=== PATIENT | male | born 1970 | race Caucasian/White ===

== ENCOUNTER 2023-04-01 14:08 | Outpatient (OUT) | payer MEDICARE, SELFPAY ==
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
== END 2023-04-01 14:09 | disposition home or self-care (01) ==
PROVIDERS: PCP Internal Medicine; Visit Provider Anesthesiology Pain Medicine
DX: G89.29 Other chronic pain (principal)
CPT/HCPCS: G0463

== ENCOUNTER 2023-04-29 07:17 | Day surgery (SDC) | payer MEDICARE, SELFPAY ==
[2023-04-29 07:32] LABS: Glucometer 117 mg/dL (74-106)
[2023-04-29 07:36] VITALS: BP 134/91; PULSE 76; RESP 16; TEMP 36.2; O2SAT 95
[2023-04-29 08:13] VITALS: BP 121/75; PULSE 77; RESP 20; O2SAT 94
[2023-04-29] MEDS: 0.9 % SODIUM CHLORIDE 10 ML SYRINGE - SALINE FLUSH INJ (08:16)
[2023-04-29] MEDS: [UNRECOGNIZED DRUG - OTHER] IM (08:16)
[2023-04-29 08:17] VITALS: BP 129/75; PULSE 72; RESP 20; O2SAT 94
[2023-04-29] MEDS: BUPIVACAINE HCL 0.25% PF 25 MG/10 ML VIAL 4 ML INJ (08:17)
--- NOTE | 2023-04-29 10:17 | W.PM.PROCNOT ---
Date of procedure: 04/29/23 Pre-op diagnosis: dystonia/muscle contracture Post-op diagnosis: same
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
== END 2023-04-29 08:22 | disposition home or self-care (01) ==
PROVIDERS: PCP Internal Medicine; Visit Provider Anesthesiology Pain Medicine
DX: G24.8 Other dystonia (principal); M79.18 Myalgia, other site
CPT/HCPCS: 36415; 64642; 77002; 82948; J0586

== ENCOUNTER 2023-05-07 12:41 | Outpatient (OUT) | payer MEDICARE, SELFPAY ==
--- NOTE | 2023-05-07 | CONS_ITS ---
CONSULTATION DATE: ??05/07/2023 TO:? Enoc Nicolas D.O. HISTORY:? Patient returns today complaining of 7/10 pain in his left hip area, described as a sharp pain, which increases with activity such as standing, walking and performing transitioning maneuvers.? Patient is most comfortable in the semi-recumbent position.? Denies any change in bowel and bladder habits or new sensory motor change in the lower extremities. EXAMINATION:? Notable for patient?s dystonic changes of his left gluteus medius are markedly improved after successful injection of Dysport; however, he does have some dysesthesia and hyperesthesia overlying the distribution of the cutaneous branch of the posterior femoral nerve.? IMPRESSION:? 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 RECOMMENDATIONS:? At this point, I recommend no further intervention for his residual pain symptom.? I have asked him to continue with baclofen 10 mg b.i.d. as tolerated.? We will see him back in the office in approximately three months; time or sooner if needed. As part of providing excellent, safe, comprehensive care, the following was completed at our patient's visit: 1. A medication reconciliation and review to ensure accurate knowledge of current/active medications, including asking our patients to inform us about any [id number] medications or herbal remedies/nutritional supplements/alternative remedies. 2. A review to specifically ensure our patients have had annual screening for: elevated body mass index (BMI, see intake chart for exact total), tobacco use, screening for depression, and screening for unhealthy alcohol use.? When screening is concerning, patients are provided with education and the specific recommendation to discuss the concerning health issue and treatment options with their primary care provider. BHAVYA
== END 2023-05-07 12:42 | disposition home or self-care (01) ==
LOC: PM 12:42
PROVIDERS: PCP Internal Medicine; Visit Provider Anesthesiology Pain Medicine
DX: G57.22 Lesion of femoral nerve, left lower limb (principal)
CPT/HCPCS: G0463

== ENCOUNTER 2023-08-07 10:57 | Outpatient (OUT) | payer MEDICARE, SELFPAY ==
--- NOTE | 2023-08-07 11:07 | P.CN_ITS ---
Consult Note: HPI Data of Consult Patient: known to practice within the last 3 years Requesting Physician: Rowan Montenegro NP Primary Care Provider: AYUSH ARBOLEDA MD Consult Narrative Reason for consult: f/u Narrative: Mauro Hebert a pleasant 52 year old male presents for evaluation and management of chronic left outer thigh pain. Pain today 03/31 described as a sharp pain, which increases with activity such as standing, walking and perf orming transitioning maneuvers.? Patient is most comfortable in the semi- recumbent position.? cc:: CC: Rowan Montenegro NP Review of Systems ROS Status of ROS 10 or more systems reviewed and unremarkable except as noted in history and below Meds Home Medications and Allergies Home Medications Medication Instructions Recorded Confirmed Type CBD BID 04/01/23 History atorvastatin 40 mg tablet 40 mg PO QPM 04/01/23 04/29/23 History baclofen 10 mg tablet 10 mg PO BID 04/01/23 04/29/23 History calcium 600 mg capsule mg PO BID 04/01/23 History cariprazine 1.5 mg capsule 1.5 mg PO DAILY 04/01/23 04/29/23 History (Vraylar) cetirizine 10 mg capsule (Zyrtec) 10 mg PO DAILY 04/01/23 04/29/23 History cholecalciferol (vitamin D3) 125 5,000 unit PO DAILY 04/01/23 04/29/23 History mcg (5,000 unit) capsule dextromethorphan 20 mg-quinidine 1 cap PO Q12H 04/01/23 04/29/23 History 10 mg capsule (Nuedexta) dulaglutide 3 mg/0.5 mL 3 mg subcut QWEEK 04/01/23 04/29/23 History subcutaneous pen injector (Trulicity) empagliflozin 25 mg tablet 25 mg PO QAM 04/01/23 04/29/23 History (Jardiance) famotidine 20 mg tablet 20 mg PO DAILY 04/01/23 04/29/23 History gabapentin enacarbil 600 mg 600 mg PO QPM 04/01/23 04/29/23 History tablet,extended release (Horizant ER) irbesartan 150 mg tablet 150 mg PO DAILY 04/01/23 04/29/23 History memantine 10 mg tablet (Namenda) 28 mg PO QAM 04/01/23 04/29/23 History metformin 1,000 mg tablet 1,000 mg PO BID 04/01/23 04/29/23 History montelukast 10 mg tablet 10 mg PO DAILY 04/01/23 04/29/23 History naltrexone 50 mg tablet 3 mg PO BID 04/01/23 04/29/23 History risperidone 0.5 mg tablet 0.5 mg PO DAILY 04/01/23 04/29/23 History (Risperdal) venlafaxine 75 mg capsule,extended 75 mg PO BID 04/01/23 04/29/23 History release 24 hr Allergies Allergy/AdvReac Type Severity Reaction Status Date / Time acetaminophen [From Vicodin] Allergy Unknown Verified 04/29/23 07:39 hydrocodone [From Vicodin] Allergy Unknown Verified 04/29/23 07:39 DONNATOL Allergy Unknown Uncoded 04/29/23 07:39 Exam Constitutional Documenting provider has reviewed patient's vital signs: yes Common normals: no apparent distress, oriented x3, healthy appearing, alert and well nourished General appearance: cooperative HENMT Common normals: normocephalic, hearing grossly normal bilaterally and moist oral mucous membranes Head and scalp: normocephalic Eye Common normals: PERRL Pupil: PERRL Neck & C-Spine Common normals: full ROM General: normal visual inspection Chest Common normals: inspection of chest normal Respiratory Common normals: normal respiratory effort, no retractions and no use of accessory muscles Extremity Other: dystonic changes of his left gluteus medius however, some dysesthesia and hyperesthesia overlying the distribution of the cutaneous branch of the posterior femoral nerve.? Extremity image (front): 1. Neuro Common normals: oriented x3, CN's II-XII intact bilaterally, moves all extre mities, no focal motor deficits, no sensory deficits noted and deep tendon reflexes 2+ bilaterally Sensorium/orientation: alert Motor exam: strength 5/5 throughout and no movement abnormalities noted Psych Common normals: mental status grossly normal, thought process normal, cooperative, affect normal, speech normal and activity/motor behavior normal Speech: normal speech Thought process: normal thought process Results Additional Findings Additional findings: I have checked an [facility] report on this patient today and there are no aberrancies noted in the prescribing history.?? A drug screen was completed and reviewed within the last year, and if there has not been a drug screen completed we ordered one today to monitor higher risk, state monitored pain medication use. As part of providing excellent, safe, comprehensive care, the following was completed at our patient's visit: 1. A medication reconciliation and review to ensure accurate knowledge of curre nt/active medications, including asking our patients to inform us about any zekt-[id number] medications or herbal remedies/nutritional supplements/alternative remedies. 2. A review to specifically ensure our patients have had annual screening for: elevated body mass index (BMI), tobacco use, screening for depression, and screening for unhealthy alcohol use. When screening is concerning, patients are provided with education and the specific recommendation to discuss the concerning health issue and treatment options with their primary care provider. Assessment and Plan Assessment and Plan (1) Dystonia: (2) Chronic pain syndrome: (3) Neuritis: Plan start transdermal therapeutics cream 6a to left outer thigh TID continue current medications will repeat dysport injection with Dr Ramirez in the future
== END 2023-08-07 10:58 | disposition home or self-care (01) ==
LOC: PM 10:57
PROVIDERS: PCP Internal Medicine; Visit Provider Nurse Practitioner
DX: G24.9 Dystonia, unspecified (principal); G89.4 Chronic pain syndrome; M79.2 Neuralgia and neuritis, unspecified
CPT/HCPCS: G0463

== ENCOUNTER 2023-08-26 09:21 | Day surgery (SDC) | payer MEDICARE, SELFPAY ==
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
[2023-08-26 10:08] VITALS: BP 120/81; PULSE 75; RESP 16; TEMP 36.2; O2SAT 97
[2023-08-26 10:12] LABS: Glucometer 94 mg/dL (74-106)
[2023-08-26 11:04] VITALS: BP 115/57; PULSE 74; RESP 18; O2SAT 95
[2023-08-26 11:13] VITALS: BP 131/72; PULSE 69; RESP 18; O2SAT 93
[2023-08-26] MEDS: [UNRECOGNIZED DRUG - OTHER] 600 UNIT IM (11:21)
[2023-08-26] MEDS: 0.9 % SODIUM CHLORIDE 10 ML SYRINGE - SALINE FLUSH 20 ML INJ (11:22)
[2023-08-26] MEDS: LIDOCAINE HCL 2% 400 MG/20 ML MDV 3 ML INJ (11:49)
== END 2023-08-26 11:22 | disposition home or self-care (01) ==
LOC: SURGOUT 09:21
PROVIDERS: PCP Internal Medicine; Visit Provider Anesthesiology Pain Medicine
DX: M79.652 Pain in left thigh (principal); Z79.84 Long term (current) use of oral hypoglycemic drugs; G24.8 Other dystonia
CPT/HCPCS: 36415; 64642; 77002; 82948; J0586

== ENCOUNTER 2024-06-08 11:32 | Outpatient (OUT) | payer MEDICARE, SELFPAY ==
--- NOTE | 2024-06-08 | CONS_ITS ---
CONSULTATION DATE: 06/08/2024 TO: Enoc Nicolas D.O. HISTORY: Patient presented today complaining of severe pain at the left buttock area, left hip area. Reports it rated 8/10, sharp in character, increased with activities such as standing, walking and performing transitioning maneuvers. He also reports prolonged standing is quite painful. Denies any change in bowel and bladder habits. Describes a burning sensation and sometimes numbness of his left buttock and hip area, which is fairly new. He continues to use baclofen 10 mg b.i.d., gabapentin 600 mg q.h.s. He is unable to tolerate nonsteroidals secondary to GI distress. He continues to be on an independent activity program, which is supervised by myself, and he has been quite compliant with this. Despite this, he has been having progressive increasing pain symptoms over the last six weeks, despite increasing his baclofen and changes in his activity level. His TROY on today?s visit was 42% EXAMINATION: Notable for patient having dysesthesia and hyperesthesia overlying the distribution of the cutaneous branch of the posterior femoral nerve. Patient also had significant myofascial dysfunction with dystonic changes left gluteus medius with concurrent myalgia, resulting in mild hip external rotation as well as mild hip extension. IMPRESSION: Our impression is patient with chronic pain, secondary to dystonic changes of the left gluteus medius muscle and neuritis involving the cutaneous branch of the posterior femoral nerve. RECOMMENDATIONS: I recommend proceeding with a Dysport injection of the left gluteus medius under fluoroscopic guidance using a nerve stimulator. We will use a total of 300 units. His last injection was back in April of 2023. He had over a year of improvement with his last procedure. I have gone over the details of procedure with the patient, as well as his mother. All their questions were answered. They agreed to proceed with the outlined plan. As part of providing excellent, safe, comprehensive care, the following was completed at our patient's visit: 1. A medication reconciliation and review to ensure accurate knowledge of current/active medications, including asking our patients to inform us about any [id number] medications or herbal remedies/nutritional supplements/alternative remedies. 2. A review to specifically ensure our patients have had annual screening for: elevated body mass index (BMI, see intake chart for exact total), tobacco use, screening for depression, and screening for unhealthy alcohol use. When screening is concerning, patients are provided with education and the specific recommendation to discuss the concerning health issue and treatment options with their primary care provider. BHAVYA
== END 2024-06-08 11:33 | disposition home or self-care (01) ==
LOC: PM 11:32
PROVIDERS: PCP Internal Medicine; Visit Provider Anesthesiology Pain Medicine
DX: M25.552 Pain in left hip (principal); M79.18 Myalgia, other site
CPT/HCPCS: G0463

== ENCOUNTER 2024-06-22 08:14 | Day surgery (SDC) | payer MEDICARE, SELFPAY ==
[2024-06-22 08:38] VITALS: BP 122/85; PULSE 94; TEMP 36.3; O2SAT 95
[2024-06-22 08:51] LABS: Glucometer 90 mg/dL (74-106)
[2024-06-22 09:25] VITALS: BP 165/91; PULSE 84; O2SAT 94
[2024-06-22 09:30] VITALS: BP 148/95; PULSE 84; O2SAT 94
[2024-06-22] MEDS: 0.9 % SODIUM CHLORIDE 10 ML SYRINGE - SALINE FLUSH 9 ML INJ (09:37)
[2024-06-22] MEDS: [UNRECOGNIZED DRUG - OTHER] IM (09:37)
--- NOTE | 2024-06-22 09:43 | W.PM.PROCNOT ---
Date of procedure: 06/22/24 Pre-op diagnosis: Dystonia Post-op diagnosis: same as pre-op Procedure: PROCEDURE:? Dysport infiltration left gluteus medius under fluoroscopic guidance. SOLUTION USED FOR INJECTION:? Dysport 300 units. IMMEDIATE COMPLICATIONS:? None. PERFORMED:? Under fluoroscopic guidance, 2% lidocaine used for the skin wheal. ANESTHESIA:? Performed under local anesthesia. PROCEDURE:? After informed consent was obtained from the patient, placed in the prone position.? Skin overlying the area was prepped with Betadine.? A 25 gauge, 1 ?? needle used for the skin wheal over the area of the left gluteus medius, at a point just distal to the greater trochanter.? A 25g spinal needle was inserted over the area of the left gluteus medius after having positive capture of the left gluteus medius with nerve stimulation.? We injected Omnipaque dye 1 mL to confirm needle tip placement.? We injected 300 units of Dysport in the area.? No indication of intravascular or intraneural needle tip placement or injection was noted.? Post procedure, needle was removed and transferred to recovery in stable condition, to be discharged home after meeting criteria. Anesthesia: Local Surgeon: Kilo Ramirez Condition: stable Anesthesia: Local Surgeon: Kilo Ramirez Condition: stable
== END 2024-06-22 09:41 | disposition home or self-care (01) ==
LOC: SURGOUT 08:14
PROVIDERS: PCP Internal Medicine; Visit Provider Anesthesiology Pain Medicine
DX: G24.9 Dystonia, unspecified (principal)
CPT/HCPCS: 36415; 64642; 77002; 82948; J0586

== ENCOUNTER 2024-12-16 09:24 | Outpatient (OUT) | payer MEDICARE, SELFPAY ==
--- NOTE | 2024-12-16 09:53 | P.CN_ITS ---
Consult Note: HPI Data of Consult Patient: known to practice within the last 3 years Requesting Physician: Rowan Montenegro NP Primary Care Provider: AYUSH ARBOLEDA DO Consult Narrative Reason for consult: f/u Narrative: Mauro Hebert a pleasant 54 year old male presents for evaluation and management of chronic left outer thigh pain. Pain today 8-9/10 described as a sharp pain, which increases with activity such as standing, walking and performing transitioning maneuvers.? Patient is most comfortable in the semi- recumbent position.? cc:: CC: Rowan Montenegro NP Review of Systems ROS Status of ROS 10 or more systems reviewed and unremark able except as noted in history and below Musculoskeletal Reports: extremity pain PFSH PFS Medical History (Updated 12/16/24 @ 09:55 by Roawn Montenegro NP) Diabetes ?E11.9 - Type 2 diabetes mellitus without complications (ICD-10) Tear of left gluteus medius tendon ?S76.012A - Strain of muscle, fascia and tendon of left hip, initial encounter (ICD-10) Rheumatoid arthritis ?M06.9 - Rheumatoid arthritis, unspecified (ICD-10) Sleep apnea ?G47.30 - Sleep apnea, unspecified (ICD-10) High cholesterol ?E78.00 - Pure hypercholesterolemia, unspecified (ICD-10) Meds Home Medications and Allergies Home Medications ?Medication ?Instructions ?Recorded ?Confirmed ?Type CBD BID 04/01/23 History atorvastatin 40 mg tablet 40 mg PO QPM 04/01/23 06/22/24 History baclofen 10 mg tablet 10 mg PO BID 04/01/23 06/22/24 History calcium 600 mg capsule mg PO BID 04/01/23 History cariprazine 1.5 mg capsule 1.5 mg PO DAILY 04/01/23 06/22/24 History (Vraylar) dextromethorphan 20 mg-quinidine 1 cap PO Q12H 04/01/23 06/22/24 History 10 mg capsule (Nuedexta) dulaglutide 3 mg/0.5 mL 3 mg subcut QWEEK 04/01/23 06/22/24 History subcutaneous pen injector (Trulicity) empagliflozin 25 mg tablet 25 mg PO QAM 04/01/23 06/22/24 History (Jardiance) gabapentin enacarbil 600 mg 600 mg PO QPM 04/01/23 06/22/24 History tablet,extended release (Horizant ER) irbesartan 150 mg tablet 150 mg PO DAILY 04/01/23 06/22/24 History memantine 10 mg tablet (Namenda) 28 mg PO QAM 04/01/23 06/22/24 History metformin 1,000 mg tablet 1,000 mg PO BID 04/01/23 06/22/24 History naltrexone 50 mg tablet 3 mg PO BID 04/01/23 06/22/24 History risperidone 0.5 mg tablet 0.5 mg PO DAILY 04/01/23 06/22/24 History (Risperdal) venlafaxine 75 mg capsule,extended 75 mg PO .qod 04/01/23 06/22/24 History release 24 hr modafinil 100 mg tablet (Provigil) 100 mg PO DAILY 08/20/23 06/22/24 History Allergies Allergy/AdvReac Type Severity Reaction Status Date / Time hydrocodone (From Vicodin) Allergy Unknown Verified 08/26/23 10:06 DONNATOL Allergy Unknown Uncoded 08/26/23 10:06 Exam Constitutional Documenting provider has reviewed patient's vital signs: yes Common normals: no apparent distress, oriented x3, healthy appearing, alert and well nourished General appearance: cooperative HENMT Common normals: normocephalic, hearing grossly normal bilaterally and moist oral mucous membranes Head and scalp: normocephalic Eye Common normals: PERRL Pupil: PERRL Neck & C-Spine Common normals: full ROM General: normal visual inspection Chest Common normals: inspection of chest normal Respiratory Common normals: normal respiratory effort, no retractions and no use of accessory muscles Extremity Other: dystonic changes of his left gluteus medius however, some dysesthesia and hyperesthesia overlying the distribution of the cutaneous branch of the posterior femoral nerve.? notable tenderness to left GTB Neuro Common normals: oriented x3, CN's II-XII intact bilaterally, moves all extremities, no focal motor deficits, no sensory deficits noted and deep tendon reflexes 2+ bilaterally Sensorium/orientation: alert Motor exam: strength 5/5 throughout and no movement abnormalities noted Psych Common normals: mental status grossly normal, thought process normal, cooperative, affect normal, speech normal and activity/motor behavior normal Speech: normal speech Thought process: normal thought process Results Additional Findings Additional findings: I have checked an OARRS report on this patient today and there are no aberrancies noted in the prescribing history.?? A drug screen was completed and reviewed within the last year, and if there has not been a drug screen completed we ordered one today to monitor higher risk, state monitored pain medication use. As part of providing excellent, safe, comprehensive care, the following was completed at our patient's visit: 1. A medication reconciliation and review to ensure accurate knowledge of current/active medications, including asking our patients to inform us about any [id number] medications or herbal remedies/nutritional supplements/alternative remedies. 2. A review to specifically ensure our patients have had annual screening for: elevated body mass index (BMI), tobacco use, screening for depression, and screening for unhealthy alcohol use. When screening is concerning, patients are provided with education and the specific recommendation to discuss the concerning health issue and treatment options with their primary care provider. Assessment and Plan Assessment and Plan (1) Dystonia: (2) Chronic pain syndrome: (3) Neuritis: (4) Greater trochanteric bursitis of left hip: Plan repeat left gluteus medius dysport injection for dystonia of left gluteus medius. pt found significant benefit from prior injection >80% improvement greater than 4 months continue HEP as tolerated continue current medications f/u after injection
== END 2024-12-16 09:25 | disposition home or self-care (01) ==
LOC: PM 09:25
PROVIDERS: PCP Internal Medicine; Visit Provider Nurse Practitioner
DX: G24.9 Dystonia, unspecified (principal); G89.4 Chronic pain syndrome; G58.8 Other specified mononeuropathies; M70.62 Trochanteric bursitis, left hip
CPT/HCPCS: G0463

== ENCOUNTER 2024-12-27 10:13 | Day surgery (SDC) | payer MEDICARE, SELFPAY ==
[2024-12-27 11:09] VITALS: BP 136/87; PULSE 70; TEMP 36.2
[2024-12-27 11:18] LABS: Glucometer 87 mg/dL (74-106)
[2024-12-27] MEDS: BUPIVACAINE HCL 0.25% PF 25 MG/10 ML VIAL INJ (11:59)
[2024-12-27] MEDS: LIDOCAINE HCL 2% PF 100 MG/5 ML VIAL 2 ML INJ (12:00)
[2024-12-27] MEDS: METHYLPREDNISOLONE ACETATE 80 MG/ML VIAL INJ (12:00)
[2024-12-27] MEDS: IOHEXOL 240 MG/ML - 50 ML VIAL INJ (12:00)
[2024-12-27] MEDS: 0.9 % SODIUM CHLORIDE 10 ML SYRINGE - SALINE FLUSH INJ (12:00)
[2024-12-27] MEDS: [UNRECOGNIZED DRUG - OTHER] IM (12:01)
--- NOTE | 2024-12-27 12:01 | W.PM.PROCNOT ---
Date of procedure: 12/27/24 Pre-op diagnosis: Dystonia Post-op diagnosis: same as pre-op Procedure: Procedure: Dysport infiltration left gluteus medius under fluoroscopic guidance SOLUTION USED FOR INJECTION:? Dysport 300 units. IMMEDIATE COMPLICATIONS:? None. PERFORMED:? Under fluoroscopic guidance, 2% lidocaine used for the skin wheal. ANESTHESIA:? Performed under local anesthesia. PROCEDURE:? After informed consent was obtained from the patient, placed in the prone position.? Skin overlying the area was prepped with Betadine.? A 25 gauge, 1 ?? needle used for the skin wheal over the area of the left gluteus medius, at a point just distal to the greater trochanter.? A 25g spinal needle was inserted over the area of the left gluteus medius after having positive capture of the left gluteus medius with nerve stimulation.? We injected Omnipaque dye 1 mL to confirm needle tip placement.? We injected 300 units of Dysport in the area.? No indication of intravascular or intraneural needle tip placement or injection was noted.? Post procedure, needle was removed and transferred to recovery in stable condition, to be discharged home after meeting criteria. Anesthesia: Local Surgeon: Refugio Javier Pathology: none sent Condition: stable Disposition: no change
== END 2024-12-27 12:06 | disposition home or self-care (01) ==
LOC: SURGOUT 10:14
PROVIDERS: PCP Internal Medicine; Visit Provider Anesthesiology
DX: G24.9 Dystonia, unspecified (principal); E11.8 Type 2 diabetes mellitus with unspecified complications; Z79.85 Long-term (current) use of injectable non-insulin antidiabetic drugs; Z79.84 Long term (current) use of oral hypoglycemic drugs
CPT/HCPCS: 36415; 64642; 82948; J0586; J0665; J1010; Q9966

== ENCOUNTER 2025-01-17 13:23 | Outpatient (OUT) | payer MEDICARE, SELFPAY ==
--- NOTE | 2025-01-17 14:16 | P.CN_ITS ---
Consult Note: HPI Data of Consult Patient: known to practice within the last 3 years Consult date: 01/17/25 Requesting Physician: Refugio Javier MD Primary Care Provider: AYUSH ARBOLEDA DO Consult Narrative Reason for consult: bilateral knee pain Narrative: 54yom who presents for assessment. notes significant relief after recent right gluteus injection. now notes worsening bilateral knee pain. denies adverse med side effects. cc:: CC: Refugio Javier MD Review of Systems ROS Status of ROS 10 or more systems reviewed and unremark able except as noted in history and below PFSH PFS Medical History Low back pain ?M54.50 - Low back pain, unspecified (ICD-10) Diabetes ?E11.9 - Type 2 diabetes mellitus without complications (ICD-10) Tear of left gluteus medius tendon ?S76.012A - Strain of muscle, fascia and tendon of left hip, initial encounter (ICD-10) Rheumatoid arthritis ?M06.9 - Rheumatoid arthritis, unspecified (ICD-10) Sleep apnea ?G47.30 - Sleep apnea, unspecified (ICD-10) High cholesterol ?E78.00 - Pure hypercholesterolemia, unspecified (ICD-10) Surgical History S/P tendon repair ?Z98.890 - Other specified postprocedural states (ICD-10) S/P ORIF (open reduction internal fixation) fracture ?Z98.890 - Other specified postprocedural states (ICD-10) ?Z87.81 - Personal history of (healed) traumatic fracture (ICD-10) Meds Home Medications and Allergies Home Medications ?Medication ?Instructions ?Recorded ?Confirmed ?Type CBD BID 04/01/23 History atorvastatin 40 mg tablet 40 mg PO QPM 04/01/23 12/27/24 History calcium 600 mg capsule mg PO BID 04/01/23 History cariprazine 1.5 mg capsule 1.5 mg PO DAILY 04/01/23 12/27/24 History (Vraylar) dextromethorphan 20 mg-quinidine 1 cap PO Q12H 04/01/23 12/27/24 History 10 mg capsule (Nuedexta) dulaglutide 3 mg/0.5 mL 3 mg subcut QWEEK 04/01/23 12/27/24 History subcutaneous pen injector (Trulicity) empagliflozin 25 mg tablet 25 mg PO QAM 04/01/23 12/27/24 History (Jardiance) gabapentin enacarbil 600 mg 600 mg PO QPM 04/01/23 12/27/24 History tablet,extended release (Horizant ER) memantine 10 mg tablet (Namenda) 28 mg PO QAM 04/01/23 12/27/24 History metformin 1,000 mg tablet 1,000 mg PO BID 04/01/23 12/27/24 History naltrexone 50 mg tablet 3 mg PO BID 04/01/23 12/27/24 History risperidone 0.5 mg tablet 0.5 mg PO DAILY 04/01/23 12/27/24 History (Risperdal) venlafaxine 75 mg capsule,extended 75 mg PO .qod 04/01/23 12/27/24 History release 24 hr modafinil 100 mg tablet (Provigil) 100 mg PO DAILY 08/20/23 12/27/24 History acetaminophen 500 mg tablet 500 mg PO Q6H PRN pain 12/28/24 12/28/24 History (Acetaminophen Extra Strength) aspirin 81 mg capsule 81 mg PO DAILY 12/28/24 12/28/24 History baclofen 10 mg tablet mg 12/28/24 History cetirizine 10 mg disintegrating 10 mg PO BID PRN allergy symptoms 12/28/24 12/28/24 History tablet cholecalciferol (vitamin D3) 125 5,000 unit PO DAILY 12/28/24 12/28/24 History mcg (5,000 unit) capsule diphenhydramine HCl 25 mg capsule 25 mg PO Q8H PRN itching 12/28/24 12/28/24 History (Benadryl) famotidine 20 mg tablet 20 mg PO DAILY PRN indigestion 12/28/24 12/28/24 History irbesartan 75 mg tablet mg 12/28/24 History montelukast 10 mg tablet mg 12/28/24 History Allergies Allergy/AdvReac Type Severity Reaction Status Date / Time atropine (From ) Allergy Unknown Unknown Verified 12/27/24 11:28 hydrocodone (From Vicodin) Allergy Unknown Unknown Verified 12/27/24 11:28 hyoscyamine (From ) Allergy Unknown Unknown Verified 12/27/24 11:28 phenobarbital (From ) Allergy Unknown Unknown Verified 12/27/24 11:28 scopolamine (From ) Allergy Unknown Unknown Verified 12/27/24 11:28 Exam Narrative Exam Narrative: Psych-alert and oriented x 3.? Attentive and appropriate, constitutionally normal, displays normal mood and aff ect per situation.? There are no obvious deficits in memory, reasoning, or intellect. Extremities-lower extremities are warm with minimal edema and palpable pulses. Knee-examination of the bilateral knee reveals tenderness to palpation over the superior, inferior, lateral, and medial aspect of the knee.? Some swelling is noted without erythema. Pain is elicited with flexion and extension of the knee both actively and passively.? Some grinding is noted with these motions.? There is no notable ligamental laxity or instability.? Coordination remains intact.? Gait remains antalgic. Assessment and Plan Assessment and Plan (1) Bilateral knee pain: Qualifiers: Chronicity: chronic Qualified Code(s): M25.561 - Pain in right knee; M25.562 - Pain in left knee; G89.29 - Other chronic pain Plan 54yom who presents for assessment. i am glad that he had significant relief after his recent injection. his primary complaint now is bilateral knee pain. discussed that if this were to persist, could obtain bilateral knee xrs. he expressed understanding. meds reviewed, no changes. follow up as needed.
== END 2025-01-17 13:24 | disposition home or self-care (01) ==
LOC: PM 13:25
PROVIDERS: PCP Internal Medicine; Visit Provider Anesthesiology
DX: M25.561 Pain in right knee (principal); M25.562 Pain in left knee; G89.29 Other chronic pain
CPT/HCPCS: G0463

== ENCOUNTER 2025-05-18 13:47 | Outpatient (OUT) | payer MEDICARE, SELFPAY ==
--- OUTSIDE RECORDS SUMMARY | 2025-05-18 13:51 | XMS_ITS | Encounter Summary ---
Author Organization [facility] Address [address] [place] [address] Care Team Providers Care Cardiothoracic Icu Rn Name Role Phone Fareed Edmondson [facility] [phone] Fidencio Goode DO, Charles [facility] Source Comments In the event this information is protected by the Federal Confidentiality of Alcohol and Drug AbusePatient Records regulations: The Federal rules restrict any use of the information to criminally investigate or prosecute any alcohol or drug abuse patient.[facility] Encounter Details Date Type Department Care Team (Late st Contact Info) Description 01/29/2022 Patient Msg Pre Anesthesia [address] [place], [place] [id number] Jenny Marquez APRN.[employer] [address] [place] [address] Pre-op Instructions Social History Tobacco Use Types Packs/Day Years Used Date Smoking Tobacco: Former Cigarettes Smokeless Tobacco: Former Chew Alcohol Use Standard Drinks/Week Comments Never 0 (1 standard drink = 0.6 oz pur e alcohol) Sex and Gender Information Value Date Recorded Sex Assigned at Male 11/27/2021 7:24 PM EST Legal Sex Male 9:45 AM EST Gender Identity Male 11/27/2021 7:24 PM EST Sexual Orientation Choose not to disclose 2021 7:24 PM EST COVID-19 Exposure Response Date Recorded In the last 10 days, have yo u been in contact with someone who was confirmed or suspected to have Coronavirus/COVID-19? No / Unsure 01/30/2022 10:30 AM EDT documented as of this encounter Plan of Treatment Not on file documented as of this encounter Visit Diagnoses Not on filedocumented in this encounter Additional Health Concerns Infection Onset Date Last Indicated Resolved Time COVID-19 Rule-Out 01/30/2022 01/30/2022 01/30/2022 5:57 PM EDT documented as of this encounter Care Teams Cardiothoracic Icu Rn Relationship Specialty Start Date End Date Enoc Nicolas Jr., DO [facility] [place] [address] PCP - General Internal Medicine 01/25/22 Fareed Edmondson [address] [place] [address] Referring Pain Management 11/13/21 documented as of this encounter
--- OUTSIDE RECORDS SUMMARY | 2025-05-18 13:51 | XMS_ITS | Clinical Summary ---
Author Organization [facility] Address [address] [facility], [address] [place] [address] Care Team Providers Care Stone Product Fabricator Name Role Phone Enoc Nicolas DO Primary Care Provider Allergies No known active allergies Medications calcium carbonate 600 MG TABS tablet Take 1 tablet by mouth daily Active venlafaxine 150 MG extended release tablet Take 150 mg by mouth 2 times daily Active losartan (COZAAR) 100 MG tablet Take 100 mg by mouth daily Active Cholecalciferol (VITAMIN D3) 5000 units TABS Take by mouth Active atorvastatin (LIPITOR) 40 MG tablet Take 40 mg by mouth daily Active [place]-3 Fatty Acids (FISH OIL) 1000 MG CAPS Take 3,000 mg by mouth 3 times daily Active ziprasidone (GEODON) 60 MG capsule Take 60 mg by mouth 2 times daily (with meals) Active gabapentin (NEURONTIN) 600 MG tablet Take 600 mg by mouth 3 times daily.. Active psyllium (KONSYL) 28.3 % PACK Take 1 packet by mouth daily Active famotidine (PEPCID) 20 MG tablet Take 20 mg by mouth 2 times daily Active montelukast (SINGULAIR) 10 MG tablet Take 10 mg by mouth nightly Active dextromethorpha n-quiNIDine (NUEDEXTA) 20-10 MG CAPS per capsule Take 1 capsule by mouth daily Active baclofen (LIORESAL) 10 MG tablet Take 10 mg by mouth 3 times daily Active acetaminophen (TYLENOL) 500 MG tablet Take 1 tablet by mouth every 8 hours as needed for Pain 30 tablet 08/26/2018 Active naproxen (NAPROSYN) 250 MG tablet Take 1 tablet by mouth 2 times daily (with meals) 60 tablet 08/26/2018 Active Active Problems Problem Noted Date Diagnosed Date Multiple closed fractures of ribs 08/22/2018 Social History Tobacco Use Types Packs/Day Years Used Date Smoking Tobacco: Never Smokeless Tobacco: Never Alcohol Use Standard Drinks/Week Comments No 0 (1 standard drink = 0.6 oz pur e alcohol) Sex and Gender Information Value Date Recorded Sex Assigned at Not on file Legal Sex Male 1:00 PM EST Gender Identity Not on file Sexual Orientation Not on file Last Filed Vital Signs Vital Sign Reading Time Taken Comments Blood Pressure 153/116 08/26/2018 4:29 PM EST Pulse 95 08/26/2018 4:29 PM EST Temperature 36.6 C (97.9 F) 08/26/2018 7:00 AM EST Respiratory Rate 17 08/26/2018 7:00 AM EST Oxygen Saturation 97% 08/26/2018 7:00 AM EST Inhaled Oxygen Concentration - - Weight 117.9 kg (260 lb) 08/23/2018 6:00 PM EST Height 182.9 cm (6') 08/23/2018 6:00 PM EST Body Mass Index 35.26 08/23/2018 6:00 PM EST Plan of Treatment Not on [place] [place] [address] [employer] Advance Directives Documents on File Type Date Recorded Patient Voip Network Technician Expl anation ACP-Advance Directive 08/27/2018 1:10 PM ACP-Power of Child Advocate 08/27/2018 1:10 PM * Full Code (Latest Code Status on File) Date Activated Date Inactivated Comments 08/22/2018 3:14 PM 08/26/2018 9:25 PM Care Teams Stone Product Fabricator Relationship Specialty Start Date End Date Enoc Nicolas DO [address] [place] [id number] PCP - General Internal Medicine 08/22/18
--- OUTSIDE RECORDS SUMMARY | 2025-05-18 13:51 | XMS_ITS | Encounter Summary ---
Author Organization [facility] Address [address] [place] [address] Care Team Providers Care Imaging Science Professor Name Role Phone Fareed Edmondson Unavailable [phone] Fidencio Goode DO, Charles Lewis Primary Care [facility] Source Comments In the event this information is protected by the Federal Confidentiality of Alcohol and Drug AbusePatient Records regulations: The Federal rules restrict any use of the information to criminally investigate or prosecute any alcohol or drug abuse patient.[facility] Encounter Details Date Type Department Care Team (Late st Contact Info) Description 04/12/2022 Patient Msg Orth and Rheum [facility] [address] [place] [address] Provider, [facility] medication Social History Tobacco Use Types Packs/Day Years Used Date Smoking Tobacco: Former Cigarettes Smokeless Tobacco: Former Chew Alcohol Use Standard Drinks/Week Comments Never 0 (1 standard drink = 0.6 oz pur e alcohol) Area Deprivation Index Answer Date Win rded National Score (1-100), lower number is lower ri 64 02/13/2022 State Score (1-10), lower number is lower risk N ot on file 02/13/2022 Data from: https://www.neighborhoodatlas.[facility].edu/. Last address used for calculation [address] 02/13/2022 Sex and Gender Information Value Date Recorded [...] suspected to have Coronavirus/COVID-19? No / Unsure 03/15/2022 11:52 AM EDT documented as of this encounter Functional Status * Are you deaf or do you have serious difficulty hearing? Answer Date of Assessment Author No 01/31/2022 12:59 PM EDT Florian Ramos RN * Are you blind or do you have serious difficulty seeing, even when wearing glasses? Answer Date of Assessment Author No 01/31/2022 12:59 PM EDT Florian Ramos RN * Do you have serious difficulty walking or climbing stairs? Answer Date of Assessment Author No 01/31/2022 12:59 PM EDT Florian Ramos RN * Do you have difficulty dressing or bathing? Answer Date of Assessment Author No 01/31/2022 12:59 PM EDT Florian Ramos RN * Because of a physical, mental, or emotional condition, do you have difficulty doing errands alone such as visiting a doctor's office or shopping? Answer Date of Assessment Author No 01/31/2022 12:59 PM EDT Florian Ramos RN documented as of this encounter Mental Status * Because of a physical, mental, or emotional condition, do you have serious difficulty concentrating, remembering, or making decisions? Answer Entry Date Author No 01/31/2022 12:59 PM EDT Florian Ramos RN documented in this encounter Plan of Treatment Not on file documented as of this encounter Visit Diagnoses Not on filedocumented in this encounter Care Teams Imaging Science Professor Relationship Specialty Start Date End Date Enoc Nicolas Jr., [address] [facility] [place] [address] PCP - General Internal Medicine 01/25/22 Fareed Edmondson [address] [place] [address] Referring Pain Management 11/13/21 documented as of this encounter
--- OUTSIDE RECORDS SUMMARY | 2025-05-18 13:51 | XMS_ITS | Clinical Summary ---
Author Organization [facility] Address [address] [place] [address] Care Team Providers Care Fibrous Plasterer Name Role Phone Fareed Edmondson Unavailable [phone] Fidencio Goode DO, Charles Lewis Primary Care Provi rowan Allergies Active Allergy Reactions Criticality Noted Date Comments Donnatol [Other] 04/30/2001 hives Hydrocodone-Acetaminophen Anaphylaxis High 2 Medications * This document contains information received from the source organization and may not represent a complete record from that organization. FIBER, DEXTRIN, ORAL Take by mouth. Activ e Calcium Carbonate-Vitamin D3 (VITAMIN D-3) 180-5,000 mg-unit Tab Take 5,000 Units by mouth daily at bedtime. Active NUEDEXTA 20-10 mg capsule Take 1 capsule by mouth twice daily. 11/29/19 22 Active metFORMIN (GLUCOPHAGE) 500 mg tablet Take 1 tablet by mouth twice daily. 11/24/19 22 Active calcium carbonate/vitamin D2 ([id number] ORAL) Take 1 tablet by mouth twice daily. Active venlafaxine ER (EFFEXOR XR) 150 mg 24 hr capsule Take 150 mg by mouth once daily. Active irbesartan (AVAPRO) 300 mg tablet Take 300 mg by mouth daily at bedtime. Active memantine XR (NAMENDA XR) 28 mg CSpX Take 28 mg by mouth once daily. Active gabapentin enacarbil (HORIZANT) 600 mg TbER Take 1 tablet by mouth once daily. Active famotidine (PEPCID) 20 mg tablet Take 20 mg by mouth once daily. Active montelukast (SINGULAIR) 10 mg tablet Take 10 mg by mouth daily at bedtime. Active baclofen (LIORESAL) 10 mg tablet Take 10 mg by mouth three times daily. Active empagliflozin (JARDIANCE) 25 mg tablet Take 12.5 mg by mouth daily with breakfast. Active sulindac (CLINORIL) 200 mg tablet Take 200 mg by mouth twice daily. Active dulaglutide (TRULICITY) 3 mg/0.5 mL pen injector Inject 3 mg subcutaneously one time a week. Active atorvastatin (LIPITOR) 40 mg tablet Take 40 mg by mouth once daily. Active ondansetron orally disintegrating (ZOFRAN ODT) 4 mg disintegrating tablet Take 1 tablet by mouth every 8 hours as needed for nausea/vomiting. 12 tablet 2 2:03 PM EDT 01/31/20 Active acetaminophen (ACETAMINOPHEN EXTRA STRENGTH) 500 mg tablet Take 1 tablet by mouth every 6 hours as needed for pain. 40 tablet 2 2:03 PM EDT 01/31/20 Active ziprasidone (GEODON) 60 mg capsule Take 1 capsule by mouth three times daily with meals. 02/01/20 Active ibuprofen (MOTRIN) 600 mg tablet Take 1 tablet by mouth every 6 hours as needed for pain (and swelling). 60 tablet 02/16/20 Active methocarbamol (ROBAXIN) 500 mg tablet Take 1 tablet by mouth three times daily as needed (muscle spasms or pain). 40 tablet 08/09/20 Active Active Problems Problem Noted Date Diagnosed Date Type 2 diabetes mellitus, [facility] long-term current use of insulin 01/29/2022 Assessment & Plan (01/29/2022 11:48 AM EDT): Assessment: controlled on weekly injectable and oral meds, Pt states he has been taking his Jardiance, last dose this am. Surgery is tomorrow. A1c requested from PCP's office Dementia 01/29/2022 Assessment & Plan (01/29/2022 11:49 AM EDT): Assessment: secondary to TBI, PCP now manages medications for this Mixed hyperlipidemia 01/29/2022 Assessment & Plan (01/29/2022 11:49 AM EDT): Assessment: c/w statin Essential hypertension, benign 01/29/2022 Assessment & Plan (01/29/2022 11:50 AM EDT): Assessment: controlled on rx Last 14 BP Last 14 Encounter BP Readings: Date: BP: 08/03/2012 120/86 07/16/2012 125/95 06/26/2001 128/72 06/12/2001 118/68 06/02/2001 112/72 05/18/2001 144/94 04/30/2001 120/84 MART (obstructive sleep apnea) 01/29/2022 Assessment & Plan (01/29/2022 11:50 AM EDT): Assessment: c/w CPAP Anxiety and depression 01/29/2022 Assessment & Plan (01/29/2022 11:50 AM EDT): Assessment: stable on rx per pt and family Tear of left gluteus medius tendon 01/29/2022 Pain in joint, pelvic region and thigh 2 Neuralgia, neuritis, and radiculitis, unspecifie d 05/03/2001 Myalgia and myositis, unspecified 05/03/2001 Social History Tobacco Use Types Packs/Day Years Used Date Smoking Tobacco: Former Cigarettes Smokeless Tobacco: Former Chew Tobacco Cessation:Counseling Given: Not Answered Alcohol Use Standard Drinks/Week Comments Never 0 (1 standard drink = 0.6 oz pur e alcohol) Area Deprivation Index Answer Date Win rded National Score (1-100), lower number is lower ri sk 64 10/16/2022 State Score (1-10), lower number is lower risk N ot on file 10/16/2022 Data from: https://www.neighborhoodatlas.medicine.[facility].edu/. Last address used for calculation [address] 10/16/2022 Sex and Gender Information Value Date Recorded Sex Assigned at Male 11/27/2021 7:24 PM EST Legal Sex Male 9:45 AM EST Gender Identity Male 11/27/2021 7:24 PM EST Sexual Orientation Choose not to disclose 2021 7:24 PM EST Last Filed Vital Signs Vital Sign Reading Time Taken Comments Blood Pressure 120/78 01/31/2022 8:58 AM EDT Pulse 75 01/31/2022 8:58 AM EDT Temperature 36.8 C (98.2 F) 01/31/2022 8:58 AM EDT Respiratory Rate 18 01/31/2022 8:58 AM EDT Oxygen Saturation 97% 01/31/2022 8:58 AM EDT Inhaled Oxygen Concentration - - Weight 98.1 kg (216 lb 4.3 oz) 01/30/2022 5:25 P M EDT Height 188 cm (6' 2 ) 01/30/2022 5:25 PM EDT Body Mass Index 27.77 01/30/2022 5:25 PM EDT Plan of Treatment Health Maintenance Due Date Last Done Comments HbA1C 1974 Diabetic Foot Exam 11/24/1979 Dilated Retinal Exam 11/24/1979 Urine Albumin:Creatinine Ratio 11/24/1979 Annual PCP Team Chronic Disease Visit 11/24/1987 HIV Screening 11/24/1987 Hepatitis C Screening 11/24/1987 LDL Cholesterol 11/24/1987 Hepatitis B Vaccine (1 of 3 - 19+ 3-dose series) 11/23 Pneumococcal Vaccine: 50+ (1 of 2 - PCV) 1988 CT Colonography 2014 Cologuard (FIT-DNA) 2014 Colonoscopy 2014 Colorectal Cancer Screening 2014 Fecal Occult Blood 2014 Prostate Cancer Screening Discussion 2014 Sigmoidoscopy 2014 Shingrix Vaccine (1 of 2) 11/24/2019 Medicare Advantage Annual Wellness Visit 09/22/2024 Influenza Vaccine (#1) 2025 DTaP,Tdap,Td Vaccine (2 - Td or Tdap) 06/20/2032 Medical Devices Implanted Type Area Childcare Director Device Identifier Shelf Expiration Date Model / Serial / Lot Drybranch Swivelock 4.75mm Peek 19.1mm Suture Closed Eyelet Vent Sterile - [id number] Implanted:Qty : 1 on 01/30/2022 at [facility] Drybranch Left: Leg [employer] 06/21/2025 [id number] / / [id number] Drybranch Swivelock 4.75mm Peek 19.1mm Suture Closed Eyelet Vent Sterile - [id number] Implanted:Qty : 1 on 01/30/2022 at [facility] Drybranch Left: Leg [employer] 04/21/2026 [id number] / / [id number] Drybranch Healicoil Pk 4.5mm 2 Full Thread [place] Suture 2 - [id number] Implanted:Qty : 1 on 01/30/2022 at [facility] Suture Drybranch Left: Bone - Hip [employer] 02/23/2026 [id number] / / [id number] Drybranch Healicoil Pk 4.5mm 2 Full Thread Blue [place] Suture 2 - [id number] Implanted:Qty : 1 on 01/30/2022 at [facility] Suture Drybranch Left: Bone - Hip [employer] 01/18/2026 [id number] / / [id number] Drybranch Healicoil Pk 4.5mm 2 Full Thread Blue [place] Suture 2 - [id number] Implanted:Qty : 1 on 01/30/2022 at [facility] Suture Drybranch Left: Bone - Hip [employer] 01/18/2026 [id number] / / Insurance AETNA MEDICARE Care Teams Fibrous Plasterer Relationship Specialty Start Date End Date Enoc Nicolas Jr., DO [address] [place] [id number] PCP - General Internal Medicine 01/25/22 Fareed Edmondson [address] [place] [address] Referring Pain Management 11/13/21
--- OUTSIDE RECORDS SUMMARY | 2025-05-18 13:51 | XMS_ITS | Clinical Summary ---
Author Organization [facility] Address [address] [facility] [place] [address] Care Team Providers Care Supervisor Rod Placing Name Role Phone Unavailable Primary Care Provider Unavailabl e Social History Tobacco Use Types Packs/Day Years Used Date Smoking Tobacco: Never Assessed Sex and Gender Information Value Date Recorded Sex Assigned at Not on file Legal Sex Male 7:09 PM EDT Gender Identity Not on file Sexual Orientation Not on file Last Filed Vital Signs Vital Sign Reading Time Taken Comments Blood Pressure 141/99 04/07/2020 12:00 PM EDT Pulse - - Temperature - - Respiratory Rate - - Oxygen Saturation - - Inhaled Oxygen Concentration - - Weight 96.2 kg (212 lb) 04/07/2020 12:00 PM EDT Height 188 cm (6' 2 ) 04/07/2020 12:00 PM EDT Body Mass Index 27.22 04/07/2020 12:00 PM EDT Plan of Treatment Not on file
--- OUTSIDE RECORDS SUMMARY | 2025-05-18 13:51 | XMS_ITS | Encounter Summary ---
Author Organization [facility] Address [facility] [place] [address] Care Team Providers Care Head Of Housekeeping Name Role Phone Fareed Edmondson Unavailable [phone] Fidencio Goode DO, Charles Lewis Primary Care Provi [facility] Source Comments In the event this information is protected by the Federal Confidentiality of Alcohol and Drug AbusePatient Records regulations: The Federal rules restrict any use of the information to criminally investigate or prosecute any alcohol or drug abuse patient.[facility] Encounter Details Date Type Department Care Team (Latest Contact Info) Description 01/23/2022 Patient [facility] [address] [place] [address] Provider, Ccf Dr. Estrada pre-op instructions Social History Tobacco Use Types Packs/Day Years [...] suspected to have Coronavirus/COVID-19? No / Unsure 01/25/2022 8:49 AM EDT documented as of this encounter Plan of Treatment Not on file documented as of this encounter Visit Diagnoses Not on filedocumented in this encounter Additional Health Concerns Infection Onset Date Last Indicated Resolved Time COVID-19 Rule-Out 01/30/2022 01/30/2022 01/30/2022 5:57 PM EDT documented as of this encounter Care Teams Head Of Housekeeping Relationship Specialty Start Date End Date Enoc Nicolas Jr., DO [facility] [place] [address] PCP - General Internal Medicine 01/25/22 Fareed Edmondson [address] [place] [address] Referring Pain Management 11/13/21 documented as of this encounter
--- OUTSIDE RECORDS SUMMARY | 2025-05-18 13:51 | XMS_ITS | Encounter Summary ---
Author Organization [facility] Address [address] [place] [address] Care Team Providers Care Bullet Lubricant Mixer Name Role Phone Fidencio Goode DO, Charles Lewis Primary Care Provi rowan Fareed Edmondson Unavailable [phone] Fidencio Goode DO, Charles Lewis Primary Care Provi rowan Source Comments In the event this information is protected by the Federal Confidentiality of Alcohol and Drug AbusePatient Records regulations: The Federal rules restrict any use of the information to criminally investigate or prosecute any alcohol or drug abuse patient.[facility] Encounter Details Date Type Department Care Team (Late st Contact Info) Description 07/01/2012 [facility] [address] [place] [address] Merlin Hollingsworth MD [address] [place] [address] Social History Tobacco Use Types Packs/Day Years Used Date Smoking Tobacco: Never Assessed Sex and Gender Information Value Date Recorded Sex Assigned at Male 11/27/2021 7:24 PM EST Legal Sex Male 9:45 AM EST Gender Identity Male 11/27/2021 7:24 PM EST Sexual Orientation Choose not to disclose 2021 7:24 PM EST documented as of this encounter Plan of Treatment Not on file documented as of this encounter Visit Diagnoses Not on filedocumented in this encounter Additional Health Concerns Infection Onset Date Last Indicated Resolved Time COVID-19 Rule-Out 01/30/2022 01/30/2022 01/30/2022 5:57 PM EDT documented as of this encounter Care Teams Bullet Lubricant Mixer Relationship Specialty Start Date End Date Enoc Nicolas Jr., DO [address] [facility] [place] [id number] PCP - General 05/06/01 11/12/21 Enoc Nicolas Jr., DO [address] [place] [address] PCP - General Internal Medicine 01/25/22 Fareed Edmondson [address] [place] [address] Referring Pain Management 11/13/21 documented as of this encounter
--- OUTSIDE RECORDS SUMMARY | 2025-05-18 13:51 | XMS_ITS | Encounter Summary ---
Author Organization [facility] Address [facility] [place] [address] Care Team Providers Care Sample Processor Name Role Phone Fareed Edmondson Unavailable [phone] Fidencio Goode DO, Charles Lewis Primary Care Provi [facility] Source Comments In the event this information is protected by the Federal Confidentiality of Alcohol and Drug AbusePatient Records regulations: The Federal rules restrict any use of the information to criminally investigate or prosecute any alcohol or drug abuse patient.[facility] Encounter Details Date Type Department Care Team (Late st Contact Info) Description 01/25/2022 Patient [facility] [address] [place] [address] Provider, Ccf Pre op covid test Social History Tobacco Use Types Packs/Day Years [...] documented as of this encounter Care Teams Sample Processor Relationship Specialty Start Date End Date Enoc Nicolas Jr., DO [address] [place] [address] PCP - General Internal Medicine 01/25/22 Fareed Edmondson [address] [place] [address] Referring Pain Management 11/13/21 documented as of this encounter
--- OUTSIDE RECORDS SUMMARY | 2025-05-18 13:51 | XMS_ITS | Clinical Summary ---
Author Organization [facility] Address [address] [place] [address] Care Team Providers Care Front Office Help Name Role Phone Unavailable Primary Care Provider Unavailabl e Social History Tobacco Use Types Packs/Day Years Used Date Smoking Tobacco: Never Assessed [place] Safety & Environment Answer Date Rec orded Fear of Current or Ex-Partner Not on file Emotionally Abused Not on file 11/13/2023 Physically Abused Not on file 11/13/2023 Sexually Abused Not on file 11/13/2023 Physically or Sexually Abused Not on file Sex and Gender Information Value Date Recorded Sex Assigned at Not on file Legal Sex Male 9:50 PM EDT Gender Identity Not on file Sexual Orientation Not on file Last Filed Vital Signs Vital Sign Reading Time Taken Comments Blood Pressure - - Pulse - - Temperature - - Respiratory Rate - - Oxygen Saturation - - Inhaled Oxygen Concentration - - Weight 104 kg (230 lb) 10/29/2021 8:45 AM EST Height 188 cm (6' 2 ) 10/29/2021 8:45 AM EST Body Mass Index 29.53 10/29/2021 8:45 AM EST Plan of Treatment Health Maintenance Due Date Last Done Comments CT Colonography 1969 Colonoscopy 1969 Colorectal Cancer Screening 1969 FIT-DNA 1969 FIT 1969 FOBT 1969 Medicare Annual Wellness (AWV) 1969 Sigmoidoscopy 1969 Depression Screening 1981 Hepatitis B Vaccines (1 of 3 - 19+ 3-dose series) 1988 Adult Tetanus 11/24/1991 Zoster Vaccines (1 of 2) 11/24/2019 Influenza Vaccine (#1) 2025 HIB Vaccines Aged Out No longer eligi ble based on patient's age to complete this topic HPV Vaccines Aged Out No longer eligi ble based on patient's age to complete this topic IPV Vaccines Aged Out No longer eligi ble based on patient's age to complete this topic Meningococcal B Vaccine Aged Out No l onger eligible based on patient's age to complete this topic Meningococcal Vaccine Aged Out No tacho negrito eligible based on patient's age to complete this topic Pneumococcal Vaccine: Pediat rics (0 to 5 Years) and At-Risk Patients (6 to 64 Years) Aged Out No longer eligible b ased on patient's age to complete this topic Rotavirus Vaccines Aged Out No longer eligible based on patient's age to complete this topic Insurance AETNA MEDICARE ADVANTAGE
--- OUTSIDE RECORDS SUMMARY | 2025-05-18 13:51 | XMS_ITS | Encounter Summary ---
Author Organization [facility] Address [address] [place] [address] Care Team Providers Care Electronics Engineering Technician Name Role Phone Fareed Edmondson Unavailable [phone] Fidencio Goode DO, Charles Lewis Primary Care Provi [facility] Source Comments In the event this information is protected by the Federal Confidentiality of Alcohol and Drug AbusePatient Records regulations: The Federal rules restrict any use of the information to criminally investigate or prosecute any alcohol or drug abuse patient.[facility] Encounter Details Date Type Department Care Team (Late st Contact Info) Description 01/23/2022 Patient [facility] [address] [place] [address] Provider, Ccf Pre-op form Social History Tobacco Use Types Packs/Day Years [...] documented as of this encounter Care Teams Electronics Engineering Technician Relationship Specialty Start Date End Date Enoc Nicolas Jr., DO [address] [place] [address] PCP - General Internal Medicine 01/25/22 Fareed Edmondson [address] [place] [address] Referring Pain Management 11/13/21 documented as of this encounter
--- OUTSIDE RECORDS SUMMARY | 2025-05-18 13:51 | XMS_ITS | Encounter Summary ---
Author Organization [facility] Address [facility] [place] [address] Care Team Providers Care Cold Working Supervisor Name Role Phone Fareed Edmondson Unavailable [phone] Fidencio Goode DO, Charles Lewis Primary Care Provi [facility] Source Comments In the event this information is protected by the Federal Confidentiality of Alcohol and Drug AbusePatient Records regulations: The Federal rules restrict any use of the information to criminally investigate or prosecute any alcohol or drug abuse patient.[facility] Encounter Details Date Type Department Care Team (Latest Contact Info) Description 01/09/2022 Patient [facility] [address] [place] [address] Provider, Ccf Dr. Estrada pre-op [...] suspected to have Coronavirus/COVID-19? No / Unsure 01/11/2022 7:10 AM EDT documented as of this encounter Plan of Treatment Not on file documented as of this encounter Visit Diagnoses Not on filedocumented in this encounter Additional Health Concerns Infection Onset Date Last Indicated Resolved Time COVID-19 Rule-Out 01/30/2022 01/30/2022 01/30/2022 5:57 PM EDT documented as of this encounter Care Teams Cold Working Supervisor Relationship Specialty Start Date End Date Enoc Nicolas Jr., DO [facility] [place] [address] PCP - General Internal Medicine 01/25/22 Fareed Edmondson [address] [place] [address] Referring Pain Management 11/13/21 documented as of this encounter
--- NOTE | 2025-05-18 14:11 | PM.CN ---
Consult Note: HPI Data of Consult Patient: known to practice within the last 3 years Consult date: 05/18/25 Requesting Physician: Rowan Montenegro NP Primary Care Provider: AYUSH ARBOLEDA DO Consult Narrative Reason for consult: f/u Narrative: Muaro Hebert a pleasant 54 year old male presents for evaluation and management of chronic left posterior and lateral thigh pain. Pain today 7/10, increases with activity such as standing, walking and performing transitioning maneuvers.?notes mild improvement with lidocaine patches and TENS. previously underwent left gluteus medius dysport injection with significant relief for 4 months, pt would like to repeat as pain is worsening. cc:: CC: Rowan Montenegro NP Review of Systems ROS Musculoskeletal Reports: extremity pain PFSH PFSH Medical History Low back pain ?M54.50 - Low back pain, unspecified (ICD-10) Diabetes ?E11.9 - Type 2 diabetes mellitus without complications (ICD-10) Tear of left gluteus medius tendon ?S76.012A - Strain of muscle, fascia and tendon of left hip, initial encounter (ICD-10) Rheumatoid arthritis ?M06.9 - Rheumatoid arthritis, unspecified (ICD-10) Sleep apnea ?G47.30 - Sleep apnea, unspecified (ICD-10) High cholesterol ?E78.00 - Pure hypercholesterolemia, unspecified (ICD-10) Surgical History S/P tendon repair ?Z98.890 - Other specified postprocedural states (ICD-10) S/P ORIF (open reduction internal fixation) fracture ?Z98.890 - Other specified postprocedural states (ICD-10) ?Z87.81 - Personal history of (healed) traumatic fracture (ICD-10) Meds Home Medications and Allergies Home Medications ?Medication ?Instructions ?Recorded ?Confirmed ?Type CBD BID 04/01/23 History atorvastatin 40 mg tablet 40 mg PO QPM 04/01/23 12/27/24 History calcium 600 mg capsule mg PO BID 04/01/23 History cariprazine 1.5 mg capsule 1.5 mg PO DAILY 04/01/23 12/27/24 History (Vraylar) dextromethorphan 20 mg-quinidine 1 cap PO Q12H 04/01/23 12/27/24 History 10 mg capsule (Nuedexta) dulaglutide 3 mg/0.5 mL 3 mg subcut QWEEK 04/01/23 12/27/24 History subcutaneous pen injector (Trulicity) empagliflozin 25 mg tablet 25 mg PO QAM 04/01/23 12/27/24 History (Jardiance) gabapentin enacarbil 600 mg 600 mg PO QPM 04/01/23 12/27/24 History tablet,extended release (Horizant ER) memantine 10 mg tablet (Namenda) 28 mg PO QAM 04/01/23 12/27/24 History metformin 1,000 mg tablet 1,000 mg PO BID 04/01/23 12/27/24 History naltrexone 50 mg tablet 3 mg PO BID 04/01/23 12/27/24 History risperidone 0.5 mg tablet 0.5 mg PO DAILY 04/01/23 12/27/24 History (Risperdal) venlafaxine 75 mg capsule,extended 75 mg PO .qod 04/01/23 12/27/24 History release 24 hr modafinil 100 mg tablet (Provigil) 100 mg PO DAILY 08/20/23 12/27/24 History acetaminophen 500 mg tablet 500 mg PO Q6H PRN pain 12/28/24 12/28/24 History (Acetaminophen Extra Strength) aspirin 81 mg capsule 81 mg PO DAILY 12/28/24 12/28/24 History baclofen 10 mg tablet mg 12/28/24 History cetirizine 10 mg disintegrating 10 mg PO BID PRN allergy symptoms 12/28/24 12/28/24 History tablet cholecalciferol (vitamin D3) 125 5,000 unit PO DAILY 12/28/24 12/28/24 History mcg (5,000 unit) capsule diphenhydramine HCl 25 mg capsule 25 mg PO Q8H PRN itching 12/28/24 12/28/24 History (Benadryl) famotidine 20 mg tablet 20 mg PO DAILY PRN indigestion 12/28/24 12/28/24 History irbesartan 75 mg tablet mg 12/28/24 History montelukast 10 mg tablet mg 12/28/24 History Allergies Allergy/AdvReac Type Severity Reaction Status Date / Time atropine (From ) Allergy Unknown Unknown Verified 12/27/24 11:28 hydrocodone (From Vicodin) Allergy Unknown Unknown Verified 12/27/24 11:28 hyoscyamine (From ) Allergy Unknown Unknown Verified 12/27/24 11:28 phenobarbital (From ) Allergy Unknown Unknown Verified 12/27/24 11:28 scopolamine (From ) Allergy Unknown Unknown Verified 12/27/24 11:28 Exam Constitutional Documenting provider has reviewed patient's vital signs: yes Common normals: no apparent distress, oriented x3, healthy appearing, alert and well nourished General appearance: cooperative HENPA Common normals: normocephalic, hearing grossly normal bilaterally and moist oral mucous membranes Head and scalp: normocephalic Eye Common normals: PERRL Pupil: PERRL Neck & C-Spine Common normals: full ROM General: normal visual inspection Chest Common normals: inspection of chest normal Respiratory Common normals: normal respiratory effort, no retractions and no use of accessory muscles Back & Pelvis Lumbar spine/lower back: pain with ROM and lumbar spinal tenderness Extremity Other: dystonic changes of his left gluteus medius Neuro Common normals: oriented x3, CN's II-XII intact bilaterally, moves all extremities, no focal motor deficits, no sensory deficits noted and deep tendon reflexes 2+ bilaterally Sensorium/orientation: alert Motor exam: strength 5/5 throughout and no movement abnormalities noted Psych Common normals: mental status grossly normal, thought process normal, cooperative, affect normal, speech normal and activity/motor behavior normal Speech: normal speech Thought process: normal thought process Assessment and Plan Assessment and Plan (1) Dystonia: Assessment and Plan: 12-27-24 left gluteus medius dysport injection with >50% improvement greater than 4 months Plan 54 year old male with 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 utilizes lidocaine patches and TENS prn with mild benefit, as well as tylenol and gabapentin. repeat left gluteus medius dysport injection under fluoroscopy with nerve stimulator with Dr Javier. f/u after injection
--- OUTSIDE RECORDS SUMMARY | 2025-05-18 14:11 | XMS_ITS | CCD ---
Author Organization [facility] Inform ion Partnership [facility] ([facility] Care Team Providers Care Cornice Upholsterer Name Role Phone ENOC ARBOLEDA Unavailable Unavailable DE SAINT RICCI, MAR Unavailable Unavailabl e CAVAZOS, MAR Unavailable Unavailabl e ANTIPORDA, OZZIE Unavailable Unavailable DEREK HUNTLEY Unavailable Unavailable Hong Edmondson Unavailable Nkechi Goode, Enoc Marquez Primary Care Provider Hong Edmondson Unavailable Enoc Arboleda Jr. Primary Care Provider Hong Edmondson Unavailable ENOC ARBOLEDA JR Primary Care Physician Hong Edmondson Unavailable Enoc Arboleda Jr. Primary Care Provider DR TRAV SANCHEZ Consulting Unavailable LAURA, DR RAVI Admitting Unavailable VALONE, DR PEACOCK Primary Care Unavailable LAURA, DR RAVI Attending Unavailable VALONE, DR PEACOCK Primary Care Unavailable MISC, DR LEZAMA Admitting Unavailable MISC, DR LEZAMA Attending Unavailable VALONE, DR PEACOCK Primary Care Unavailable VALONE, DR PEACOCK Admitting Unavailable VALONE, DR PEACOCK Attending Unavailable VALONE, DR PEACOCK Consulting Unavailable ELISEO, DR DELMAR Toth Consulting Unavailable YueUMBJOI HONG Admitting Unavailable YueUMBJOI HONG Attending Unavailable VALONE, DR PEACOCK Primary Care Unavailable MAYURI, DR TAMMIE Alba Consulting Unavailable ZUMBJOI, HONG Consulting Unavailable ZUMBJOI HONG Admitting Unavailable MAYURI, DR TAMMIE Alba Consulting Unavailable ZUMBJOI HONG Attending Unavailable VALONE, DR PEACOCK Primary Care Unavailable ZUMBAR, HONG Consulting Unavailable Link Fu Unavailable Hong Edmondson Attending Unavailable Rasta Edmondsonry Referring Unavailable MD Hong Edmondson Admitting Unavailable Hong Edmondson Attending Unavailable Hong Edmondson Referring Unavailable MD Hong Edmondson Admitting Unavailable Hong Edmondson Referring Unavailable Hong Edmondson Attending Unavailable MD Hong Edmondson Admitting Unavailable Hong Edmondson Attending Unavailable ENOC ARBOLEDA Referring Unavailable MD Hong Edmondson Admitting Unavailable Hong Edmondson Attending Unavailable Hong Edmondson Admitting Unavailable ENOC ARBOLEDA Referring Unavailable Hong Edmondson Attending Unavailable MD Hong Edmondson Admitting Unavailable ENOC ARBOLEDA Referring Unavailable Hong Edmondson Attending Unavailable Hong Edmondson Admitting Unavailable ENOC ARBOLEDA Referring Unavailable ENOC ARBOLEDA Referring Unavailable Peri Johnson Attending Unavailable Peri Johnson Admitting Unavailable Hong Edmondson Attending Unavailable ENOC ARBOLEDA Referring Unavailable MD Hong Edmondson Admitting Unavailable Hong Edmondson Attending Unavailable ENOC ARBOLEDA Referring Unavailable MD Hong Edmondson Admitting Unavailable Hong Edmondson Attending Unavailable Hong Edmondson Referring Unavailable MD Hong Edmondson Admitting Unavailable Hong Edmondson Attending Unavailable Hong Edmondson Referring Unavailable MD Hong Edmondson Admitting Unavailable ENOC ARBOLEDA JR. Primary Care Unavailabl Srini Cohen Attending Unavailable Randall PAC, Srini Lemons Admitting Unavailable ENOC ARBOLEDA JR Primary Care Unavail able NAHID ESTRADA Attending Unavailable Enoc Arboleda DO Primary Care Unavail able Concepcion WHYTE, Refugio Graham Attending Unavailable Concepcion WHYTE, Refugio Graham Attending Unavailable Enoc Arboleda DO Primary Care Unavail able Allergies Allergy Classification Reported Allergen(s) Allergy Type Date of Onset Reaction(s) Facility Acetaminophen / HYDROcodone (1 source) Acetaminophen / HYDROcodone; Translations: [HYDROCODONE-ACET AMINOPHEN] Drug Allergy 2 [facility] Repository Unclassified (1 source) OTHER; Translations: [OTHER] Propensity to adverse reactions (disorder) 1 [facility] Repository (20 sources) Donnatol [Other] Propensity to adverse reactions 1 [facility] (20 sources) Acetaminophen / HYDROcodone; Translations: [acetaminophen-hy drocodone] Drug Allergy 2 Anaphylaxis, Dyspnea (finding) [facility] (12 sources) Atropine / Hyoscyamine / PHENobarbital / Scopolamine; Translations: [atropine/L-hyosc yamine/PB/scopola mine] Drug Allergy Weal (disorder), hives [facility] (2 sources) Atropine; Translations: [atropine] Drug Allergy 0 [facility] Repository (1 source) Atropine / Hyoscyamine / PHENobarbital / Scopolamine Drug Allergy 0 [facility] Rep[facility] (2 sources) benzoin resin; Translations: [PHENobarbital] Drug Allergy 0 [facility] Rep[facility] (2 sources) Hyoscyamine; Translations: [hyoscyamine] Drug Allergy 0 [facility] (2 sources) Scopolamine; Translations: [scopolamine] Drug Allergy 0 [facility] Rep[facility] (2 sources) Acetaminophen / HYDROcodone; Translations: [Vicodin] Drug Allergy shortness of breath [facility] Repository (1 source) Penicillin; Translations: [penicillin] Drug Allergy [facility] Repository Medications Current Medications Medication Drug Class(es) Dates Sig (Normalized) Sig (Original) atorvastatin (20 sources) HMG-CoA Reductase Inhibitor Start: 06-21-2021 atorvastatin 40 mg, Daily, Refills(s) 0 Start Date: 06/21/21 Status: Ordered take 1 tablet by devin every twenty-four hours Lipitor 40 MG 1 tablet Orally Once a day for 30 day(s) Active Comment on above: Take 40 mg by mouth once daily. Baclofen (20 sources) gamma-Aminobutyric Acid-ergic Agonist Start: 06-21-2021 baclofen 10 mg, BID, Refills(s) 0 Start Date: 06/21/21 Status: Ordered Start: 06-21-2021 baclofen 10 mg , TID, Refills(s) 0 Start Date: 06/21/21 Status: Ordered take 1 tablet by devin th three times daily baclofen (LIORESAL) 10 mg tablet Take 10 mg by mouth three times daily. Active take 1 tablet by devin th every twenty-four hours Baclofen 10 MG 1 tablet with food or milk Orally Once a day for 30 day(s) Active Comment on above: Take 10 mg by mouth three times daily. calcium carbonate 1500 mg oral tablet (10 sources) Start: 06-21-2021 take 1 tablet by mouth twice daily calcium (as carbonate) 600 mg oral tablet 600 mg = 1 tab(s), Oral, BID, # 60 tab(s), Refills(s) 0 Start Date: 06/21/21 Status: Ordered Calcium Carbonate-Vitamin D3 (VITAMIN D-3) 180-5,000 mg-unit Tab (20 sources) take 1 tablet by mouth once daily at bedtime Calcium Carbonate-Vitamin D3 (VITAMIN D-3) 180-5,000 mg-unit Tab Take 5,000 Units by mouth daily at bedtime. Active take 1 tablet by devin th once daily at bedtime Calcium Carbonate-Vitamin D3 (VITAMIN D- 3) 180-5,000 mg-unit Tab Take 5,000 Units by mouth daily at bedtime. 0 Suspended take 1 tablet by devin th once daily at bedtime Calcium Carbonate-Vitamin D3 (VITAMIN D- 3) 180-5,000 mg-unit Tab Take 5,000 Units by mouth daily at bedtime. 0 Active Comment on above: Take 5,000 Units by mouth daily at bedtime. calcium carbonate/vitamin D2 ([id number] ORAL) (20 sources) take 1 tablet by mouth twice daily calcium carbonate/vitamin D2 ([id number] ORAL) Take 1 tablet by mouth twice daily. Active take 1 tablet by mouth twice catal[place] ly calcium carbonate/vitamin D2 ([id number] ORAL) Take 1 tablet by mouth twice daily. 0 Suspended take 1 tablet by mouth twice [place] calcium carbonate/vitamin D2 ([id number] ORAL) Take 1 tablet by mouth twice daily. 0 Active Comment on above: Take 1 tablet by devin th twice daily. Fiber Tab (6 sources) Start: 06-21-2021 Fiber Tabs [place], PRN Constipation, Refills(s) 0 Start Date: 06/21/21 Status: Ordered Start: 06-21-2021 Fiber Tabs [place] ly, Refills(s) 0 Start Date: 06/21/21 Status: Ordered Cannabidiol (1 source) cariprazine 1.5 mg oral capsule (10 sources) Atypical Antipsychotic Start: 2 take 1 capsule by mouth once daily Vraylar 1.5 mg oral capsule 1.5 mg = 1 cap(s), Oral, Daily, Refills(s) 0 Start Date: 06/19/22 Status: Ordered Vraylar Active CBD gummies (1 source) CBD gummies Active Cetirizine (1 source) Histamine-1 Receptor Antagonist ZyrTEC Active dextromethorphan hydrobromide 20 mg / quiNIDine sulfate 10 mg oral capsule (20 sources) Antiarrhythmic, Uncompetitive W-nilgjw-Q-aspartate Receptor Antagonist, Cytochrome P450 2D6 Inhibitor, Sigma-1 Agonist Start: 11-29-19 take 1 capsule by mouth twice daily NUEDEXTA 20-10 mg capsule Take 1 capsule by mouth twice daily. 11/28/2021 Active Start: 06-21-2021 take 1 capsule by [facility] every twelve hours Nuedexta oral capsule 1 cap(s), Oral, q12hr, Refill(s) 0 Start Date: 06/21/21 Status: Ordered Comment on above: Take 1 capsule by [facility] twice daily. diclofenac sodium 75 mg delayed release oral tablet (1 source) Nonsteroidal Anti-inflammatory Drug Start: 11-08-19 take 1 tablet by mouth every twelve hours diphenhydrAMINE (1 source) Histamine-1 Receptor Antagonist Benadryl Active doxycycline hyclate 100 mg oral capsule (1 source) Tetracycline-class Drug take 1 capsule by mouth every twenty-four hours dulaglutide (10 sources) GLP-1 Receptor Agonist Start: 06-21-20 Trulicity Pen 1.5 mg, every Friday, Refills(s) 0 Start Date: 06/21/21 Status: Ordered Trulicity 1.5 MG /0.5ML as directed Subcutaneous Active dulaglutide (TRULICITY) 3 mg/0.5 mL pen injector (20 sources) inject 3 mg by subcu taneous injection every week dulaglutide (TRULICITY) 3 mg/0.5 mL pen injector Inject 3 mg subcutaneously one time a week. Active inject 3 mg by subcu taneous injection every week dulaglutide (TRULICITY) 3 mg/0.5 mL pen injector Inject 3 mg subcutaneously one time a week. 0 Suspended inject 3 mg by subcu taneous injection every week dulaglutide (TRULICITY) 3 mg/0.5 mL pen injector Inject 3 mg subcutaneously one time a week. 0 Active Comment on above: Inject 3 mg subcutan eously one time a week. Jardiance (20 sources) Sodium-Glucose Cotransporter 2 Inhibitor Start: 06-21-2021 Jardiance 25 mg, qAM, Refills(s) 0 Start Date: 06/21/21 Status: Ordered empagliflozin (J ARDIANCE) 25 mg tablet Take 12.5 mg by mouth daily with breakfast. Active take 0.5 tablet by mouth once da maria r JARDIANCE 25 mg 1/2 tab orally daily Active Comment on above: Take 12.5 mg by mout h daily with breakfast. Famotidine (20 sources) Histamine-2 Receptor Antagonist Start: 06-21-2021 famotidine 20 mg, Daily, PRN Indigestion, Refills(s) 0 Start Date: 06/21/21 Status: Ordered Start: 06-21-2021 famotidine 20 mg, Daily, Refills(s) 0 Start Date: 06/21/21 Status: Ordered take 1 tablet by devin th once daily famotidine (PEPCID) 20 mg tablet Take 20 mg by mouth once daily. Active Comment on above: Take 20 mg by mouth once daily. Fiber (1 source) Fiber Active FIBER, DEXTRIN, ORAL (20 sources) FIBER, DEXTRIN, ORAL Take by mouth. Active FIBER, DEXTRIN, ORAL Take by mouth. 0 Suspended FIBER, DEXTRIN, ORAL Take by mouth. 0 Active Comment on above: Take by mouth. gabapentin 600 mg oral tablet (20 sources) Anti-epileptic Agent Start: 11-01-2021 take 600 mg by mouth once daily Horizant 600 mg, Oral, Daily, Refills(s) 0 Start Date: 11/01/21 Status: Ordered take 1 tablet by devin th once daily gabapentin enacarbil (HORIZANT) 600 mg TbER Take 1 tablet by mouth once daily. Active End: 12-04-2021 take 1800 mg by mouth once daily at bedtime gabapentin (GRALISE) 600 mg Tb24 Take 1,800 mg by mouth daily at bedtime. 12/04/2021 Discontinued (Course of therapy completed) Comment on above: Take 1,800 mg by devin th daily at bedtime. Take 1 tablet by devin th once daily. irbesartan (20 sources) Angiotensin 2 Receptor Ori Start: 06-21-2021 irbesartan See Instructions, 150 mg daily, Refills(s) 0 Start Date: 06/21/21 Status: Ordered Start: 06-21-2021 irbesartan See Instructions, 75 mg Daily 1/2 oral daily, Refills(s) 0 Start Date: 06/21/21 Status: Ordered Start: 06-21-2021 irbesartan 75 mg, Daily, Refills(s) 0 Start Date: 06/21/21 Status: Ordered take 1 tablet by devin th once daily at bedtime irbesartan (AVAPRO) 300 mg tablet Take 300 mg by mouth daily at bedtime. Active take 0.5 tablet by m out once daily Irbesartan 150 MG 1/2 tablet Orally Once a day Active Comment on above: Take 300 mg by mouth daily at bedtime. lidocaine 0.04 mg/mg medicated patch (1 source) Antiarrhythmic, Amide Local Anesthetic Namenda (20 sources) Y-zmpyop-F-aspartate Receptor Antagonist Start: 06-21-2021 Namenda See Instructions, 28mgm QD, Refills(s) 0 Start Date: 06/21/21 Status: Ordered take 28 mg by mouth once daily m emantine XR (NAMENDA XR) 28 mg CSpX Take 28 mg by mouth once daily. Active Comment on above: Take 28 mg by mouth once daily. metFORMIN hydrochloride 1000 mg oral tablet (20 sources) Biguanide Start: 12-11-2022 take 1 tablet by mouth twice daily metformin 1000 mg Tab 1,000 mg = 1 tab(s), Oral, BID, # 60 tab(s), Refills(s) 0 Start Date: 12/11/22 Status: Ordered Start: 06-21-2021 take 1 tablet by devin th twice daily metFORMIN (GLUCOPHAGE) 500 mg tablet Take 1 tablet by mouth twice daily. 2021 Active Comment on above: Take 1 tablet by devin th twice daily. Misc Medication (9 sources) Start: 06-19-2022 Misc Medication See Instructions, cbd bid Start Date: 06/19/22 Status: Ordered montelukast (20 sources) Leukotriene Receptor Antagonist Start: 06-21-2021 montelukast 10 mg, Daily, PRN Allergy symptoms, Refills(s) 0 Start Date: 06/21/21 Status: Ordered Start: 06-21-2021 montelukast 10 mg, Daily, Refills(s) 0 Start Date: 06/21/21 Status: Ordered take 1 tablet by [facility] once daily at bedtime montelukast (SINGULAIR) 10 mg tablet Take 10 mg by mouth daily at bedtime. Active Comment on above: Take 10 mg by mouth daily at bedtime. Naltrexone (3 sources) Opioid Antagonist Start: 3 take 3 mg by mouth twice daily naltrexone Oral, BID, 3 mg, Refills(s) 0 Start Date: 12/26/22 Status: Ordered predniSONE (1 source) pregabalin 200 mg oral capsule (1 source) take 200 mg by mouth twice daily risperiDONE 0.5 mg oral tablet (1 source) Atypical Antipsychotic take 1 tablet by mouth every twenty-four hours RisperDAL 0.5 MG 1 tablet Orally Once a day Active sulindac 200 mg oral tablet (20 sources) Nonsteroidal Anti-inflammatory Drug take 1 tablet by mouth twice daily sulindac (CLINORIL) 200 mg tablet Take 200 mg by mouth twice daily. Active Comment on above: Take 200 mg by mouth twice daily. venlafaxine 75 mg oral tablet (20 sources) Serotonin and Norepinephrine Reuptake Inhibitor Start: 3 take 1 tablet by mouth twice daily venlafaxine 75 mg Tab 75 mg = 1 tab(s), Oral, BID, Refills(s) 0 Start Date: 02/12/23 Status: Ordered Start: 06-21-2021 venlafaxine 15 0 mg, Daily, Refills(s) 0 Start Date: 06/21/21 Status: Ordered Start: 06-21-2021 venlafaxine 15 0 mg, BID, Refills(s) 0 Start Date: 06/21/21 Status: Ordered take 1 capsule by mo [facility] once daily venlafaxine ER (EFFEXOR XR) 150 mg 24 hr capsule Take 150 mg by mouth once daily. Active End: 12-04-2021 take 1 capsule by mouth once daily venlafaxine XR (EFFEXOR XR) 150 mg 24 hr capsule Take 300 mg by mouth once daily. 12/04/2021 Discontinued (Course of therapy completed) Comment on above: Take 300 mg by mouth once daily. Take 150 mg by mouth once daily. Vit D2 (1 source) Vit D2 Active Vitamin D (9 sources) Start: 06-21-2021 Vitamin D 50,0 00 International_Unit, Oral, Daily, Refills(s) 0 Start Date: 06/21/21 Status: Ordered Completed/Discontinued Medications Medication Drug Class(es) Dates Sig (Normalized) Sig (Original) acetaminophen 500 mg oral tablet (20 sources) Start: 01-30-2022 take 1 tablet by mouth every six hours as needed acetaminophen (ACETAMINOPHEN EXTRA STRENGTH) 500 mg tablet Take 1 tablet by mouth every 6 hours as needed for pain. 40 tablet 0 01/30/2022 Active Start: 06-21-2021 Tylenol 500 mg , BID, Refills(s) 0 Start Date: 06/21/21 Status: Ordered End: 01-31-2022 take 2 tablets by mouth twice daily acetaminophen (TYLENOL EXTRA STRENGTH) 500 mg tablet Take 1,000 mg by mouth twice daily. 01/31/2022 Discontinued take 1 tablet by devin th every four hours Tylenol 325 MG 1 tablet as needed Orally every 4 hrs Active Comment on above: Take 1,000 mg by devin th twice daily. Take 1 tablet by devin th every 6 hours as needed for pain. aspirin 81 mg delayed release oral tablet (11 sources) Platelet Aggregation Inhibitor, Nonsteroidal Anti-inflammatory Drug Start: 01-31-20 End: 04-30-20 take 1 tablet by mouth once daily at breakfast aspirin, enteric coated (ADULT LOW DOSE ASPIRIN) 81 mg EC tablet Take 1 tablet by mouth daily with breakfast. 63 tablet 0 01/30/2022 04/30/2022 Discontinued Comment on above: Take 1 tablet by devin th daily with breakfast. Fish Oils (1 source) Fish Oil Not-Julián ing ibuprofen 600 mg oral tablet (19 sources) Nonsteroidal Anti-inflammatory Drug Start: 01-31-20 End: 02-16-20 take 1 tablet by mouth every six hours as needed ibuprofen (MOTRIN) 600 mg tablet Take 1 tablet by mouth every 6 hours as needed for pain (and swelling). 60 tablet 0 02/15/2022 Active Comment on above: Take 1 tablet by deivn th every 6 hours as needed for pain (and swelling). lisinopril 20 mg oral tablet (2 sources) Angiotensin Converting Enzyme Inhibitor End: 12-05-19 take 0.5 tablet by mouth once daily lisinopril 20 mg tablet Take 10 mg by mouth once daily. Takes 1/2 tablet daily. 12/04/2021 Discontinued (Course of therapy completed) Comment on above: Take 10 mg by mouth once daily. Takes 1/2 tablet daily. methocarbamol 500 mg oral tablet (20 sources) Muscle Relaxant Start: 06-19-20 End: 08-09-20 take 1 tablet by mouth every eight hours as needed methocarbamol (ROBAXIN) 500 mg tablet Take 1 tablet by mouth three times daily as needed (muscle spasms or pain). 40 tablet 0 08/09/2022 Active Start: 04-12-2022 End: 06-19-2022 methocarbamol (ROBAXIN) 500 mg tablet Take 1 tablet 3-4 times a day as needed for pain or muscle spasms 40 tablet 0 05/14/2022 06/19/2022 Discontinued Start: 01-30-2022 End: 04-12-2022 take 1 tablet by mouth every six hours as needed methocarbamol (ROBAXIN) 500 mg tablet Take 1 tablet by mouth four times daily as needed (for muscle spasms or pain). 40 tablet 0 03/21/2022 04/12/2022 Discontinued Comment on above: Take 1 tablet by devin th four times daily as needed (for muscle spasms or pain). Take 1 tablet 3-4 ti mes a day as needed for pain or muscle spasms Take 1 tablet by devin th three times daily as needed (muscle spasms or pain). TAKE 1 TABLET BY MOUTH 3 TO 4 TIMES DAILY NEEDED FOR PAIN OR MUCLE SPASMS Take 1 tablet by devin th three times daily as needed (muscle spasms or pain). naproxen 500 mg oral tablet (1 source) Nonsteroidal Anti-inflammatory Drug take 1 tablet by mouth every twelve hours Naprosyn 500 mg 1 tablet with food or milk Orally Twice a day Not-Taking [place]-3 Fatty Acids-Vitamin E (FISH OIL) 1,000 mg cap (2 sources) End: take 1 capsule by mouth once daily [place]-3 Fatty Acids-Vitamin E (FISH OIL) 1,000 mg cap Take 1 capsule by mouth once daily. 12/04/2021 Discontinued (Course of therapy completed) take 1 capsule by mouth once [place]-3 Fatty Acids-Vitamin E (FISH OIL) 1,000 mg cap Take 1 capsule by mouth once daily. 0 Active Comment on above: Take 1 capsule by mo uth once daily. ondansetron 4 mg disintegrating oral tablet (18 sources) Serotonin-3 Receptor Antagonist Start: take 1 tablet by mouth every eight hours as needed ondansetron orally disintegrating (ZOFRAN ODT) 4 mg disintegrating tablet Take 1 tablet by mouth every 8 hours as needed for nausea/vomiting. 12 tablet 0 01/30/2022 Active Comment on above: Take 1 tablet by devin th every 8 hours as needed for nausea/vomiting. simvastatin 40 mg oral tablet (2 sources) HMG-CoA Reductase Inhibitor End: take 1 tablet by mouth once daily simvastatin 40 mg tablet Take 40 mg by mouth once daily. 12/04/2021 Discontinued (Course of therapy completed) Comment on above: Take 40 mg by mouth once daily. tiZANidine 2 mg oral tablet (2 sources) Central alpha-2 Adrenergic Agonist End: tiZANidine (ZANAFLEX) 2 mg tablet Take 1 mg by mouth three times daily. 12/04/2021 Discontinued (Course of therapy completed) Comment on above: Take 1 mg by mouth t hree times daily. Triamcinolone (4 sources) Corticosteroid Start: Kenalog -40 mg May, 40 mg Start: 02-14-2021 Kenalog -40 mg January, 40 mg Start: 05-15-2020 Kenalog -40 mg Apr, 40 mg Start: 02-25-2020 Kenalog -40 mg Feb, 40 mg ziprasidone 60 mg oral capsule (20 sources) Atypical Antipsychotic Start: 01-31-2022 take 1 capsule by mouth three times daily at mealtime ziprasidone (GEODON) 60 mg capsule Take 1 capsule by mouth three times daily with meals. 0 01/31/2022 Active Start: 06-21-2021 ziprasidone 60 mg, Daily, Refills(s) 0 Start Date: 06/21/21 Status: Ordered Start: 08-27-2012 End: 12-04-2021 take 1 capsule by mouth twice daily ziprasidone (GEODON) 40 mg capsule Take 1 capsule by mouth twice daily. 60 capsule 2 08/27/2012 12/04/2021 Discontinued (Course of therapy completed) take 1 capsule by mo ut twice daily at mealtime ziprasidone (GEODON) 60 mg capsule Take 60 mg by mouth twice daily with meals. 0 Suspended Comment on above: Take 1 capsule by mo uth twice daily. Take 60 mg by mouth twice daily with meals. Take 1 capsule by mo uth three times daily with meals. Problems Active Problems Problem Classification Problem Date Documented Date Episodic/Chronic Anxiety disorders (20 sources) Mixed anxiety and depressive disorder; Translations: [Anxiety disorder, unspecified] Onset: 01-29-2022 Chronic Asthma (9 sources) Asthma 06-21-2021 Chronic Delirium, dementia, and amnestic and other cognitive disorders (20 sources) Dementia; Translations: [Unspecified dementia without behavioral disturbance] Onset: 01-29-2022 Chronic Diabetes mellitus without complication (20 sources) Type 2 diabetes mellitus; Translations: [Type 2 diabetes mellitus without complications] Onset: 01-29-2022 01-29-2022 Chronic Disorders of lipid metabolism (20 sources) Mixed hyperlipidemia; Translations: [Mixed hyperlipidemia] Onset: 01-29-2022 Chronic Essential hypertension (20 sources) Benign essential hypertension; Translations: [Essential (primary) hypertension] Onset: 01-29-2022 Chronic Intracranial injury (10 sources) Traumatic brain injury; Translations: [Personal history of traumatic brain injury] Onset: 07-21-2022 06-21-2021 Episodic Other connective tissue disease (9 sources) H/O: osteoarthritis 06-21-2021 Episodic Other connective tissue disease (1 source) Enthesopathy of hip region; Translations: [Trochanteric bursitis, left hip] Episodic Other fractures (1 source) Multiple fractures of ribs, left side, initial encounter for closed fracture; Translations: [Multiple fractures of ribs, left side, initial encounter for closed fracture] Onset: 08-22-2018 Episodic Other nervous system disorders (2 sources) Chronic pain; Translations: [Other chronic pain] Chronic Other nervous system disorders (1 source) Sciatic nerve lesion; 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, 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 Other non-traumatic joint disorders (4 sources) Hip pain; Translations: [Pain in left hip] Episodic Other non-traumatic joint disorders (1 source) Pain in left hip Episodic Residual codes; unclassified (20 sources) Obstructive sleep apnea syndrome; Translations: [Obstructive sleep apnea (adult) (pediatric)] Onset: 01-29-2022 Chronic Residual codes; unclassified (9 sources) Sleep apnea 06-21-2021 Chronic Residual codes; unclassified (9 sources) FH: Hypertension 06-21-2021 Episodic Spondylosis; intervertebral disc disorders; other back problems (12 sources) Sacroiliitis, not elsewhere classified; Translations: [Other intervertebral disc degeneration, lumbar region] Onset: 07-18-2022 Chronic Spondylosis; intervertebral disc disorders; other back problems (2 sources) Intervertebral disc disorders with radiculopathy, lumbar region; Translations: [Lumbar radiculopathy] Onset: 10-22-2022 Episodic Sprains and strains (20 sources) Tendon rupture - hip; Translations: [Strain of muscle, fascia and tendon of unspecified hip, subsequent encounter] Onset: 01-29-2022 Episodic Unclassified (3 sources) CONTACT W/AND (SUSP) EXPOS COVID-19; Translations: [CONTACT W/AND (SUSP) EXPOS COVID-19] Onset: 01-29-2022 Past or Other Problems Problem Classification Problem Date Documented Da te Episodic/Chronic Other connective tissue disease (20 sources) Neuropathy; Translations: [Neuralgia, neuritis, and radiculitis, unspecified] Onset: 05-03-2001 Episodic Other connective tissue disease (20 sources) Muscle pain; Translations: [Myalgia and myositis, unspecified] Onset: 05-03-2001 Episodic Other nervous system disorders (4 sources) Ataxia, unspecified; Translations: [ATAXIA UNSPECIFIED] Onset: 07-18-2022 Episodic Other non-traumatic joint disorders (20 sources) Arthralgia of the pelvic region and thigh; Translations: [Pain in unspecified hip] Onset: 08-05-2012 08-05-2012 Episodic Unclassified (1 source) CONTACT W/AND (SUSP) EXPOS COVID-19; Translations: [CONTACT W/AND (SUSP) EXPOS COVID-19] Onset: 01-28-2022 Results Test Name Value Interpretation Reference Range Facility Coding Summaryon 10-31-2023 Coding Summary HTMLBase 64 LusdcsgaGIl2vFe+PGhlYWQ+PE 6VIZZcZ28uvWMxyC2jV9RSAGqS EndaCFNJDXmVYyOmnfTeHG3cfH NjZXJu IC8+NN1zYGSjGpeciWZbm2X3qH M5R18aaq2bWNefzHJ5GPXgYbCf mcsjf9gcnLf1XKoiCupiKmMk LDWkhV63ZVW8qO14Na47gHZjdE Qvg0emrXm0WuImNCTxNBB8kPdd PRegp4CuPDAkJ17qwPOxi4B2 RHBrnLtqcSRePyHddQD5eT8bTG fefjkzl2sabxmwTnf8gw71lIGz n3Z9yRW4E3JwsgM8YZYjdRWl YjkiqDNYfM5heckyq0wcophiLf YaJNBlUVy4IVh5RTScbWleStMi AB89HXL6PXPzaxEnM4QePIHg jVocZuO7j3M8Ou6MI9UAKecuI4 VNTUFSWTwvdGQ+XC09ip79Z0Zl VqwjSpv0BQWfYOM0qRJ8sY5c BTKfWLasj8Y0fFI1P6GvdxXouj 6lb7vaGJQzYCeyT91qbILpi2W1 BAXktIO3BTQdmQnxTjUitP75 Oyc+BVEybBkhw6KgNxsuy5hsh8 slnFc2YroxUZBlppAhyUuaGIM2 p9MtRb0pWSCuxMN4mRM0iO3u WgFiBeU0SMrvX730TwZzxBIbHp yaS18oX0OgwFI+TOUzDtc2CSWn cLxlOF8qA0OcQOTlyhfwcIUu yKqzTL9bNOZevxfxKSDlqL0pAQ PyS9q3LaWdYgE5KUgxS7XvKSBr ouvrQc34qA1fCsOfRdC6POqg P8XwqnW1FAGdhMKbTUyfFXP9J0 0zf5D1AUEwQMWlPZA2wMS1dG4g bGlnbjogbGVmdDsgdmVydGlj MMonXEziG139LGEdiYosEaIwXR luZyBEYXRlOiAgMDIvMDkvMjAy NDwvdGQ+YWZiNBL2xJheJGYw zOZxOKdlIm2dhWemhHmoJS7tSB XobzgoVYRioO2rTEVnyEWekEoc NM9dFVYcppnvo892PmDyAUP6 HCDztNRnF8QfyI0aYwRgUSWhTQ BzM3XdhAUiQQisL575CCrqWuR9 DLCsydXhT6AtKUFqiRssXyT4 z7F5Ny4At5ObgtkfE4WttGFvUv JqYqtrTFn2J7BiUxodfVY+PC90 VLLbQI84EZr6NMK8cEgoRZcj AGXeN1AutM9hHcZnHYHpMQNkNd c+PHRhYmxlIHdpZHRoPScxMDAl WsBkmIjxUV8mBx3zQXQiGNYj qQqgnCXnMxRmz7otNYWnLQpqPE 5wjZxcK0QsiQV3OHLyr2x2Pp99 F97wJ2QbdSY+IJOtmUO9sLP7 zK4fEcWeEoU3LIcgO594BwXiqP XjXkxej6nla9qhpHr0FmM8BKZd zkBekYevKBA4t7ZuRf17V75v IHdpZHRoPSIxNSUiIHZhbGlnbj 1goK7dNs9+MKPjmMU6bZX9cK6v EzQiOyC4SEmiD572TxLvvCBx Uqogc1twy1zcuJs2JjXpQZGhqi TnvFyjKGM4n3MqOg77F6LtoGcj g9UeMet7wn02pESkm8C5pXP3 X7LyTXOrfxwcuKGmvSowZP9sUO FpzwrtYEHzfY7zZKMjA1y1YpSw VzX7TWvfH2ZwddG8PAIpuTCt AGSctZFJzD8icpaoo1xpnyuyXe BcOZVhKGk5HJt1WIYgaPbrLaWx QOI2QsK2RAF5qCOjtH3cpHdo jpqwpK9kZdk+RCO9xSDuyXKMWW 1lOjwvdGQ+UNAfJMG5eGseYLnm EVWacD7lKNSnC2k8EuJsCnF4 NWrqM2VwkkX2ZQMxrUIbVLAndD LVeU3jerqtu9gdoieoPbLeZDUh DUv5YPh2UCPxvRczKzEqHKG0 GoP2KEL6pCGtaD4dlDnfkuuntJ 9wOyc+TlpdcNxsJUR7AXf4K6Mg Kpr8JNSsoQrhAU4zwXTsLWnf Gv5kzVilbGeqWZ6yBVUceozzr9 66ImFhp8ztXLBxzPDlFCweTJC3 W65rr6M5BEHnIFXdHPF9xVU1 aD7jkKvxxhhudWZiwQgehiAldG wsMInsHOzlD106RXIxdKsuRyVc NXn0H3NxSdc3FPNspEvmYO4q kVBcKDkxVg9qqIbleKwaCX8hUN Ruahalk859SqOir5ihCCAqeNUw RJkxGGB7M53fu7S5IVUuOILl WDA2sSJ0pU7sbSracrwkmHDhcI ahyxXcsLylDCmyHUnkK881ZVQe sZpmCgRapCr2L6SlRgt6OCTd zUsxJB7fcIVcFXmtTp6erGmhjF dcCJ8eMKJyjtjjh175OoQom7ge KITmhNCpBXmyKYF3D46nz5E8 ZUTyUGMfEWJ2hMV1wN6vwToexq ogbGVmdDsgdmVydGljYWwtYWxp E495CXVczVvbPhMjsJrpfwLa GHfmRKq9B7OhAsmeoRZ+PC90YW MkLX60qLTpdCXjd2ledAt5UcHo UCDqERO6jXmxQXnrh0VkHILl A40yiZHyo8G4NHJcxHikzEGrZa AjwZV5vD9sVIpfhbaom8ccsxvu Tqchq2zdxp12yR25V78cVDab JDZdXFRrMQKcYIWyiUuqmc2meT 9wIi8+OFTujQQ0uFJ2sK9aCOVw BiA0IHpzI952MyRnjPJqGjsi r5fvs2lspEh2JxR8CKSobxCgiP fiYXD6e1MzQl71M90wCCdgZXNv JCIyTWWxBEQbmXkocu8tdG4f Ii8+BMNtkLU6zHE0fS1yUeQzRh M9YOnqF955MtDafMBnVxcqI01a T9CmuSP+UATdPrb7BNNuzLva SS1fhABrSCxtOj1nHKZ6IwPvPx UlZCxwL9KuLDKeslgmtijowOX3 FKHsMDIjoD47Cm1vaWclGJIw oOTUbS5sxmmsr2siiaqdRgFwRX OaMVj4WDg2VCAdzRxyFxRoXWD4 OkA4YYN3oPNjlG9mbObqegsg fY7bI2OxWIBjscngWz44gB3iQa TqWjF1WDriRvo+UkVUVElHLCBX WCePLNNQHBNDHF6ZH8hQPY00 VH11jNZtw2B7sHE8W4LhLTCgku dwnhnjaCE9KIArINLdbF17aZZc LSmqZt3ht3C9x157JGJuWKKk kL81Lt2drQuiNTMncNYDiL1goo dwm8kkpifaHpYdZMSkOZq2THa7 KKOuiOqoYiJcMKO0MlH3JWT9 bMTrgV1wfWygscynvH3uNbt+MD DoEHYhXFv3MHnmnHM+PHRkIHN0 xCgkOIqsJGFmlV6aPVQsZ4b6 SjXmRkL3CNphY9InBPFojjtzUg 27sB9jNyRvFjZ3STitH0XcdvL9 BALbyZAcIJexHKU7S09ee4Q7 SZVhGOSnXEA6uQE4yU2pmCanuz ogbGVmdDsgdmVydGljYWwtYWxp R995VYHvlYucUjBjIYafJMVn MF23II59iDQkc3N1wKV6Y9UyMA WdqwnwkmifoRY2NTKoMRHkeY40 rWZoINieUk2xp6R2y834PXNp AEUjpC85Bq2ijIlcPLPvkQPLyA 5daarmh0bcndfeKjHfXFCyGLi9 UWx8JJRlpJgiNnMkZOH5ZkR2 FPS4vKWntM7fyDzemdznnS0hMz c+TUFMRTwvdGQ+PKTqWKX7cChy LHgsHNAxoL8aWOUdS3u5JoJb TaN9AAoaK0VzJVOiwhtqWa65dT 6qKjRvVwW5KLprR6SecoY9GZZr yXOoYMptHJI4T62ni5C0UVRa STCaCTL9uEW0rN2dgUfsmfqkvE YdcPeifwXktUvuJYqgCHbyT019 BFMkkToaGd8CPE36NC57N3Cl PjwvdGFibGU+PHRhYmxlIHdpZH TkTSmiLBYiNsZzrNqjEH7lZx5i OVCtSYMcpOhoxOVkOkZde7nx BHUtFRydOI3baFmtI4EbxWK3LR Yzg4o9Vs54H02aS5MvgMX+PGNv dJR9sWR4kF8aUyBhRkA2BBls M850XyRstTJvSxmhb9cti7jluC d4QbDgYOIpaiIntFhlRER8o6Lx Yy80G16iCAtmHMAaXVBkEEKv PAGgvWcpmm6enA4oPe2+PGNvbC Q3eHK8fY7iVtPhWtN4KQruC723 PsQpwARbUjlgV87dO2IcnTV+ KIMnSxu3XQLrtIdmYS1dpIBqVS psAr4sUMG8RwObKwTzMImjL9Uq NTEirojqsiiiuLA6LTMbFHXt yR79Bw7yjBvqWg4zJROyYCK0EJ ZloDJsL6UzbH6yOyOpFURbXDWf H3WrnHUzECrjK119CEykWdJ6 EUMdbeRzI1LpHLDkwFmiWfL0x6 Y8Tu8OsFbfpAPgJD5eCdIlSJn2 Q5IoFuf8LCQpyDdoUO3rmICb UMycLe8lsMtyqVryIR5iCZUyju aol467XdPpv5hdDPRolVGsUYrx AYF4I18km2G1JKKxZVGcLAQ3 vZQ6yI3wbGdywxbjuJWsaAxhlb BojDsiOQkbAHbxO942ANWbiFog JjFMJtm5Z7DbLlc1BAMrzBxx MS5eeZAaRCptRg9yuEulzDfzXE 4zZCBhdxely530OcVgo2oiNQId kSQfIPptRSP6E34mh2F0JHSv SYJhZWW7hPT1bD3lpKflhsmkmB EzjUoiubWhyRkaHCxqIQkyH173 NMJrmLxyIw6VJrt2A5PqXcc7 RISrcKjjMW2wwXCnSXpmDc4ubR bafFlmKD8eSFMflpacj570VrNe i4ihOJDesZTsOXqgOFP7C09y a4C3AVOhLUPmZSZ4cAX6tX1nbF lnbjogbGVmdDsgdmVydGljYWwt VYgsK413CPHqpIdvObEulLRe OjwvdGQ+HY35kd15I3TaYdnoMy c7LQBvGTN6wZH2dH5zEFBsMPro m1M2uMN0B9UnboKfjx9kf3cr YXB (more content not included)... Normal [facility] ED Clinical Summaryon 2023 ED Clinical Summary [facility] ? Urgent Care [address] [place] [address] Clinical Summary PERSON INFORMATION Name: MAURO HEBERT Age: 52 Years Sex: MALE : 1970 MRN: Acct#: Visit Reason: Hip pain; UC - Leg Pain or Swelling; DENTAL PAIN, LEFT LEG PAIN Arrival: 10/29/2023 10:13:34 Discharge: 10/29/2023 11:04:00 LOS: 000 00:51 Check In: 10/29/2023 10:13:34 Checkout: 10/29/2023 11:04:00 Address: [address] [place] [id number] PCP: ENOC ARBOLEDA JR. 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 [address] [place] [id number] Business (1) Comments: Discharge diagnosis of left hip pain, flare of recurrent bursitis. No injury/fall, normal gait. Toradol 60mg IM NSAID today in UC. Begin prednisone 20mg once daily in morning with food x 3 days (low dose due to DM). Take Tylenol 500mg 2 in AM, 2 in afternoon, 2 at night. Apply OTC topical voltaren gel to site as directed. See Dr. Arboleda if not improving. DIAGNOSIS: Bursitis of left hip; Chronic left hip pain; Lateral pain of left hip; Other chronic pain Patient Understands: Yes - Patient/family/caregiver verbalizes understanding of instructions given Comment: Normal [facility] ED Patient Summaryon 024 ED Patient Summary [facility] ? Urgent Care [address], [place] [id number] PATIENT DISCHARGE INSTRUCTIONS Patient Information Name: MAURO HEBERT Age: 52 Years Date of : 1970 Reason For Visit: Hip pain; UC - Leg Pain or Swelling; DENTAL PAIN, LEFT LEG PAIN Arrival Time: 10/29/2023 10:13:34 Primary Care Physician: ENOC ARBOLEDA JR. Attending Physician: Srini Mckeon Comment: Patient Education With: Address: When: ENOC ARBOLEDA JR. [address] [place] [phone] [facility] (1) Comments: Discharge diagnosis of left hip pain, flare of recurrent bursitis. No injury/fall, normal gait. Toradol 60mg IM NSAID today in UC. Begin prednisone 20mg once daily in morning with food x 3 days (low dose due to DM). Take Tylenol 500mg 2 in AM, 2 in afternoon, 2 at night. Apply OTC topical voltaren gel to site as directed. See Dr. Arboleda if not improving. Hip Bursitis Hip bursitis is the swelling of one or more of the fluid-filled sacs (bursae) in the hip joint. The hip bursae absorb shocks and prevent bones from rubbing against each other. If a bursa becomes irritated, it can fill with extra fluid and become inflamed. Hip bursitis can cause mild to moderate pain, and symptoms often come and go over time. What are the causes? This condition results from increased friction between the hip bones and the tendons around the hip joint. This condition can happen if you: ? Overuse your hip muscles. ? Injure your hip. ? Have weak buttocks muscles. ? Have bone spurs. ? Have an infection. In some cases, the cause may not be known. What increases the risk? You are more likely to develop this condition if: ? You injured your hip previously or had hip surgery. ? You have a medical condition, such as arthritis, gout, diabetes, or thyroid disease. ? You have spine problems. ? You have one leg that is shorter than the other. ? You participate in athletic activities that include repetitive motion, like running. ? You participate in sports where there is a risk of injury or falling, such as football, martial arts, or skiing. What are the signs or symptoms? Symptoms may come and go, and they often include: ? Pain in the hip or groin area. Pain may get worse with movement. ? Tenderness and swelling of the hip. In rare cases, the bursa may become infected. If this happens, you may get a fever, as well as warmth and redness in the hip area. How is this diagnosed? This condition may be diagnosed based on: ? Your symptoms. ? Your medical history. ? A physical exam. ? Imaging tests, such as: ? X-rays to check your bones. ? MRI or ultrasound to check your tendons and muscles. ? Bone scan. How is this treated? This condition is treated by resting, icing, applying pressure (compression), and raising (elevating) the injured area. This is called RICE treatment. In some cases, RICE treatment may not be enough to make your symptoms go away. Treatment may also include: ? Using crutches, a cane, or a walker to decrease the strain on your hip. ? Taking medicine to help with swelling and pain. ? Getting a shot of cortisone medicine near the affected area to reduce swelling and pain. ? Taking antibiotic medicines if there is an infection. ? Draining fluid out of the bursa to help relieve swelling and pain. ? Having surgery to remove a damaged or infected bursa. This is rare. Long-term treatment may include: ? Physical therapy exercises for strength and flexibility. ? Identifying the cause of your bursitis to prevent future episodes. ? Lifestyle changes, such as weight loss, to reduce the strain on the hip. Follow these instructions at home: Managing pain, stiffness, and swelling ? If directed, put ice on the affected area. To do this: ? Put ice in a plastic bag. ? Place a towel between your skin and the bag. ? Leave the ice on for 20 minutes, 2?3 times a day. ? Remove the ice if your skin turns bright red. This is very important. If you cannot feel pain, heat, or cold, you have a greater risk of damage to the area. ? Elevate your hip as much as you can without feeling pain. To do this, put a pillow under your hips while you lie down. ? If directed, apply heat to the affected area as often as told by your health care provider. Use the heat source that your health care provider recommends, such as a moist heat pack or a heating pad. ? Place a towel between your skin and the heat source. ? Leave the heat on for 20?30 minutes. ? Remove the heat if your skin turns bright red. This is especially important if you are unable to feel pain, heat, or cold. You may have a greater risk of getting burned. Activity ? Do not use your hip to support your body weight until your health care provider (more content not included)... Normal [facility] Urgent Care Note- Provideron 10-29-2023 Urgent Care Note- Provider Patient: MAURO HEBERT Age: 52 years Sex: MALE : 1970 Associated Diagnoses: Lateral pain of left hip; Bursitis of left hip; Chronic left hip pain Author: Srini Mckeon Basic Information Time seen: Date & time 10/29/2023 10:36:00. History source: Patient. Arrival mode: Walking. History limitation: None. Additional information: Chief Complaint from Nursing Triage Note : Chief Complaint 10/29/2023 10:32 EST Chief Complaint Left hip/leg pain for the past few days. Pt denies fall or injury. Pt also c/o right upper dental pain. . Mr. Hebert is a 52-year-old patient who present to with his due to left hip pain. 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 He has a left hip, left femur vanessa. He has a right lower leg vanessa. Patient states he has ongoing chronic pain in his left hip. Patient states the lateral aspect of his hip will have a flare of pain for no apparent reason. It comes and goes. He has seen [facility] pain management in the past for this. He has had steroid injections to his left lateral hip which have helped the diagnosis of chronic bursitis. Today patient states he has 9 out of 10 pain. He awoke this morning with pain to the lateral aspect of the left hip, feels similar to previous flares. He woke this morning, attempted to go to work at [employer] in [place] and found it too difficult and called of work. He has felt this coming on for a few days. He states he is in another flare. Previously in the past patient states prednisone, toradol, and diclofenac has been helpful. He is a diabetic on Trulicity, metformin, Jardiance. He is unsure of his last A1c but states that sugars been well-controlled. Patient reports he has not had any low back pain, decreased range of motion, falls, redness, shingles, sciatica, radicular pain. 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 Review of Systems Constitutional symptoms: No fever, no chills. ENMT symptoms: No ear pain, no sore throat, no nasal congestion. Respiratory symptoms: No shortness of breath, no cough. Gastrointestinal symptoms: No abdominal pain, no vomiting, no diarrhea. Genitourinary symptoms: No dysuria, Musculoskeletal symptoms: Muscle pain, Joint pain, left hip pain/lateral aspect, No back pain, Neurologic symptoms: No headache, Psychiatric symptoms: No anxiety, no depression, no sleeping problems. Health Status Allergies: Allergic Reactions (Selected) Moderate Penicillin- No reactions were documented. Severity Not Documented - Hives and hives.. Medications: (Selected) Prescriptions Prescribed diclofenac 3% topical gel: 1 sherman, Topical, BID, for 7 day(s), 100 gm, 0 Refill(s) predniSONE 20 mg oral tablet: 20 mg = 1 tab(s), Oral, Daily, for 3 day(s), 3 tab(s), 0 Refill(s) Documented Medications Documented Jardiance 25 mg oral tablet: 1/2 TAB, PO, qAM, 0 Refill(s) Lipitor 40 mg oral tablet: 40 mg = 1 tab(s), PO, HS, 0 Refill(s) Lyrica 200 mg oral capsule: 200 mg = 1 cap(s), PO, TID, 0 Refill(s) Nuedexta 20 mg-10 mg oral capsule: 1 cap(s), PO, BID, 0 Refill(s) Pepcid 20 mg oral tablet: 20 mg = 1 tab(s), PO, AC Supper, 0 Refill(s) Singulair 10 mg oral tablet: 10 mg = 1 tab(s), PO, Daily, 0 Refill(s) Trulicity Pen 1.5 mg/0.5 mL subcutaneous solution: 1.5 mg = 0.5 mL, SubQ, qWeek, 0 Refill(s) Tylenol Caplet Extra Strength 500 mg oral tablet: 1,000 mg = 2 tab(s), PO, BID, 50 tab(s), 0 Refill(s) Vitamin D3 5000 intl units oral tablet: 5,000 International_Unit = 1 tab(s), PO, Daily, 100 tab(s), 0 Refill(s) Vraylar 1.5 mg oral capsule: 1.5 mg = 1 cap(s), Oral, Daily, 0 Refill(s) baclofen: 10 mg, PO, BID, 0 Refill(s) calcium (as carbonate) 600 mg oral tablet: 600 mg = 1 tab(s), PO, BID, 0 Refill(s) cannabidiol: Oral, BID, 0 Refill(s) irbesartan 150 mg oral tablet: 150 mg = 1 tab(s), Oral, Daily memantine 28 mg oral capsule, extended release: 28 mg = 1 cap(s), Oral, Daily, 0 Refill(s) metFORMIN 500 mg oral tablet, extended release: 1,000 mg = 2 tab(s), PO, BID, 0 Refill(s) modafinil 100 mg oral tablet: 100 mg = 1 tab(s), Oral, qAM naltrexone: Oral, BID, 0 Refill(s) risperiDONE 0.5 mg oral tablet, disintegratin.5 mg = 1 tab(s), Oral, BID venlafaxine 75 mg oral capsule, extended release: 75 mg = 1 cap(s), Oral, Daily. Past Medical/ Family/ Social History Medical history: No active or resolved past medical history items have been selected or recorded.. Surgical history: Leg fracture ([id number]). Comments: 08/22/2018 4:13 BREA - Elana Castellano RN VANESSA IN LEG. Family history: No family history items have been selected or recorded.. 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 Normal [facility] Urgent Care [place] 024 Urgent Care Record [facility] ? Urgent Care [address], [place] [id number] PATIENT DISCHARGE INSTRUCTIONS Patient Information Name: MAURO HEBERT Age: 52 Years Date of : 1970 Reason For Visit: Hip pain; UC - Leg Pain or Swelling; DENTAL PAIN, LEFT LEG PAIN Arrival Time: 10/29/2023 10:13:34 Primary Care Physician: ENOC ARBOLEDA JR. Attending Physician: Srini Mckeon Comment: Visit Diagnosis: Diagnoses This Visit Bursitis of left hip (M70.72) Chronic left hip pain (M25.552) Hip pain ([id number]) Lateral pain of left hip (M25.552) Other chronic pain (G89.29) UC - Leg Pain or Swelling ([id number]) If you received any narcotics, sedation, or any other medication that causes drowsiness for the next 24 hours, unless otherwise directed: ? Do not drive a car. ? Do not operate machinery such as power tools, lawn mowers, drills, sewing machines, or stoves ? Avoid alcoholic beverages and drugs for allergies, nerves, or sleep ? Do not make important personal or business decisions or sign any legal documents With: Address: When: ENOC ARBOLEDA JR. [address] [place] [phone] Business (1) Comments: Discharge diagnosis of left hip pain, flare of recurrent bursitis. No injury/fall, normal gait. Toradol 60mg IM NSAID today in UC. Begin prednisone 20mg once daily in morning with food x 3 days (low dose due to DM). Take Tylenol 500mg 2 in AM, 2 in afternoon, 2 at night. Apply OTC topical voltaren gel to site as directed. See Dr. Arboleda if not improving. Medication Information: The exam and treatment you received today in the [facility]gent Care were for an urgent problem and are not intended as complete care. It is important for you to follow up with a doctor, nurse practitioner, or physician?s chef assistant for ongoing care. If your symptoms become worse or you do not improve as expected and you are unable to reach your usual health care provider, you should return to the Emergency Department, we are available 24 hours a day. For those patients who have received Radiology results, the interpretation of your X-ray as given to you by our Urgent Care physician is only a preliminary report. The Radiologist will review your films and if there is a change in the diagnosis you will be notified by phone. Please make sure you have provided a working phone number so we can reach you if necessary. In the event that you had a lab culture while you were a patient in the Urgent Care, you will be notified by phone if there is a need to change your antibiotic. Please make sure you have provided a working phone number so we can reach you if necessary. [facility] has provided you with a complete list of medications post discharge. Please inform your inspector missile/provider of your visit and for further instruction on these medications. Any specific questions regarding your chronic medications and dosages should be discussed with your primary care physician(s) and/or pharmacist. New Medications [facility] [phone] [place], [place] [id number], [phone] diclofenac topical (diclofenac 3% topical gel) 1 sherman Topical (on the skin) 2 times a day (scheduled) for 7 Days. Refills: 0. predniSONE (predniSONE 20 mg oral tablet) 1 tab(s) Oral (given by mouth) every day for 3 Days. Refills: 0. Additional medications on your home medication list not specifically addressed. Please contact the ordering physician if you have questions about these medications. acetaminophen (Tylenol Caplet Extra Strength 500 mg oral tablet) 2 tab(s) Oral (given by mouth) 2 times a day (scheduled). atorvastatin (Lipitor 40 mg oral tablet) 1 tab(s) Oral (given by mouth) At bedtime. baclofen 10 Milligram Oral (given by mouth) 2 times a day (scheduled). calcium carbonate (calcium (as carbonate) 600 mg oral tablet) 1 tab(s) Oral (given by mouth) 2 times a day (scheduled). cannabidiol Oral (given by mouth) 2 times a day (scheduled). cariprazine (Vraylar 1.5 mg oral capsule) 1 cap(s) Oral (given by mouth) every day. cholecalciferol (Vitamin D3 5000 intl units oral tablet) 1 tab(s) Oral (given by mouth) every day. dextromethorphan-quinidine (Nuedexta 20 mg-10 mg oral capsule) 1 cap(s) Oral (given by mouth) 2 times a day (scheduled). dulaglutide (Trulicity Pen 1.5 mg/0.5 mL subcutaneous solution) 0.5 Milliliter Subcutaneous (under the skin) every week. empagliflozin (Jardiance 25 mg oral tablet) 1/2 TAB Oral (given by mouth) once a day (in the morning). famotidine (Pepcid 20 mg oral tablet) 1 tab(s) Oral (given by mouth) once a day before supper. irbesartan (irbesartan 150 mg oral tablet) 1 tab(s) Oral (given by mouth) every day. memantine (memantine 28 mg oral capsule, extended release) 1 cap(s) Oral (given by mouth) every day. metFORMIN (metFORMIN 500 mg oral tablet, extended release) 2 t (more content not included)... Normal [facility] CHEMISTRYOrdered By: Lab ROP User on 03-19-2023 Glucose [Mass/Vol] 66 mg/dL Normal 55 - 99 mg/dL [facility] POC Subsection Comment on above: Result Comment: Maru WHITE POC Device SN [id number] Invalid Interpretation Code [facility] POC Subsection POC User ID [id number] Invalid Interpretation Code [facility] POC Subsection POC Username MYRANDA MANCILLA Invalid Interpretation Code [facility] POC Subsection Capillary Glucose POCon 02-21 Glucose [Mass/Vol] 66 mg/dL Normal 55-99 [facility] Comment on above: Result Comment: Maru alberts RN/ Performed By: #### 2 [id number] #### [facility] [address] [place] [address] Consent for Procedure/Surger yon 03-19-2023 Consent for Procedure/Surgery [id number]#1.00CD:127 Normal [facility] Consent for Treatmenton 02-21 Consent for Treatment [id number]#1.00CD:127 Normal [facility] Discharge Instructionson Discharge Instructions [id number]#1.00CD:127 [facility] IntraOperative Documentson 0 03-19-2023 IntraOperative Documents [id number]#1.00CD:127 [facility] Main OR Intraoperative Recor don 03-19-2023 Main OR Intraoperative Record IntraOp Document Type FTPM Summary Primary Physician: Hong Edmondson MD Finalized Date/Time: 03/19/23 10:33:45 Pt. Name: MAURO HEBERT/Sex: 1970 Male Med Rec #: [id number] Physician: Hong Edmondson MD Financial #: [id number] Pt. Type: P Room/Bed: / Admit/Disch: 03/19/23 09:19:01 - Institution: Case Times FTPM Entry 1 Patient Times In Room 03/19/23 10:25:00 Out Room 03/19/23 10:32:00 Procedure Times Start 03/19/23 10:28:00 Stop 03/19/23 10:31:00 Anesthesia Times Last Modified By: Karis Eldridge RN 03/19/23 10:31:52 Case Attendance FTPM Entry 1 Entry 2 Entry 3 Case Attendee Delvis WHYTE, Hong Eldridge RN, Karis Grant RN, Candi Mazariegos Role Performed Surgeon - Primary Hvac Mechanic - Primary Scrub - Primary Time In 03/19/23 10:25:00 03/19/23 10:25:00 03/19/23 10:25:00 Time Out 03/19/23 10:32:00 03/19/23 10:32:00 03/19/23 10:32:00 Procedure TRANSFORAMINAL EPIDURAL TRANSFORAMINAL EPIDURAL TRANSFORAMINAL EPIDURAL STEROID INJECTIO(Left) STEROID INJECTIO(Left) STEROID INJECTIO(Left) Comments Last Modified By: Karis Eldridge RN, RN, Madison A Pritchard RN, Madison A 03/19/23 10:31:53 03/19/23 10:31:53 03/19/23 10:31:53 Entry 4 Case Attendee Marcellus Cueto Role Performed Ice Puller Time In 03/19/23 10:25:00 Time Out 03/19/23 10:32:00 Procedure TRANSFORAMINAL EPIDURAL STEROID INJECTIO(Left) Comments Last Modified By: Karis Eldridge RN 03/19/23 10:31:53 Perioperative Protocols FTPM Pre-Care Text: Implements protective measures prior to operative or invasive procedure, confirms identity before the operative or invasive procedure, verifies operative procedure, surgical site, and laterality Entry 1 Procedure(s) TRANSFORAMINAL EPIDURAL Patient Identity Birthday, ID Band STEROID INJECTIO(Left) Verified (select at Check, Patient least 2): Participation Consents / H and P HandP, Surgery/Procedure Operative Site Present Verified Consent Marking Verified Surgical Site Yes Laterality Verified Yes Verified Procedure Verified Yes Correct Patient Yes Position Verified Availability Equipment, Medication, Prep Dry Yes Verified (If X-ray Applicable) PreOp Antibiotic No Time Out Karis Eldridge RN, Myers RN, Delvis Mills MD, Rom Guerrier Bryce Time Out Complete 03/19/23 10:25:00 Outcomes Met? Yes Last Modified By: Karis Eldridge RN 03/19/23 10:26:02 Post-Care Text: The patient is free from signs and symptoms of injury caused by extraneous objects Allergy Information FTPM Pre-Care Text: Verifies allergies Entry 1 Allergies Reviewed? Yes Allergies Reviewed Self/Patient With Outcomes Met? Yes Last Modified By: Karis Eldridge RN 03/19/23 09:53:56 Post-Care Text: The patient received appropriate medication(s) safely administered during the perioperative period Surgical Procedures FTPM Entry 1 Procedure Description Procedure TRANSFORAMINAL EPIDURAL Modifiers Left STEROID INJECTION Surgeon Description L3/4 TFESI Primary Procedure Yes Primary Surgeon Hong Edmondson MD Start 03/19/23 10:28:00 Stop 03/19/23 10:31:00 Anesthesia Type None Surgical Service Pain Management Wound Class 1 - Clean Last Modified By: Karis Eldridge RN 03/19/23 10:31:54 General Case Data FTPM Pre-Care Text: Classifies surgical wound, implements aseptic technique, initiates traffic control Entry 1 Case Information OR Pain Proc Room Case Level Level 2 Wound Class 1 - Clean Specialty Pain Management Preop Diagnosis M54.16 Postop Same As Preop Yes Postop Diagnosis M54.16 Outcomes Met? Yes Last Modified By: Karis Eldridge RN 03/19/23 10:26:12 Post-Care Text: The patient is free from signs and symptoms of infection Skin Assessment (Pre Procedure) FTPM Pre-Care Text: Implements protective measures to prevent skin/ tissue injury due to thermal or mechanical sources Evaluates for signs and symptoms of physical injury to skin and tissue Entry 1 Skin Integrity Intact, [place], Warm, and Skin Abnormality No Dry Outcomes Met? Yes Last Modified By: Karis Eldridge RN 03/19/23 09:54:04 Post-Care Text: The patient is free from signs and symptoms of injury caused by extraneous objects Patient Positioning FTPM Pre-Care Text: Identifies physical alterations that require additional precautions for procedure-specific positioning, verifies presence of prosthetics or corrective devices, positions the patient, evaluates the patient for signs and symptoms of injury as a result of positioning Entry 1 Procedure TRANSFORAMINAL EPIDURAL Body Position Prone STEROID INJECTIO(Left) Feet Uncrossed? Yes Left Arm Position Resting at Side Right Arm Position Resting at Side Left Leg Position Extended Right Leg Position Extended Positioning Device Pillow Under Head Large, Safety Strap, Pillow Large Under Knees Press Points Check (more content not included)... Normal [facility] Main OR Preoperative Recordo n 03-19-2023 Main OR Preoperative Record Holding Area Document Type FTPM Summary Primary Physician: Hong Edmondson MD Finalized Date/Time: 03/19/23 09:42:12 Pt. Name: MAURO HEBERT/Alejandra: 1970 Male Med Rec #: [id number] Physician: Hong Edmondson MD Financial #: [id number] Pt. Type: P Room/Bed: / Admit/Disch: 03/19/23 09:19:01 - Institution: Case Times Holding FTPM Pre-Care Text: Verifies consent for planned procedure, identifies individual values and wishes concerning care, includes family members in perioperative teaching Secures patient's records' belongings, and valuables, maintains patient's dignity and privacy, and maintains patient confidentiality Entry 1 In Holding 03/19/23 09:36:00 Outcomes Met? Yes Last Modified By: Sally Morejon RN 03/19/23 09:36:06 Post-Care Text: The patient participates in decisions affecting his or her perioperative plan of care The patient's right to privacy is maintained Surgery Checklist FTPM Entry 1 Patient Birthday, ID Band Procedure History and Physical, Identification: Check, Patient Verification: Surgical Consent, With Participation Patient NPO after Midnight: n/a Date/Time: 03/19/23 07:00:00 Results Reviewed bowl of cereal Personal Items: Jewelry Comments: Personal Items braclet, watch and one Complaints of Pain: Yes Comment: ring, one necklace Pain Comment: 05/01 to lower back and Operative Site Yes left hip Marking: Marked By: operative site marked Availability Equipment, X-Ray by Dr. Edmondson Verified: Does Patient Smoke No Patient states Yes Comment - Adult Margret-mom postop adult Supervision supervision available Case Cancelled in No Holding Area see comments below for reason Last Modified By: Sally Morejon RN 03/19/23 09:38:03 Finalized By: Sally Morejon RN Document Signatures Signed By: Sally Morejon RN 03/19/23 09:42 Normal [facility] Insurance Correspondence Off ice03-13-2023 Insurance Correspondence Office [id number]#1.00CD:127 [facility] Patient Correspondenceon Patient Correspondence [id number]#1.00CD:127 [facility] Consent for Treatmenton 02-21 Consent for Treatment [id number]#1.00CD:127 Normal [facility] Consultation Noteon 03-12-20 Consultation Note Patient: RODGER HEBERT Age: 52 years Sex: Male : 1970 Associated Diagnoses: None Author: Peri Johnson PA-C Subjective Chief complaint 03/12/2023 14:07 EDT left hip pain . Patient is a 52-year-old male. He presents today with his mother. He presents after undergoing a left-sided trochanteric bursa injection done under fluoroscopy. This was done on 02/12/2023 and unfortunate, did not give him any significant relief. It should be noted that patient has undergone a few injections with our services. His buttock pain is still better. He still has left lateral hip pain but he now admits to lower back pain. They had a few questions about PRP but they really do not want to have to drive that far to have it done. They just want him to feel better. They stated that the 15-minute car ride to get here today was uncomfortable for him. Sitting in the car makes it worse. He rates the discomfort a 6?8/10 depending on his activities. Getting up and walking around makes it worse. Patient cannot walk for more than a half of a mile because of the pain. He cannot stand for more than 30 minutes because the pain. This affects his ambulatory status. This affects his quality of life and activities of day living. His buttock pain is better and the previous tendon surgery did somewhat help but he is still having this discomfort is that is affecting his quality of life. Health Status Allergies: Allergic Reactions (Selected) Severity Not Documented - Hives. Vicodin- Shortness of breath., Allergies (2) Active Reaction Hives Vicodin Shortness of breath Current medications: (Selected) Documented Medications Documented Horizant: 600 mg, Oral, Daily, Refills(s) 0 Jardiance: 25 mg, qAM, Refills(s) 0 Misc Medication: See Instructions, cbd bid Nuedexta oral capsule: 1 cap(s), Oral, q12hr, Refill(s) 0 Trulicity Pen: 1.5 mg, every Erin, Refills(s) 0 Tylenol: 500 mg, BID, Refills(s) 0 Vitamin D: 50,000 International_Unit, Oral, Daily, Refills(s) 0 Vraylar 1.5 mg oral capsule: 1.5 mg = 1 cap(s), Oral, Daily, Refills(s) 0 atorvastatin: 40 mg, Daily, Refills(s) 0 baclofen: 10 mg, BID, Refills(s) 0 calcium (as carbonate) 600 mg oral tablet: 600 mg = 1 tab(s), Oral, BID, # 60 tab(s), Refills(s) 0 irbesartan: See Instructions, 150 mg daily, Refills(s) 0 metformin 1000 mg Tab: 1,000 mg = 1 tab(s), Oral, BID, # 60 tab(s), Refills(s) 0 montelukast: 10 mg, Daily, PRN Allergy symptoms, Refills(s) 0 naltrexone: Oral, BID, 3 mg, Refills(s) 0 venlafaxine 75 mg Tab: 75 mg = 1 tab(s), Oral, BID, Refills(s) 0 Problem list: All Problems FH: hypertension / SNOMED CT 617336561 / Confirmed High blood cholesterol / SNOMED CT 67718413 / Confirmed Asthma / SNOMED CT 592628344 / Confirmed Apnea, sleep / SNOMED CT 437226851 / Confirmed Diabetes / SNOMED CT 952243866 / Confirmed Traumatic brain injury / SNOMED CT 338535 / Confirmed H/O: osteoarthritis / SNOMED CT 499812987 / Confirmed Objective Vital Signs 03/12/2023 14:07 EDT Peripheral Pulse Rate 95 bpm Respiratory Rate 18 br/min Systolic Blood Pressure 129 mmHg Diastolic Blood Pressure 89 mmHg Mean Arterial Pressure, Cuff 102 mmHg General: Alert and oriented, No acute distress. Eye: Normal conjunctiva. HENT: Normocephalic, Normal hearing. Cardiovascular: No edema. Musculoskeletal Normal range of motion. Normal strength. 5/5 lower extremity strength Pain with flexion and extension of the lower back. Integumentary: Warm, Dry, [place]. Neurologic: Alert, Oriented. Psychiatric: Cooperative, Appropriate mood & affect. Results Review Lumbar MRI. 10/18/2022. Marked left-sided foraminal narrowing with mild central canal and mild right-sided foraminal narrowing at L3-4. Marked right-sided foraminal narrowing with moderate left-sided foraminal narrowing and moderate central narrowing at L4-5. Moderate right foraminal narrowing at L5-S1. Impression and Plan Patient is a 52-year-old male with a past medical history is made for lumbar stenosis, lumbar neuritis, trochanteric bursitis, and sacroiliitis. Unfortunate, he is still having lower back pain as well as some left lateral thigh discomfort. He rates it a 6?8/10 depending on his activities. We once again reviewed his MRI. Based on his MRI findings, his pain pattern, and his failure to improve with previous conservative treatments?a full course of physical therapy done at the [facility] did not help. A continued home exercise program does not help. Patient's mother states that he can barely do anything throughout the day because of the pain and they are just frustrated. They really thought that the tendon surgery that he had in the past would help. It did help certain areas but not all areas. Based on the above-mentioned things I recommended to patient a left-sided L3-4 transforaminal epidural steroid injection for both diagnostic and therapeutic purposes. Procedure was discussed. (more content not included)... Normal [facility] Comment on above: Result Comment: Elec tronically Signed By: Peri Johnson PA-C\.br\Date and Time Signed: 03/12/23 14:32 EDT\.br\Electronically Co-Signed By: Hong Edmondson MD\.br\Date and Time Co-Signed: 03/12/23 16:36 EDT Office/Clinic Note-Physician on 03-12-2023 Office/Clinic Note-Physician [id number]#1.00CD:127 Normal [facility] Patient Correspondenceon Patient Correspondence [id number]#1.00CD:127 Normal [facility] Patient History Officeon Patient History Office [id number]#1.00CD:127 Normal [facility] Capillary Glucose POCon 01-21 Glucose [Mass/Vol] 82 mg/dL Normal 55-99 [facility] Comment on above: Performed By: #### 2 [id number] ####[facility] [address] [place] [address] Consent for Procedure/Surger yon 02-12-2023 Consent for Procedure/Surgery [id number]#1.00CD:127 Normal [facility] Consent for Treatmenton 01-21 Consent for Treatment [id number]#1.00CD:127 Normal [facility] Discharge Instructionson Discharge Instructions [id number]#1.00CD:127 Normal [facility] IntraOperative Documentson 0 02-12-2023 IntraOperative Documents [id number]#1.00CD:127 Normal [facility] Main OR Intraoperative Recor don 02-12-2023 Main OR Intraoperative Record IntraOp Document Type FTPM Summary Primary Physician: Hong Edmondson MD Finalized Date/Time: 02/12/23 10:08:13 Pt. Name: ANUPMAURO/Sex: 1970 Male Med Rec #: [id number] Physician: Hong Edmondson MD Financial #: [id number] Pt. Type: P Room/Bed: / Admit/Disch: 02/12/23 09:04:44 - Institution: Case Times FTPM Entry 1 Patient Times In Room 02/12/23 10:00:00 Out Room 02/12/23 10:06:00 Procedure Times Start 02/12/23 10:03:00 Stop 02/12/23 10:05:00 Anesthesia Times Last Modified By: Karis Eldridge RN 02/12/23 10:08:07 Case Attendance FTPM Entry 1 Entry 2 Entry 3 Case Attendee Delvis WHYTE, Hong Eldridge RN, Karis Grant RN, Candi C Role Performed Surgeon - Primary Hvac Mechanic - Primary Scrub - Primary Time In 02/12/23 10:00:00 02/12/23 10:00:00 02/12/23 10:00:00 Time Out 02/12/23 10:06:00 02/12/23 10:06:00 02/12/23 10:06:00 Procedure INJECT JOINT/BURSA(Left) INJECT JOINT/BURSA(Left) INJECT JOINT/BURSA(Left) Comments Last Modified By: Karis Eldridge RN, RN, Madison A Pritchard RN, Madison A 02/12/23 10:08:07 02/12/23 10:08:07 02/12/23 10:08:07 Entry 4 Case Attendee Felix MYERS(R)Hailey Role Performed Ice Puller Time In 02/12/23 10:00:00 Time Out 02/12/23 10:06:00 Procedure INJECT JOINT/BURSA(Left) Comments Last Modified By: Karis Eldridge RN 02/12/23 10:08:07 Perioperative Protocols FTPM Pre-Care Text: Implements protective measures prior to operative or invasive procedure, confirms identity before the operative or invasive procedure, verifies operative procedure, surgical site, and laterality Entry 1 Procedure(s) INJECT JOINT/BURSA(Left) Patient Identity Birthday, ID Band Verified (select at Check, Patient least 2): Participation Consents / H and P HandP, Surgery/Procedure Operative Site Present Verified Consent Marking Verified Surgical Site Yes Laterality Verified Yes Verified Procedure Verified Yes Correct Patient Yes Position Verified Availability Equipment, Medication, Prep Dry Yes Verified (If X-ray Applicable) PreOp Antibiotic No Time Out Karis Eldridge RN, Myers RN, Emily C, Zumbar MD, Felix Guerrier RT(R)Hailey Time Out Complete 02/12/23 10:01:00 Outcomes Met? Yes Last Modified By: Karis Eldridge RN 02/12/23 10:01:27 Post-Care Text: The patient is free from signs and symptoms of injury caused by extraneous objects Allergy Information FTPM Pre-Care Text: Verifies allergies Entry 1 Allergies Reviewed? Yes Allergies Reviewed Self/Patient With Outcomes Met? Yes Last Modified By: Karis Eldridge RN 02/12/23 09:25:36 Post-Care Text: The patient received appropriate medication(s) safely administered during the perioperative period Surgical Procedures FTPM Entry 1 Procedure Description Procedure INJECT JOINT/BURSA Modifiers Left Surgeon Description TROCH BURSA INJ Primary Procedure Yes Primary Surgeon Hong Edmondson MD 02/12/23 10:03:00 Stop 02/12/23 10:05:00 Anesthesia Type None Surgical Service Pain Management Wound Class 1 - Clean Last Modified By: Karis Eldridge RN 02/12/23 10:08:09 General Case Data FTPM Pre-Care Text: Classifies surgical wound, implements aseptic technique, initiates traffic control Entry 1 Case Information OR Pain Proc Room Case Level Level 2 Wound Class 1 - Clean Specialty Pain Management Preop Diagnosis M70.62 Postop Same As Preop Yes Postop Diagnosis M70.62 Outcomes Met? Yes Last Modified By: Karis Eldridge RN 02/12/23 10:01:50 Post-Care Text: The patient is free from signs and symptoms of infection Skin Assessment (Pre Procedure) FTPM Pre-Care Text: Implements protective measures to prevent skin/ tissue injury due to thermal or mechanical sources Evaluates for signs and symptoms of physical injury to skin and tissue Entry 1 Skin Integrity Intact, [place], Warm, and Skin Abnormality No Dry Outcomes Met? Yes Last Modified By: Karis Eldridge RN 02/12/23 09:25:44 Post-Care Text: The patient is free from signs and symptoms of injury caused by extraneous objects Patient Positioning FTPM Pre-Care Text: Identifies physical alterations that require additional precautions for procedure-specific positioning, verifies presence of prosthetics or corrective devices, positions the patient, evaluates the patient for signs and symptoms of injury as a result of positioning Entry 1 Procedure INJECT JOINT/BURSA(Left) Body Position Prone Feet Uncrossed? Yes Left Arm Position Resting at Side Right Arm Position Resting at Side Left Leg Position Extended Right Leg Position Extended Positioning Device Pillow Under Head Large, Safety Strap, Pillow Large Under Knees Press Points Checked Yes By Karis Eldridge RN Outcomes Met? Yes Last Modified By: Karis Eldridge RN 02/12/23 10:02:11 Post-Care Text: The (more content not included)... Normal [facility] Main OR Preoperative Recordo n 05-24-2023 Main OR Preoperative Record Holding Area Document Type FTPM Summary Primary Physician: Hong Edmondson MD Finalized Date/Time: 02/12/23 09:14:08 Pt. Name: MAURO HEBERT Gosia/Sex: 1970 Male Med Rec #: [id number] Physician: Hong Edmondson MD Financial #: [id number] Pt. Type: P Room/Bed: / Admit/Disch: 02/12/23 09:04:44 - Institution: Case Times Holding FTPM Pre-Care Text: Verifies consent for planned procedure, identifies individual values and wishes concerning care, includes family members in perioperative teaching Secures patient's records' belongings, and valuables, maintains patient's dignity and privacy, and maintains patient confidentiality Entry 1 In Holding 02/12/23 09:12:00 Outcomes Met? Yes Last Modified By: Mireille Mancilla RN 02/12/23 09:12:21 Post-Care Text: The patient participates in decisions affecting his or her perioperative plan of care The patient's right to privacy is maintained Surgery Checklist FTPM Entry 1 Patient Birthday, ID Band Procedure History and Physical, Identification: Check, Patient Verification: With Patient Participation NPO after Midnight: No Date/Time: 02/12/23 09:12:00 Results Reviewed 0630 bowl of cereal Personal Items: Jewelry Comments: Personal Items Pt. wearin a necklace, Complaints of Pain: Yes Comment: one ring, watch and one bracelet Pain Comment: 03/31 left hip pain Operative Site Yes Marking: Marked By: Dr. Edmondson Location: left trochanteric bursa Availability Equipment, X-Ray Verified: Does Patient Smoke No Patient states Yes Comment - Adult mom-Margret postop adult Supervision supervision available Case Cancelled in No Holding Area see comments below for reason Last Modified By: Mireille Mancilla RN 02/12/23 09:14:06 Finalized By: Mireille Mancilla RN Document Signatures Signed By: Mireille Mancilla RN 02/12/23 09:14 [facility] Patient Correspondenceon Patient Correspondence [id number]#1.00CD:127 Normal [facility] Consent for Treatmenton 01-20 Consent for Treatment [id number]#1.00CD:127 Normal [facility] Consultation Noteon 01-30-20 Consultation Note Chief complaint: Lef t hip pain History of present illness: This is a 52-year-old male here for a chief complaint of left hip pain. The patient rates the pain as a 8 out of 10. At his last visit he underwent a diagnostic superior gluteal nerve injection. He reports about 50% short-term relief although at no point was the majority of his pain gone. He states he does not have any real back or buttock pain at this time and points only toward the lateral aspect of the left hip. The pain is constant but worse with activity and it is especially bad with long car rides. He does not have extension down the extremities. He does not have numbness tingling or weakness. He does not have any further follow-ups with his orthopedic surgeon and was released. The patient denies additional neurologic symptoms or issues with bladder or bowel control. The patient's past medical, surgical, and social history along with medications and allergies were reviewed. Review of systems was done on 10 systems Physical examination: General: Pleasant white male in no acute distress. Patient appears well-nourished. Vital signs stable Head exam: Head is normocephalic and external ears are normal Neck exam: No tenderness Cardiovascular exam: No signs of poor perfusion and no peripheral edema Respiratory exam: Breathing is unlabored and there is no wheezing present Abdomen exam: Abdomen soft and nondistended Back exam: No tenderness Musculoskeletal exam: 5 out of 5. Muscle tone is normal. Focal tenderness over the left greater trochanter Neurologic exam: Sensation intact. Reflexes diminished but symmetric. Psych exam: Affect is appropriate. Alert and oriented Skin exam: No lesions Assessment: The patient's signs and symptoms are consistent with left-sided trochanteric bursitis. We reviewed the patient's imaging. Oswestry disability index score was 28% OARRS report was reviewed and was appropriate Plan: I addressed options with him and his mother. His response to the gluteal nerve injections has been equivocal and he is no longer having any buttock pain anyway. The pain over the trochanter is the only thing that has been consistent. We discussed options and we will proceed with a left trochanteric bursa injection under fluoroscopy at his next visit. Now that he has had surgery perhaps they will be effective. The only other option I can think of at this time was to refer him for PRP injections. I advised him that that would likely require a trip to [place] so they would like to try the steroid injection which we can do here first. We discussed the potential risks and benefits of this plan and the patient was in agreement to proceed. I will see the patient for follow-up 4 weeks after the procedure for repeat evaluation. [facility] Comment on above: Result Comment: Elec tronically Signed By: Delvis WHYTE, Hong\.br\Date and Time Signed: 01/29/23 17:26 EDT Office/Clinic Note-Physician on 01-29-2023 Office/Clinic Note-Physician [id number]#1.00CD:127 [facility] Patient Correspondenceon Patient Correspondence [id number]#1.00CD:127 [facility] Patient Correspondence [id number]#1.00CD:127 [facility] Patient Correspondence [id number]#1.00CD:127 [facility] Patient History Officeon Patient History Office [id number]#1.00CD:127 [facility] Coding Summary.on 01-09-2023 Coding Summary. CD:[id number] Ww+PGh lYWQ+XQ5WABDjA61xcAAgbB2gE 0NMTElOSywgQVBQTElOSyIgbmF zIO3byKMjFHCi IC8+UU0kPDWqXjpbuTSap4D4oV H9W33dla7lNBtoeXL3JDUaTeEh bdvjr1qwnEf9ALadQexiYlDv WVUxfP41OPK5qW00Ha43pWWstD Okp2azfHx9OlOoZCRuEHK1uTbe VUysp5CmNGGxS75ksCEib8I7 IYGchYcjpHUiNsUywUO9dB2mJV iovlexq2essuiuFml9pq99zPUy b9F7mQM4H2ReywD7EEPmuGBw AkhfvNNUkQ4udxpva8lhxjrqJw WuANNcIXc7NMe7ACEvkYqeUqZm KX32DRO0BDEnlaRdU4LkNHVa fMkfBkJ7v3T4Aa9MZ4SIXaisZ8 VNTUFSWTwvdGQ+GG53yz54W9Kk NzokZsu7KTBkBJJ0cDH8tJ5i EBXiRXafo5A0lZB0D0VotgKoye 1sq1hoUNMvOSynF50ofIJsh2L6 PWImxEJ3HMLihFvrYdQbfN74 Oyc+VOAdhNvlo8XdXzkcx2cig1 esmWy6EufoTXQfxzAtqDsjOSJ9 v8SuKk5yJBBltYR6bTE8iK0u NaMtLtR1UJunU418SfFlsDUmUg koD69oT2IofIN+WXFkYuw5EYNd jWkmXQ5dL2HaHTUopxwdpSAn bZcsDP4kKJKvmbgfZXZweH1rLL GcZ3g3XjUtDgP6HLteK7PaGCZe jwrdHk64xF1aLkVnIkB5HVhd L2HxasW8JQZdpDJhFDmmIDN9H9 1ke4K4NOJeGDTxCKC5gRD4sZ7l bGlnbjogbGVmdDsgdmVydGlj RHkcKDocO365NJOfkEbmOsCuGX luZyBEYXRlOiAgMDQvMjAvMjAy MzwvdGQ+PSOrVXO7pFsyZVZb dYObLMmpYy7wdAjauAdzVG3mVU JlfpjqCGHdbZ4oMFQtbKSwdZxk NL0mBVLesgluw945ZaQzKTP2 NXHxyBPcK3UveD7iTeHtSEUmYB WlG4XwoHMtDEqxQ295KCdmTbA5 ZTHnjsJrQ8ZkYZJvbDplGcT3 x0B1El9Ty4QrcgurV6PrdIKyXd LeOrycVWk9E7ZsNvilpSS+PC90 SPBlUB90TEk5EEE0yOdkORtw DSJqR9AmpB4cVqSwZUPfYQZoQw c+PHRhYmxlIHdpZHRoPScxMDAl JoDurBpxMP1hEx8rHQKvRPUm bYxpeQIdJzSlz2tpIAJyIWwdYV 3rrApqH5WciQP8BKSjk6t1Ez34 B17vV6NtjFD+NGRugPB6cXC9 zM8wDzTqPmU0PPsrS632TeAwdF VqUoxom8fbq2acvOw8MoQ9DSAa xuOorDarQSU6v5TlQc10R03g IHdpZHRoPSIxNSUiIHZhbGlnbj 4yiD3nXw1+YSLcfVO1yXX9bM0b FgFqKrJ8IYatP278CnZemQKs Djszb5enl6cycTs9YtIyBCHywe NrrFccIXH6v9VjFs78Z2WfiQsw q9OtLsd1za35gHDnl5I5yLB7 I9GlOQLisusfkZTprIbcLC9uFV RseskvJSHwfB6jXEEaE0i5KhEh DvP6QKheJ2NtswK5LRZkuFZd JICefTMYzR7wpdufi4reibtwEl GvEBFeIOx5ZJa3XMWteRocTnIr XYS0UpX6CUH6uMBxyP1jjUbz cgcooL1qPix+DOY4lZIkcOVILN 1lOjwvdGQ+KIJfNLX2lXwqCAdo FDMqdO4sWAFcF2u0AzNcNqX3 EMwfT2UffeI6RTBqlIHsJAXhhM JSdC4nuybeo6xeeiiyZuKxTJIc HVu3OGg1OEHwwUgmJbYgIBN3 VeE1EZT4lDCpdE1unObxxgrgqB 9wOyc+QqsvcXedBYX0IBm3A7Xf Gti2YVBadRmpJZ3gwOYtQQcc Fd8mlActxBniTR7sHDDkleajh5 40YaUcj6msKUNzmSFkUOqiRZH9 A91rp0R2GBDhRADbXJV8lJE9 gN8ioQdircvxqDNlsOmknnDuyO huFAovBMojH294MQDxdIjeQgGx MNp1E8WeUzy6ZTNguElaUX5q hVSeBEzgPf5keCgsuIvcUO2jTC Exmflop855WeAsy2ioFBPylYZq FSgdHPR4Y49ub3K2EGZrQOMc YBB0gBY4jU5mwKpwbcxkfHFfwT tzjfGkcPkhEOegMDuqK722HSRj tJzcVaCtwSb2M6PxOty1AYWw xKesQU9ihBPbKCmfSe0scQktjY drYE8nIKUuktxjc474CxZur1bc RQMbwBXhHVacVWH9E16xi1M4 ALBuFHXtDIQ2dPD1bL2jqQnjzz ogbGVmdDsgdmVydGljYWwtYWxp I533MOQvqKvlIgUvxJnqliTi IVwwFUu7H8GuJbqvbIY+PC90YW ZwGG90cCOdyKYfw0wzlQh5KwJj QYQdSCV6aDxsTVkeq0GxRZUm N40yaCMts6P2JMFpqWaoxOHaLd QicCN7nP8bSCecgopls3yfxdww Bxarj9auta89xO62L30kKXmt JYLcMSJnSJRqXWBiuLyflh9tiB 9wIi8+NBPaaJO2dMK9nL7rNFMf YxU0RQtfK711KgRbjFXkVbsp q0ppi1utlQp7HqG6EBFcmyRmoB bhTRP3v3KeBr86I96aLOaoYHGv JJSxAQLyZNBomXbplj8dmA8r Ii8+GXZqxHB0kQL8aT6cCqVhOi O0YXhkO769PtVzsORgMiwtD32c V7XvpFB+UPDxNtd7IGOlsDbi KX7mpINjJMbrEc5yMXX4XgYvKu UjEQiyK1DbZMNumxvcrmqpzUM0 AMOzGDNeoS49Er3mnYbqISQo cCWJaS9rnagdj8ymdkydHtVxLL KcNTr6MNw4UHAcgQacUyQvNIE7 KlP3PMM0pCPvfT2ajOfukzob aY5gI1AoUXUpksdyIq14hS7wNg CwHeN7MEwaBjx+UkVUVElHLCBX NPrNOSGRXB15DS42lAEsj7O9 sSO9V8LvUBCabzptzqittSM4SB PoSFLjjW97sFJfQIbtQh8yk0T2 e782ZJEjXLKazF76Dp0fjHgo PFTuwVOYlI0yqgfby5gdxxbdBv DfLARyOSz1QDo3PTLydMqwXlOv XSA4DyZ0NEJ0uNHjjW6owUms gsgjiV5sDsl+QDZkOOExSZu0OP wvdGQ+EOVcQMW7xCdjSJfeDPBh dM2rCOFdM0e0JfJzGoB9MZip W3RrCJBjfqbaPe09cF6oJdLqHa C7GJdjW3GzjqL2JYJuxUHqRCah ZCY8K82yd5N6MESwXJJoJFN8 kNY4mG5jtOtiurvwbHMyoOfhgu TtqTxcOTwdBPekC841ZDPqvMyo DbNwLDstLUUhHO23KR47xQDq k1M4eKR5J6SdKFRsupfwidnutE S8NSWvMHOwmI79aSUxHByvBo5e z8D5b288PBKhQMGhtU68Gs0k oHtiJLNlpMBMeA5fecwkn4cnxu jmYsEmHDArJXf0FWa2YSWqsMbm ZfEtFXQ2IjB9MGU2uJYiqL3k cTjszrxgbF1tRds+TWFsZTwvdG Q+ENNnSKW3qDhcEYgwJEIalT4j FNPsP1w3IkGlMtM5PHvfI9Vf NUElnsbtDh27xB0dKiZrZtM4PK hlY8WuzpR0RVChvSWsSGvzOYA0 O26xz0L9IWGwRVHkZPZ2nYE7 kR0eaHqibxthkXCswSmxnqOxxV teQIpqIFcsU774MWMirCntHsVr cO6zPAUdZExnbQLwlYukjNA+ TR25nb70K2TlZwwcUjn3BVYoJE R6iKW8sQ9kLRQbJMgtk2P2mRG7 B2KaeoEtqr0fp9wqTPSgJIdb W56zeFUiv8T0EJBzpWU7TXKilZ beAeIueT58Nub+SZQooNbnj7Mt Yryfo5hey1slaWq3KtQgWPCv fuMahIovUBC2c4JxGd72F30vXO yuOKSyJAWrAZVdOAMdlNxhbq1a zH1qHe0+XAYptRL3iMS9jK9f BbMlLwD9PEhtJ015FvAxqCPwBz uuq8vhr4hdaJr8GyUzJULivmDj wAdxQUK1f4QaWi80Q1UyfKtq r8LjOlz2ep88kGOmy6H1dAZ2O2 ClVQSlckbitRSmzBysPJ4tBIXq nnfiQTGhgO1dLZHfF6n4JwMp FfZ1VTqtX7IsnqQ3PTSnjEQtIU XvjIJKzO9qpwlzd0fxsgqqIqMp DFKmRWv6WQc5SGQgcVnzIpOd ZDR3CuF1JUC1zRKpbC3pdOrwfw bzlX4xIgh+ENs8h5rxcQBaNL3l rBQ5ZP24HE42eTWxl3J6pMC0 M4UpVBEmoukpwiydnEA7KEEeSG KzfZ19Vs3kuBjfIz1eJVLqYXM7 LELomLUqH9LjkC7tWyOpPERn BMXvX7OpvEDaXTkyS936YPzpKo I1ULSwobEhT5BpWBQraAfgBbU4 z3M9Kc1XCN01OC42MK47zEAe d6A9nYT0N2YjLJFtqnfbgojutT K2PREbRGKibQ89Aa3leKfyHt2p MNFhUYO1BCStuKLbD0EnkA4q CtGzVDDeREUdI4JpoVAmNTlkF6 93EKgjAyV7HOVxhzGxF6JsSLHy sGuiOhA8z9K2Ac3XKf55OI87 VQ31bSWrn1R5gTG3S4DqCFAarw emqrzlzTA0BSKlFQXmtY91Ua4v cVqeYk3wERKmVOZ8AXMsmHHs G4JkjO4nZdDeHCLcEAFqH2MvyC WsZMiuI999LKfqUqW2YIBfogZz P4OcAHOnePzgVlT9f9R4Hr2P RSepxjm3P1LbXonjsOB+PC90YW IcKU33zBKdvHTtd2noxCh4XgSb NSQiKXK4tKatQFpoj0WyMVZp L52ogGEp (more content not included)... Normal [facility] Capillary Glucose POCon 12-21 Glucose [Mass/Vol] 82 mg/dL Normal 55-99 [facility] Comment on above: Performed By: #### 2 [id number] #### [facility] [address] [place] [address] Consent for Procedure/Surger yon 01-08-2023 Consent for Procedure/Surgery [id number]#1.00CD:127 Normal [facility] Consent for Treatmenton 12-21 Consent for Treatment [id number]#1.00CD:127 Normal [facility] Discharge Instructionson Discharge Instructions [id number]#1.00CD:127 Normal [facility] IntraOperative Documentson 0 01-08-2023 IntraOperative Documents [id number]#1.00CD:127 Normal [facility] Main OR Intraoperative Recor don 01-08-2023 Main OR Intraoperative Record IntraOp Document Type FTPM Summary Primary Physician: Hong Edmondson MD Finalized Date/Time: 01/08/23 11:24:42 Pt. Name: ANUPMAURO/Sex: 1970 Male Med Rec #: [id number] Physician: Hong Edmondson MD Financial #: [id number] Pt. Type: P Room/Bed: / Admit/Disch: 01/08/23 10:10:52 - Institution: Case Times FTPM Entry 1 Patient Times In Room 01/08/23 11:17:00 Out Room 01/08/23 11:24:00 Procedure Times Start 01/08/23 11:20:00 Stop 01/08/23 11:23:00 Anesthesia Times Last Modified By: Karis Eldridge RN 01/08/23 11:23:24 Case Attendance FTPM Entry 1 Entry 2 Entry 3 Case Attendee Delvis WHYTE, Hong Eldridge RN, Karis Grant RN, Candi You Performed Surgeon - Primary Hvac Mechanic - Primary Scrub - Primary Time In 01/08/23 11:17:00 01/08/23 11:17:00 01/08/23 11:17:00 Time Out 01/08/23 11:24:00 01/08/23 11:24:00 01/08/23 11:24:00 Procedure OTHER NERVE BLOCK(Left) OTHER NERVE BLOCK(Left) OTHER NERVE BLOCK(Left) Comments Last Modified By: Karis Eldridge RN, RN, Madison A Pritchard RN, Madison A 01/08/23 11:23:25 01/08/23 11:23:25 01/08/23 11:23:25 Entry 4 Case Attendee Maya Alicea Role Performed Ice Puller Time In 01/08/23 11:17:00 Time Out 01/08/23 11:24:00 Procedure OTHER NERVE BLOCK(Left) Comments Last Modified By: Karis Eldridge RN 01/08/23 11:23:25 Perioperative Protocols FTPM Pre-Care Text: Implements protective measures prior to operative or invasive procedure, confirms identity before the operative or invasive procedure, verifies operative procedure, surgical site, and laterality Entry 1 Procedure(s) OTHER NERVE BLOCK(Left) Patient Identity Birthday, ID Band Verified (select at Check, Patient least 2): Participation Consents / H and P HandP, Surgery/Procedure Operative Site Present Verified Consent Marking Verified Surgical Site Yes Laterality Verified Yes Verified Procedure Verified Yes Correct Patient Yes Position Verified Availability Equipment, Medication, Prep Dry Yes Verified (If X-ray Applicable) PreOp Antibiotic No Time Out Karis Eldridge RN, Myers RN, Delvis Mills MD, Nixon Guerrier Amy Time Out Complete 01/08/23 11:17:00 Outcomes Met? Yes Last Modified By: Karis Eldridge RN 01/08/23 11:17:55 Post-Care Text: The patient is free from signs and symptoms of injury caused by extraneous objects Allergy Information FTPM Pre-Care Text: Verifies allergies Entry 1 Allergies Reviewed? Yes Allergies Reviewed Self/Patient With Outcomes Met? Yes Last Modified By: Karis Eldridge RN 01/08/23 10:48:41 Post-Care Text: The patient received appropriate medication(s) safely administered during the perioperative period Surgical Procedures FTPM Entry 1 Procedure Description Procedure OTHER NERVE BLOCK Modifiers Left Surgeon Description SUPERIOR CLUNEAL NERVE BLOCK Primary Procedure Yes Primary Surgeon Hong Edmondson MD Start 01/08/23 11:20:00 Stop 01/08/23 11:23:00 Anesthesia Type None Surgical Service Pain Management Wound Class 1 - Clean Last Modified By: Karis Eldridge RN 01/08/23 11:23:26 General Case Data FTPM Pre-Care Text: Classifies surgical wound, implements aseptic technique, initiates traffic control Entry 1 Case Information OR Pain Proc Room Case Level Level 2 Wound Class 1 - Clean Specialty Pain Management Preop Diagnosis G58.8 Postop Same As Preop Yes Postop Diagnosis G58.8 Outcomes Met? Yes Last Modified By: Karis Eldridge RN 01/08/23 11:18:05 Post-Care Text: The patient is free from signs and symptoms of infection Skin Assessment (Pre Procedure) FTPM Pre-Care Text: Implements protective measures to prevent skin/ tissue injury due to thermal or mechanical sources Evaluates for signs and symptoms of physical injury to skin and tissue Entry 1 Skin Integrity Intact, [place], Warm, and Skin Abnormality No Dry Outcomes Met? Yes Last Modified By: Karis Eldridge RN 01/08/23 10:48:58 Post-Care Text: The patient is free from signs and symptoms of injury caused by extraneous objects Patient Positioning FTPM Pre-Care Text: Identifies physical alterations that require additional precautions for procedure-specific positioning, verifies presence of prosthetics or corrective devices, positions the patient, evaluates the patient for signs and symptoms of injury as a result of positioning Entry 1 Procedure OTHER NERVE BLOCK(Left) Body Position Prone Feet Uncrossed? Yes Left Arm Position Resting at Side Right Arm Position Resting at Side Left Leg Position Extended Right Leg Position Extended Positioning Device Pillow Under Head Large, Safety Strap, Pillow Large Under Knees Press Points Checked Yes By Karis Eldridge RN Outcomes Met? Yes Last Modified By: Karis Eldridge RN 01/08/23 11:18:17 Post-Care Text: The patient is free from sig (more content not included)... Normal [facility] Main OR Preoperative Recordo n 01-08-2023 Main OR Preoperative Record Holding Area Document Type FT Summary Primary Physician: Hong Edmondson MD Finalized Date/Time: 01/08/23 10:43:26 Pt. Name: MAURO HEBERT.O.B./Sex: 1970 Male Med Rec #: [id number] Physician: Hong Edmondson MD Financial #: [id number] Pt. Type: P Room/Bed: / Admit/Disch: 01/08/23 10:10:52 - Institution: Case Times Holding FTPM Pre-Care Text: Verifies consent for planned procedure, identifies individual values and wishes concerning care, includes family members in perioperative teaching Secures patient's records' belongings, and valuables, maintains patient's dignity and privacy, and maintains patient confidentiality Entry 1 In Holding 01/08/23 10:39:00 Outcomes Met? Yes Last Modified By: Mireille Mancilla RN 01/08/23 10:39:18 Post-Care Text: The patient participates in decisions affecting his or her perioperative plan of care The patient's right to privacy is maintained Surgery Checklist FTPM Entry 1 Patient Birthday, ID Band Procedure History and Physical, Identification: Check, Patient Verification: Surgical Consent, With Participation Patient NPO after Midnight: No Date/Time: 01/08/23 10:40:00 Results Reviewed 0700 bowl of oatmeal Personal Items: Jewelry Comments: Personal Items Pt. wearing a necklace, Complaints of Pain: Yes Comment: one bracelet, glasses and one ring. Pain Comment: 8/10 lower back pain Operative Site Yes Marking: Marked By: Dr. Edmondson Location: left superior cluneal nerve Availability Equipment, X-Ray Verified: Does Patient Smoke No Patient states Yes Comment - Adult mom-Margret postop adult Supervision supervision available Case Cancelled in No Holding Area see comments below for reason Last Modified By: Mireille Mancilla RN 01/08/23 10:43:25 Finalized By: Mireille Mancilla RN Document Signatures Signed By: Mireille Mancilla RN 01/08/23 10:43 Normal [facility] Patient Correspondenceon Patient Correspondence [id number]#[id number]:127 Normal [facility] Insurance Correspondence Off iceon 01-01-2023 Insurance Correspondence Office [id number]#1.00CD:127 [facility] Coding Summary.on 12-27-2022 Coding Summary. CD:[id number] Ww+PGh lYWQ+MN9ITIEkN85rfDQrvJ0hP 0NMTElOSywgQVBQTElOSyIgbmF mBZ3ghITzUSNd IC8+NW8nGPNrRlynlRAco2L6bN L9L36mpj1wKNdohLP8TFHnJuLv vjfsh0yqiWb7OHsaQrdyKdUk BZPlbX06PPJ2nQ28Ie34tBHqwC Jbg0arhRh8KgAqPMMpKXE0dRfo YPkgl9MhJNPsK34tfPMhk1S9 KKZovQawcGVhKuNhhDJ4qT7qRL ihtivfk6sxqyhvLga0dj24rCKv j1Z5aDY8N7EeamV3EVEgrKPb RrsrpLCPxQ2pwxqrz7uvgmyuWa ZiVSBvBAm9GUb9FPCkiXmlHqUt GA29ZHL2CPFltyVhB8JrWAAh jDmrKxN0c5F1Fo9WZ9NWYqjwS0 VNTUFSWTwvdGQ+VB20hu46L0Qv YrvrHdi9DUJfGZN7iGZ7zP6t VLVzTLfid9C8fWB7N0LxgfOlux 6ku1ixOVHiTNhfZ18pxWTxt2V2 RJWhdJG0PLIpnVigIxFryW04 Oyc+ZJLstOijp7UoKdaas0rot7 dbaMs1LhjlUHLggdSbvKfeYGA1 g9RkHe9tMWKglYN3hSY3yN8z OkLvMfS9VNgsJ153KoObiNKlNm cpG65tN1FvgAO+TJXfZlb6MBKo yOvzBZ4oE8EmPSSvvuwhdAEy nNzmGC7hXHXcogmmRDKlhA5gAJ JzG4d3FkNhTyE3YUayT5PcREAa pxikOf69sL1nHdXgYsQ6KEpv S9JgqzZ9DSCxkLDdDLirQWW6E9 8ql0S0CXYtIRWzOKK7bHZ9qR8r bGlnbjogbGVmdDsgdmVydGlj SQucKRqqC910XIVjuJwnFeOsMW luZyBEYXRlOiAgMDQvMDcvMjAy MzwvdGQ+OELuQAC7sYkuZSNp pLVcDZndCh0nwOlxyFvnQH5nZI GlyogiHRZgxR4jQIIedXVqnLqm ZE4pAINbhulfh987XaRzCOT5 GWScrTXaY6NzpB6wPxDnLWUjDP SgK1VwmNEqVZquS966SQraVkE8 XENvosSmP9QfXZXvuOtqTnI5 v0Z9Rc0Jl8WkdbnyD2JjiRVgCs MkWagbLSc8I9XhWhkwkOL+PC90 NZEiTN83ZWq0HUZ6oUxqCNfr FONoC9UhxS7wTaMkATLqWBOrEw c+PHRhYmxlIHdpZHRoPScxMDAl RsLloNfhCW3lXq1wWSMcBCHc lXlpdTJzSaNuw3qcENGpJAkuLC 1qxVnjO1OipVU3UVTwt5e4Oy29 V78eP8PkxVH+OTBqiMY8vBC3 tL6lMoGiOcJ5ZHppU318ZoMmfP TrUomrx5yaa2hzqIz9DqM0HGJy uiUpzZudQRW1z7ZdWo46W09o IHdpZHRoPSIxNSUiIHZhbGlnbj 8qgS9aRv7+ACOyuNW0oSX8wS1d MeOkLtS7OGlsQ427EmOpyEOu Rhjxs1kod6olmYr1FuFeLPTjoa YkkIpiYUG9x1WhCm77N4PwuKyp u2ZrPbt5hb87rKDjj0G8eYI4 E9DbCUBmabowwLZtjKbvQD8fVN PttyhoAFLadT9vXKAuE6c3QtGg KeU0WTjrW5YhwnG2HUKneZGd NCSypSJUbI7mvudzl6afanypXs JqWQQlFDq9GAw5WOEicKwuZyXo RTV9MeV0WKQ3oLHkoJ2nyZii huuctY2oYsg+WSN1yFPmhVOMST 1lOjwvdGQ+KGJqUIN1uSbrPNby KDGpgZ6nQEQiJ5m2ObFrQbV1 FKnqL2EfxtO6AAIpsUZkGJIykX WOcK0erclay6evgetuYzPvGMBz VQa8FWo5LWRtpCmqXiRjLPY9 UvQ6PFN9uIAjwZ4jdIplagstpP 9wOyc+RurrfDbxBCA2BPh8L1Pc Lzd9JFYwbGuoDF9vjPXmGIbu Jb0ubOhzzJuwGA1vQGFzrbzgi6 12ViDjh9shZXFueBLvPJiqNGM8 T41ma3U0RVLcNIUyOPN6mVM2 oP1qwRihmdrmrISdpImtjxGdtH lrWEdsTOosP230KFQyuTzkSyQo EMp2T2UuZoo8BTHqdEzwGR2t nOPvRWblIz8tdVsvtEcgJK9mZM Umpxhix114SqCru7rwNBXriTOi YFctNXX8Y21qu0G7ZIQkDSZx OFL7cRX8hD4geZexlikprNTfzB vjkvZryXveKHdsGHvfF103RCIb hZmzJaYvnZc1L4MxMff4YYUy kJjqUH2roVGdFZhjCe3naGxjyZ zgKZ0vQXZhuptib444NdZky3jb BEMfrOQbCVllGDY6Y64mi5U2 XJJhQCBnYNU3lHE9cZ8nbNnzsx ogbGVmdDsgdmVydGljYWwtYWxp T897LNPpnZhxXqZkpRoswbSq BCtmBYx9U8YaLxdzlVB+PC90YW RaVE09tRRioIInh3ufkDl8NwQa XPWcKNF0xOfbQDqyf6HkWFIe E30dzZBss0S1PJZafYhxaHBqYe ElhZA4nJ5iTClethzdk5jbmais Tywqd2tguf99zP30U29hITon XUByIEIhEDDhDQFhtVubvi3pyQ 9wIi8+ARWmkXU6tNY7eV8cGTNo SkA6IAqvZ378BgFlrWPcWtfy h2pqx1reoPz5NdC4OGHizbEzdF gdFET4w1PhEe59C46bDUwkQMGd ZFCqYRNcZAWfiTozek4dkL3s Ii8+JPNvfKQ0ySZ8vL9sCjYrBw A6JTffF729EpSouYOxJcybH70m X9JgfYW+AQVyEsi1GBDfsEzu NP0vsRLyCZtpUp2iTVG6GtWeWx JsEFvtV3YcILMmcqmoovhhwHF1 RMFeHUJgwA82Ob2mnZebSXRs zXUGiV8crkhvf8ywivjiPwVlGU BlFUm3CHx8QFYduNvvOkBlLFZ4 ZmO4WKP7sSWdeO0yxVgbxkgf cH5iE2NpFPInlbpdWp50pJ1yAk ZgKdL6CDjqJan+UkVUVElHLCBX WImRLQXYZG73RV13rDZyr9K2 fEQ1A0DnSGNxyntvvwmjeMQ8LT QcJMYgqX38rUEjYMzkBx8sl6V6 y377DFQtNCVgfX83Ia2srZiv NHPomQHWdV8awmzzf2gqevqhZy UmLADdKLi4WRy2CRWubEqaCyAt RFH4DbP4XKL9eGQcyO5soBbi hadjoV9mByf+UEKqSZVqNOz3KC wvdGQ+NETmLWY2nBjgSTqaZMPr iL4mULSiJ4v8IcEyDyL6BGgk Q1AhYHGpwgcwMs29fN0vWjOuFy T5HJbcP0RvhfC0ZUSgfYDdWFjk IPH4R55kr5F1LECuNXPpCLB6 bVJ0fF8hzLfrajnjkXCshWybrx FheBwdJCokAJzbP992KJFusSbm CfQyNOmuZGPbMZ20EI32zSDi w7D7hNH2I5QhELRpdftqjkcemR V2DFXtNWYkcZ48hANaHAfnJk6x s9K8r852EVKrPSDxtW57Oe9s bMqwWWFhtASAqJ3hsryba2sdur jwPwVyLWUwOBw8TTc4NCRbzHwx PpTbAZU5QyY9AOG5pXHfrW7v xXeuxeewiO6uZll+TWFsZTwvdG Q+ZBPlGUH6kNnyPVayOMKdnS9r JJGmO8s8QoMjGhC7HAxoT1Sa XFHhcjiyBw55uC6uMrQoYqK2DE eeG3SwrkV9GUYlnWRmKVzyFTE4 E43va0R9MIWiACOcWTX3aQU7 tC4xxAklklzqeBAbnBdwggCqhJ cjAKlsBBbgP573TPVudHxoZtBc rG2gKRIwQMmraYIjuEugiYX+ PV82kt24O3LdRtgmSmg4PSNzIJ I4uYK3jG3rRNObTQjje0O4aPD3 B2GrbtBlyp4zm5dePFAeISgm U22cjGJqm7W9WAIbzVD2DYKuhE dzRaOewG61Rfk+FNIviUhmi5Fa Exfaf7bhw9polVh2ZlLyXZAv euCtiUffLSK0a6OdNb09V75uON lkZULfCPTbPUIgRTHupVmjie7w xO9tQm2+MSNuqAE8aCI9bB6a QgRcYlG5PLxtT547SdSimOCgMq wez3tcj1ofgGt1JcBvJJMpxhUg aNcnMVY8q2GjPz69X4DjvTcg z1QsAma1ds56nQMit4Y9fYD4S1 MfIKSagilpeSMlcUouVL8aYUUr rqprSXZieM4kCOPtQ5p2FtOq AjW4QSiaH8MliuH7PXUrmWOjOF BjkWMVgK3enigpn0qngysiCwPl XPNvFMm3LQq8URKgbEcpStCa JCP0EjP4OHI0vSCkvS6diTdlkx dzcP7pPdj+ENh2b0astDSeNZ1j iFT7CO28QO48oWZkw9U0xJL9 F2OtXZNlihxdjctszRR0FYMcYD XcnQ72Gc7jwGczYe9tMEJdRXZ6 QBCyuWZvO6ExcH6sWlGgWZWu WDHrB1BexRNkALthD843LTtaKs P0ZHRghyAcW0GhQGOhoRthQsM3 a8A3Px2OUX39SZ65UN60xREy z2R5vJL8O3FbNUCcnhtfqtwyaW W2LTLqRMOzyY76Dw2azTpxSe2z WPQfFBG6XYQqhMLrK2MmsB7f XrDfSPLyRCHxG7PhyCFtDLvbF0 81ETuwQwV8EDNjerGqK3LuZDBv jFoeLuM5d4L2Sy2ZAv17DI67 UM17zAEyf3G7lMH6E8CwDLWnzf bqpprzlYO4UZEcIEEpmW01Dv5j wPxfYu8fIFQuUYW5PSKfhTGy X4CigH1hWyFcZMHbQRDxL7KaeQ WwGWoxF537MEzcOoN1GBFctwAn J0FhVNXahMjySrJ6s1E3Hq2J IMbtvzs0W5MoTjqjoJL+PC90YW LlUW95pZYfpQMln5raaTp0EfJz BMBvXBD7aWnhMMxqw6LeXTOa X75pzSUh (more content not included)... Normal [facility] Consent for Treatmenton 040 Consent for Treatment [id number]#1.00CD:12 7 Normal [facility] Consultation Noteon 12-27-19 Consultation Note Chief complaint: Lef t hip pain History of present illness: This is a 52-year-old male here for a chief complaint of left hip pain. The patient rates the pain as a 6 out of 10. At his last visit he underwent a diagnostic injection of the left middle cluneal nerve. He reports 75% pain relief for about 4 hours after the procedure. He notes that his back pain is a lot better but he still has pain over the lateral hip on the left side. He has no right-sided pain. He reports the pain is constant but worse with prolonged sitting. In particular long car rides are miserable. He denies numbness or tingling or weakness. The patient denies additional neurologic symptoms or issues with bladder or bowel control. The patient's past medical, surgical, and social history along with medications and allergies were reviewed. Review of systems was done on 10 systems Physical examination: General: Pleasant white male in no acute distress. Patient appears well-nourished. Vital signs stable Head exam: Head is normocephalic and external ears normal Neck exam: No tenderness Cardiovascular exam: No signs of poor perfusion and no peripheral edema Respiratory exam: Breathing is unlabored and there is no wheezing present Abdomen exam: Abdomen soft and nondistended Back exam: No lumbar or sacral tenderness Musculoskeletal exam: Strength 5 out of 5. Muscle tone was normal. Tenderness over the lateral left buttock posterior to the trochanter Neurologic exam: Sensation intact. Reflexes symmetric Psych exam: Affect is appropriate. 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 He did have a positive response to the middle cluneal nerve block however before we consider neurolysis I think it is prudent to perform a superior cluneal nerve block to see if that is a contributing factor or not.. We reviewed the patient's imaging Dannie disability index score was 13 out of 50 OARRS report was reviewed and was appropriate Plan: I addressed options with him. We will proceed with a left diagnostic superior cluneal nerve block under fluoroscopy at his next visit.. We discussed the potential risks and benefits of this plan and the patient was in agreement to proceed. I will see the patient for follow-up 3 to 4 weeks afterward for repeat evaluation. Normal [facility] Comment on above: Result Comment: Elec tronically Signed By: Delvis WHYTE, Hong\.br\Date and Time Signed: 12/26/22 17:21 EDT Office/Clinic Note-Physician on 12-26-2022 Office/Clinic Note-Physician [id number]#1.00CD:127 Normal [facility] Patient Correspondenceon Patient Correspondence [id number]#1.00CD:127 [facility] Patient History Officeon Patient History Office [id number]#1.00CD:127 [facility] Coding Summary.on 12-16-2022 Coding Summary. CD:[id number] Ww+PGh lYWQ+TG4UEHOhZ76quWBlbK1nS 0NMTElOSywgQVBQTElOSyIgbmF yPX8qoNEjNFEu IC8+XO9fTAKjJpdhnAPuc6X8rR M5K19tpt6dNYagyFA3JBXtLxXl gzvmq7qivCx9ECrqZcivSbDf QNVrjL65HQT3vZ95Kw14jYTuuC Gon9tmtRr7XiLlKRTmKEC9iXjt WKocg9OwODJrH70xvOYyl3V0 SUMpqHcwdNKcDhQroAP9fY6hDL sjdsupy8szjbxvMax5af49vRIn u9S2aJP1D3ErhvQ9LLArtLXr SubmvOMIsQ1mgusyx5joebsoXi XkYWDdWNe5SBr4OREpdVqtSlLa EO76GQA3EEPfoqOnE8WfQDJj eJsyLsL8f8I1Qv4NP1TIQwqmD8 VNTUFSWTwvdGQ+OT52bc91F8Hg YodtRph9YMKjZJE3iVM2yQ1f PBUuPDumh5Q9fZY4N6AteqFvkt 7dv8jfBHHvKBbuD76fnQRxk6M2 QSCqbSL5AGTwaVumGfZwqC46 Oyc+QUWtyQfky6JrRdhdp2xod5 lvvQe3YitrGLTijiHqmLgaFBX0 k9EoMs4vXPLsxYM7xLP3wN0o IwXsZnV9DVixE427AsMgnWRiIp yeH74cN5QokIU+ATKvWcl6HREu yOtzKI6uL1YuHSYheqcrpOLo qZzcZZ2fGTYuvsixCYIlsK9dVW InE5h4FzSmLoZ9LZrzQ0UvPLLj jgvuId65iS4mHrJjVtK5WKqy O2TzgxY8PQCntOYbDTdiAFQ2W5 6xt8R7CHLwLWFpDSZ6fGZ3rB5t bGlnbjogbGVmdDsgdmVydGlj HRwnPGloH117CRKuyKpsNmTeVB luZyBEYXRlOiAgMDMvMjcvMjAy MzwvdGQ+WSLgGGE6iVnjHIKh gZBuDXgdSh9rmAieoAsmAO9rBO TmntmgBLObjU7cVXVakEUsaQfn ZD3gGEExylvma426XhMcICQ6 XGFecTFmR0OtbN6bHfZdESFsAY KvS5NzjSVwYZsyT583KExuQaQ0 OWSwmdJiD0NfKCMvcXzlDtL2 z3J0Bg3Tx9TwtaqoY1ZquIGpAm TwQiqeIKs5C4DxLsugjEF+PC90 PDOiOB89FQt5YBW4tFbdCCcc WSWhN1EbxF3cIwAzCUYsXNHiWt c+PHRhYmxlIHdpZHRoPScxMDAl ZyJxmXflLU4gQu5sOGXjQPWo uFbxwRAzJoNer3zjQKRtMJevBK 7uiZzvY4IhoSG0AJDdi3g2Wy96 V59pK1WkdGD+YVDhrVM8cNC2 nA9bTpMaQyM0VAujG646VlEgcO DoAebgq7szu1tfnWk9GaG7YYGg wsRfrHafNQC6i5AlUx00M35r IHdpZHRoPSIxNSUiIHZhbGlnbj 2kyF1zPw3+BVLksVQ9nFS3mC5v OrRlZrB4TDqgS414KgMhuPHi Fqxoc4dhp8jmuNv7IiKfGFFgtp QmcTrpKAP6v5UpAz33S4DpyGxe l4MlToq3nj71gVYxj0R6oGH5 A8TgOWWubsydwQZkfHqvOQ9zNL QmidjpEJFovU4aQZBiM7c2DxCj ToX1RQawW0ZpqaW1OGQngPXo NUTybVSJsW5rnvjlr4zxuljyAw TkOSVsHUq8GAf3WMQrlPbvZoEo MZZ6YsC2GJO3oRYkqI1shUqd lmgjuV4wEkm+ESQ0pKCizYPZVG 1lOjwvdGQ+CFCxSBU6cYswVDaj YIEitO3gHPPgD5s5TmUsBiB3 TJbdR7MektC9FWNjjLBiPZKqqB VMoW2frlofd4cpijaaRjJhJVTn YEm2ZJl6XZNpxZizSgMfRTX0 ZxV3RIJ2hDQczJ9klAoowpuegK 9wOyc+IcjlmJosYCB5WCl6B7Wi Nrl5SXVjxJusAN2tlWLcFVnx Om9txNsprPoeWC3dWRDsfooeu2 76JhZbn7efFJOtpAQqWVmtCFF4 S02ry5A7DZJaCQXnNZJ3bVV6 tL5rsGupmeremBCcmRmltuTnpF tpSQjaBMnvP474AUEudQnoNtXs QGs5Y3VnChw0JFMklTknPO2m wGEiMZhxTe7ogQfvzOsaGT2kIC Cmttrzf542CjBaw4iiBTCwyANw QBqeAZN3D95aj9X0QGDoHAYs FZQ1mPA1lP1vkDtgazlakYPvyP mouaNzdUgwPBszRYjwL679XAYc kPbmRdZmfZk3I0NjSep6UZJr qLpnXE5jyFHcOXvgJq9ibWltrY clGH7pMTAbplcch485UxXjz3vg JQJoqDGgKZeuNBT2L93vq1I1 BPVtIXFcWEY4cPR5yF9plCjtko ogbGVmdDsgdmVydGljYWwtYWxp G402RMXrhPttYgPquUyxarZb NMtzCJy2K4IqEwfdmNG+PC90YW AfCE80pBZsiWSjc6cdrIy7JxJd UKQzKPU9mUbxEYxps0AdDGGe B35dxLTld0Q0CCEtvUwfrAPdOs JypVT9xW8zXBcnbxrvn8xfmuds Dyqxv9rmwk40xY73Z34hYEtc OPOyPNDtULOpWUJjfYnpbv6kpW 9wIi8+QQAieXZ9gKI4aI7rRZXe MaF4LJdjN560LyGqdRWzGrjz l5hvm7mfpOs5RuC8CFPaiuYtyY luEBA6h7CyIw14A75nYUfgEEBd DNLaHXGtMKQmuUlcva8cuU7s Ii8+FXIpkXJ1vYL5qO6rAqEsBc N0ROdyJ424LvUthBNyQshkB47e X7WnmUK+CPMdWso2SSTssUhi LH2vbQInMZjrMj0wKGV7MzIdZr QpSAwcH1RwKFCnmmnmhmowsEC9 YTCrGORvpU56Mj2hiWnrKUDj hBNAnN3zfmcqe4yecaceJqOiZX QrLRh6FHm9KJNksEtbBuJcRKH3 PsA9QTW6fEQutY9evJgrbcad yG5iZ5OoGQVdznfjXq16qP1zSr RbLbP1XJmtAwh+UkVUVElHLCBX KIpFVCTCTX97WG77tGJnr2N8 aPK7P1PjJDGaiidbmpsihAJ3XC RbIJNwcS86tRFrSSbbJc0zd1P0 g971LBPiVAZzkE31Tg4dwSdl DKLdhUTZsR0xlbfiv3hqhidvHj CsJLTlYDr6YOb0WFJczFubInZn WSV1YcE7RNB5jTAkxR0crSlh eyfzsQ2zKvf+YFRnGZAcUFx0OL wvdGQ+GIQmHDB6zEeuFJaeBUFf tU5hBQOsR9q3MkDrDrA4FCeg A2EjEBYhooubVw55uU3bBgPcXa Y3NMdfV6SybgX9RQGedOFsJSnf VFX2Q04hx3A3HGMzUXIfVEG0 pZZ4gD7oeLeomszkrWWrxNljuz JdbOiiDEhgNJkyI300EGTtsYwu EwYeQNqjCTAiET13XU03lQGv y4B2aFJ8D7KyAMKvfbxogfaopG U0PWOnQKVuwZ69aSVcZQqvNs5w u7L7t245PNVaCPJzbE84Wb6m nShcPAUsmSYMcT6znpggn0cwak uqOeHiXGTsJIc9TVf2PSFhqUjo PkQbSER3JeL4JSR3iVRobM5w wFblhmzxiJ6tHud+TWFsZTwvdG Q+CBWeCHD1tQblMReoONBtbO9l KSJaI5w4SlQnXkM2PDejS0Wb TTBioxheEt08yC2zNqPyUuJ6GW ezU4TxgmN7EQFmrWUqZArtMUJ9 X73un3Q8LCAsEUZzLOA3wHG9 uZ1epJjqgvuovVImuWazgzGpeY eyKGmjAFfzH310HLHvnDshUvYa dR0lNENmHLsfmQYqsIimjCQ+ GQ59fg18D1UiBoksNlu3JLAyUV I5tDP6hE3yOWLwPTfgs9K3uMY4 S2IeoyQari1qu9vzCUVfADzu N23nfCBtz2J9GYNjtXN5XGUdxY irVyDgbJ08Zle+YOHacIgas2Oa Iiasn8lhj2brgQk0HbOmEPEz myXjyTamZAD6l8SpTt06O39gTX wwRZInPPJhBJJmHMUocCmxgv9d iH2fHc4+PBYyaNN1wSL2hH8c FePhRmL4BDjeH615HaXldUWsJi nfv7rbm4szbEp6IdMoAFNiwkYu oYelVGI8y5ZiAg08R5TopYmj a4AoSfp9rl45pFVhr3I0dGN2E8 FrMFLnsyaisYYpwBtoSX9mIZXb hhdpVXIjuA5oEZYpB0j9WtAe XrL8ZUohU8ZjmqU0WVYkpJTxPC WjqFFQtM5onzsgu0sxfdvbNvZx OITxLJb3SRk9FNUojGofXdGd YER5UvX1CWD3qGWuuJ4ulVayie qmgE6mOtg+RIx9f6knaQNvML0e pFM8YV91SE62cVTsn2Q6rVJ6 K0QbIQIfhmewphtzbHI0RGUrHY HowQ68Hf0fiGmtEv5lHHIlWXX2 UMFrsCZwW8VpxO5zWgOdOGIg QVGxQ3QodGLdUXrlL943UDalEr M6IENiueOgM2OdKMXwdQpnWaA8 e3K8Qv6WFE72SR68NW44gGBp r0P7xYB4R6NvJGZalfyeplpgbF R5EGXaRLNcvZ07Oj5hsRbxDf3i DEZxGWZ3GUNpdGVjR4VlaH4n ZdKgZWYlUDZiL9UtfMZbYJujG5 79DFbgBbZ1IAWsyrEiL9YgQZFm lInjTuP3q1I7Wj9RJc01RV81 PO07fRHaz8A3wMY3H6DuIYDmmt papbeynUI3BZQzVRTenH22Xe6k hKshNo8eXDKdRBU5YEPiqKCg U3DytM6vThQiZJRrIBPuY3TlsV BjTVtpS338MDouTrM3WMUpycVd X8KtWUPubQleXeM6h2J2Pr2L CZmguok3G1TtXdedoFM+PC90YW WvKZ49nZTewQNaj4xokGk3LsZn UYSdWAK2aXjjLBmjr8RqZAAv G24mwMGo (more content not included)... 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 The area in question was prepped in sterile fashion. The site for nerve blockade was identified at the location of the three branches that form the middle cluneal nerve specifically the lateral branches of S1, S2 and S3 on the left side. A 25 gauge needle was then inserted into the skin at each of the three sites and was advanced just lateral to the S1, S2 and S3 foramen on the left side under intermittent fluoroscopic guidance. Proper needle position was confirmed via AP and lateral fluoroscopy. Aspiration at each site was negative. 0.5 mL of the local anesthetic solution was injected at each site. The needles were removed. Bleeding was nil. The patient tolerated the procedure well and was transferred to the Recovery Room in good condition. Hong Edmondson M.D. lr Dictated: 12/11/2022 [id number] Transcribed: 12/11/2022 [facility] Comment on above: Result Comment: Elec tronically Signed By: Delvis WHYTE, Hong\.br\Date and Time Signed: 12/12/22 08:34 EDT CHEMISTRYOrdered By: Shaina BENSON User on 12-11-2022 Glucose [Mass/Vol] 106 mg/dL High 55 - 99 mg/dL [facility] POC Subsection POC Device SN [id number] Invalid Interpretation Code [facility] POC Subsection POC User ID [id number] Invalid Interpretation Code [facility] POC Subsection POC Username SALLY MOREJON Invalid Interpretation Code [facility] POC Subsection Capillary Glucose POCon 11-21 Glucose [Mass/Vol] 106 mg/dL High 55-99 [facility] Comment on above: Performed By: #### 2 [id number] ####[facility] [id number] [place] [address] Consent for Procedure/Surger yon 12-11-2022 Consent for Procedure/Surgery [id number]#1.00CD:127 Normal [facility] Consent for Treatmenton 11-21 Consent for Treatment [id number]#1.00CD:127 [facility] Discharge Instructionson Discharge Instructions [id number]#1.00CD:127 [facility] IntraOperative Documentson 0 12-11-2022 IntraOperative Documents [id number]#1.00CD:127 [facility] IntraOperative Documents [id number]#1.00CD:127 [facility] Main OR Intraoperative Recor don 12-11-2022 Main OR Intraoperative Record IntraOp Document Type FTPM Summary Primary Physician: Hong Edmondson MD Finalized Date/Time: 12/11/22 14:16:22 Pt. Name: MAURO HEBERT/Sex: 1970 Male Med Rec #: [id number] Physician: Hong Edmondson MD Financial #: [id number] Pt. Type: P Room/Bed: / Admit/Disch: 12/11/22 13:36:21 - Institution: Case Times FTPM Entry 1 Patient Times In Room 12/11/22 14:05:00 Out Room 12/11/22 14:15:00 Procedure Times Start 12/11/22 14:08:00 Stop 12/11/22 14:14:00 Anesthesia Times Last Modified By: Karis Eldridge RN 12/11/22 14:15:01 Case Attendance FTPM Entry 1 Entry 2 Entry 3 Case Attendee Delvis WHYTE, Hong Eldridge RN, Karis Grant RN, Candi Mazariegos Role Performed Surgeon - Primary Hvac Mechanic - Primary Scrub - Primary Time In 12/11/22 14:05:00 12/11/22 14:05:00 12/11/22 14:05:00 Time Out 12/11/22 14:15:00 12/11/22 14:15:00 12/11/22 14:15:00 Procedure OTHER NERVE BLOCK(Left) OTHER NERVE BLOCK(Left) OTHER NERVE BLOCK(Left) Comments Last Modified By: Karis Eldridge RN, RN, Madison A Pritchard RN, Madison A 12/11/22 14:15:01 12/11/22 14:15:01 12/11/22 14:15:01 Entry 4 Case Attendee Maya Alicea Role Performed Ice Puller Time In 12/11/22 14:05:00 Time Out 12/11/22 14:15:00 Procedure OTHER NERVE BLOCK(Left) Comments Last Modified By: Karis Eldridge RN 12/11/22 14:15:01 Perioperative Protocols FTPM Pre-Care Text: Implements protective measures prior to operative or invasive procedure, confirms identity before the operative or invasive procedure, verifies operative procedure, surgical site, and laterality Entry 1 Procedure(s) OTHER NERVE BLOCK(Left) Patient Identity Birthday, ID Band Verified (select at Check, Patient least 2): Participation Consents / H and P HandP, Surgery/Procedure Operative Site Present Verified Consent Marking Verified Surgical Site Yes Laterality Verified Yes Verified Procedure Verified Yes Correct Patient Yes Position Verified Availability Equipment, Medication, Prep Dry Yes Verified (If X-ray Applicable) PreOp Antibiotic No Time Out Karis Eldridge RN, Myers RN, Delvis Mills MD, Nixon Guerrier Amy Time Out Complete 12/11/22 14:06:00 Outcomes Met? Yes Last Modified By: Karis Eldridge RN 12/11/22 14:06:50 Post-Care Text: The patient is free from signs and symptoms of injury caused by extraneous objects Allergy Information FTPM Pre-Care Text: Verifies allergies Entry 1 Allergies Reviewed? Yes Allergies Reviewed Self/Patient With Outcomes Met? Yes Last Modified By: Karis Eldridge RN 12/11/22 14:06:57 Post-Care Text: The patient received appropriate medication(s) safely administered during the perioperative period Surgical Procedures FTPM Entry 1 Procedure Description Procedure OTHER NERVE BLOCK Modifiers Left Surgeon Description MIDDLE CLUNEAL NERVE BLOCK Primary Procedure Yes Primary Surgeon Hong Edmondson MD Start 12/11/22 14:08:00 Stop 12/11/22 14:14:00 Anesthesia Type None Surgical Service Pain Management Wound Class 1 - Clean Last Modified By: Karis Eldridge RN 12/11/22 14:15:03 General Case Data FTPM Pre-Care Text: Classifies surgical wound, implements aseptic technique, initiates traffic control Entry 1 Case Information OR Pain Proc Room Case Level Level 2 Wound Class 1 - Clean Specialty Pain Management Preop Diagnosis g58.8 Postop Same As Preop Yes Postop Diagnosis g58.8 Outcomes Met? Yes Last Modified By: Karis Eldridge RN 12/11/22 14:07:12 Post-Care Text: The patient is free from signs and symptoms of infection Skin Assessment (Pre Procedure) FTPM Pre-Care Text: Implements protective measures to prevent skin/ tissue injury due to thermal or mechanical sources Evaluates for signs and symptoms of physical injury to skin and tissue Entry 1 Skin Integrity Intact, [place], Warm, and Skin Abnormality No Dry Outcomes Met? Yes Last Modified By: Karis Eldridge RN 12/11/22 14:07:22 Post-Care Text: The patient is free from signs and symptoms of injury caused by extraneous objects Patient Positioning FTPM Pre-Care Text: Identifies physical alterations that require additional precautions for procedure-specific positioning, verifies presence of prosthetics or corrective devices, positions the patient, evaluates the patient for signs and symptoms of injury as a result of positioning Entry 1 Procedure OTHER NERVE BLOCK(Left) Body Position Prone Feet Uncrossed? Yes Left Arm Position Resting at Side Right Arm Position Resting at Side Left Leg Position Extended Right Leg Position Extended Positioning Device Pillow Under Head Large, Safety Strap, Pillow Large Under Knees Press Points Checked Yes By Karis Eldridge RN Outcomes Met? Yes Last Modified By: Karis Eldridge RN 12/11/22 14:07:27 Post-Care Text: The patient is free from signs (more content not included)... Normal [facility] Main OR Preoperative Recordo n 12-11-2022 Main OR Preoperative Record Holding Area Document Type FTPM Summary Primary Physician: Hong Edmondson MD Finalized Date/Time: 12/11/22 13:44:40 Pt. Name: MAURO HEBERT/Sex: 1970 Male Med Rec #: [id number] Physician: Hong Edmondson MD Financial #: [id number] Pt. Type: P Room/Bed: / Admit/Disch: 12/11/22 13:36:21 - Institution: Case Times Holding FTPM Pre-Care Text: Verifies consent for planned procedure, identifies individual values and wishes concerning care, includes family members in perioperative teaching Secures patient's records' belongings, and valuables, maintains patient's dignity and privacy, and maintains patient confidentiality Entry 1 In Holding 12/11/22 13:42:00 Outcomes Met? Yes Last Modified By: Ksenia Andrade RN 12/11/22 13:42:03 Post-Care Text: The patient participates in decisions affecting his or her perioperative plan of care The patient's right to privacy is maintained Surgery Checklist FTPM Entry 1 Patient Birthday, ID Band Procedure History and Physical, Identification: Check, Patient Verification: Surgical Consent, With Participation Patient NPO after Midnight: No Date/Time: 12/11/22 11:15:00 Personal Items: Glasses Personal Items ring bracelet Comment: Complaints of Pain: Yes Pain Comment: 03/01 left low back Availability Equipment, X-Ray Verified: Does Patient Smoke No Patient states Yes Comment - Adult margret mom postop adult Supervision supervision available Case Cancelled in No Holding Area see comments below for reason Last Modified By: Ksenia Andrade RN 12/11/22 13:44:35 General Comments: gladis and allyssa Finalized By: Ksenia Andrade RN Document Signatures Signed By: Ksenia Andrade RN 12/11/22 13:44 Normal [facility] Patient Correspondenceon Patient Correspondence [id number]#1.00CD:127 Normal [facility] Coding Summary.on 11-20-2022 Coding Summary. CD:[id number]:[id number] Gh0bWw +PGhlYWQ+GC8OWZRxY98fuLNpr B0TR5dEKD1TMPLQZHMQWR2SOK2 viKV4WBznW4JrudYg RnrkjWSgIZ69JQr8VVB8dOysYY jtmY3hkXTqZ1d3IjXqFG41eB21 XHccFRHfIuO5GgJairbwiGLy B6keCkJapEJmNmw+PHRhYmxlIH vuHBVhXUizHESkWvCggCyeNG1b Rd7yJWXdQOVktSmzmOJxWaXd j6rxZBUnFEwaLF4jnBwsI0XpaG K5HMOzo5d9Dt62hHS+PHRkIHN0 hMvsIKliw376UvMjn3mcZUD6 mRHtDOchCEY9W27ij9T2UHTkLJ KpJUY6lCF5eJ4kjRvkdydmB4Yp dNQrAaW5TFO9cFReuN5fcFdm izeydN3dDfv+W27EVQ2IGYIGMA 0AYeo8E3WiFtzowCQ+CC10QYEg ZQ97eGEjaTEzd8hrySm8KaQi ZUWcDUB6fEudYWoqw0TeQZWiU6 3naPKkx6Z5YPNejBxkbWUcDbFt hZW1uJ4lDJtxsdmhc0qrjslh Augoy0wqdq07lD17Y16mLJdcHF TnTBU7NDFuNODusFezxe0kjE4b Ii8+MWkym0qtm2oufMr2PeLx TTIyprLacVosAII9a5AqFc31F2 RnhYwiw4DaMis8he85mQHio7Q5 jHV5UNujCOUtxM8zSTjtKhI2 AJJqCiMyaY11hZMpHJqmUq5blJ iqpQwvPY3xUQEddyckHEXfjW0d DZQnvSCbzCsqQT1mBCPwwzoj s822SfOeHSZ5DZUwfTKtM6UhxD 0bSeTrVIUdRETdY5YpzBRkEKfh C271KTxaIdL2ICYcxkBgP9Kw AXFebNwiGoL2w0P0Fw7Ks3Pmxa lgIEA4LZytWAYaYaNtWbQoJjS8 W0FuXln2UKIsbAxmWT7aH5Fx TJPvwlggtilzdRR1HSSkNFIhiG 88sHEbSIqoGu5bv6O2w632FHDw CAShlE63Pp8fwJxmUAAqeCFG mB9joajws8bnjtnyElNmDGDfLW k3TYu3OJTylUkpCwHyMMB2McH8 QDW4oFHkiB2nmIrexmhlpE8a Oyc+Z49auJ6gQGE1GFT5sjboCV InosTvVF72ZD70O5JoXxperVDx bGU+RAUtqwQpsMnkJW4pRzVh x1hma3XiYQkuG0TnNBMhZLghZk s4MPOnGNL1dEP7hQ4uNTTzFYug s2Y5tXM2W3JuacEtpj3aw0dw GJOjHIpoJ57dyYMhn9R5FNGleC C1PHAjwLnqJjUjrY22Ice+PGNv zSuiw3OmSyixr8dbd1kjcTk0 OsYaXEQfsoBeuMoiPER7t9FbGt 18H18fWOtaHQHoNTMpDNKzNHGv pLjyfq1ejA5oId8+PGNvbCB3 bBQ2zZ1wMHRlHhD7UAyoK052Pe IddSFoGkqiy9wct2wzdJj3JyNb PLVybhZvjVcaMYW6f5ZzSz46 Z18pLXprPAIzFGJhDOClZHRajD fajb4kiH2eMv1+GC9cp2otla42 qK72rZK+DXBbEZC9oIvkXEms ALQsdW9wHZmlJdF1CTFsQyVxyM 65yXKdYQczYy8kqUzisSrvFM0x EMGhokrfp410TdLrg5eqCCLn gEGdLHodKEJ5C72am1K2ODGsHT GbBUR1lEM6hC3nbQsmyggacWUc yQznbuLooEgyARdiNCdpN476 IHRvcDsnPlBhdGllbnQgTmFtZT k5E4DbIxy1PRZusNueLM6hdAMd NZhqKa2vkAcdtZmyJN3sKOHz zyhbt284XkOaf7stXFUrsPPkGD hlCYY6Q67gb2M8FRUdDRGgIRY7 cGF1mE9vjTmatsavjCHlsTmq iiBoaDquVCgfLMfuJ927LOKscF pqZmRlolDwWDKqeOJ6HI49OB40 uHUoq2C2iLS3H7VbBBSgvtxw kpwblOJ5ONNzYJAruB01Aj3lxS gkWm4lIIEzYGH8TWRrwAOmP6Ku sQ8xKuJzFXVpABFnJ9HefSAo DHuvW942ANkfUyG6BZKxliPpV8 NzFJLrqXwaZwT0t9S7Ef4FD1S4 YO03NX25tQQrd7V8fPL3I7Fc MYSepuwynveniUV7OZXlPMGbzV 88Nl7uzHcvRv7pJZNfPYB1XJMf eJAiQ6XosT3iGtPqCUFvBGRw M1CtaJMhAOhiP621IIhxCpV6LG YwtpRoU6HwNYHctCbpWbC1i3R4 Lg6YMRy1EB91WE87tLZjl9J9 cAO0A2XxPMAiztwozdkplYP2YG HfOXOhyM77Su3fnFthOp2uFBRg DGN6YAPbjTCjE1FsuD8wEjJs VLVlRNNkE1VpoZVnZGfzF991FP gvHuR4BAGqplUoK3LhPQIiaDud JbV9u1Q0Gq9EHIHnYB50PQO1 uAH0OD93CG60G6QtUwjltMQuxJ U+PHRhYmxlIHdpZHRoPScxMDAl WxYefCnzLD3vDh1xEUFkSHYf vTwsfFMjScPav9gqMXHwEFwjOZ 6aoAlvM3QzgJF8VUWhl6k8Om89 N17wN7IjuIP+JHMkbOP1iBW0 hD4hMoQkHjV2VLwdL447BkYwuL OuRgkuu6uvj1bngAb5AuJ7PAOw unZpuExnBKT8s8RvVn17E32v IHdpZHRoPSIxNSUiIHZhbGlnbj 3veW8xSn2+AVXmwYD8vOW5mQ1w EmKvFaW4EZgzM937XjHyuYSl Hzuqb2oxy5ytbKu9StNeWUHaxk TjbSefIHO5g0MxQj59R0MffEpi j7LvAdg8so05yBYvf1H5vPL1 H8UiERAcjdnejPXekCruFW5kML NfopwgOWWajB1rWSBqK6q9JvPj ViC1AXjqM0TuboH0BNDzdMTb DFnwCXM7D11nd5S9DAIdKLHwDM J2xXT1uM4qvPnmjbmyoNKiwNnn ykMlxAsbQVarDHroJ844BYSm mTezQQNloA4vVDNrxECvsUxhXZ 0rVOAzjhbgWmDHKSKLMgshQ8jT TElBTTwvdGQ+XTIfOEI8gOkt LBsuNTTkeZ6hSKHfK9y9VaXvRu I3TVkaD0NsVHZqsfelLw56pG4w AkYmIoT3OOpiP2ZjqrZ7WCYg mOHlUZxeXUH2Q59rb0I4UHVqZA EnHIH4uOE5dH6snFjtyyvwsTYj jXbgvjJnyOfxYZacUJuiG683 GFTcsTwbHdBhBwY9NgZ1RpU2T2 ArBaj1VUWqqOabNM7ycXShUBnc Nr6fbXlfiUfjFA2fNPKbksvd WNUjgW1aTOLghYVznIohYL7nTM Fzstnhb577YyFfASO3DAFctJQv E4CvdH1gTyJaPWVxSIBaX2Ht lFMuXQsvS099TSmwMrO3UWFmxj UbI8TuOHYpdDmqSxK9z7J7Pt08 MiBZZWFyczwvdGQ+PHRkIHN0 wJzdILmoVXRkwD8lZPLvP2e5Bb HwZnI8ALilE8VhFSOylgqvRz37 nS2yOaPxLjK0MRmoW9WcipW4 HXOtlPXgBNzyCZF6E23ms1Y6SY SvRUJiPFQ5gOQ4bO6hcLngkeai bGVmdDsgdmVydGljYWwtYWxp Z890XZPgzAsrBg5qoDT6J9AlCv s9HXTbbQkmXM3jgSYoGTxaQk9s hAaxgYazQI9gBNUibxirGPOa aS8fBGFofWKnnTjyEM6yXVUmxw rpd742GdOmLLL8QVHozEPiA0Pd gO6wVcDbDBOaWJLwU0HesISi KSujZ161DMxeUzA7GWXmxqYhR7 ZrCFRfoLcrPpG4b5U9Ja5STWxz EQ5uywAmWD3bsiC7L3AhQjqe dHI+HW51JXTiPN48aIWfvMZdm0 rukXs3AiAtPDGoLJI5rIrmGQfa t4PiXERrT23yaNDfl1E9OITb iLjnjTVaAkMniFP7tE3uDZhjrr npc3dnisxpHhxet8zkpp96eY39 K87aXZayUKCrPBGyMKDdNLCy lEoonp1rmZ5tJc0+HZCosWA6hL H5tD6fMgSgSiD9DNexO474XsVu zAAoNyctm8pnx4dsaXn0ZtRc LXKnmuKalUxdTGU1k5HiHh67H9 9sIHdpZHRoPSIyMCUiIHZhbGln mc4xcY8oAi2+BV9bk5axxa87 yW96fAW+EOIhXFL3dTfpUBxzSP OoiV8iHJvhPeV5NXHmKwKxrC20 hRNkWSydGo7eiSbusStsIR0k VOPzyqzjd579AjTkb8ezLRQxaC EaTRbwNJX8F83jb1A5SLJqXSYz LGE2bYD4aS5mdWmbfyrikXMo rOqdsxBacCkeCWekVCzcV442RV HwlEbbXdAauECyL3vmufOMUM3j OjwvdGQ+YXJdCFJ9qOvoPElc UQNwoV4rTJLuO7a1HaPbZaP9RB oxG7YjpgX3WVZqqWGfDOMqjFUY bG1xlhumv1wiymdvSfAzELJe HUm9JRn7VVMyaHvpAqBuEBH1Bz P6OQB2dWRqqB6hzHuaybapxO6l Oyc+RklOOjwvdGQ+PHRkIHN0 uJucCRuzNUNfqC4qRCKtV2w1Ag NuEzV8BMymO3PafkM0MTQnxMHo NGTjyHVZdC6hauiqc5xdcser HpIvKKYxKVg7NDr4AEJbjHaoJs QkIVT7EmW9BUO3kPFekM3afNym kqpvgZ0hYcf+TVJOOjwvdGQ+ CJDaADG2dXqeSSmeHAIhkF1fDO YcB4y5BiKlCwW1FJuaR3CwjpD2 ZONpcVTiEHRgdLLCpJ2whnfn w5wzhogeWwVjVMNvUXj8BTz1ZM PrsUvnEzPfBWN7SyM5IQY4eFEs uW3raXgycukspI0kTuf+UGF5 GAE5JD77GZ83V3DvGuljsINdkI U+PHRhYmxlIHdpZHRoPScxMDAl MpBvnLzmDQ2qAw0wWNHwRBFv bGxh (more content not included)... Normal [facility] Outside Records Officeon Outside Records Office [id number]#1.00CD:127 Normal [facility] Consent for Treatmenton 10-24 Consent for Treatment [id number]#1.00CD:127 Normal [facility] Office/Clinic Note-Physician on 11-14-2022 Office/Clinic Note-Physician [id number]#1.00CD:127 Normal [facility] Patient Correspondenceon Patient Correspondence [id number]#1.00CD:127 Normal [facility] Patient History Officeon Patient History Office [id number]#1.00CD:127 Normal [facility] Release of Records Officeon 11-14-2022 Release of Records Office [id number]#1.00CD:127 Normal [facility] Outside Records Officeon Outside Records Office [id number]#1.00CD:127 Normal [facility] Coding Summary.on 10-31-2022 Coding Summary. CD:[id number] Gh0bWw +PGhlYWQ+CZ5SQSDmE20vkWNjn R4FM2lWTS6OKLYCQPAOTK6UHW9 hoOE8IMrmF9RidyCf WuslwBGaST39KGk4EJB8gDpoKI bilW5uwAKgH9v6BcBySD02eU13 DTraSEKgBfG0HoFjeooypSBt F0lmJtZooYWpWwl+PHRhYmxlIH tkQPDlQPskHEJjAoJqiVnoAL3s Nv2fXWOiGKEzmSfcjNIdPrYm c6bfAQEeHRiyLW8qdNrwD6VzrD X2WAXfz7b8Hh26rZM+PHRkIHN0 iCmuHJgap199EeWht0xuAPF9 oIFaREhdKLA7K45ai9U7OYTsMI NaSZZ7sFY4kA3xiXzumbuyK1Bz zURwUeA9OLU4nBBayF8uqClp jprmbT2uVyo+Q36QFN6PLQJMBE 0YQzo4T4LiRrjazLO+VO84UVOz TM76dIMieNTxq1gkeQk9NaOu SYMySAG1hCakYNnfu8QaRJYnQ6 9dzKFhz0S1YPMhkQbzoCWwGsLg pJI3aE4uLTekihhwe4txrpxt Goyhy1iifp61oT99R81hVTzkNC KxLSO0OCYqVLJulOoehq5iwL1n Ii8+ENuqc4gwe2rrlKf4QtYg GQEebuNliZxpFGW2v8IzFe55P3 GuzCinr3GwNgd7oq86tKKkz0B0 gAZ2RVjlYEZroH2fSVobFdW5 NKYvXdLesV18iTBjIKmaWa7pbC orxWjrBD6hZAWrqgmoCYHoiL5c JNVzpMZnfTfoDB7jKFLwsbxu b404EgGzWZX2RLHkbKTyL3DvtJ 4sRrOpMUSvMMZgJ9KxbFUpCEun Q226QMypIaK8MZLfyuXsG9Ds JXAzyTnaNnZ3j3E6Xn8Nc7Ocmv ceRZG0OLvjTUDfPmS6HoVgJxP1 O9EgXnm7NGVtcXblZV8tC3Th QJZtuyizjahiuUA4XXLcYTMtuO 70rFWaSWpgQr6vj8O4t293BPNd ZYCmdH07Ch2wmFsmZLQkuXNT pS4sbpsab9sejcbbAxHfMGWcKZ p1FSu9KVUkrRdvRpSzFQS6YfI9 ZDB3sENqrW4liVfuhvcnoJ2y Oyc+Q71lvK2uJJH7DOL9tsdfYX PtqzGfWC76RT73D3VjYvaibUIw bGU+AEFnusCiwDtwDW3cEiIq e9cdm1HzBMezK7MvQYWeEElzMz x4XSGtHXQ0fVQ7kL2sFADwVCem l7C5uRU3Q3HuvzVajy1su4bm JZWxFTbgM44cbQGgj8M6RRThmS Q8YOQaeVkgLcNouR73Ekq+PGNv kLzbo9DiUmcof5jbp7ojcAy4 BtLqNVEyzgEsdAthGWK7f6HvWw 22V82oLJsoGKInOIAoOFYqEBTg jLnhpd2dzL9vRv1+PGNvbCB3 cMM8aC2jMPOpOdU5GFkyJ352Zr JxkCEcEilbx3dgx2tzrXc1AjHe CCLmiwRzyWdrYHK4c2DbMh72 T80ySDzyGKGlDTLvHZEdHNRtbB rbru8nbX8uSl0+CH4yo5scrp78 tN00mNI+AOBuQQV1dWwjZOcs JUQesJ1tTVphVuK2RGErYsYljU 98tMRnCAniQr1hmMbaqHvaRB4n RKHybyimp675QxAph1tgQOVx jRHaRHzvXTV4C84fb6K3ZAIvXN EpQSL4qNT2tJ7cuKxdizntlDXl bQcrnbTbfTmqPAybZLyiD317 IHRvcDsnPlBhdGllbnQgTmFtZT v3V6TxQqn5IWYllFnxOY5toDKo JSizUw9ifZmnyKptKB3kNTMi aimkg860KyKum6qjZCBihFCsAN joAXC5Q29vn1H6EAMlDJLzEEA0 mSF8hG0dwDsyozfflMInkCto cdAhiKwvQXliIRhlJ231MOIepL ctEbEqhyNrWWJnoYH8JE08CX27 sOOmi8F7oJN4H0TeBWBmdoin aqnqnPH4JEDbDBDzqD80Rs6mxQ sxOf7eTMVvYMI7BMSobCMkX5Qq jP0qIrOcUZVgEQDzW2DxfHPo DYdyJ570ZDbvGtQ1AMNcgtFyR2 GgMNRclVbyWjH9o1Y0Nw3BE3J4 TX93HC42xZUzn9A2cPI7B8Wo KFGxumpgeekepTN9FWNjZUIhlY 84Iq1gnTwiAu9eLSYcFWX5ZABd kPAuN1AbpL9pUnHqJOLvSSBe N7AeqZYzROtzZ178ZMyhFfP7HF XmuePaT1XbTRDkzYcfFtZ2s0X6 Fs4XJCy5LB92DL65bNNjs2L3 zYM2R4DvQLRsxbvvgzgkzJB9BF EeXGYqlI99Mf1hrFsiOi7hAPPn KWP2EQRdlTDzA6SjlL7zDmWy NQFcOMImZ6UjaPZiIItrH490XF duNeL0HFOcotCrP0NwIQHmhHlq CgN6m5P4Ag2PWWLlFJ70LYW0 iUZ9SJ23UW25K9MvQxjudQGeiQ U+PHRhYmxlIHdpZHRoPScxMDAl LoSjhShvZX8kDk3oRJUuPXCb vYyyiSEkZbCod2azOPOmURijTU 1ugVcjW3ZprSP1TVOze5c8Ni16 L97sE5TawYH+THCdtFE2qTE8 tV3wFpMyAoX4QLimC395LgImuN TvFofzo7tem5vdnVc0ZiU0ZRHc tcUobRppXBA8f6RpMu43Y44b IHdpZHRoPSIxNSUiIHZhbGlnbj 0spT5kWr4+LOKltQW2cIQ6mJ3q XgSpXoG6EQncX641TmThfBIn Kpmah0sbm8vefHy7DeKxCERmgo BhoFmjMYS6x1NvZl99L8GycFtd w8CrJxp2fl99hTNlg9E4bWV5 Z4TiIRMaqeobkCSpmKkkCJ8cPD HdhrwrZHBmqI4tBFLpF3h3WcMi UhU0PYgsT8IecqG9RFXxqTNh MFwoDYG9T49xg1D6XTGzXWCcDA S1uPX2xX7siEkeyyoxjODanQhr ecBkzNgmETxrBIrvV074NHBa xShwDHKyzF7pKEBsuBCqzDrvPZ 6eTJHjhypeMuQSYGUNTepuO0dX TElBTTwvdGQ+BXSjZNL5zXrh LDbhKOFdgM0oVTOpZ6d4GzDfRh C5PDfmZ6DzMHKfzcgkVr92oN6n ObPyWuA1LLarK5QcckA7NHZc vEVdQDltIFB1J41al9T8XJCmZD UcGXK3lXF5fU1jqGwhylyarWMj xKeytrRxpVrgGYtqKRnnS910 DGXfdIusUcKmUgQ5RyM6WuT8K0 WnYeg2PKYdpXyyAT8jcWSvOKjz Zx4erSoagNtmYI0hAGVtqtqg MKBqmP9nIGTnpOIfdKydJE2jIG Cudzntm664SkSyPZG1TSWahGBz U5AyoD1sPpGwKWUxCRMhC9Sl rRKiMTegH567QFucHrM2ZXSkqo IfM6EnTTBikFhgTzQ1m1V1Em01 MiBZZWFyczwvdGQ+PHRkIHN0 uJnoXBqyXDCtrV9yRIPgX2d6Eo BuGdI1MAzrF4OjLXSuedvpZl52 bZ0pThUeTsY2EVowX9AatbN6 WVWezKNeFNkuMHL4W96ra2N8XF LlEOLiMCY9fMQ2bB4kyEqfysfw bGVmdDsgdmVydGljYWwtYWxp X580KDYpcAuiKb6bbTI3T5WpAj b6DSZibFxnGH0kcFRmODdeXx0i jJrswQnuWJ6xERTbteysJLXl lR9pLZKdtMPnzZczCY4nPZUuay oos598LiSsFQZ2ZOBbmPRxU8Kv nS5hWkIvMPYeXDNtQ6LovNYn FPgvD824YKvaKjR9IBEejfNsM2 ErYRFssDcnSoF5w9Z7Dy9VMOcz PN6pxuMpNG6kjpV6D1FjYmet dHI+AK67YTHmFL34xLVwaLGip4 rbpCe3NtCpILFgCGS8kQnaBPtw b2GuNNWfO46tnMKql5N5PJRp cCiwvCNiQdZnfFG0jJ0nPSrzwu wlk2qqwyknCxaxy6ssiw34sX62 I49kTCiqZNJlJQAaIBFaPVSl jBalmc5maW2nQp5+PIUxtOL6oG K3kQ8wXvWvNdO1XWzaP911XwWl wDSwTccsd7xtb7czrSs0PhGl LVQhlkHzgPciWWG0m0SvRr93C7 9sIHdpZHRoPSIyMCUiIHZhbGln oi2xgE3lVh0+GR9tn4jidd35 oY69rWO+IHWgOTV6qLwgCNrsXH HagR6qWOoyDpY5XEFbIqFavY89 mMFpECnsJe9ztPmupKppTW7h CUBrxlwny226CdHjo3kiQZEvfY TjNGhpBNK4J79nj7U4CBSxWHNz MWB0sSN2zF1nlPydxwxxjJYu xIorpzTrgCgkVZhsKHtfF758NG WdhZliOkQszIUuU8tbraAMYU0g OjwvdGQ+JPLlRLX0iPjfENyx VOVcjP3hCNAkS2j5EhMbWkQ3JV owU1ThwwY4WRUpuUHpBKSqkGSN qL3epzcaq5omyjrbUvBhBIIb PWg0ZYa9IQDosXvoStEmZVW4Qw A1RHO1xKTxpT5mqPnvlmtlnZ8q Oyc+RklOOjwvdGQ+PHRkIHN0 fQcbVQmmEXOatW4fJKDyD3l4Yl ChPhW3RZkjB2FfdjP6SXEoqTDl PXLtnHSEoL1utsetj9nnzuld ObXmIHKiNTp4AEf4QDCvoFodYx NcGJF4VsK9DHA3wJXkyB1knIjx eqiwmM0bUbp+TVJOOjwvdGQ+ XYJmIJR8vHdxMDdrBXIxhY8yWD AnY2a0ExRtFdK3ZNjyZ7TwlnZ9 CQMqdVRwWXOhsDUCtB7akzvy m5yzdklhCfYiFBGyFGj8IDk5RA CjrJztEoSsWVM4PrY1NUX2zPVi dV0bsOeqhaggrB0dGra+UGF5 ETM7ON94AJ13H5FbTjjkdRJezB U+PHRhYmxlIHdpZHRoPScxMDAl VcDzzZppZT8aBy7bKDFzGUGg bGxh (more content not included)... [facility] Consultation Noteon 10-27-19 Consultation Note Patient: RODGER HEBERT Age: 51 years Sex: Male : 1970 Associated Diagnoses: None Author: Peri Johnson PA-C Subjective Chief complaint 10/25/2022 13:08 EST left hip pain . Patient is a 51-year-old male. He presents today with his mother for follow-up after getting a lumbar MRI and seeing Dr. Fu. Unfortunate, he has not yet seen Dr. Fu. He is scheduled to see Dr. Fu next week. He had a recent lumbar MRI. He continues to have left-sided buttock pain only. No radiculopathy. He rates it an 8/10. Affects his ambulatory status. Affects his quality of life and activities of daily. It affects his ability to get comfortable in his ability to do things he wants to do. It is a stabbing type pain. OTC medications have not helped. Physical therapy did not help. The sacroiliac joint injection that he had did help but not long-term. Health Status Allergies: Allergic Reactions (Selected) Severity Not Documented - Hives. Vicodin- Shortness of breath., Allergies (2) Active Reaction Hives Vicodin Shortness of breath Current medications: (Selected) Documented Medications Documented Fiber Tabs: Daily, Refills(s) 0 Horizant: 600 mg, Oral, Daily, Refills(s) 0 Jardiance: 25 mg, qAM, Refills(s) 0 Misc Medication: See Instructions, cbd bid Namenda: See Instructions, 28mgm QD, Refills(s) 0 Nuedexta oral capsule: 1 cap(s), Oral, q12hr, Refill(s) 0 Trulicity Pen: 1.5 mg, every Friday, Refills(s) 0 Tylenol: 500 mg, BID, Refills(s) 0 Vitamin D: 50,000 International_Unit, Oral, Daily, Refills(s) 0 Vraylar 1.5 mg oral capsule: 1.5 mg = 1 cap(s), Oral, Daily, Refills(s) 0 atorvastatin: 40 mg, Daily, Refills(s) 0 baclofen: 10 mg, BID, Refills(s) 0 calcium (as carbonate) 600 mg oral tablet: 600 mg = 1 tab(s), Oral, BID, # 60 tab(s), Refills(s) 0 famotidine: 20 mg, Daily, Refills(s) 0 irbesartan: See Instructions, 150 mg daily, Refills(s) 0 metformin 500 mg oral tablet: 500 mg = 1 tab(s), Oral, BID, Refills(s) 0 montelukast: 10 mg, Daily, Refills(s) 0 venlafaxine: 150 mg, Daily, Refills(s) 0 Problem list: All Problems FH: hypertension / SNOMED CT 004724923 / Confirmed High blood cholesterol / SNOMED CT 89892849 / Confirmed Asthma / SNOMED CT 282544351 / Confirmed Apnea, sleep / SNOMED CT 803923802 / Confirmed Diabetes / SNOMED CT 780665239 / Confirmed Traumatic brain injury / SNOMED CT 082647 / Confirmed H/O: osteoarthritis / SNOMED CT 325835144 / Confirmed Objective Vital Signs 10/25/2022 13:08 EST Peripheral Pulse Rate 90 bpm Respiratory Rate 16 br/min Systolic Blood Pressure 149 mmHg HI Diastolic Blood Pressure 94 mmHg HI Mean Arterial Pressure, Cuff 112 mmHg General: Alert and oriented, No acute distress. Eye: Normal conjunctiva. HENT: Normocephalic, Normal hearing. Cardiovascular: No edema. Musculoskeletal Normal range of motion. Normal strength. Pain with compression left-sided sacroiliac joint Positive ANIKA test on left Positive thigh thrust on the left Positive Gaenslen's test on the left Integumentary: Warm, Dry, [place]. Neurologic: Alert, Oriented. Psychiatric: Cooperative, Appropriate mood & affect. Results Review Lumbar MRI. 10/18/2022. Marked left-sided foraminal narrowing with mild central canal and mild right-sided foraminal narrowing at L3-4. Marked right-sided foraminal narrowing with moderate left-sided foraminal narrowing and moderate central narrowing at L4-5. Moderate right foraminal narrowing at L5-S1. Impression and Plan Patient is a 51-year-old male with a past medical history significant for sacroiliitis. He has an appointment next week with Dr. Link Fu. He is eager to see what that he has to say. He denies any radicular symptoms at this time. Previous sacroiliac joint injection gave significant but short-term relief. We reviewed the MRI. He rates discomfort an 8/10 and is hopeful for some long-term relief. Since he has an appoint with Dr. Link Fu next week I would recommend him to pursue this and follow-up with her services after. Call the clinic sooner if necessary TROY score: 23 I agree with the PA assessment and plan. I was available for consultation. Normal [facility] Comment on above: Result Comment: Elec tronically Signed By: Delvis WHYTE, Hong\.paulina\Date and Time Signed: 10/27/22 21:28 EST Consent for Treatmenton Consent for Treatment [id number]#1.00CD:127 Normal [facility] Office/Clinic Note-Physician on 10-25-2022 Office/Clinic Note-Physician [id number]#1.00CD:127 Normal [facility] Patient Correspondenceon Patient Correspondence [id number]#1.00CD:127 Normal [facility] Patient History Officeon Patient History Office [id number]#1.00CD:127 Normal [facility] Radiology Outside Office [employer] yon 10-25-2022 Radiology Outside Office Copy [id number]#1.00CD:127 Normal [facility] Referrals Officeon Referrals Office [id number]#1.00CD:127 Normal [facility] Radiology Outside Office [employer] yo10-21-2022 Radiology Outside Office Copy [id number]#1.00CD:127 Normal [facility] BUNon 10-18-2022 Urea nitrogen [Mass/Vol] 17.0 mg/dL Normal 7.0-18.0 [facility] Comment on above: Performed By: #### B UN, CREA #### [facility] [address] [place] [address] Dr. Fernandez Arroyo CREATININEon 10-18-2022 Creatinine [Mass/Vol] 1.05 mg/dL Normal 0.70-1.30 [facility] Comment on above: Performed By: #### B UN, CREA #### [facility] [address] [place] [address] Dr. Fernandez Arroyo EGFR-AF ARGENTINE >60 Normal >=60 [facility] Comment on above: Performed By: #### B UN, CREA #### [facility] [address] [place], [place] [address] Dr. Fernandez Arroyo EGFR-NON AF ARGENTINE >60 Normal >=60 [facility] Comment on above: Performed By: #### B UN, CREA #### [facility] [address] [place], [place] [address] Dr. Fernandez Arroyo MRI LSPINE WO W CONon 2022 MRI LSPINE WO W CON EXAMINATION: MRI LSP INE WO W CON HISTORY: Lumbosacral radiculopathy ; chronic lumbar pain radiating into left hip COMPARISON: MRI L-spine 04/16/2019 TECHNIQUE: Axial T1 and T2; Sagittal T1, T2, and STIR sequences. Images were performed before and after the administration of intravenous Dotarem contrast. FINDINGS: For the purposes of numbering, sagittal T2 image # 8 extends from the T11 vertebral body superiorly to the S2 level inferiorly. PARASPINAL AREA: Normal with no visible mass. BONES: Edematous Modic type I degenerative endplate changes at L3-4. No fracture, spondylolisthesis, bone lesion. CORD/CAUDA EQUINA: Normal caliber, contour, and signal intensity. LUMBAR DISC LEVELS: 12-L1: No significant disc/facet abnormality, spinal stenosis, or foraminal stenosis. L1-L2: No significant disc/facet abnormality, spinal stenosis, or foraminal stenosis. L2-L3: No significant disc/facet abnormality, spinal stenosis, or foraminal stenosis. L3-L4: Moderate-marked left foramen narrowing. Mild central canal and right foramen narrowing. Moderate diffuse disc bulging with marked disc height reduction on left side, mild on right. Mild degenerative facet arthropathy. L4-L5: Moderate-marked right foramen narrowing. Moderate left foramen and mild central canal narrowing. Mild diffuse disc bulging without disc at reduction. Moderate degenerative facet arthropathy, right greater than left. L5-S1: Moderate right foramen narrowing. No significant left foramen or central canal narrowing. Mild diffuse disc bulging without disc height reduction. Mild degenerative facet arthropathy on right. IMPRESSION: 1. Multilevel foramen narrowing secondary to degenerative disc disease and facet arthropathy, with the greatest left foramen narrowing occurring at L3-4. Electronically authenticated by: TAMMIE MESSINA Date: 2022-10-18 12:06 Normal [facility] Physician Orderon 10-14-2022 Physician Order [id number]#2.00CD:127 Normal [facility] Insurance Correspondence Off iceon 10-11-2022 Insurance Correspondence Office [id number]#2.00CD:127 Normal [facility] Coding Summary.on 09-27-2022 Coding Summary. CD:[id number]:[id number] Gh0bWw +PGhlYWQ+BB3DRDTlH86pyWYmf T8GC8oUUP1LCWMQFLYTQB8ENJ9 eqMJ8EMsgE7IhjlVb JamtsGVdYV03QDf5HTA1yCumQF bjaC5epGLoC9i8ThIaFO30vM66 QTkoATYrXaY7EaCbxmcbwPTg R8yxFjYruYWvMgq+PHRhYmxlIH qkQNLnZYorBRVxPnVszCzoIT3l Oe2pJDJqRIPzdOxmxBSkKqGa b2eoKHIfXXrjXL0mrQtkS1UdfO K0IJTca6i2Mz20zBR+PHRkIHN0 vKawRZzsy358ChTvt5oxGFU2 vOAkJMttJGS4Y32vd4A6VLGeCU ImXOZ3qEP3dT3ywPmaqswuA7Qu pJAfLrS6GDL9qBGgzG0yxOxa vstvwA6cBoa+M71KII3BOGZIRD 4TCvx8H5GkHrqwzEA+ZN32PNDn KK95pGZlyCUkm6tzeZi0HmJr YWSdHKM3tVzfFKpbc3UnQAMbC2 9yaGVue1L1BHUecTcfjAEgTzZn aZG0iV8nZVtqjssrc5xkmlbp Ailmv7kpiy49kN47D39dKSvwUB PdJWL3DPUbOBGjcJpwec8kpL8v Ii8+BTazi9gcv4vniBu8SlZe ZMZyfbTfjKbfOGN6z2WqZo91U5 AcgLkge9VuWeg8jv77gMQij5U6 mIZ3DKieSAYjkJ9tTDjdIrO3 CFHkKuJsaA01oBAnIXzuMz1cbE vgeMdcON1gGPSmghroYDLqeZ9z JFDxdITmvTwyTS0nANQjtvpm k552SwVnIFP3WNPegKYbY6XnjY 6gLgKsHTVyUHZbJ9NyvWRbFRdp Z047NHarUlQ7HIGhadCkR4Bb OEIduQmlBsG8e2N0Ii9Wf4Hctr bsFPW9QTohSVUcMhW0HtPvUyI6 R3EcNns4QGIacTesFM0eF1Kh EUZariuxuuaaaTY2RSJcGLBroA 64sUYgNSpaIe5dg6V5n416GLEt JMIuwU60Yz7qxUamSHOuiXFS yU7jeonmb6axluzxCbQcBARcXO l6LUl3RNMxjUjmSgHeVZG3WqY2 NMS5uNHbsB5lvJjtttrhuQ6m Oyc+A48kzQ8bZXM2JZW8vlhhOP MzqdDaCA01OM21G1XzOzncuPBp bGU+SRGolrBscBsiJY0wOjQm g8kmn1SsKIddO4UbEJLaZRjnBj q7ZQKkNTM7oQK9hN8eHOIlIApb n1K1nGY8Y1CtccLrib0lf5tr ASHdWKjuF93rmMMcb8G3MVFidU Q2XMYgkJvhLdGvgD83Vbl+PGNv vRnsc0SdBhuqy0zfh7fauNs3 DtGeBPFljoIbqDkuGGY2d7LyUw 00S87eAQsjLTYaZOZrIBMeSOLc mWendo6ytX1aFd4+PGNvbCB3 kHR1zJ4iYARdWwK4EQfjO827Ry EijCSxGvqql0zpv0itjHj9WeUj OBUadxImaIvdQGU0g2SsKx45 I20yQMhgICChKHCyQODgJOIzbV huzs5whH8fBk2+BP9cj7stzv12 gJ87vYU+BYCxZWV0cDkwOJgg KKRkmE5qMZzaAyC0DMFcXhJrwK 70nQBdCGpkCk1kdUgagSczZY5y SQLhqppmh122EmMkw9wgFDLc hYZbLPsjFDR5Q79cv8L2GJXsBD SoASM4gQR8nE3xfAoiwakdqFGt xSkwgpEzuWjaGMkmCLpyW980 IHRvcDsnPlBhdGllbnQgTmFtZT z7X5EfTtb1PJPlrTooUG1yaOQo CGxfVx3ueTxsvGnvBX2jPTNh tfgff458FfSuv9wpDNEudTFsZS gzLWH4R58xu4P2SBUnHCHhSKQ9 sNJ1iJ2kkRjbklmgbNBxxPer sbRpiJfdTFiiEGrlF704RUVudV yqNcNoopZiSWIwxKA5HI12BR09 iUTic8R0xOE8R6AfVDSqackd qadtnIF0UOKiIFHwfW48Pd6boU bcQe7uUPUcZGK5ENNacZVpF3Vq wQ7nGdTbOWNpKWFyN5ZujVQk MBsdN931RMfeUpQ1LDKufhDfC4 JlSTNrzLdpBpU0r8Z0Oc0ZD4M3 RZ43FR08gEVvy9C6oLM8F4Xh ZUPnbgdrzonwwNW6VRDjRSVvmB 15Lv5cyHybSg9rZDZlYWX5TPHh zNObE0RctP2iBmOdQVDiJBWd G8CrwENsKEfbW810OOzyFdA6VQ MdwhKsH8ViNHXcsMjlRsL7h6J3 Us8IMSo0DU15DJ23qUHhz8U1 hIA1T4HxPATcdnjhcogrpLW8LA DrEQEcqL40Aw5pkDccGi0cPCGe KXX1FZRnnAZrQ3FclA4jPgEz ZMAuGLFpX4JmaXEcXTznA755VZ uuQaF1ADAfleWhZ5YqTNCaoKal RlA2j5G2Th4RFPCdGP15PAZ3 fZA0XP99HY85T6CkLbfeeULaaH U+PHRhYmxlIHdpZHRoPScxMDAl SvLldBiqMV9qOu6rARVjYNEw jArqsXBeNhNoo2tgPCRbAApiRN 4spDiiB6NmuKO4VWQlt5k7Ed82 V06uP2CbcJH+WTLrwMK8rIM9 eU4oRkSsAnB9LTrsM976OzGrzP HkZputq8kkh2vuaXb0AnL3KQGl hqUupJyhWKK9l8AhEl59K23i IHdpZHRoPSIxNSUiIHZhbGlnbj 8jbP8sAk6+AGKyjYT7qGA5gW4y SaKcIzZ5WIkdN509SdCkuISo Gosub4kdx8rabQa6JnExNPUduk MjiMkkMQA4f5WeFm94G2GbwNef b8WjRhh4vh99gKKgq6O8hFU8 T9YsPAUzhtxekKDsfSuhKY6fVV DdcmhzPYPxnI7hQLXpD2i2IpEr DeM3KKtiV7CnsfC7CEZxiNKp DVtpDVN1Q58kg7X0NCXcGBXfSI S4uMS2aS2xoNkeehyohIZukAwx qmOrtHjaFCnaAYoqH961QJGf nMpfWOFahZ7eAHIjrJSrlJutFU 6nTMBtxudaPxKMVVAJSsqzQ2aB TElBTTwvdGQ+RMLzWWU3jPjj HUioAKPwaX8wXRVrM0g4CmXtVi B6IXmnB6SfWHAtsleqQo89yL9c JnYwGzA2VAiwY0OdcbY1RCMr qRFzOGbnXQE6F25eu8X2LUWsUG JgKJL8hKZ1kS1akCfghqcuyKYz bSdgqrQlrKjtERrtYDkxK377 HKKqaLuvOxGpWoM1ZeF8ZcO2Y7 OhKft3LHHbbQkcIG3byBZkJQgj Kz8nlYyejDmaND1fKIRlqatl EOYefZ8dMYGzbOZdtDwpXY3tAM Mxzgyyp787XsImMFY8NYEtvEKj N8YtkF2mVcCiBJMjIIMzJ6Dc lYNbSFhlJ900UGrrImO2XSSluc JwR0HcZFDvuElaDsM6l1T1Ne99 MiBZZWFyczwvdGQ+PHRkIHN0 wXdfRYcqKJNokS8aOXRoL5n7Yn CqWuQ6WDmmF5BlODRojnzwOv13 bA1zXbQzJgJ0AIihM7NhhoI9 BPIhaSRtXLrePZX0O15qk6U3MX TbJZPmSNA5zIB3tO1iiRnbrkzx bGVmdDsgdmVydGljYWwtYWxp K214RBFqjPqoDq1fcPR6J2RmUa x4NKEfhXqjKQ5piOKwDZnbAi7n tRqloLhpDH3hNLEqmaghKUJr vZ4jGMYhnYErrWswZV1aRJRyca occ809JfEpBQD1FSPebZRnM5Xp gK0lZoJyOEKlDIBgQ6NtnRAg IRxbT098IVrdEjB1BQVsuvJbK3 ZfXUUjtWsnFcI6c1F8Zl2EOAto II9lhlUhPD5tchL8W3MzZhxa dHI+TR09TXSkWT92eJHogECin5 zeeGx1WlDpYZNmBYS0fIujLEft h4FqUQRvU22efQQiq9W3RGNj rVbvyPXvYeWfcBL8zR3yJNnzos cvz3ovtmdbFwdsc4yhnd33lK75 F80sTGpeKWVtAAVbVJZyAEDf fCzmxu0arJ7nYd0+LEPfdPD9dD P5aT9rWvVzKyY0DRjgQ774EwRo zUFiCjzrf9kfy0kqrZz6DmAw BRSjtiNfqZctBNM8p2EfDi52O8 9sIHdpZHRoPSIyMCUiIHZhbGln sg9dpX3aSp5+RO2qj8lrpj24 xR16vZD+PVZjVKI5xMtlYPlfVW QpwA9gANaiNxM1SZZlPuGaxF80 jLDnWUmiAu7wxZdgpDuxUE0d ZWTvjhdow836AnGkc6xyZCPxmL CtDLrqVVM9D56ja4C6VXRgSWXu NWB5pXW4rG4feZqbzuienLAw cYzgxeWamVuwEGqpEDfyD876GE WeaDjuHwQncTDdA9yalxAQVG1r OjwvdGQ+HAZgTDQ9oCvlJMyc WIYdcF5kRVMxI6u6RnEyPkF9UU znG1JdmtN8ZSTxdYUtBWGxrTSK fG4oxuvue0mvrlzkIhYjRSIe RGp1XGh2ZZVujEzgToNyECX3Jn N0APK8hJDwaU0uvIsjmhxpoW7f Oyc+RklOOjwvdGQ+PHRkIHN0 xOufNFmhXXYpuC8dQSYhT9x6Nz TcEpK1YFniA5SertA3SNCkeNGf FHOukLQXdA3gberqr0avrhdq KfShNXUyJTb5TCp2RWEryPsmUo YoNQP6PjH5SVW2jAAgwA3lxYuj rfutuT0vRwi+TVJOOjwvdGQ+ FLGrZYE8rPdkOMklBGKhoR9wVP PaD9h8CuYaZkD8UBqlT0HyonD1 TFXyyMMbNRBisAZGtR6ihptw k2zbnzsjGlDqWRNiMLb8PJz4DO PifFdmAoWdIHD8XdY1QKL3eIGo hW5uyQjuejexlY7hTdl+UGF5 LRR6NM46HX70Z1AmHknmxYVwuR U+PHRhYmxlIHdpZHRoPScxMDAl UfJvpPxqOQ9eEo3oZTFkMRQf bGxh (more content not included)... Normal [facility] Legal Correspondence Officeo n 09-27-2022 Legal Correspondence Office [id number]#1.00CD:127 [facility] Consent for Treatmenton Consent for Treatment [id number]#1.00CD:127 [facility] Office/Clinic Note-Physician on 09-26-2022 Office/Clinic Note-Physician [id number]#1.00CD:127 [facility] Patient Correspondenceon Patient Correspondence [id number]#1.00CD:127 [facility] Patient Correspondence [id number]#1.00CD:127 [facility] Patient Correspondence [id number]#1.00CD:127 [facility] Patient Correspondence [id number]#1.00CD:127 [facility] Patient History Officeon Patient History Office [id number]#1.00CD:127 [facility] Coding Summary.on 08-23-2022 Coding Summary. CD:[id number] Gh0bWw +PGhlYWQ+JP6BIGGuR66loXFas S1QX5mYZD1WVZHDVKWPVP4RRT3 umZR4ITnwY2HkxeVs IwvsmVVtHY17KVm4GCJ7dSjxZV rxkE3lzXBvU4u5GgFiQP70aB52 ILznOZZfRnU4AhTscznpvXSg R0siQlThfEKzUwd+PHRhYmxlIH ocLFCrSHnxYPVmCiZyvBlfRA2t Xn3gZFRbFCMdaFqzhQTeTdXe o6ibXGZhPVlyRO8thSzuM6VggN K6UAWsd6b9Ps03aKK+PHRkIHN0 lFtoSZruz333NgBfp7ijQVO6 hGYrHYtcEAA0R96mv2Y5GSSnDW CnKMO4rWJ6yF4zdJzamajvK5Yv bJVfKzA2ZFK9sZBxhH1zvGtg djbtfQ2oWnp+K99HEC2INYYXKC 1ZZsd0C9RhNdkzyXR+FO42CSNk FM96oLQnmJSeq5hqdIc3MsAn STJdONH7vLahUQxee8KwWFYjX0 7tjVNja7P1OESehZlwzQFiVhLz rEA7pK8gRXcbkiycy9ftmeit Yrdza6japh68vY12W89yMHiiJF BeXTJ8RKGwKZDtaIpymp7jsI8d Ii8+PSiju3nmp3xvqUe7BmWt NGPunrEnqRehHTO2j2JaAl35A2 SetOjyw4HmNyl6dz98yZOjn7K7 bFL7LWctFTSxlQ7eETqoGpP2 QOJiElKviP86zBDdLNvzDy0jcU yskNgcFQ0cBTMklegzOMFzfT6i UUAqlHPelYpyWS2gAYQironk h911AtWxHXZ6JUIscJEmD9GqsS 5mVbRyXJDvKUYnQ1EniNHxVCyr A552CYtqVpV1LKXvslCnD3Tq WWAxfCpbBiD5i6F6Gl2Cx5Uvle lrODR5VGciJLYrGdJfAnNkBmT1 K4EgNgk6VFBphNswPO9cO1Km FOShgbhtoizshPU7WHRbADVznD 91mWMyHYnfCr9dq8D8g283MELg RKCcsU12Vh8sqSdvZUVarUPZ lB7witrbk8xohiscTpKoIHZvZL q1JFm7ZIUwwUjiMoDlMMN3EjR9 EAG9pTTjhS4kfCuwahvfiU8w Oyc+Y44ijX7fMEI5UOR3klbyED UywtJrTG37VJ25R7NtXmqnxLAg bGU+WZHvkiWlyFhlWK7iHbZb l1mld0UkIVziT1OuXGYaKVxyJb c5ULWrEZX2kYG0jC9rCQOoSCyk v7K5yIG5R2FsdhTznc8vy4xf CRQyULquU01qhRWsm3G2LXAzxJ A4KFQxcKtaCaKxrV04Nwt+PGNv kSdml4VzUqdgh1xqk5albAx2 MeYaXECqmvGjeNhmYYK9h3IuIx 46S06uMKrrBIReDWBiAGCiUNQd nElgkb9mxS8xVx3+PGNvbCB3 cKN9eR6dZMCiNtK5LQidG731Zn VhjBYcVcmfm1qqh5bojPn7AoKq DNPkucVkaFuwHOR7v2SpNv43 E10xINjoUTOvJZIzWLQbTXXyrU tegm8ohB7tBo2+BX0uq1cixw98 aP05xDO+ABYtRVK9gPapHFml CVAwsZ6hGEgpQlZ8ZPKxHfSqyP 06rQCrMLisJl2jeNurvBdxGC4s YNLnmfzxv339QiIot9myOJYo mYByRJjzXBP8O70tv2F1LDUvPS HaWPQ7fGK2nB5aiCfvqlyzeADn mKxzgzBrxSydEVsrYSfxC175 IHRvcDsnPlBhdGllbnQgTmFtZT w2Q6HrNkk6OLZyqFlfIM2meYDh LNcjNw9qlFssnRafUA0iLMJn mxwxz491BlOkp9gtONVysFMqTT hxHUQ8U59km6D9XEVpXTTiHTI4 wUU8jV8zxAknybqboVBbbTuq wfGejDcoNKgpFEkrX202XTZkrL yeTrGmmbCzEVLyhDD6VX79MN24 uYEsw0K2uMM6X5ArMOAakuvy fvgodTU1VUKoALMpsU23Bs8nvL fyZe5fZGKlQUH9TTXhxEGlI3Fv tI0eGkVwRVYbPRItS7ExqMFg TVcoU366AVyxEgO2GXCqiaFyE0 BjBAKmmDcpWzJ7p3W4Os9PT0A0 XF23OF31uDGns8P6dZZ3G8Wd JRPzxyehepncjDX9EMIyHBGkaF 25Fy8gcJogAe1jVJTaUDW0GXAb zYEnT9TodF3fOsMlDLNcFTUh X3ElwDOuJDeqE353NGagRjX7DT QxwwNgK5QcFCWekOzgTjT0n1O5 Ju1LQSy3SL32WE28aDVia6Z6 dNU8P9IyCHTorycheyameSN0ZO YwUGXvqG13Jn7waPakQg7aHDIj DQO8XLGxhVXlQ7JwoK2xRaAg RNSzQSJjV3UxlXJgNKfsR414DF dpEiI0FVYkbhIkI9XoTHRuiPtf LpI7u8K4So5OTZQrRO59JXC5 nNH1IK06OB91T5AaOmpasEAijJ U+PHRhYmxlIHdpZHRoPScxMDAl InUssLxiCJ4lQu4wPSDcOHEr lMrijNSoRgIgk0nnLLHjLJhzNN 0trQksS7ErlWV1OBRew2h3Gt79 Y00fR2HqgYM+JMJgfUT7xPR5 gK3iYcQhMmW5PZekA527NbTntE HtBwoer6ijx1xprLc4VbR1LRSr uiStrCthMBJ3q3QzMo30D27t IHdpZHRoPSIxNSUiIHZhbGlnbj 8inG0eGf7+GTNqdIB9aOT8sO8n YySyAwD9FSueG958RhFptBQh Qhtib9vss6xxzAv9ChCjWWYmex OnbYbpPNM4v2NdJe37Q7GzwGgw w5RoMzq5gj77aUGnt9B0nGD5 S7JeOZUrpcnrkOCweQyhZK4tUQ IdqmjhHBQyjH8jNEElG4q4CgAy NjC2NZfgL8FatcD5MZQeaIAx ODrgEWK6O74au5Y5CSTvPHRmQC L4fDI3tQ5enOuwjqyteNWomDqn paZfuEfaMWagUKkgJ249IOGw uIanQQAnpD7iQLDypCMxtQieEC 6vONWapgczQkHZPNLCMfmoF5cW TElBTTwvdGQ+ARRqCPT0eJqc MQyuIHZmxN8cDMDnR3b0QuCgYy F3VXabK2SiEKSfviblYr01aU2t QxQxReJ4XTnwK0TnbeT2MBZg zKWqEZecYCS4Z40av2S5NKRbPS YfGGD5nOY0tQ2exFmziezxrZKv kFglmqSmqBnzAWhaVLksU929 EYFgqUlkZjUdGjH2HyL1HxC9W2 VpYvq2PGCzpJmbUC6uhHEtFZbr Pe1jqQgmjCkjXJ3aPEFaqwvj DKPdcA2pEKTweVKzpYhkMM5kUC Ojzvdki127GjCyMPD3MNHakKLi F0NsmW9eExQyXVMyGHTrP0Tq qLXyPTetK212WKjeFbO0IYWdss UtR2PjHLZsgOkjMxF2g6M8Tf17 MiBZZWFyczwvdGQ+PHRkIHN0 jEigTYjeKHIqsF2dRUEkS5c6Bb IgNyO2IXkxI6KsGSVczajwRk66 uH6yCaTvBnZ9HIzeL9BodtN3 DGRxhFAaDLmtUKH0O26ft8Q0XK KzFPPxKBK5hJG9lB5tkPlxcizf bGVmdDsgdmVydGljYWwtYWxp M508GMQdfLicMx6qoNH7S7IrIw u5ANZeiGczCR1odHMlNTftGz5d eHvufMnbXP7oREGnkbijFQQv gL3bBQDfhQKuyAfvIG8iJPTnzc yrg719UaKxFES7BIHcoUGsM3Tu sN8hSpKkOPOtZFDhY8WjjHSs EWcmL892KRifPtV0KKXiovBxL6 VqRGFolPhlJxO8x7T6Me7SLFea MR9qdtVvSI5grjF1E9UiMbhj dHI+VF11XHWeXH04tGGmwIBrq0 setZv0InQzJXOvHWF9tPuaFUuh r2YrGFXeA93mtZCrr2S7YUYa uRpblXVoVtBtuVR2yP9zGXtyta nwc6lijikwJpkca9xzaa79yL91 G99rZGwdIIAfGITwYWDtDPYy uBavpq0ykR2sBw0+SSJiyUU8oT C6pR3iZsHqLuP9RSasH763XnEd eQWySkxmc7dpl3cxeQl6QqDe AOJbpvKxmVsiNGD7u0NrXz30A2 9sIHdpZHRoPSIyMCUiIHZhbGln rk0fiL8yYf8+YX3zy4tpwt67 rY90uQU+OOTxIWZ3qIkeLNacZD MjhP8pSJbpJzD5HHBzYxDagQ11 nPUpOYoqOa3aoSfxxKcwMU4y CQGoqrqym243AfAkj4izOHMuoX VyXJygUPR5Q45gr4N2IQPaHWYi KPD6fZC3eQ4vvXjxdievtCWx yUmhsbZprZcaAAusVFqhJ670AW RiyMapWsGtsYLmE6fmkmIUVQ2u OjwvdGQ+YEHnGOW7wAgkKKym RYCtfA9hPZEkD9n3ZvGiJaR3UQ deJ7LijmT2TLYgrMLvHNTsiKSH cI2mvyyub1llqlvlEnWpTFBh NBu2GAi7SBMzhRhrByAuACQ4Kx Z3JXI6oXUhvW7pkNtqfrbgfS9x Oyc+RklOOjwvdGQ+PHRkIHN0 iSyfILhwDVStkT5cOZVnM8s5Or XxPhM1VNnnN0CuctZ8YSIxnWMl OECmfABQsT6npozhm7hvsfjo NwFsMOScCCj3ILl6IZTbmZvtJo JjWZT4PnA0RAH0qESjhP3iqCal vfszuT4mMpg+TVJOOjwvdGQ+ FKQrHKK8iOhpOAloBXZcaC7uMP PvV5f3CbAdXyB3VRbbD6LkxgU2 VCGjqWEhJPGlvFLRuY5mzzlx b4epsrqfZxMuEGZdCVt6FWs8IM JxrKggQqRvDWZ3FpS0UNV5cAZm vM0kdFfglxbjnR3kTts+UGF5 NEE3CX25HK82H1QkAkscxIYtpY U+PHRhYmxlIHdpZHRoPScxMDAl UaBjiQrhKJ3iGt2cAJImOGNb bGxh (more content not included)... Normal [facility] Operative Reporton Operative Report SURGERY DATE: 2021 PREOPERATIVE DIAGNOSIS: Sacroiliitis POSTOPERATIVE DIAGNOSIS: Sacroiliitis OPERATION: Intraarticular steroid injection into the left and right sacroiliac joints under fluoroscopic guidance SOLUTION: 4mL of 0.25% Bupivacaine and 1 mL of Kenalog 40 mg, 5 mL total, 2.5 mL per joint; contrast was 1 mL Isovue per joint, local anesthetic was 2 mL of lidocaine 1% per side ANESTHESIA: Local COMPLICATIONS: None NOTES: The patient has a greater than 3 month history of bilateral lower back and hip pain. He has been doing physical therapy exercises for this for five months with limited relief. He has not had benefit from NSAIDS or Tylenol. The pain is interrupting his function significantly. His imaging is notable for sclerosis in both sacroiliac joints. PROCEDURE: After informed consent was obtained the patient was brought to the Operating Room and placed in the prone position. The area in question was prepped and draped in sterile fashion. An AP fluoroscopic view of the sacrum was obtained and after local anesthetic was administered into the skin a 22 gauge Quincke needle was inserted into the skin and advanced into the left sacroiliac joint under intermittent fluoroscopic guidance. Proper needle position was confirmed via AP and contralateral oblique fluoroscopic views. Contrast was administered under live fluoroscopy in both views and demonstrated appropriate uptake. The local anesthetic steroid solution was injected incrementally. The needle was removed. Bleeding was nil. The procedure was repeated in the same manner for the right sacroiliac joint. The patient tolerated the procedure well and was transferred to the Recovery Room in good condition. Hong Edmondson M.D. lr Dictated: 08/21/2022 [id number] Transcribed: 08/22/2022 [facility] Comment on above: Result Comment: Elec tronically Signed By: Delvis WHYTE, Hong\.br\Date and Time Signed: 08/22/22 17:47 EST CHEMISTRYOrdered By: Lab ROP User on 08-21-2022 Glucose [Mass/Vol] 74 mg/dL Normal 55 - 99 mg/dL [facility] POC Subsection Comment on above: Result Comment: Maru alberts RN/ POC Device SN [id number] Invalid Interpretation Code [facility] POC Subsection POC User ID [id number] Invalid Interpretation Code [facility] POC Subsection POC Username KARIS ELDRIDGE Invalid Interpretation Code [facility] POC Subsection Capillary Glucose POCon 07-25 Glucose [Mass/Vol] 74 mg/dL Normal 55-99 [facility] Comment on above: Result Comment: Maru WHITE Performed By: #### 2 [id number] #### [facility] [address] [place] [address] Consent for Procedure/Surger yon 08-21-2022 Consent for Procedure/Surgery [id number]#1.00CD:127 [facility] Consent for Treatmenton 07-25 Consent for Treatment [id number]#1.00CD:12 7 [facility] Discharge Instructionson Discharge Instructions [id number]#1.00CD:127 [facility] IntraOperative Documentson 1 10-21-2021 IntraOperative Documents [id number]#1.00CD:127 [facility] IntraOperative Documents [id number]#1.00CD:127 [facility] Main OR Intraoperative Recor don 08-21-2022 Main OR Intraoperative Record IntraOp Document Type FTPM Summary Primary Physician: Hong Edmondson MD Finalized Date/Time: 08/21/22 11:35:10 Pt. Name: MAURO HEBERT Gosia/Sex: 1970 Male Med Rec #: [id number] Physician: Hong Edmondson MD Financial #: [id number] Pt. Type: P Room/Bed: / Admit/Disch: 08/21/22 09:59:03 - Institution: Case Times FTPM Entry 1 Patient Times In Room 08/21/22 11:27:00 Out Room 08/21/22 11:35:00 Procedure Times Start 08/21/22 11:30:00 Stop 08/21/22 11:34:00 Anesthesia Times Last Modified By: Candi Grant RN 08/21/22 11:35:04 Case Attendance FTPM Entry 1 Entry 2 Entry 3 Case Attendee Hong Edmondson MD, RN, Ksenia Lawson RN Role Performed Surgeon - Primary Hvac Mechanic - Primary Scrub - Primary Time In 08/21/22 11:27:00 08/21/22 11:27:00 08/21/22 11:27:00 Time Out 08/21/22 11:35:00 08/21/22 11:35:00 08/21/22 11:35:00 Procedure SACROILIAC JOINT SACROILIAC JOINT SACROILIAC JOINT INJECTION(Bilateral) INJECTION(Bilateral) INJECTION(Bilateral) Comments Last Modified By: Candi Grant RN, RN, Candi Marc RN 08/21/22 11:35:05 08/21/22 11:35:05 08/21/22 11:35:05 Entry 4 Case Attendee Hailey King (R) Role Performed Ice Puller Time In 08/21/22 11:27:00 Time Out 08/21/22 11:35:00 Procedure SACROILIAC JOINT INJECTION(Bilateral) Comments Last Modified By: Candi Grant RN 08/21/22 11:35:05 Perioperative Protocols FTPM Pre-Care Text: Implements protective measures prior to operative or invasive procedure, confirms identity before the operative or invasive procedure, verifies operative procedure, surgical site, and laterality Entry 1 Procedure(s) SACROILIAC JOINT Patient Identity Birthday, ID Band INJECTION(Bilateral) Verified (select at Check, Patient least 2): Participation Consents / H and P HandP, Surgery/Procedure Operative Site Present Verified Consent Marking Verified Surgical Site Yes Laterality Verified Yes Verified Procedure Verified Yes Correct Patient Yes Position Verified Availability Equipment, Medication, Prep Dry Yes Verified (If X-ray Applicable) PreOp Antibiotic No Time Out Candi Grant RN, Given Participants Raymond PATINO, Delvis Mccormack MD, Felix Guerrier RT(R), Hailey Time Out Complete 08/21/22 11:28:00 Outcomes Met? Yes Last Modified By: Candi Grant RN 08/21/22 11:29:45 Post-Care Text: The patient is free from signs and symptoms of injury caused by extraneous objects Allergy Information FTPM Pre-Care Text: Verifies allergies Entry 1 Allergies Reviewed? Yes Allergies Reviewed Self/Patient With Outcomes Met? Yes Last Modified By: Candi Grant RN 08/21/22 10:22:47 Post-Care Text: The patient received appropriate medication(s) safely administered during the perioperative period Surgical Procedures FTPM Entry 1 Procedure Description Procedure SACROILIAC JOINT Modifiers Bilateral INJECTION Surgeon Description SIJ Primary Procedure Yes Primary Surgeon Hong Edmondson MD Start 08/21/22 11:30:00 Stop 08/21/22 11:34:00 Anesthesia Type None Surgical Service Pain Management Wound Class 1 - Clean Last Modified By: Candi Grant RN 08/21/22 11:35:08 General Case Data FTPM Pre-Care Text: Classifies surgical wound, implements aseptic technique, initiates traffic control Entry 1 Case Information OR Pain Proc Room Case Level Level 2 Wound Class 1 - Clean Specialty Pain Management Preop Diagnosis M46.1 Postop Same As Preop Yes Postop Diagnosis M46.1 Outcomes Met? Yes Last Modified By: Candi Grant RN 08/21/22 11:30:05 Post-Care Text: The patient is free from signs and symptoms of infection Skin Assessment (Pre Procedure) FTPM Pre-Care Text: Implements protective measures to prevent skin/ tissue injury due to thermal or mechanical sources Evaluates for signs and symptoms of physical injury to skin and tissue Entry 1 Skin Integrity Intact, [place], Warm, and Skin Abnormality No Dry Outcomes Met? Yes Last Modified By: Candi Grant RN 08/21/22 10:22:55 Post-Care Text: The patient is free from signs and symptoms of injury caused by extraneous objects Patient Positioning FTPM Pre-Care Text: Identifies physical alterations that require additional precautions for procedure-specific positioning, verifies presence of prosthetics or corrective devices, positions the patient, evaluates the patient for signs and symptoms of injury as a result of positioning Entry 1 Procedure SACROILIAC JOINT Body Position Prone INJECTION(Bilateral) Feet Uncrossed? Yes Left Arm Position Resting at Side Right Arm Position Resting at Side Left Leg Position Extended Right Leg Position Extended Positioning Device Pillow Under Head Large, Safety Strap, Pillow Large Under Knees Press Points Checked Yes By Candi Grant RN Outcomes Met? Yes Last Modified By: Candi Grant RN 08/21/22 10:24:35 Post-Care Text: The pa (more content not included)... Normal [facility] Main OR Preoperative Recordo n 08-21-2022 Main OR Preoperative Record Holding Area Document Type FT Summary Primary Physician: Hong Edmondson MD Finalized Date/Time: 08/21/22 10:11:46 Pt. Name: MAURO HEBERT/Sex: 1970 Male Med Rec #: [id number] Physician: Hong Edmondson MD Financial #: [id number] Pt. Type: P Room/Bed: / Admit/Disch: 08/21/22 09:59:03 - Institution: Case Times Holding FTPM Pre-Care Text: Verifies consent for planned procedure, identifies individual values and wishes concerning care, includes family members in perioperative teaching Secures patient's records' belongings, and valuables, maintains patient's dignity and privacy, and maintains patient confidentiality Entry 1 In Holding 08/21/22 10:09:00 Outcomes Met? Yes Last Modified By: Mireille Mancilla RN 08/21/22 10:10:00 Post-Care Text: The patient participates in decisions affecting his or her perioperative plan of care The patient's right to privacy is maintained Surgery Checklist FTPM Entry 1 Patient Birthday, ID Band Procedure History and Physical, Identification: Check, Patient Verification: Surgical Consent, With Participation Patient NPO after Midnight: No Date/Time: 08/21/22 10:10:00 Results Reviewed 0700 cereal and juice Personal Items: Jewelry Comments: Personal Items Pt. wearing a bracelet, Complaints of Pain: Yes Comment: one ring , a necklace and a watch. Pain Comment: 05/01 lower back pain Operative Site Yes Marking: Marked By: Dr. Edmondson Location: bilateral SIJI Availability Equipment, X-Ray Verified: Does Patient Smoke No Patient states Yes Comment - Adult mom-Margret postop adult Supervision supervision available Case Cancelled in No Holding Area see comments below for reason Last Modified By: Mireille Mancilla RN 08/21/22 10:11:41 Finalized By: Mireille Mancilla RN Document Signatures Signed By: Mireille Mancilla RN 08/21/22 10:11 Mireille Mancilla RN 08/21/22 10:11 Normal [facility] Insurance Correspondence Off iceon 08-13-2022 Insurance Correspondence Office [id number]#1.00CD:127 Normal [facility] Radiology Outside Office [employer] yon 07-22-2022 Radiology Outside Office Copy [id number]#1.00CD:127 Normal [facility] MRI BRAIN WO CONon MRI BRAIN WO CON EXAMINATION: MRI BRA IN WO CON, 07/18/2022 8:30 AM EDT HISTORY: Ataxia COMPARISON: 11/03/2020 TECHNIQUE: MRI of the brain was performed without IV contrast. FINDINGS: CEREBRUM: Moderate diffuse generalized supratentorial atrophy. Moderate white matter signal abnormality with no restricted diffusion to suggest an acute infarct. Remote lacunar infarct right frontal white matter. No acute mass or hemorrhage CEREBELLUM: No edema, hemorrhage, mass, acute infarction, or inappropriate atrophy. BRAINSTEM: No edema, hemorrhage, mass, acute infarction, or inappropriate atrophy. CSF SPACES: Moderate lateral ventriculomegaly SKULL: No mass or other significant visible lesion. SINUSES: Limited views demonstrate no significant mucosal thickening or fluid. ORBITS: Limited views are unremarkable. OTHER: Negative. IMPRESSION: Moderate diffuse atrophy and white matter disease. Chronic changes are favored No acute infarct Mild lateral ventriculomegaly Electronically authenticated by: DELMAR GOMES Date: 2022-07-18 17:43 Normal [facility] XR LSPINE MIN 4 VIEWSon 06-23 XR LSPINE MIN 4 VIEWS EXAMINATION: XR LSPINE MIN 4 VIEWS HISTORY: Sacroiliac joint inflamed ; chronic low back pain COMPARISON: No relevant comparison available. FINDINGS: BONES: Moderate right convex curvature of lumbar spine. No fracture spondylolisthesis. Mild degenerative facet arthropathy L4-L5, L5-S1. DISC SPACES: Marked narrowing along left side of L3-L4. PARASPINOUS: Negative. No paraspinous abnormality is seen. OTHER: Negative. IMPRESSION: 1. Mild to moderate dextro curvature lumbar spine. 2. L3-L4 moderate marked degenerative disc disease. Electronically authenticated by: TAMMIE MESSINA Date: 2022-07-18 18:10 Normal [facility] Coding Summary.on 06-20-2022 Coding Summary. CD:[id number] Gh0bWw +PGhlYWQ+EJ3FAHJiV34alLOkr X6LO9vVTR3TVCUSEJTISS9IVM4 koVK7LJphY4WcesGj VyithXXjYX34XIf6HWX7uTkbXI nryB2brQMlU3n7PrVrRV24jQ47 CGedGSBeHzR8JxNtedqcaKTz O6ttFuPnwKJkZpi+PHRhYmxlIH vhBGCnGQirMVCzLuHkiZauZF0c Vu0nOGUxZXZenQxnbAAlZoLn m7ptKUWqGFpqLP5moYujJ7CzaJ N9FIUjk8y5Pc02qAU+PHRkIHN0 xHpsOZibr214YmSqo1dkBNU8 aNBjZXrfYWJ8I28eu8V6PHSrLL XfTFB9fCV1vO1ilCxqtldqM6Cg rOIvWmL0EAW6aFCsxH1trTbx myemvA5uIqg+I31WAL5UPKLWEY 4STfi4Q5IjFlhzhUJ+RC07FAXn SX91vHPxwBLgr2nmmKb5GoEg QJQfOGU8bDjuZQnpt3OrWYFdG3 0zoJWlq5K4ASYlqFuskZEbDoTz oKZ3jD6vNFzvwrjep9dpwwne Vrxng3tjen12qD73A56wJQtsCA YxLMT2JFSlJSStuKspyi0haM1n Ii8+VSjdc7stw6thqLf4XjZq DPVwfhWrnEgdLAY9c5UpWn64Q4 ZzsLfnk2IrTgt9iy84oWUfd5M7 iXO8DKhkQCWifH8uCSmdDgB6 IJIbMrQmoW89wROgTLekSc9ucN jrfZijOS0qPEFbiwrmHEIllS6g PXCrcCFwoKdqWA0qFEGxohcd s052EzBeZDW2ILKqnAZnQ6UrjO 9rCgJsSAXgZNQzH2SuaWPbQMtp W872SJtfQuR5BEKkjeCgW3Vi UFMofWndRpW5e1J5Ws6Ey2Dodx zlFDP6VMdcKII0GhK2NrTbQoG5 X6IxOkj3CEFvoIabHW3eR6Dj VGAyaccwldcchBW0NUAgHMNtdW 65lORyMAggLe4nz6M6l244YMYb ECQshM40Cc3ilUqiXRMmvAYK iH1okflmi1jvjeyhXkPbOSQaRJ y4BQe2JPBltSvbRaHrAPQ8EoL7 LTB7gECixU9iqNosstmtpM5i Oyc+S30wvG2sBWJ7KWO0wgopSY LdrnNeZN98ID62T4MlNiqrpPKx bGU+YAGreiQxgVgpXF5uYgVz d0ljy8WuBCuaN8WnZGWwGHxpNt c4UHApXDW9oIN2vK2pYTYaRGcn i3I1eLT9C4OfguKive2ei4ef XAIfFPewV39beDElj2G0DOSilU S5ZDNpjSdsGrEihQ71Ije+PGNv nWkgl9VtIowhr0hbo0xriMh1 JoRgWJEssoLfuQxfDKJ1u0FcId 61V03vQDyvMQTmKUMjANXxYVMe qLaqjg1pmZ2vNo2+PGNvbCB3 nIF3fC2sDDNvNdN6JTvpD036Mo BgpHMzPghea0bge6uhqQd4OjFa VVRfvtIbhAvsTKI8w2ZqLy87 Z38yWOnkYLEdZSXdJQDoXHKikB eqgf0tdF5qSy4+KI5ba8ndrw01 vI16jEW+WSAxUDF8cGvcQUbx FQMckM3vLNsyJbV3AVKpFfHfaN 45kRSqWTocQa2yjFndwPtrPY6f MAUgibucb380EeGvd2fvNPVa bALtSAgnASA6X33eo2J6NUHmCM OwRZM0dTK0fL4qeDpnyjeudZPg nZrwusWbmSmmNHiuDRldM416 IHRvcDsnPlBhdGllbnQgTmFtZT i1U4FhLqi7GWZhgUivJH6yaPAf BTfsTf0mzRwijYxaLB5tQGWv kuofi664YiBgs3jyGSObyVYmDC dnQFP3M93ql7V8QLZkMYKhBSU4 uWA6iA4yuJcnvzptqBTjgBjm gyVbgXqtOElhPCsoM344SKTvfA coAjXmeiKdLPOogIM8CB18CL41 pFMhh2C4rEU8B4GkLNMbluvg vxsxbIQ2QXAgGZKkhH56Mc7isL jeJb7hMNJbTDL3IPKywFReR0Rr tW6vDkLcROWkAMFhT9OfbCJf DZnbD234AZddYnS8BNSutqLmG1 ZxXZMsoVibOeY9v1R5Ff4NH6B9 II56XL16vNAjv4G8eEZ1R3Hj ILWxgkcstkbhlAK0NIYdCKRxqQ 96El5tzDdbTl7sSUUqHTL5AMOp uSToJ3RwqR0sSvGyPBQlTQVc P1KiqFYgSDsmB187QZxrRoB3MG SlhyYoP4RpEHLntXxbZqL2p2U8 Jw4QMZp1LU83KH65tBLis9G0 nKN5V4UeBZCteesgqitvdES5QZ YvHTRazN96Ob0fyKgvDg2jJXSj OZF8TCUluIDpF8PzfV9gSiZw RHKoBVThA9UlqNOwEUszR862HO ikEnD0LJQsjpDaM4HiUUZasPfs RsD1f1M9Ig1KMRPiCH61VSP9 eAV5BT14QB89I8RvInajpWEpsM U+PHRhYmxlIHdpZHRoPScxMDAl PbJphSobTL2lXx0lOWSpAYNs eXftlXWcSpUix5lkSYCwSBwzQW 3vyXokD8MweNU9WYUep6q9Cz57 N78iY6HlbWV+AZJmlKK3jCZ8 jF8nAwEyTvZ7IVfaO116GdSccJ QaBxhqd8vov2inhVf0IsO3AKUj cyFezQvkSIN2z1NzLe90E27q IHdpZHRoPSIxNSUiIHZhbGlnbj 7dbF1vYv1+ORDzbUZ8wTK3tD6r NjYpGuY4VAcnY806UqZwmWIl Gordq0neh1tgwPu3DpZkGIYyqt FkpIwiGCX2r3NlYx44M3ZjfGqv b4UxGab9mv57iYVir9Z5zOA6 K9DnBVWptzyulCJrxLrcRZ5kJL TkxbqlVCDpzA5yILZyT6t5QwZu FbR7KIabE5QhplJ2MQJpqPEb PDdxBIY7V00fg2L2GQIfQPFuPC L7kTY8xV4gfSvkjeekoVWcgNxe ooTnvEmzSUlzHDgkM749YOVi jWnpBJGbaG3kWWQmwDVhvWpjNR 1hXHInkzesVoFYOMTRMdunR4hZ TElBTTwvdGQ+GUXjHNR4kFda YQayOIWrlH0zSHSmQ8i1QtLeGn Z2EOctT6YdADZjmwyeEd49aT2t RlQhBgY3KVvyE1RpvmN6CNQv xMQvJFvfJSS7R93zv9L9QNYjXI JoNFX9fPM8oG7vgIhkwwciuQZh sKactrPwkVdfTJboIGftJ655 BIHusBxrLvIoNwB4TzB0IjW5Y4 SwFuf2HOXusHdtUI1ozUPpEAwq Fw2emHxhpCgoZK5rOZPqhoin YZUjqC2eVRAneWXnoYaaXI3kRU Cmqybmt580UeRfWZT0NTVlhWVa U8FcwF6eBiUoMOItEHLjZ5Hc yQHqLAcvF822WNjdRkE1GKYbmp OwP8MyZIFyrYatGjO1h3I1Sh56 MiBZZWFyczwvdGQ+PHRkIHN0 rUpiBQdwLZHgcU3bMGQtH1b4Zv HrOeQ8CZwmI6WsUEVcqlfaIx55 fU7nMeQcJdM0KMjqW3VzavZ8 RZLtpEHxNRqlGWV2U67wr7I2GQ BnOOUyIJL7sYQ7fL8moNfflxbb bGVmdDsgdmVydGljYWwtYWxp G022PILgsWleMr6rxPW0H2CjIs f1HPDxhOxdNJ1qaTIsIXhfXn9i mEixoYycQB9vOAPkqwaxTBMq uJ2bRXSijWPtcPbePT6gSHIhzc mbn209BwKcDCR0PJClgZOkC1Sb wX2cUhPeBLAzXAAlP7FntZBv RArpD185TSjcDwR9MQGjqkYsD9 AyZKLujHdhOsQ7m7T4Zm9XERdd JK7dsqNoVM5tsqQ5H4ZdYzxu dHI+DK29ACRyRB86xXVeiHBgc1 mzaPi1WhUyEJIsSJD3jYnvRXgi v8JkLFLxD30pmIXam2K9AKAo uQukcAJyGwKpvEG6aY0pYJzwfw eqz2ateepbHkhvu7xbml26lA16 K35pSHxhFVAdSVLnEUBuARNo gTsezb6tyO5pAx2+VZPedTC8lY R5jG3tTbKqNfN4MRzzO185SpOs oSMtNvqlq2yyd7kuyFu4VpSu GHCszeWtzYfuDDT0g9EqHu18F3 9sIHdpZHRoPSIyMCUiIHZhbGln vy2vlR8yNb6+HI9hc5qlss21 cJ81yPA+DVQdRAJ6sAabYBvuDI AkhQ6xGZlcAhU7ZJClTiDtaS50 iQFyUTmpUr2yaPuirVubRR9v OYNfpafrf236TuSna1nvYFDteH OaRNjwHAZ1F95vc7V4ZJYiJFKq EOA6zPP4oP4njIkwtywlnTCt dRnuseBgeSjxTCqcYDguV530HA UlyFckYmTpiMCiD2nmrjTDMH2l OjwvdGQ+AAXvCYG9xKrnVHnh LDIckM5vVCCxG5m7ErFvDbT3FN hiA4TgbgM0WEEaqHWuDVThqJPI tC3wdthjl5debbdfQaKxXOBj GIv7XKa5JLChjUzqAiIgXQC7Rn L8DNO9cFRqbU3oyLqssulnkW6v Oyc+RklOOjwvdGQ+PHRkIHN0 bLqiPGbiJTUanG4rFOSlG5d3Cp NgCdO8NIpcL1DpniH1OBYshZMw AHUbtZQAtD2wxikbh1mumpuv KqJzDCLlSAz4IFh7HDHoxTbnMe NpVOP2SbG6XNA1fVMryX8mwUcz ghjnpV6aAbi+TVJOOjwvdGQ+ BPKiODG2nKfxAYtuEIOodH5qPE ReH1m4WbUlTwX6XWyeM9PhwcU6 MHDcpAIiPQVbqJHStG7qpphr t8sziljqVqAlGXIdRJp1IMw7KX PawWxcFkFtIHY6DyS7UVM4jFZi rF4utTodgzxsoY9zJvl+UGF5 HZB3PR44DU88U7RzYkszmDEtyW U+PHRhYmxlIHdpZHRoPScxMDAl NmEavJzdMR6qMq6kOZDyAETa bGxh (more content not included)... Normal [facility] Outside Records Officeon Outside Records Office [id number]#1.00CD:127 Normal [facility] Consent for Treatmenton 05-24 Consent for Treatment [id number]#1.00CD:127 Normal [facility] Office/Clinic Note-Physician on 06-19-2022 Office/Clinic Note-Physician [id number]#1.00CD:127 Normal [facility] Patient Correspondenceon Patient Correspondence [id number]#1.00CD:127 Normal [facility] Patient History Officeon Patient History Office [id number]#1.00CD:127 Normal [facility] Physician Orderon 06-19-2022 Physician Order [id number]#1.00CD:127 Normal [facility] Release of Records Officeon 06-19-2022 Release of Records Office [id number]#1.00CD:127 Normal [facility] Basic metabolic 2000 panelon 01-31-2022 Anion gap [Moles/Vol] 9 mmol/L Normal 9-18 [facility] Comment on above: Order Comment: Speci men Type: BLOOD SPECIMENOrdering Facility: [facility] Address: [address] [place] [address] Performed By: #### 2 4321-2 ####[facility] LABORATORYCLIA [id number] [place] [address] [place] Calcium [Mass/Vol] 10.0 mg/dL Normal 8.5-10.2 [facility] Comment on above: Order Comment: Speci men Type: BLOOD SPECIMENOrdering Facility: [facility] Address: [address] [place] [address] Performed By: #### 2 4321-2 ####[facility] LABORATORYCLIA [id number] [place] [address] [place] Chloride [Moles/Vol] 98 mmol/L Normal 97-105 [facility] Comment on above: Order Comment: Speci men Type: BLOOD SPECIMENOrdering Facility: [facility] Address: [address] [place] [address] Performed By: #### 2 4321-2 ####[facility] LABORATORYCLIA [id number] [place] [address] [place] CO2 [Moles/Vol] 28 mmol/L Normal 22-30 [facility] Comment on above: Order Comment: Speci men Type: BLOOD SPECIMENOrdering Facility: [facility] Address: [address] [place] [address] Performed By: #### 2 4321-2 ####[facility] LABORATORYCLIA [id number] [place] [address] [place] Creatinine [Mass/Vol] 0.88 mg/dL Normal 0.73-1.22 [facility] Comment on above: Order Comment: Ahsan christopher Type: BLOOD SPECIMENOrdering Facility: [facility] Address: [address] [place] [address] Performed By: #### 2 4321-2 ####[facility] LABORATORYCLIA [id number] [address] [place] ESTIMATED GLOMERULAR FILTRATION RATE 103 mL/min/1.73m??? Normal >=60 [facility] Comment on above: Order Comment: Ahsan christopher Type: BLOOD SPECIMENOrdering Facility: [facility] Address: [address] [place] [address] Result Comment: Layla mated Glomerular Filtration Rate (eGFR) is calculated using the 2020 CKD-EPI creatinine equation. This equation utilizes serum creatinine, sex, and age as parameters. The creatinine assay has traceable calibration to isotope dilution-mass spectrometry. Refer to KDIGO guidelines for clinical interpretation. In patients with unstable renal function, e.g. those with acute kidney injury, the eGFR may not accurately reflect actual GFR. Performed By: #### 2 4321-2 ####[facility] LABORATORYCLIA [id number] [place] [address] [place] Glucose [Mass/Vol] 126 mg/dL High 74-99 [facility] Comment on above: Order Comment: Ahsan christopher Type: BLOOD SPECIMENOrdering Facility: [facility] Address: [address] [place] [address] Result Comment: The [place] [employer] (ADA) provides guidance for cutoff values for fasting glucose and random glucose. The ADA defines fasting as no caloric intake for at least 8 hours. Fasting plasma glucose results between 100 to 125 mg/dL indicate increased risk for diabetes (prediabetes). Fasting plasma glucose results greater than or equal to 126 mg/dL meet the criteria for diagnosis of diabetes. In the absence of unequivocal hyperglycemia, results should be confirmed by repeat testing. In a patient with classic symptoms of hyperglycemia or hyperglycemic crisis, random plasma glucose results greater than or equal to 200 mg/dL meet the criteria for diagnosis of diabetes. Reference: Standards of Medical Care in Diabetes 2016, [place] [employer]. Diabetes Care. 2016.39(Suppl 1). Performed By: #### 2 4321-2 ####[facility]ATORYCLIA [id number] [place] [address] [place] Potassium [Moles/Vol] 5.1 mmol/L Normal 3.7-5.1 [facility] Comment on above: Order Comment: Ahsan christopher Type: BLOOD SPECIMENOrdering Facility: [facility] Address: [address] [place] [address] Performed By: #### 2 4321-2 ####[facility] LABORATORYCLIA [id number] [place] [address] [place] Sodium [Moles/Vol] 135 mmol/L Low 136-144 [facility] Comment on above: Order Comment: Ahsan christopher Type: BLOOD SPECIMENOrdering Facility: [facility] Address: [address] [place] [address] Performed By: #### 2 4321-2 ####[facility] LABORATORYCLIA [id number] [place] [address] [place] Urea nitrogen [Mass/Vol] 15 mg/dL Normal 9-24 [facility] Comment on above: Order Comment: Ahsan christopher Type: BLOOD SPECIMENOrdering Facility: [facility] Address: [address] [address] Performed By: #### 2 4321-2 ####[facility] LABORATORYCLIA [id number] [place] [address] [place] CBC panel Auto (Bld)on 01-31 Erythrocyte distribution width (RBC) [Ratio] 14.4 % Normal 11.5-15.0 [facility] Comment on above: Order Comment: Ahsan christopher Type: BLOOD SPECIMENOrdering Facility: [facility] Address: [address] [place] [address] Performed By: #### 5 8410-2 ####[facility]ORATORYCLIA [id number] [address] [place] Hematocrit (Bld) [Volume fraction] 42.5 % Normal 39.0-51.0 [facility] Comment on above: Order Comment: Speci men Type: BLOOD SPECIMENOrdering Facility: [facility] Address: [address] [place] [address] Performed By: #### 5 8410-2 ####[facility]ATORYCLIA [id number] [place] [address] [place] Hemoglobin (Bld) [Mass/Vol] 14.1 g/dL Normal 13.0-17.0 [facility] Comment on above: Order Comment: Speci men Type: BLOOD SPECIMENOrdering Facility: [facility] Address: [address] [place] [address] Performed By: #### 5 8410-2 ####[facility]ATORYCLIA [id number] [place] [address] [place] MCH (RBC) [Entitic mass] 30.8 pg Normal 26.0-34.0 [facility] Comment on above: Order Comment: Speci men Type: BLOOD SPECIMENOrdering Facility: [facility] Address: [address] [place] [address] Performed By: #### 5 8410-2 ####[facility]ATORYCLIA [id number] [place] [address] [place] MCHC (RBC) [Mass/Vol] 33.2 g/dL Normal 30.5-36.0 [facility] Comment on above: Order Comment: Speci men Type: BLOOD SPECIMENOrdering Facility: [facility] Address: [address] [place] [address] Performed By: #### 5 8410-2 ####[facility]ATORYCLIA [id number] [place] [address] [place] MCV (RBC) [Entitic vol] 92.8 fL Normal 80.0-100.0 [facility] Comment on above: Order Comment: Speci men Type: BLOOD SPECIMENOrdering Facility: [facility] Address: [address] [place] [address] Performed By: #### 5 8410-2 ####[facility]ATORYCLIA [id number] [place] [address] [place] Nucleated RBC (Bld) [#/Vol] 10*3/uL Normal <0.01 [facility] Comment on above: Order Comment: Speci men Type: BLOOD SPECIMENOrdering Facility: [facility] Address: [address] [place] [address] Performed By: #### 5 8410-2 ####[facility] LABORATORYCLIA [id number] [place] [address] [place] Platelet mean volume (Bld) [Entitic vol] 9.4 fL Normal 9.0-12.7 [facility] Comment on above: Order Comment: Speci men Type: BLOOD SPECIMENOrdering Facility: [facility] Address: [address] [place] [address] Performed By: #### 5 8410-2 ####[facility] LABORATORYCLIA [id number] [address] [place] Platelets (Bld) [#/Vol] 354 10*3/uL Normal 150-400 [facility] Comment on above: Order Comment: Speci men Type: BLOOD SPECIMENOrdering Facility: [facility] Address: [address] [place] [address] Performed By: #### 5 8410-2 ####[facility] LABORATORYCLIA [id number] [place] [address] [place] RBC (Bld) [#/Vol] 4.58 10*6/uL Normal 4.20-6.00 [facility] Comment on above: Order Comment: Speci men Type: BLOOD SPECIMENOrdering Facility: [facility] Address: [address] [id number] Performed By: #### 5 8410-2 ####[facility]ORATORYCLIA [id number] [address] WBC (Bld) [#/Vol] 12.19 10*3/uL High 3.70-11.00 [facility] Comment on above: Order Comment: Speci men Type: BLOOD SPECIMENOrdering Facility: [facility] Address: [address] [place] [address] Performed By: #### 5 8410-2 ####[facility]ORATORYCLIA [id number] [place] [id number] [facility] CNDSon 01-31-2022 CNDS HNO ID: [id number] Author: Sue Kang APRN.GETTER OPERATOR Service: Orthopaedic Surgery Author Type: Nurse Specialist Type: Discharge Summary Filed: 01/31/2022 10:34 AM Note Text: -- Attestation signed by Nahid Estrada MD at 02/01/2022 7:41 AM Nahid Estrada MD -- DISCHARGE NOTE (Patient Admitted Less than 48 Hours) SERVICE DATE: 01/31/2022 SERVICE TIME: 10:13 AM ADMISSION DATE: 01/30/2022 DISCHARGE DISPOSITION: Home with Home Health Care Discharge Physical Exam: VITAL SIGNS: BP 120/78 Pulse 75 Temp 36.8 ?C (98.2 ?F) (Oral) Resp 18 Ht 188 cm (6' 2 ) Wt 98.1 kg (216 lb 4.3 oz) SpO2 97% BMI 27.77 kg/m? GENERAL: Alert, no distress, cooperative SKIN: Skin color, texture, turgor normal. No rashes or lesions., Aquacel dressing to left posterior hip; C/D/I. LUNGS: Lungs clear to auscultation, Good diaphragmatic excursion CARDIAC: Normal S1 and S2; no rubs, murmurs, or gallops EXTREMITIES: Extremities normal, no deformities, edema, clubbing or skin discoloration. Good capillary refill. PULSES: 2+ dorsalis pedis DIET: Regular ACTIVITY AFTER DISCHARGE: FFTD with hip abduction brace on FOLLOW UP CARE REQUIRED: Saturday February 12, 2022 11:20 AM DISCHARGE MEDICATIONS (ONLY ACTIVATE WHEN READY TO DISCHARGE): Current Discharge Medication List START taking these medications oxyCODONE IR (ROXICODONE) 5 mg Take 5 mg by mouth every 6 hours as needed for pain. Qty: 12 tablet Refills: 0 Associated Diagnoses:Tear of left gluteus medius tendon, subsequent encounter ibuprofen (MOTRIN) 600 mg Take 600 mg by mouth every 6 hours as needed for pain (and swelling). Qty: 60 tablet Refills: 0 methocarbamol (ROBAXIN) 500 mg Take 500 mg by mouth four times daily as needed (for muscle spasms or pain). Qty: 40 tablet Refills: 0 ondansetron orally disintegrating (ZOFRAN ODT) 4 mg Take 4 mg by mouth every 8 hours as needed for nausea/vomiting. Qty: 12 tablet Refills: 0 aspirin, enteric coated (ASPIRIN, ENTERIC COATED) 81 mg Take 81 mg by mouth daily with breakfast. Qty: 63 tablet Refills: 0 CONTINUE these medications which have CHANGED ziprasidone (GEODON) 60 mg Take 60 mg by mouth three times daily with meals. acetaminophen (TYLENOL) 500 mg Take 500 mg by mouth every 6 hours as needed for pain. Qty: 40 tablet Refills: 0 CONTINUE these medications which have NOT CHANGED venlafaxine ER (EFFEXOR XR) 150 mg Take 150 mg by mouth once daily. HORIZANT 1 tablet Take 1 tablet by mouth once daily. montelukast (SINGULAIR) 10 mg Take 10 mg by mouth daily at bedtime. atorvastatin (LIPITOR) 40 mg Take 40 mg by mouth once daily. NUEDEXTA 1 capsule Take 1 capsule by mouth twice daily. metFORMIN (GLUCOPHAGE) 1 tablet Take 1 tablet by mouth twice daily. calcium carbonate/vitamin D2 ([id number]-S ORAL) 1 tablet Take 1 tablet by mouth twice daily. irbesartan (AVAPRO) 300 mg Take 300 mg by mouth daily at bedtime. memantine XR (NAMENDA XR) 28 mg Take 28 mg by mouth once daily. famotidine (PEPCID) 20 mg Take 20 mg by mouth once daily. baclofen (LIORESAL) 10 mg Take 10 mg by mouth three times daily. empagliflozin (JARDIANCE) 12.5 mg Take 12.5 mg by mouth daily with breakfast. sulindac (CLINORIL) 200 mg Take 200 mg by mouth twice daily. TRULICITY 3 mg Inject 3 mg subcutaneously one time a week. Calcium Carbonate-Vitamin D3 5,000 Units Take 5,000 Units by mouth daily at bedtime. FIBER, DEXTRIN, ORAL Take by mouth. FINAL DIAGNOSIS: Left Gluteus Medius Tendon Repair on 01/30/2022 Plan of care discussed with Provider, RN, Patient SIGNATURE: Sue Kang APRN.GETTER OPERATOR PATIENT NAME: Mauro Hebert DATE: January 31, 2022 TIME: 9:36 AM I personally spent 30 minutes directly supervising and providing Level 1 Care exclusive of any other billable procedure; over 50% was spent providing discussion, counseling, and coordination of care. [facility] NURSING PROGon 01-31-2022 NURSING PROG HNO ID: [id number] Author: Sheree Shah RN Service: Nursing Author Type: Registered Nurse Type: Nursing Progress Note Filed: 01/31/2022 11:20 AM Note Text: Nursing Progress Note Patient Name: Mauro Hebert Patient Location: [id number] Daily Note: 0900 VS stable and afebrile this AM. Denies pain in LLE at present. Neurovascular checks WNL's to LLE. Abductor wedge in place between LE's. Will monitor. 1100 Up in hallway and on stairs with brace on per order, with PT assist. Tolerating activity well. Family at bedside. This note was completed by: Sheree Amezcua [facility] THERAPY NTon 01-31-2022 THERAPY NT HNO ID: [id number] Author: Shu Londono, OT/L Service: Occupational Therapy Author Type: Occupational Therapist Type: Therapy (PT/OT/Speech/Resp) Filed: 01/31/2022 1:29 PM Note Text: Occupational Therapy Evaluation SERVICE DATE: 01/31/2022 SERVICE TIME: 1125 to 1210 ROOM: [place] [address] Recommended Discharge Disposition: Home OT Recommended Discharge Disposition Comments: Recommending initial 24 hr care until patient demonstrates compentence in his ADL care + precautions. Anticipated Discharge Needs: Family Training;Supervision at Home Supervision at Home due to: Decreased safety awareness;Impaired cognition Recommended Discharge Equipment: To Be Determined *Additionally, thoroughly discussed with patient and his family that it is recommended that he keeps hip brace on while dressing and sponge bathing as patient demonstrates poor compliance with precaution adherence and could potentially injure surgical area if removing brace and not complying with precautions adequately. OT 6 Clicks Score: 21 Precautions/Activity Restrictions: Weight Bearing Restrictions;Bed/Chair Alarm;Brace;Diabetic;Fall Risk;Impulsive with Activity;Other: See Comments Precaution/Activity Restriction Comments: Brace locked in position as found, set preoperatively. Impulsivity with movement, requiring several verbal ques to not stand without caregiver present. Extremity With Weight Bearing Restricted: Left Lower Extremity Left Lower Extremity Weight Bearing Status: Flat foot touchdown, only support of leg *May not turn to operative side, pillow between legs when turning. Current Hospital Course: Glute med tendon surgical repaired took place 01/30/2022. Pt was admitted after he maintained a low SpO2 after surgery. Reason for Hospital Admission: Patient was admitted yesterday after surgical repair of L glute med tendon Relevant Past Medical History: HTN, Dementia, Neuralgia, Myalgia, T2DM, TBI with short term memory deficits Response to Therapy Interventions: Good participation in activities Continue skilled needs due to: Functional impairment Occupational Therapy Problem List: Decreased Activity Tolerance;Impaired Self Care;Decreased Strength;Functional Mobility Impairment;Balance Impaired Cognition/Communication Deficits Responsiveness: Alert, Awake Follows Commands: 3-step Commands Treatment Interventions: Education;Self Care / Home Management;Strengthening;F unctional Mobility Training;Balance Training Plan for next visit: Standing balance Home Environment Patient Lives With: Spouse Assistance Available: time study observer;PRN (Parents can come help as needed) Comments: Spouse works, but pt's parents are able to come help as needed. Entry To Home: Stairs;With Rail;Other: See Comment (rail on L when ascending) Number Of Stairs Into Home: 5 Number Of Stairs To Bed/Bath: 0 Stairs to Bed/Bath with: No Rail Equipment Owned: Crutch(es);Wheeled Walker;Sock Aid Prior Functional Level: Within Functional Limits Prior Functional Level Comments: IND in ADLs/IADLs, driving and working, ambuating without the use of assistive device. Patient Report: My can help me CURRENT FUNCTIONAL STATUS: Most recent performance Current Activities of Daily Living Assist Level Additional Information Feeding Independent Grooming Set Up Bathing Upper Body Bathing Lower Body Dressing Upper Body Set Up Dressing Lower Body Minimal Assistance Toileting Functional Mobility Assist Level Additional Information Rolling Supine to Sit Stand By Assistance Sit to Supine Scooting Sit to Stand Contact Guard Assistance Stand to Sit Contact Guard Assistance Bed to Chair Toilet/Commode Shower Functional Mobility Contact Guard Assistance Wheeled Walker Blank bates indicate activity not attempted Balance: Dynamic Sitting;Static Sitting;Static Standing;Dynamic Standing Static Sitting Balance: Normal Patient able to maintain steady balance without handhold support Dynamic Sitting Balance: Good Patient accepts moderate challenge, able to maintain balance while picking up object off floor Static Standing Balance: Good Patient able to maintain balance without handhold support, limited postural sway Dynamic Standing Balance: Good Patient accepts moderate challenge, able to maintain balance while picking up object off floor Learning/Educational Needs: Discharge Plan;Functional Activities/Mobility;Plan of Care;Self Care Goals for Plan of Care: Patient /Caregiver Goals: Go Home Goals: Patient will demonstrate progress to optimize self-care activities, cognitive and/or coping to maximize function upon discharge. Rehab Potential: Good Patient will be discontinued from Occupational Therapy when no further skilled needs are identified in this setting. PLAN: OT Frequency: 2 times per week Plan of Care developed with: Patient TREATMENT INTERVENTIONS: Therapy Diagnosis: Decreased activities (more content not included)... [facility] THERAPY NT HNO ID: [id number] Author: Oneyda Mcdaniel, PT Service: Physical Therapy Author Type: Physical Therapist Type: Therapy (PT/OT/Speech/Resp) Filed: 01/31/2022 12:15 PM Note Text: Physical Therapy Evaluation SERVICE DATE: 01/31/2022 SERVICE TIME: 934 ROOM: [place] [address] Recommended Discharge Disposition: Home PT Anticipated Discharge Needs: Family Training;Supervision at Home Supervision at Home due to: Decreased safety awareness;Impaired cognition Recommended Discharge Equipment: No equipment needs anticipated PT 6 Clicks Score: 20 Precautions/Activity Restrictions: Weight Bearing Restrictions;Bed/Chair Alarm;Brace;Diabetic;Fall Risk;Impulsive with Activity;Other: See Comments Precaution/Activity Restriction Comments: Brace locked in position as found, set preoperatively. Impulsivity with movement, requiring several verbal ques to not stand without caregiver present. Extremity With Weight Bearing Restricted: Left Lower Extremity Left Lower Extremity Weight Bearing Status: TTWB Current Hospital Course: Glute med tendon surgical repaired took place 01/30/2022. Pt was admitted after he maintained a low SpO2 after surgery. Reason for Hospital Admission: Patient was admitted yesterday after surgical repair of L glute med tendon Relevant Past Medical History: HTN, Dementia, Neuralgia, Myalgia, T2DM, TBI with short term memory deficits Response to Therapy Interventions: Good participation in activities, Requires additional time to complete activities Continue skilled needs due to: Functional mobility/skill impairments, Safety concerns, Family training required Physical Therapy Problem List: Safety Deficits;Balance Impaired;Cognitive Deficit Treatment Interventions: Education;Functional Mobility Training;Balance Training Plan for next visit: Fall prevention, Gait training, Exercise instruction/handout, Stairs training Home Environment Patient Lives With: Spouse Assistance Available: time study observer;PRN (Parents can come help as needed) Comments: Spouse works, but pt's parents are able to come help as needed. Entry To Home: Stairs;With Rail;Other: See Comment (rail on L when ascending) Number Of Stairs Into Home: 5 Number Of Stairs To Bed/Bath: 0 Stairs to Bed/Bath with: No Rail Equipment Owned: Crutch(es);Wheeled Walker;Sock Aid Prior Functional Level: Within Functional Limits Prior Functional Level Comments: IND in ADLs/IADLs, driving and working, ambuating without the use of assistive device. Patient Report: Patient was awake and alert upon arrival. Pt was agreeale to PT. CURRENT FUNCTIONAL STATUS: Most recent performance Current Functional Mobility Assist Level Additional Information Rolling Independent Supine to Sit Stand By Assistance Sit to Supine Supervision Scooting Independent Sit to Stand Contact Guard Assistance Stand to Sit Contact Guard Assistance Bed to Chair Contact Guard Assistance Bed To Chair Transfer Type: Stand Pivot Bed To Chair Transfer Equipment: Wheeled Walker Toilet/Commode Contact Guard Assistance Gait Contact Guard Assistance;Additional Information Gait Device: Wheeled Walker Gait Distance (feet): 25 required multiple verbal ques to remind pt of his WB status Stairs Contact Guard Assistance;Minimal Assistance;Additional Information Stairs Device: Crutch(es);Rail Number of Stairs: 5 L railing and single crutch for assist. CGA while ascending and min assist while descending d/t patient using the railing less for support. Curb Step Car Transfer Blank bates indicate activity not attempted Balance: Static Sitting;Static Standing;Dynamic Standing Static Sitting Balance: Normal Patient able to maintain steady balance without handhold support Static Standing Balance: Normal Patient able to maintain steady balance without handhold support Dynamic Standing Balance: Fair Patient accepts minimal challenge, able to maintain balance while turning head/trunk Activity Tolerance: Standing Activity Standing Activity: Gait training w/ wheeled walker and WB restrictions Standing Activity Tolerance (in minutes): 30 (with periodic breaks) -M: 7: Walk 25 feet or more Learning/Educational Needs: Discharge Plan;Family Education/Training;Functio nal Activities/Mobility;Pain Management;Precautions;Saf ety Goals for Plan of Care: Patient /Caregiver Goals: Go Home Goals: Patient will demonstrate progress with functional mobility to allow safe discharge to home with available support and/or physical assistance. Rehab Potential: Good Patient will be discontinued from Physical Therapy when no further skilled needs are identified in this setting. PLAN: PT Frequency: Once daily Plan of Care developed with: Patient;Family TREATMENT INTERVENTIONS: Therapy Diagnosis: Reduced mobility-other;Decreased activities of daily living (ADL);Unsteadiness on feet;General symptoms and signs-other Interventions Provide (more content not included)... [facility] ANES POSTPROC EVALon 022 ANES POSTPROC EVAL HNO ID: [id number] Author: Fazal Forrest MD Service: Anesthesiology Author Type: Anesthesiologist Type: Anesthesia Postprocedure Evaluation Filed: 01/30/2022 6:00 PM Note Text: POST ANESTHESIA EVALUATION NOTE : 1970 Procedure Summary Date: 01/30/22 Room / Location: OR / OR Anesthesia Start: 1333 Anesthesia Stop: 1555 Procedure: REPAIR TENDON EXTREMITY LOWER EXTENSOR TENDON (Left Hip) Diagnosis: Tear of left gluteus medius tendon, subsequent encounter (Tear of left gluteus medius tendon, subsequent encounter [S76.012D]) Surgeons: Nahid Estrada MD Responsible Provider: Franklin Bhatt MD Anesthesia Type: general ASA Status: 3 Anesthesia Type: general Airway Type: ETT Last Vitals Vitals Value Taken Time BP 131/89 01/30/22 1722 Temp 36.8 ?C (98.2 ?F) 01/30/22 1722 Pulse 88 01/30/22 1722 Resp 14 01/30/22 1722 SpO2 93 % 01/30/22 1722 Post Anesthesia Patient Status Patient Evaluation: PACU. PACU/ICU Patient Condition: stable. Anticipated Disposition: phase 2 then home. Neurological Status: aware and responsive. Pulmonary Status: breathing comfortably on room air Airway Control: returned to baseline unsupported. Cardiovascular Status: stable. Pain Management: clinically adequate - multimodal analgesia pain management approach Postoperative Hydration: acceptable. Intraoperative Events: no significant anesthesia events Recommendation: continue current plan of care. Anesthesia Observations No Documentation SIGNATURE: Fazal Forrest MD PATIENT NAME: Mauro Hebert DATE: January 30, 2022 TIME: 6:00 PM CSN: [id number] [facility] ANES PRE-OPon 01-30-2022 ANES PRE-OP HNO ID: [id number] Author: Fazal Forrest MD Service: Anesthesiology Author Type: Anesthesiologist Type: Anesthesia Preprocedure Evaluation Filed: 01/30/2022 12:33 PM Note Text: ANESTHESIOLOGY DAY OF SURGERY NOTE : 1970 Procedure Information Date/Time: 01/30/22 1300 Procedure: REPAIR TENDON EXTREMITY LOWER EXTENSOR TENDON (Left Hip) - (Left open gluteus medius repair) [employer]hew 4.5 mm healicoil anchors, 4.5 mm push lock anchors rep. Dr. José Miguel Monterroso retractor, Abduction pillow, Aquacell, Sure close have avail - [employer]itek Super QuickQanchor Plus DS REF # [id number] rep. Shaquille Sagastume [phone] Location: MM OR / MM OR Surgeons: Nahid Estrada MD Estimated body mass index is 26.19 kg/m? as calculated from the following: Height as of 01/29/22: 188 cm (6' 2 ). Weight as of 01/29/22: 92.5 kg (204 lb). Most recent hematocrit and potassium results: Hematocrit 47.8 08/04/2012 Potassium 4.1 08/04/2012 Relevant Problems ANESTHESIA (+) MART (obstructive sleep apnea) CARDIO (+) Essential hypertension, benign ENDO (+) Type 2 diabetes mellitus, without long-term current use of insulin (HCC) PULMONARY (+) MART (obstructive sleep apnea) I - PHYSICAL EVALUATION AIRWAY Patient intubated: No. Tracheostomy tube not present Mallampati: III. TM distance: >3 FB. Neck ROM: full ROM without neurological symptoms. Mouth opening: adequate. Short neck: no. Thick neck: no DENTAL Dental findings: teeth intact. Additional exam findings: no II - ANESTHESIA PLAN ASA Score: 3 Anesthetic Plan: general Airway type: ETT NPO Status: adequate Monitoring plan: Standard ASA. Postoperative analgesic plan: parenteral or oral opioids and multimodal analgesia. Patient / Surrogate agrees to blood products: yes DNR status not reviewed with patient and/or family prior to surgery. Significant changes in the patient condition since the History and Physical, not otherwise documented in primary service progress note: no. Potential Anesthesia issues that may suggest increased risk of complications or contraindication to planned procedure: none. Vitals Value Taken Time BP 146/99 01/30/22 1046 Pulse 85 01/30/22 1046 Resp 18 01/30/22 1046 Temp 36.2 ?C (97.1 ?F) 01/30/22 1046 SpO2 95 % 01/30/22 1046 Facility-Administered Medications as of 01/30/2022 Medication Dose Route Frequency - lactated ringers iv infusion 5-30 mL/hr INTRAVENOUS CONTINUOUS - ceFAZolin iv piggyback 2 g in D5W (iso-osmotic) 100 mL (ANCEF) 2 g INTRAVENOUS Pre-Op Once Outpatient Medications as of 01/30/2022 Medication Sig - venlafaxine ER (EFFEXOR XR) 150 mg 24 hr capsule Take 150 mg by mouth once daily. - ziprasidone (GEODON) 60 mg capsule Take 60 mg by mouth twice daily with meals. - gabapentin enacarbil (HORIZANT) 600 mg TbER Take 1 tablet by mouth once daily. - montelukast (SINGULAIR) 10 mg tablet Take 10 mg by mouth daily at bedtime. - atorvastatin (LIPITOR) 40 mg tablet Take 40 mg by mouth once daily. - NUEDEXTA 20-10 mg capsule Take 1 capsule by mouth twice daily. - metFORMIN (GLUCOPHAGE) 500 mg tablet Take 1 tablet by mouth twice daily. - calcium carbonate/vitamin D2 ([id number] ORAL) Take 1 tablet by mouth twice daily. - irbesartan (AVAPRO) 300 mg tablet Take 300 mg by mouth daily at bedtime. - memantine XR (NAMENDA XR) 28 mg CSpX Take 28 mg by mouth once daily. - famotidine (PEPCID) 20 mg tablet Take 20 mg by mouth once daily. - baclofen (LIORESAL) 10 mg tablet Take 10 mg by mouth three times daily. - empagliflozin (JARDIANCE) 25 mg tablet Take 12.5 mg by mouth daily with breakfast. - sulindac (CLINORIL) 200 mg tablet Take 200 mg by mouth twice daily. - dulaglutide (TRULICITY) 3 mg/0.5 mL pen injector Inject 3 mg subcutaneously one time a week. - acetaminophen (TYLENOL EXTRA STRENGTH) 500 mg tablet Take 1,000 mg by mouth twice daily. - Calcium Carbonate-Vitamin D3 (VITAMIN D-3) 180-5,000 mg-unit Tab Take 5,000 Units by mouth daily at bedtime. - FIBER, DEXTRIN, ORAL Take by mouth. I have interviewed and examined the patient. I have reviewed the medical record and/or the pre-anesthesia evaluation, pertinent labs, and test results. This contains updated information obtained within 48 hours of Surgery/Procedure. SIGNATURE: Fazal Forrest MD PATIENT NAME: Mauro Hebert DATE: January 30, 2022 TIME: 12:33 PM CSN: [id number] Normal [facility] OPERATIVE NOon 01-30-2022 OPERATIVE NO HNO ID: [id number] Author: Nahid Estrada MD Service: Orthopaedic Surgery Author Type: Physician Type: Operative Report Filed: 02/05/2022 10:14 AM Note Text: [facility] - Operative Report MAURO HEBERT : 1970 AGE: 51. SEX: M PATIENT TYPE: A HOSP SVC: ORO LOCATION: [facility] ATTENDING PHYSICIAN: Nahid Estrada MD CSN NUMBER: [id number] DATE OF SURGERY/PROCEDURE: 01/30/2022 INCISION/PROCEDURE START TIME: 1403. INCISION CLOSE/PROCEDURE END TIME: 1530. Please note, the fellow performed portions of the exposure and repair under my direct guidance. PREOPERATIVE DIAGNOSIS: Left gluteus medius tendon tear, chronic. POSTOPERATIVE DIAGNOSIS: Left gluteus medius tendon tear, chronic. SURGEON: Nahid Estrada MD INSURANCE ADJUSTER: 1.Delmar Miguel MD. 2.Yosvany Bhatia PA-C. SURGERY/PROCEDURE: Left open gluteus medius tendon tear with excision of heterotopic ossification. ANESTHESIA: General. LOCATION: [facility]. OPERATIVE INDICATIONS: Pleasant male with chronic lateral hip pain after a long bone injury to the femur, subsequent femoral nailing and hardware removal. He developed significant lateral pain that was not amenable to conservative measures. 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 Surgical and nonsurgical treatment options were discussed as well as risks, benefits, and alternatives. He voiced understanding and wished to proceed. DESCRIPTION OF PROCEDURE: Patient was brought to [facility] operative suite #2 on 01/30/22 after marking the appropriate surgical extremity in preoperative holding area. Brought in the operative suite, placed on the operative table, and induced under general anesthesia. He has placed in the right lateral decubitus position. Care was taken to pad all bony prominences. The left lower extremity was then prepped and draped in usual sterile fashion. After appropriate surgical time-out including all members of the surgical team, confirming the site and extremity, ensuring switchboard receptionist of 2 g IV Ancef, a new incision was made centered on the greater trochanter as his prior incision site was very posterior for the hardware placement and removal. Dissection was taken down the IT band, which was incised. There was thick, abundant bursal fluid, which was removed. The bursectomy was performed. The defect over the lateral trochanter especially anteriorly was easily identifiable. There was tendon attached to the greater trochanter, however, the tendon itself was attenuated. We then performed a peeled down of the attenuated tendon and exposed the heterotopic bone fragment attached to the greater trochanter. We then used an osteotome to remove this making nice bleeding bony bed to accept three 4.5 mm helical anchors. 6 mattress sutures were then placed from anterior to posterior, grasping the highest quality tendon possible. Sutures were then tied over the prepared greater trochanteric bone. We then placed two 4.75 PEEK SwiveLock anchors distally for double row fixation and backup fixation of the torn tendons. On completion of the repair, the tissue was very stable as placed on the greater trochanter. Copious irrigation was performed at this point as well as prior to placement of the anchors. A layered closure was then performed closing the IT band with #1 Vicryl running proximally and distally. Copious irrigation was again performed followed by 2-0 Vicryl, followed by a running Monocryl stitch. Sterile dressing was placed. Patient was then awakened from general anesthesia and taken to PACU in stable condition. COMPLICATIONS: None. SPECIMENS: None. FLUIDS: See anesthesia record. Nahid Estrada MD JR:[id number] /[id number] [facility] SARS-CoV-2 RNA Resp Ql VICK+p robeon 01-30-2022 SARS-CoV-2 (COVID-19) RNA VICK+probe Ql (Resp) COVID 19 RESULT: SARS-CoV-2 (Agent of COVID-19) Not Detected by RT-PCR or equivalent method. This test has been authorized by FDA under an Emergency Use Authorization (EUA). [facility] Comment on above: Performed By: #### [id number] #### [facility] CLIA [id number] [address] [place], [place] [id number] [place] Covid-19 PCR (CVDTB)on SARS-CoV-2 (COVID-19) RNA VICK+probe Ql (Unsp spec) Not detected Normal NOT DETECTED [facility] Comment on above: Result Comment: When diagnostic testing is negative, the possibility of a false negative should be considered in the context of a patient's recent exposures and the presence of clinical signs and symptoms consistent with SARS-CoV-2. This test is not yet approved or cleared by the [place] Food and Drug Administration (FDA). This test was developed by [employer], [place], [place]. The performance characteristics of this test were validated by [facility]. The results are not intended to be used as the sole means for clinical diagnosis or patient management decisions. [facility] is authorized under Clinical Laboratory Improvement Amendments (CLIA) to perform high- complexity testing. This test is not yet approved or cleared by the [place] FDA. When there are no FDA-approved or cleared tests available, and other criteria are met, FDA can make tests available under an emergency access mechanism called an Emergency Use Authorization (EUA). The EUA for this test is supported by the [place] [employer] of Health and Human Service's declaration that circumstances exist to justify the emergency use of in vitro diagnostics for the detection and/or diagnosis of the virus that causes COVID-19. This EUA will remain in effect for the duration of the COVID-19 declaration justifying emergency of IVDs, unless it is terminated or revoked by the FDA (after which the test may no longer be used). Performed By: #### C [facility] #### [facility] [address] [place] [address] Dr. Fernandez Arroyo Hip - lefton 12-27-2021 IMPRESSION: Gluteus medius tendon tearing. Intact gluteus minimus tendon with tendinosis. Greater trochanteric bursitis. Cashier Checker: ALMA Transcribe Date/Time: Dec 27 2021 10:44A Dictated by : DONI BALLESTEROS MD This examination was interpreted and the report reviewed and electronically signed by: DONI BALLESTEROS MD on Dec 27 2021 10:47AM [facility] DIVISION OF RADIOLOGY * * *Final Report* * * DATE OF EXAM: Dec 27 2021 10:47AM [facility] [address] [facility] HIP LT / PROCEDURE REASON: Tear of left gluteus medius tendon, initial encounter * * * * Physician Interpretation * * * * MSK_US LEFT LATERAL HIP ULTRASOUND: CLINICAL INFORMATION: Prior left hip trauma. Lateral hip pain. TECHNIQUE: Westbrook-scale real-time ultrasound of the lateral hip with dynamic imaging and power Doppler examination was performed. Images were saved to the permanent image archive. v2-20. COMPARISON: None FINDINGS: GLUTEUS MINIMUS TENDON: Tendinosis: Moderate Tearing: None. Power Doppler Examination: Osseous Changes: Normal appearance. GLUTEUS MEDIUS TENDON: Tendinosis: NA Tearing: Complete full-thickness tearing. Underlying remote posttraumatic changes of the greater trochanter. Power Doppler Examination: No increased signal. Osseous Changes: Posttraumatic change of the greater trochanter. GLUTEUS MUSCULATURE: Bulk: Reduced gluteus medias muscle bulk. GREATER TROCHANTER BURSAE: Moderate to severe findings of bursitis. LATERAL JOINT SPACE: No significant joint effusion seen. ILIOTIBIAL BAND: Heterogeneous and thickened over the greater trochanter. DIVISION OF RADIOLOGY Provider, [facility] - 12/27/2021 * * *Final Report* * * DATE OF EXAM: Dec 27 2021 10:47AM [place] [id number] [facility] HIP / PROCEDURE REASON: Tear of left gluteus medius tendon, initial encounter * * * * Physician Interpretation * * * * MSK_US LEFT LATERAL HIP ULTRASOUND: CLINICAL INFORMATION: Prior left hip trauma. Lateral hip pain. TECHNIQUE: Westbrook-scale real-time ultrasound of the lateral hip with dynamic imaging and power Doppler examination was performed. Images were saved to the permanent image archive. v2-20. COMPARISON: None FINDINGS: GLUTEUS MINIMUS TENDON: Tendinosis: Moderate Tearing: None. Power Doppler Examination: Osseous Changes: Normal appearance. GLUTEUS MEDIUS TENDON: Tendinosis: NA Tearing: Complete full-thickness tearing. Underlying remote posttraumatic changes of the greater trochanter. Power Doppler Examination: No increased signal. Osseous Changes: Posttraumatic change of the greater trochanter. GLUTEUS MUSCULATURE: Bulk: Reduced gluteus medias muscle bulk. GREATER TROCHANTER BURSAE: Moderate to severe findings of bursitis. LATERAL JOINT SPACE: No significant joint effusion seen. ILIOTIBIAL BAND: Heterogeneous and thickened over the greater trochanter. IMPRESSION IMPRESSION: Gluteus medius tendon tearing. Intact gluteus minimus tendon with tendinosis. Greater trochanteric bursitis. Cashier Checker: ALMA Transcribe Date/Time: Dec 27 2021 10:44A Dictated by : DONI BALLESTEROS MD This examination was interpreted and the report reviewed and electronically signed by: DONI BALLESTEROS MD on Dec 27 2021 10:47AM EST [facility] Radiology Study observation (narrative) [facility] US Hip - leftOrdered By: Ccf Provider on 12-27-2021 [facility] XR Pelvis and Hip - left AP and Lateral frogon 12-05-2021 IMPRESSION: Mild left hip osteoarthritis. Partially imaged remote/chronic fracture deformity of the proximal femur. No acute osseous abnormality. Cashier Checker: ALMA Transcribe Date/Time: Dec 05 2021 1:02P Dictated by : KALA MAIER MD This examination was interpreted and the report reviewed and electronically signed by: DONI BALLESTEROS MD on Dec 05 2021 1:37PM [facility] DIVISION OF RADIOLOGY * * *Final Report* * * DATE OF EXAM: Dec 04 2021 3:15PM [id number] 5351 - XR HIP 3V PELV+ AP/LAT LT / PROCEDURE REASON: Pain in left hip * * * * Physician Interpretation * * * * EXAMINATION: XR HIP 3V PELV+ AP/LAT LT HISTORY: CHRONIC LEFT HIP PAIN. PREVIOUS INJURIES Pain in left hip . TECHNIQUE: XR HIP 3V PELV+ AP/LAT LT Laterality: LEFT Number of different views (projections): 3 M: XB_1 COMPARISON: MRI 11/03/2019. CT 10/22/2019. Radiographs 06/03/2019. RESULT: There is no acute fracture or dislocation. There is a partially imaged remote healed fracture deformity of the proximal femoral shaft with marked bony proliferation. There is a ghost tract within the intramedullary canal of the proximal femur compatible with prior hardware removal. The left hip joint space is maintained. There are small marginal osteophytes and subchondral sclerosis/cystic change. Greater trochanteric enthesophytes noted. There are multiple wires/leads overlying the left hip joint. Pubic symphysis and SI joint spaces are maintained. There is mild right hip osteoarthritis. DIVISION OF RADIOLOGY Provider, [facility] [place] - 12/05/2021 * * *Final Report* * * DATE OF EXAM: Dec 04 2021 3:15PM SHX [id number] - XR HIP 3V PELV+ AP/LAT LT / PROCEDURE REASON: Pain in left hip * * * * Physician Interpretation * * * * EXAMINATION: XR HIP 3V PELV+ AP/LAT LT HISTORY: CHRONIC LEFT HIP PAIN. PREVIOUS INJURIES Pain in left hip . TECHNIQUE: XR HIP 3V PELV+ AP/LAT LT Laterality: LEFT Number of different views (projections): 3 M: XB_1 COMPARISON: MRI 11/03/2019. CT 10/22/2019. Radiographs 06/03/2019. RESULT: There is no acute fracture or dislocation. There is a partially imaged remote healed fracture deformity of the proximal femoral shaft with marked bony proliferation. There is a ghost tract within the intramedullary canal of the proximal femur compatible with prior hardware removal. The left hip joint space is maintained. There are small marginal osteophytes and subchondral sclerosis/cystic change. Greater trochanteric enthesophytes noted. There are multiple wires/leads overlying the left hip joint. Pubic symphysis and SI joint spaces are maintained. There is mild right hip osteoarthritis. IMPRESSION IMPRESSION: Mild left hip osteoarthritis. Partially imaged remote/chronic fracture deformity of the proximal femur. No acute osseous abnormality. Cashier Checker: ALMA Transcribe Date/Time: Dec 05 2021 1:02P Dictated by : KALA MAIER MD This examination was interpreted and the report reviewed and electronically signed by: DONI BALLESTEROS MD on Dec 05 2021 1:37PM EST [facility] XR Pelvis and Hip - left AP and Lateral frogOrdered By: Ccf Provider on 12-05-2021 [facility] XR Pelvis and Hip - left AP and Lateral frogon 12-04-2021 Radiology Study observation (narrative) [facility] XR hip LT min 2V(w/wo pelvis )*on 03-19-2021 XR hip LT min 2V(w/wo pelvis)* [facility] [place] [address] XRay Report Signed Patient: Mauro Hebert MR#: [id number] : 1970 Acct:[id number] Age/Sex: 50 / M ADM Date: 03/19/21 Loc: XD Room: Type: [facility] CLI Attending Dr: Marlon Parr MD Ordering Provider: Marlon Parr MD Date of Service: 03/19/21 XR/XR hip LT min 2V(w/wo pelvis)*: Greater trochanteric bursitis of left hip Copies to: Marlon Parr MD LEFT HIP - 2 views: CLINICAL HISTORY: Pain along the lateral left hip and lower back COMPARISON: None AP and frog-lateral views were obtained. There is no acute fracture or dislocation. Chronic fracture deformity and periosteal reaction is seen at the femoral shaft. There is also suggestion of a tract from a previous intramedullary vanessa that was removed. There are no significant soft tissue abnormalities. XR/XR hip LT min 2V(w/wo pelvis)* IMPRESSION: OLD POSTTRAUMATIC AND POSTOPERATIVE CHANGES INVOLVING THE FEMUR. NO ACUTE BONY FINDINGS. Impression dictated by: Liz Campo M.D.03/19/2021 7:04 PM Dictation Location: [place] [address] Transcribed By: [facility] 03/19/211903 Dictated By: Liz Campo MD 03/19/211901 Signed By: 03/19/211903 Normal [facility] XR lumbar spine AP/LAT/FLX/E XTon 03-19-2021 XR lumbar spine AP/LAT/FLX/EXT [facility] [place] [address] XRay Report Signed Patient: Mauro Hebert MR#: [id number] : 1970 Acct:[id number] Age/Sex: 50 / M ADM Date: 03/19/21 Loc: XD Room: Type: [facility] CLI Attending Dr: Marlon Parr MD Ordering Provider: Marlon Parr MD Date of Service: 03/19/21 XR/XR lumbar spine AP/LAT/FLX/EXT: Lumbosacral spondylosis without myelopathy Copies to: Marlon Parr MD LUMBAR SPINE WITH FLEXION-EXTENSION VIEWS - 4 views COMPARISON: 01/31/2020 CLINICAL DATA: Chronic left lateral hip and low back pain. Standing AP as well as lateral views in neutral, flexion and extension were obtained. Mild rotatory thoracolumbar dextroscoliotic curvature is again noted. There is still a few millimeters of retrolisthesis of L3 on L4. Alignment does not change significantly with flexion or extension. No acute fractures are noted. There is slight disc space narrowing at L3-4 toward the left where there is also endplate spurring. There is minor lower lumbar facet hypertrophy. No paraspinal soft tissue abnormalities are noted. XR/XR lumbar spine AP/LAT/FLX/EXT IMPRESSION: SCOLIOSIS AND MILD DEGENERATIVE CHANGES. Impression dictated by: Liz Campo M.D.03/19/2021 6:48 PM Dictation Location: [place] [address] Transcribed By: [facility] 03/19/211847 Dictated By: Liz Campo MD 03/19/211843 Signed By: 03/19/211847 [facility] XR CHEST (2 VW)on 08-26-2018 Protein mass conc EXAMINATION:TWO VIEW S OF THE CHEST08/26/2018 9:17 amCOMPARISON:August 22, 2018HISTORY:ORDERING SYSTEM PROVIDED HISTORY: Mutiple fracture ribsTECHNOLOGIST PROVIDED HISTORY:Mutiple fracture ribsPlease do inspiratory/expiratory cxrFINDINGS:Stable cardiomediastinal silhouette. No significant pulmonary edema.Insert the rocael in expiratory frontal chest radiographs demonstratesubsegmental atelectasis in the right upper lobe. No convincing lungconsolidation or infiltrate..No pleural effusion or pneumothorax.There are several mildly displaced posterolateral left rib fracturesIMPRESSION: Several mildly displace mid posterolateral left rib fractures. Nopneumothorax.Interpreted by:GILBERT Reeceigned by:Miriam Obregon MD08/26/18inal result Normal [facility] APTTon 08-22-2018 aPTT Coag time (Bld) 23.6 s Normal 20.5-30.5 [facility] Comment on above: Performed By: #### C DP, BMP, PT, PTT ####[address] [address] Basic Metabolic Profon 08-22 (cont.) Normal [facility] Comment on above: Result Comment: Aver age GFR for 40-49 years old: 99 mL/min/1.73sq mChronic Kidney Disease: <60 mL/min/1.73sq mKidney failure: <15 mL/min/1.73sq meGFR calculated using average adult body mass. Additional eGFR calculator available at:http://www.Betterific/multiple_crcl_2012.htm Performed By: #### C DP, BMP, PT, PTT ####[employer] [place] [address] Anion gap 3 molar conc 10 mmol/L Normal 9-17 [facility] Comment on above: Performed By: #### C DP, BMP, PT, PTT ####[facility] Hospitalilluminate SolutionsSrqglcejagvv[address] [place] [address] Calcium mass conc 9.5 mg/dL Normal 8.6-10.4 [facility] Comment on above: Performed By: #### C DP, BMP, PT, PTT ####[employer] [place] [address] Chloride molar conc 103 mmol/L Normal 98-107 [facility] Comment on above: Performed By: #### C DP, BMP, PT, PTT ####[employer] [place] [address] CO2 molar conc 26 mmol/L Normal 20-31 [facility] Comment on above: Performed By: #### C DP, BMP, PT, PTT ####[facility] Hospitalilluminate SolutionsCcdrhbkdpply[address] [place] [address] Creatinine mass conc 0.85 mg/dL Normal 0.70-1.20 [facility] Comment on above: Performed By: #### C DP, BMP, PT, PTT ####[facility] Hospitalilluminate SolutionsPvcglyzccuts[address] [place] [address] GFR, Amer >60 Normal >60 [facility] Comment on above: Performed By: #### C DP, BMP, PT, PTT ####[address] [address] GFR,non Amer >60 Normal >60 [facility] Comment on above: Performed By: #### C DP, BMP, PT, PTT ####[address] [address] Glucose mass conc 109 mg/dL High 70-99 [facility] Comment on above: Performed By: #### C DP, BMP, PT, PTT ####[address] [address] Potassium molar conc 4.4 mmol/L Normal 3.7-5.3 [facility] Comment on above: Performed By: #### C DP, BMP, PT, PTT ####[address] [address] Sodium molar conc 139 mmol/L Normal 135-144 [facility] Comment on above: Performed By: #### C DP, BMP, PT, PTT ####[address] [address] Urea nitrogen mass conc 24 mg/dL High 6-20 [facility] Comment on above: Performed By: #### C DP, BMP, PT, PTT ####[place] [address] [place] [address] BUN/CRE Ratio NOT REPORTED Normal 9-20 [facility] Comment on above: Performed By: #### C DP, BMP, PT, PTT ####[address] [address] Staging: NOT REPORTED Normal [facility] Comment on above: Performed By: #### C DP, BMP, PT, PTT ####[address] [address] CBC with Diffon 08-22-2018 Abs. Basophil 0.03 k/uL Normal 0.00-0.20 [facility] Comment on above: Performed By: #### C DP, BMP, PT, PTT ####[address] [address] Abs.Imm.Granulocyte <0.03 Normal 0.00-0.30 [facility] Comment on above: Performed By: #### C DP, BMP, PT, PTT ####[address] [address] Abs.Neutrophil (Seg) 6.87 k/uL Normal 1.50-8.10 [facility] Comment on above: Performed By: #### C DP, BMP, PT, PTT ####[address] [address] Basophils/100 WBC Auto (Bld) 0 % Normal 0-2 [facility] Comment on above: Performed By: #### C DP, BMP, PT, PTT ####[address] [address] Eosinophils Auto #/vol (Bld) 0.03 10*3/uL Normal 0.00-0.44 [facility] Comment on above: Performed By: #### C DP, BMP, PT, PTT ####[address] [address] Eosinophils/100 WBC Auto (Bld) 0 % Low 1-4 [facility] Comment on above: Performed By: #### C DP, BMP, PT, PTT ####[address] [address] Erythrocyte distribution width Auto Ratio (RBC) 14.2 % Normal 11.8-14.4 [facility] Comment on above: Performed By: #### C DP, BMP, PT, PTT ####[address] [address] Hematocrit Auto Volume Fraction (Bld) 39.0 % Low 40.7-50.3 [facility] Comment on above: Performed By: #### C DP, BMP, PT, PTT ####[address] [address] Hemoglobin mass conc (Bld) 13.0 g/dL Normal 13.0-17.0 [facility] Comment on above: Performed By: #### C DP, BMP, PT, PTT ####[address] [address] Immature granulocytes #/vol (Bld) 0 % Normal 0 [facility] Comment on above: Performed By: #### C DP, BMP, PT, PTT ####[address] [address] Lymphocytes Auto #/vol (Bld) 1.31 10*3/uL Normal 1.10-3.70 [facility] Comment on above: Performed By: #### C DP, BMP, PT, PTT ####[address] [address] Lymphocytes/100 WBC Auto (Bld) 14 % Low 24-43 [facility] Comment on above: Performed By: #### C DP, BMP, PT, PTT ####[address] [address] MCH Auto Entitic mass (RBC) 31.3 pg Normal 25.2-33.5 [facility] Comment on above: Performed By: #### C DP, BMP, PT, PTT ####[address] [address] MCHC Auto mass conc (RBC) 33.3 g/dL Normal 28.4-34.8 [facility] Comment on above: Performed By: #### C DP, BMP, PT, PTT ####[address] [address] MCV Auto Entitic volume (RBC) 93.8 fL Normal 82.6-102.9 [facility] Comment on above: Performed By: #### C DP, BMP, PT, PTT ####[address] [address] Monocytes Auto #/vol (Bld) 0.91 10*3/uL Normal 0.10-1.20 [facility] Comment on above: Performed By: #### C DP, BMP, PT, PTT ####[address] [address] Monocytes/100 WBC Auto (Bld) 10 % Normal 3-12 [facility] Comment on above: Performed By: #### C DP, BMP, PT, PTT ####[address] [address] Neutrophil (Seg) 76 % High 36-65 [facility] Comment on above: Performed By: #### C DP, BMP, PT, PTT ####[address] [address] NRBC Automated 0.0 per 100 WBC Normal 0.0 [facility] Comment on above: Performed By: #### C DP, BMP, PT, PTT ####[address] [address] Platelet mean volume Auto Entitic volume (Bld) 10.2 fL Normal 8.1-13.5 [facility] Comment on above: Performed By: #### C DP, BMP, PT, PTT ####[address] [address] Platelets Auto #/vol (Bld) 321 10*3/uL Normal 138-453 [facility] Comment on above: Performed By: #### C DP, BMP, PT, PTT ####[address] [address] RBC Auto #/vol (Bld) 4.16 10*6/uL Low 4.21-5.77 [facility] Comment on above: Performed By: #### C DP, BMP, PT, PTT ####[address] [address] WBC Auto #/vol (Bld) 9.2 10*3/uL Normal 3.5-11.3 [facility] Comment on above: Performed By: #### C DP, BMP, PT, PTT ####[address] [address] Auto Diff Performed NOT REPORTED Normal [facility] Comment on above: Performed By: #### C DP, BMP, PT, PTT ####[address] [address] Platelets Auto #/vol (Bld) NOT REPORTED Normal [facility] Comment on above: Performed By: #### C DP, BMP, PT, PTT ####[address] [address] RBC morphology finding Nom (Bld) NOT REPORTED Normal [facility] Comment on above: Performed By: #### C DP, BMP, PT, PTT ####[address] [address] WBC Morphology NOT REPORTED Normal [facility] Comment on above: Performed By: #### C DP, BMP, PT, PTT ####[address] [address] PTon 08-22-2018 INR Coag RelTime (PPP) 1.0 {INR} Normal [facility] Comment on above: Result Comment: Ther apeutic Range: Moderate Anticoagulant Intensity: INR = 2.0-3.0 High Anticoagulant Intensity: INR = 2.5-3.5 Performed By: #### C DP, BMP, PT, PTT ####[address] [id number] Prothrombin time (PT) Coag time (PPP) 10.6 s Normal 9.0-12.0 [facility] Comment on above: Performed By: #### C DP, BMP, PT, PTT ####[place] [address] [place], [place] [id number] Vital Signs Date Time Vital Sign Value Performing Clinician Facility 03-19-2023 10:34-0400 Heart rate 63 /min Hong Zumbar [facility] 03-19-2023 10:34-0400 SaO2% (BldA) [Mass fraction] 94 % [facility] 03-19-2023 10:34-0400 Diastolic blood pressure 73 mm[Hg] [facility] 03-19-2023 10:34-0400 Mean blood pressure 85 mm[Hg] [facility] 03-19-2023 10:34-0400 Systolic blood pressure 108 mm[Hg] [facility] 03-19-2023 10:34-0400 Respiratory rate 16 /min [facility] 03-19-2023 10:27-0400 Diastolic blood pressure 84 mm[Hg] [facility] 03-19-2023 10:27-0400 Heart rate 66 /min [facility] 03-19-2023 10:27-0400 Respiratory rate 16 /min [facility] 03-19-2023 10:27-0400 SaO2% (BldA) [Mass fraction] 94 % [facility] 03-19-2023 10:27-0400 Systolic blood pressure 124 mm[Hg] [facility] 03-19-2023 09:34-0400 Heart rate 59 /min [facility] 03-19-2023 09:34-0400 SaO2% (BldA) [Mass fraction] 95 % [facility] 03-19-2023 09:34-0400 Diastolic blood pressure 78 mm[Hg] [facility] 03-19-2023 09:34-0400 Mean blood pressure 90 mm[Hg] [facility] 03-19-2023 09:34-0400 Systolic blood pressure 114 mm[Hg] [facility] 03-19-2023 09:34-0400 Body temperature 97.7 [degF] [facility] 03-19-2023 09:33-0400 Respiratory rate 12 /min [facility] 03-12-2023 14:07-0400 Diastolic blood pressure 89 mm[Hg] [facility] 03-12-2023 14:07-0400 Heart rate 95 /min [facility] 03-12-2023 14:07-0400 Mean blood pressure 102 mm[Hg] [facility] 03-12-2023 14:07-0400 Respiratory rate 18 /min [facility] 03-12-2023 14:07-0400 Systolic blood pressure 129 mm[Hg] [facility] 01-29-2023 14:11-0400 Diastolic blood pressure 94 mm[Hg] [facility] 01-29-2023 14:11-0400 Heart rate 79 /min Hong [facility] 01-29-2023 14:11-0400 Mean blood pressure 111 mm[Hg] [facility] 01-29-2023 14:11-0400 Respiratory rate 16 /min Hong [facility] 01-29-2023 14:11-0400 Systolic blood pressure 146 mm[Hg] [facility] 12-11-2022 14:17-0400 Diastolic blood pressure 77 mm[Hg] [facility] 12-11-2022 14:17-0400 Heart rate 107 /min Hong [facility] 12-11-2022 14:17-0400 Respiratory rate 16 /min Hong [facility] 12-11-2022 14:17-0400 SaO2% (BldA) [Mass fraction] 94 % Hong [facility] 12-11-2022 14:17-0400 Systolic blood pressure 123 mm[Hg] Hong [facility] 12-11-2022 14:08-0400 Diastolic blood pressure 84 mm[Hg] Hong [facility] 12-11-2022 14:08-0400 Heart rate 117 /min Hong Zum[facility] 12-11-2022 14:08-0400 Respiratory rate 14 /min Hong [facility] 12-11-2022 14:08-0400 SaO2% (BldA) [Mass fraction] 92 % Ohng Zum[facility] 12-11-2022 14:08-0400 Systolic blood pressure 109 mm[Hg] Hong Zum[facility] 12-11-2022 13:45-0400 Heart rate 112 /min Hong Zumbar [facility] 12-11-2022 13:45-0400 SaO2% (BldA) [Mass fraction] 94 % Hong Zumbar [facility] 12-11-2022 13:45-0400 Diastolic blood pressure 70 mm[Hg] Hong [facility]um[facility] 12-11-2022 13:45-0400 Mean blood pressure 83 mm[Hg] Hong [facility]umbar [facility] 12-11-2022 13:45-0400 Systolic blood pressure 109 mm[Hg] Hong Zumbar [facility] 12-11-2022 13:45-0400 Body temperature 98.06 [degF] Hong [facility]bar [facility] 12-11-2022 13:44-0400 Respiratory rate 14 /min Hong Zumbar [facility] 11-14-2022 10:48-0500 Diastolic blood pressure 108 mm[Hg] Hong Zumbar [facility] 11-14-2022 10:48-0500 Heart rate 81 /min Hong Zumbar [facility] 11-14-2022 10:48-0500 Mean blood pressure 122 mm[Hg] Hong Zumbar [facility] 11-14-2022 10:48-0500 Respiratory rate 15 /min Hong Zumbar [facility] 11-14-2022 10:48-0500 Systolic blood pressure 150 mm[Hg] Hong Zumbar [facility] 10-31-2022 14:20-0500 Body height 187.96 cm [employer] Other [employer] [facility] [employer] Other 10-31-2022 14:20-0500 Body mass index (BMI) [Ratio] 27.34 kg/m2 [employer] Other [facility] [employer] Other 10-31-2022 14:20-0500 Body weight 96.62 kg [employer] Other [facility] [employer] Other 10-31-2022 14:20-0500 Respiratory rate 22 /min [employer] Other [employer] Other 10-25-2022 13:08-0500 Diastolic blood pressure 94 mm[Hg] Peri Vizerra [facility] 10-25-2022 13:08-0500 Heart rate 90 /min Peri Vizerra [facility] 10-25-2022 13:08-0500 Mean blood pressure 112 mm[Hg] Peri Johnson [facility] 10-25-2022 13:08-0500 Respiratory rate 16 /min Peri Johnson [facility] 10-25-2022 13:08-0500 Systolic blood pressure 149 mm[Hg] Peri Johnson [facility] 09-26-2022 12:37-0500 Diastolic blood pressure 99 mm[Hg] Hong Zumbar [facility] 09-26-2022 12:37-0500 Heart rate 90 /min Hong Zumbar [facility] 09-26-2022 12:37-0500 Mean blood pressure 114 mm[Hg] Hong Zumbar [facility] 09-26-2022 12:37-0500 Respiratory rate 12 /min Hong Zumbar [facility] 09-26-2022 12:37-0500 Systolic blood pressure 145 mm[Hg] Hong Zumbar [facility] 08-21-2022 11:38-0500 Diastolic blood pressure 98 mm[Hg] Hong Zumbar [facility] 08-21-2022 11:38-0500 Heart rate 76 /min Hong Zumbar [facility] 08-21-2022 11:38-0500 Mean blood pressure 111 mm[Hg] Hong Zumbar [facility] 08-21-2022 11:38-0500 SaO2% (BldA) [Mass fraction] 96 % Hong Zumbar [facility] 08-21-2022 11:38-0500 Systolic blood pressure 136 mm[Hg] [facility] [facility]-2022 11:32-0500 Diastolic blood pressure 100 mm[Hg] Hong Zumbar [facility] 08-21-2022 11:32-0500 Heart rate 86 /min Hong Zumbar [facility] 08-21-2022 11:32-0500 Respiratory rate 18 /min Hong Zumbar [facility] 08-21-2022 11:32-0500 SaO2% (BldA) [Mass fraction] 94 % Hong Zumbar [facility] 08-21-2022 11:32-0500 Systolic blood pressure 146 mm[Hg] Hong Zumbar [facility] 08-21-2022 10:11-0500 Body temperature 97.34 [degF] Hong Zumbar [facility] 08-21-2022 10:11-0500 Diastolic blood pressure 99 mm[Hg] Hong Zumbar [facility] 08-21-2022 10:11-0500 Heart rate 88 /min Hong Zumbar [facility] 08-21-2022 10:11-0500 Mean blood pressure 117 mm[Hg] Hong Zumbar [facility] 08-21-2022 10:11-0500 Respiratory rate 16 /min Hong Zumbar [facility] 08-21-2022 10:11-0500 SaO2% (BldA) [Mass fraction] 96 % Hong Zumbar [facility] 08-21-2022 10:11-0500 Systolic blood pressure 151 mm[Hg] Hong Zumbar [facility] 06-19-2022 10:16-0400 Diastolic blood pressure 91 mm[Hg] Hong Zumbar [facility] 06-19-2022 10:16-0400 Heart rate 85 /min Hong Zumbar [facility] 06-19-2022 10:16-0400 Mean blood pressure 104 mm[Hg] Hong Zumbar [facility] 06-19-2022 10:16-0400 Respiratory rate 14 /min Hong Zumbar [facility] 06-19-2022 10:16-0400 Systolic blood pressure 130 mm[Hg] Hong Zumbar [facility] 01-29-2022 11:34-0400 Body height 188 cm [facility] 01-29-2022 11:34-0400 Body weight 92.53 kg [facility] Encounters Encounter Date Encounter Type Care Provider Facility Start: 01-17-2025 End: 01-17-2025 ambulatory Refugio Javier MD Facility:[facility] Start: 12-27-2024 End: 12-27-2024 ambulatory Enoc Arboleda DO Facility:[facility] Start: 10-29-2023 End: 10-29-2023 ambulatory ENOC ARBOLEDA JR. Facility:[facility] Start: 03-19-2023 End: 03-20-2023 ambulatory Hong Zumbar Facility:[facility] Start: 03-19-2023 End: 03-19-2023 Pain Management Hong Zumbar [facility] Start: 03-12-2023 End: 03-13-2023 ambulatory Hong Zumbar Facility:[facility] Start: 03-12-2023 End: 03-12-2023 Pain Management Hong Zumbar [facility] Start: 02-12-2023 End: 02-13-2023 ambulatory Hong Zumbar Facility:[facility] Start: 01-29-2023 End: 01-30-2023 ambulatory Hong Zumbar Facility:[facility] Start: 01-29-2023 End: 01-29-2023 Pain Management Hong Zumbar [facility] Start: 01-08-2023 End: 01-09-2023 ambulatory Hong Zumbar Facility:[facility] Start: 12-26-2022 End: 12-27-2022 ambulatory Hong Zumbar Facility:[facility] Start: 12-11-2022 End: 12-12-2022 ambulatory Hong Zumbar Facility:[facility] Start: 12-11-2022 End: 12-11-2022 Pain Management Hong Zumbar [facility] Start: 11-14-2022 End: 11-15-2022 ambulatory Hong Zumbar Facility:[facility] Start: 11-14-2022 End: 11-14-2022 Pain Management Hong Zumbar [facility] Start: 11-12-2022 End: 11-12-2022 ambulatory ENOC ARBOLEDA Facility:[facility] Start: 11-12-2022 End: 11-12-2022 Patient encounter procedure Nahid Estrada MD Work Phone: [facility] Comment on above: Pain in hip (Primary Dx) Start: 10-31-2022 End: 10-31-2022 ambulatory [facility] Other [facility] Other Start: 10-31-2022 Office outpatient ne w 30 minutes [facility] Start: 10-25-2022 End: 10-26-2022 [facility] Start: 10-25-2022 End: 10-25-2022 Pain Management Peri Johnson [facility] Start: 10-18-2022 End: 10-19-2022 ambulatory HONG ZUMBAR Facility: Start: 09-26-2022 End: 09-27-2022 ambulatory Hong Zumbar Facility:[facility] Start: 09-26-2022 End: 09-26-2022 Pain Management Hong Zumbar [facility] Start: 08-27-2022 Refill Yosvany Harrison ac PA-C Work Phone: [facility] Start: 08-21-2022 End: 08-22-2022 ambulatory Hong Yueumbar Facility:[facility] Start: 08-21-2022 End: 08-21-2022 Pain Management Hong Zumbar [facility] Start: 08-13-2022 Telephone encounter Nahid neely MD Work Phone: [facility] Comment on above: Return To Work Lette r Start: 08-09-2022 End: 08-09-2022 Patient encounter procedure Nahid Estrada MD Work Phone: [facility] Comment on above: Tear of left gluteus medius tendon, subsequent encounter (Primary Dx) Start: 07-18-2022 End: 07-19-2022 ambulatory HONG ZUMBAR Facility: Start: 07-18-2022 End: 07-19-[address] ENOC ARBOLEDA Facility: Start: 06-19-2022 End: 06-20-2022 ambulatory Hong Zumbar Facility:[facility] Start: 06-19-2022 End: 06-19-2022 Pain Management Hong Zumbar [facility] Start: 06-18-2022 Refill Nahid pinzon PA-C Work Phone: [facility] Comment on above: Refill Request Start: 05-14-2022 Telephone encounter Nahid neely MD Work Phone: [employer] [place] Comment on above: Prescription Refills Start: 05-08-2022 Telephone encounter Nahid neely MD Work Phone: [facility] Comment on above: Patient Question Start: 04-30-2022 End: 04-30-2022 Patient encounter procedure Nahid Estrada MD Work Phone: [facility] Comment on above: Tear of left gluteus medius tendon, subsequent encounter (Primary Dx) Start: 04-11-2022 Telephone encounter Nahid neely MD Work Phone: [facility] Comment on above: Medication Question Start: 03-21-2022 End: 06-08-[address] ENOC ARBOLEDA Facility:[facility] Start: 03-19-2022 Telephone encounter Nahid neely MD Work Phone: [facility] Comment on above: Medication Problem Start: 03-18-2022 ambulatory Yosvanyangy ellington PA-C Work Phone: [facility] Comment on above: Delmar Clarkeaxin Start: 03-15-2022 End: 03-15-2022 ambulatory Yosvany Yasmeen Maec PA-C Work Phone: [facility] Comment on above: IFC/TNS unit, Lidoca ine or Voltaren cream or patch Tear of left gluteus medius tendon, subsequent encounter (Primary Dx) Start: 03-15-2022 End: 03-15-2022 Telemedicine consultation with patient Yosvany Yasmeen Maec PA-C Work Phone: [facility] [address] Start: 02-22-2022 Telephone encounter Nahid neely MD Work Phone: [facility] [place] Comment on above: Patient Update Start: 02-19-2022 End: 02-19-2022 Patient encounter procedure Yosvany Arana Jannette PA-C Work Phone: [facility] Comment on above: Tear of left gluteus medius tendon, subsequent encounter (Primary Dx) Start: 02-15-2022 End: 02-15-2022 ambulatory Yosvany Arana Jannette PA-C Work Phone: [facility] Comment on above: Tear of left gluteus medius tendon, subsequent encounter (Primary Dx) Start: 02-15-2022 End: 02-15-2022 Telemedicine consultation with patient Yosvany Arana Jannette SAAVEDRA-C Work Phone: [facility] [address] Start: 02-07-2022 ambulatory Yosvany Arana Hunter ellington PA-C Work Phone: [facility] Comment on above: PT exercises Start: 02-04-2022 Telephone encounter Ariel lin AT Work Phone: [facility] Comment on above: Post Op Call Start: 01-30-2022 Telephone encounter Madison pinzon PSS [facility] Comment on above: Home Care (Out of [facility] area) Start: 01-29-2022 Telephone encounter Jenny Marquez APRN.APARTMENT MAINTENANCE WORKER Work Phone: Pre Anesthesia Comment on above: Pre-op A1c requested Start: 01-29-2022 End: 01-29-2022 Admission to establishment [facility] Start: 01-29-2022 End: 01-29-2022 ambulatory [facility] Comment on above: Pre-operative examin ation (Primary Dx); Tear of left gluteus medius tendon, subsequent encounter; Type 2 diabetes mellitus with other specified complication, without long-term current use of insulin (HCC); Dementia without behavioral disturbance, unspecified dementia type (HCC); Mixed hyperlipidemia; Essential hypertension, benign; MART (obstructive sleep apnea); Anxiety and depression Start: 01-29-2022 End: 01-29-2022 Preprocedural examination done [facility] Pre [facility]est[facility] Start: 01-28-2022 Telephone encounter Ariel lin AT Work Phone: [facility] Comment on above: Patient Update Start: 01-28-2022 End: 01-28-[address] TRAV SANCHEZ Facility:[facility] Start: 01-15-2022 Telephone encounter Nahid neely MD Work Phone: [facility] [place] Comment on above: Schedule Surgery Start: 01-11-2022 End: 01-11-2022 ambulatory Yosvany Bhatia PA-C Work Phone: [facility] Comment on above: Tear of left gluteus medius tendon, subsequent encounter (Primary Dx) Start: 01-11-2022 End: 01-11-2022 Telemedicine consultation with patient Yosvany Bhatia PA-C Work Phone: [facility] [address] Start: 01-09-2022 End: 01-09-2022 Patient encounter procedure Nahid Estrada MD Work Phone: [facility] Comment on above: Tear of gluteus medi us tendon, subsequent encounter (Primary Dx) Start: 01-04-2022 ambulatory Nahid Estrada MD Work Phone: [facility] Comment on above: hip Start: 01-04-2022 E-mail encounter fro m caregiver Nahid Estrada MD Work Phone: [facility] [address] Start: 12-27-2021 End: 12-27-2021 Subsequent hospital visit by physician [facility] Comment on above: Tear of left gluteus medius tendon, initial encounter [S76.012A] Start: 12-04-2021 End: 12-04-2021 Subsequent hospital visit by physician [facility] Comment on above: Pain in left hip [M2 5.552] Start: 12-03-2021 Orders Only Ariel khan AT Work Phone: [facility] Comment on above: Pain in left hip (Pr imary Dx) Start: 08-22-2018 End: 08-26-2018 Evaluation and management of inpatient ENOC ARBOLEDA [facility] Procedures Date Procedure Procedure Detail Performing Clinician Start: 02-12-2023 Injection of steroid into trochanteric bursa Hong Edmondson Comment on above: 10% relief Start: 01-08-2023 Injection of facet j oint using fluoroscopic guidance Hong Edmondson Comment on above: 50% relief for 1 day Start: 12-11-2022 Injection of facet j oint using fluoroscopic guidance Hong Edmondson Comment on above: 75% relief Start: 08-21-2022 Injection of sacroil iac joint using fluoroscopic guidance Hong Edmondson Comment on above: bilateral sij-80% re lief Start: 01-30-2022 Primary repair of tendon Hong Edmondson Start: 12-27-2021 Us compl joint r-t w /image documentation Nahid Estrada MD Work Phone: Start: 12-04-2021 Radex hip unilateral with pelvis 2-3 views Yosvany Bhatia PA-C Work Phone: Start: 08-22-2021 Injection of pirifor mis muscle Hong Edmondson Comment on above: 10% relief Start: 06-21-2021 Osteoplasty of femur Sanna Edmondson Comment on above: 1995 Start: 08-26-2018 INCENTIVE SPIROMETRY RT ENOC VALONE Start: 08-26-2018 INCENTIVE SPIROMETRY RT ENOC VALONE Start: 08-26-2018 PULSE OXIMETRY, CONTINUOUS ENOC VALONE Start: 08-26-2018 [employer] [facility] - NURSING COMMUNICATION 1 ENOC ASTUDILLOONE Start: 08-26-2018 DISCHARGE PATIENT MARSHA ARBOLEDA Start: 08-26-2018 INCENTIVE SPIROMETRY RT ENOC VALONE Start: 08-26-2018 INCENTIVE SPIROMETRY RT ENOC VALONE Start: 08-26-2018 PULSE OXIMETRY, CONTINUOUS ENOC ASTUDILLOONE Start: 08-26-2018 MEASURE BLOOD PRESSURE ENOC VALONE Start: 08-26-2018 INCENTIVE SPIROMETRY RT ENOC VALONE Start: 08-26-2018 Radiologic exam ches t 2 views ENOC VALONE Start: 08-26-2018 INCENTIVE SPIROMETRY RT ENOC VALONE Start: 08-26-2018 INITIATE OXYGEN THER APY PROTOCOL ENOC VALONE Start: 08-26-2018 PULSE OXIMETRY, CONTINUOUS ENOC VALONE Start: 08-26-2018 INCENTIVE SPIROMETRY RT ENOC VALONE Start: 08-26-2018 PULSE OXIMETRY, CONTINUOUS ENOC VALONE Start: 08-26-2018 PULSE OXIMETRY, CONTINUOUS ENOC VALONE Start: 08-26-2018 INCENTIVE SPIROMETRY RT ENOC VALONE Start: 08-25-2018 INCENTIVE SPIROMETRY RT ENOC VALONE Start: 08-25-2018 PULSE OXIMETRY, CONTINUOUS ENOC VALONE Start: 08-25-2018 INCENTIVE SPIROMETRY RT ENOC VALONE Start: 08-25-2018 INCENTIVE SPIROMETRY RT ENOC VALONE Start: 08-25-2018 PULSE OXIMETRY, CONTINUOUS ENOC VALONE Start: 08-25-2018 INCENTIVE SPIROMETRY RT ENOC VALONE Start: 08-25-2018 INCENTIVE SPIROMETRY RT ENOC VALONE Start: 08-25-2018 PULSE OXIMETRY, CONTINUOUS ENOC VALONE Start: 08-25-2018 IP CONSULT TO ANESTHESIOLOGY ENOC VALONE Start: 08-25-2018 INCENTIVE SPIROMETRY RT ENOC VALONE Start: 08-25-2018 INCENTIVE SPIROMETRY RT ENOC VALONE Start: 08-25-2018 INITIATE OXYGEN THER APY PROTOCOL ENOC VALONE Start: 08-25-2018 PULSE OXIMETRY, CONTINUOUS ENOC VALONE Start: 08-25-2018 INCENTIVE SPIROMETRY RT ENOC VALONE Start: 08-25-2018 PULSE OXIMETRY, CONTINUOUS ENOC VALONE Start: 08-25-2018 PULSE OXIMETRY, CONTINUOUS ENOC VALONE Start: 08-25-2018 INCENTIVE SPIROMETRY RT ENOC VALONE Start: 08-24-2018 INCENTIVE SPIROMETRY RT ENOC VALONE Start: 08-24-2018 PULSE OXIMETRY, CONTINUOUS ENOC VALONE Start: 08-24-2018 INCENTIVE SPIROMETRY RT ENOC VALONE Start: 08-24-2018 INCENTIVE SPIROMETRY RT ENOC VALONE Start: 08-24-2018 PULSE OXIMETRY, CONTINUOUS ENOC VALONE Start: 08-24-2018 NOTIFY PHYSICIAN (SPECIFY) ENOC VALONE Start: 08-24-2018 NURSING COMMUNICATION Delilah ARBOLEDA Start: 08-24-2018 INCENTIVE SPIROMETRY RT ENOC VALONE Start: 08-24-2018 INCENTIVE SPIROMETRY RT ENOC VALONE Start: 08-24-2018 PULSE OXIMETRY, CONTINUOUS ENOC VALONE Start: 08-24-2018 INCENTIVE SPIROMETRY RT ENOC VALONE Start: 08-24-2018 OT EVAL AND TREAT ERNESTINEL NUBIA VALONE Start: 08-24-2018 PT EVAL AND TREAT MARSHA ASTUDILLOONE Start: 08-24-2018 INCENTIVE SPIROMETRY RT ENOC VALONE Start: 08-24-2018 INITIATE OXYGEN THER APY PROTOCOL ENCO VALONE Start: 08-24-2018 PULSE OXIMETRY, CONTINUOUS ENOC VALONE Start: 08-24-2018 INCENTIVE SPIROMETRY RT ENOC VALONE Start: 08-24-2018 IP CONSULT TO PAIN MANAGEMENT ENOC VALONE Start: 08-24-2018 PULSE OXIMETRY, CONTINUOUS ENOC VALONE Start: 08-24-2018 PULSE OXIMETRY, CONTINUOUS ENOC VALONE Start: 08-24-2018 INCENTIVE SPIROMETRY RT ENOC VALONE Start: 08-23-2018 INCENTIVE SPIROMETRY RT ENOC VALONE Start: 08-23-2018 PULSE OXIMETRY, CONTINUOUS ENOC VALONE Start: 08-23-2018 INCENTIVE SPIROMETRY RT ENOC VALONE Start: 08-23-2018 INCENTIVE SPIROMETRY RT ENOC VALONE Start: 08-23-2018 PULSE OXIMETRY, CONTINUOUS ENOC VALONE Start: 08-23-2018 PATIENT STATUS (FROM ED OR OR/PROCEDURAL) ENOC VALONE Start: 08-23-2018 DIET GENERAL ENOC ASHBY Start: 08-23-2018 INCENTIVE SPIROMETRY RT ENOC VALONE Start: 08-23-2018 ASSESS ENOC JULY LONE Start: 08-23-2018 Continuous pulse oximetry ENOC VALONE Start: 08-23-2018 INITIATE OXYGEN THER APY PROTOCOL ENOC ASTUDILLOONE Start: 08-23-2018 MAINTAIN IV ACCESS ERNESTINE MP VALONE Start: 08-23-2018 NO ANTICOAGULANTS CHARYasmeen NUBIA VALONE Start: 08-23-2018 NO ANTIPLATELETS (IN CLUDES SALICYLATES) ENOC VALONE Start: 08-23-2018 NOTIFY PHYSICIAN (SPECIFY) ENOC VALONE Start: 08-23-2018 NURSING COMMUNICATION C NIKITA NKECHI Start: 08-23-2018 PULSE OXIMETRY, CONTINUOUS ENOC VALONE Start: 08-23-2018 VITAL SIGNS ENOC MCDOWELL LONE Start: 08-23-2018 INCENTIVE SPIROMETRY RT ENOC VALONE Start: 08-23-2018 INCENTIVE SPIROMETRY RT ENOC VALONE Start: 08-23-2018 INCENTIVE SPIROMETRY RT ENOC VALONE Start: 08-23-2018 IP CONSULT TO ANESTHESIOLOGY ENOC VALONE Start: 08-23-2018 INCENTIVE SPIROMETRY RT ENOC VALONE Start: 08-23-2018 INCENTIVE SPIROMETRY RT ENOC ARBOLEDA Start: 08-22-2018 INCENTIVE SPIROMETRY RT ENOC ARBOLEDA Start: 08-22-2018 INCENTIVE SPIROMETRY RT ENOC ARBOLEDA Start: 08-22-2018 INCENTIVE SPIROMETRY RT ENOC ARBOLEDA Start: 08-22-2018 FULL CODE ENOC ASHBY Start: 08-22-2018 NOTIFY PHYSICIAN (SPECIFY) ENOC ARBOLEDA Start: 08-22-2018 PLACE INTERMITTENT PNEUMATIC COMPRESSION DEVICE ENOC ARBOLEDA Start: 08-22-2018 REASON FOR NO CHEMIC AL VTE PROPHYLAXIS ENOC ARBOLEDA Start: 08-22-2018 VITAL SIGNS ENOC ASHBY Start: 08-22-2018 Basic metabolic pane l calcium total ENOC ARBOLEDA Start: 08-22-2018 Blood count complete auto&auto difrntl wbc ENOC ARBOLEDA Start: 08-22-2018 Prothrombin time NATASHA Zia ARBOLEDA Start: 08-22-2018 Thromboplastin time partial plasma/whole blood ENOC ARBOLEDA Start: 08-11-2012 Adult depression scr eening assessment Nahid Estrada MD Work Phone: Appendectomy [facility] Delvis Plan of Treatment Date Care Activity Detail Author Start: 06-20-2032 Urine microalbumin profile DTaP,Tdap,Td Vaccine (2 - Td or Tdap) [facility] Start: 05-23-2024 Covid-19 Vaccine ( season) Covid-19 Vaccine ( season) [facility] Start: 05-23-2024 Influenza vaccination Influenza Vacc ine (#1) [facility] Start: 05-23-2022 Influenza vaccination C [facility] Start: 05-23-2021 Influenza vaccination INFLUENZA (#1) [facility] Start: 11-24-2019 SHINGRIX VACCINE (1 of 2) SHINGRIX VACCINE (1 of 2) [facility] Start: 08-04-2015 DIABETES SCREEN DIABETES SCREEN [facility] Start: 2014 COLOGUARD (FIT-DNA) COLOGUARD (FIT-D NA) [facility] Start: 2014 Colonoscopy COLONOSCOPY [facility] Start: 2014 COLORECTAL CANCER SCREENING COLORECTAL CANCER SCREENING [facility] Start: [address] COLONOGRAPHY [facility] Start: 2014 FECAL OCCULT BLOOD FECAL OCCULT BLOO D [facility] Start: 2014 Screening for malign ant neoplasm of colon [facility] Start: 2014 SIGMOIDOSCOPY SIGMOIDOSCOPY [facility] Start: 08-11-2013 Adult depression screening assessment DEPRESSION SCREENING [facility] Start: 2004 LIPID SCREEN LIPID SCREEN [facility] Start: 1988 HEPATITIS B (1 of 3 - Risk 3-dose series) HEPATITIS B (1 of 3 - Risk 3-dose series) [facility] Start: 1988 Hepatitis B Vaccine (1 of 3 - 19+ 3-dose series) Hepatitis B Vaccine (1 of 3 - 19+ 3-dose series) [facility] Start: 1988 Urine microalbumin profile DTAP,TDAP,TD (1 - Tdap) [facility] Start: 11-24-1987 ANNUAL PCP TEAM [place]SE [facility]ER YANET DISEASE VISIT ANNUAL PCP TEAM CHRONIC DISEASE VISIT [facility] Start: 11-24-1987 BP CONTROLLED (<130/80) BP CONTROLLE D (<130/80) [facility] Start: 11-24-1987 Hepatitis B surface antibody level LDL CHOLESTEROL [facility] Start: 11-24-1987 HEPATITIS C SCREENING [facility]ITIS [facility] Start: 11-24-1987 Hepatitis C screening Hepatitis C [facility] Start: 11-24-1987 HIV SCREENING HIV SCREENING [facility] Start: 11-24-1987 HIV screening HIV Screening [facility] Start: 1985 ONE PNEUMOVAX PRIOR TO AGE 65 ONE PNEUMOVAX PRIOR TO AGE 65 [facility] Start: 1981 Adult depression screening assessment DEPRESSION SCREENING [facility] Start: 11-24-1979 3 comp foot exam completed DIABETIC FOOT EXAM [facility] Start: 11-24-1979 Diabetic foot examination Diabetic Foot Exam [facility] Start: 11-24-1979 Glaucoma screening Dilated Retinal E xam [facility] Start: 11-24-1979 Hepatitis B screening URINE ALBUMIN:CREATININE RATIO [facility] Start: 11-24-1979 Hepatitis C antibody , confirmatory test DILATED RETINAL EXAM [facility] Start: 11-24-1975 PNEUMOCOCCAL (1 - PCV) PNEUMOCOCCAL (1 - PCV) [facility] Start: 11-24-1975 Pneumococcal vaccination Pneum ococcal Vaccine (1 of 2 - PCV) [facility] Start: 1974 COVID-19 VACCINE (#1) COVID-19 VACCI NE (#1) [facility] Start: 1974 COVID-19 VACCINE (1) COVID-19 VACCIN E (1) [facility] Start: 1974 Hemoglobin A1c measurement HbA1C [facility] Start: 1974 Hemoglobin A1c/Hemoglobin.total in Blood HBA1C [facility] Start: 05-26-1970 COVID-19 VACCINE (#1) COVID-19 VACCI NE (#1) [facility] Start: 1969 HEPATITIS B (1 of 3 - 3-dose series) HEPATITIS B (1 of 3 - 3-dose series) [facility] End: 01-03-2023 XR HIP GENERAL 3V PELV/AP/LAT LEFT XR HIP GENERAL 3V PELV/AP/LAT LEFT Radiology Routine Pain in left hip 1 Occurrences starting 12/03/2021 until 01/03/2023 [facility] Work Phone: Comment on above: 1 Occurrences starti ng 12/03/2021 until 01/03/2023 [facility] Payers Date Payer Category Payer Medicare AETNA MEDICARE A ETNA MEDICARE PPO [id number] 2021-Present [phone] [address] [place] [address] PPO [id number] 2021 Medicare AETNA MEDICARE A ETNA MEDICARE PPO [id number] 2021-Present [phone] [address] [place] [address] PPO [id number] 2019 Private Health Insurance 2017 Medicare [id number] 1970 Unknown [id number] [id number] 1969 Unknown [id number] 2.16.840.1.077217.3.579.2.5 1969 Unknown [id number] 2.16.840.1.377542.3.579.2.5 1969 Unknown [id number] 2.16.840.1.770429.3.579.2.5 1969 Unknown [id number] 2.16.840.1.837178.3.579.2.5 1969 Unknown [id number] 2.16.840.1.395988.3.579.2.5 1969 Unknown [id number] 2.16.840.1.028276.3.579.2.7 1969 Unknown [id number] 2.16.840.1.522732.3.579.2.7 1969 Unknown [id number] 2.16.840.1.544816.3.579.2.7 1969 Unknown [id number] 2.16.840.1.646553.3.579.2.7 1969 Unknown [id number] 2.16.840.1.816284.3.579.2.7 1969 Unknown [id number] 2.16.840.1.830039.3.579.2.7 1969 Unknown [id number] 2.16.840.1.136520.3.579.2.7 1969 Unknown [id number] 2.16.840.1.897210.3.579.2.7 1969 Unknown [id number] 2.16.840.1.697580.3.579.2.7 1969 Unknown [id number] 2.16.840.1.886680.3.579.2.7 27 1969 Unknown [id number] 2.16.840.1.819673.3.579.2.7 27 1969 Unknown [id number] 2.16.840.1.453891.3.579.2.7 27 1969 Unknown [id number] 2.16.840.1.396829.3.579.2.7 18 1969 Unknown [id number] 2.16.840.1.395916.3.579.2.1 96 1969 Unknown [id number] 2.16.840.1.539058.3.579.2.1 96 1960 Medicare [id number] Social History Date Type Detail Facility Tobacco smoking stat [facility] Tobacco smoking consumption unknown [facility] Work Phone: Start: 1970 Sex Assigned At Male C [facility] Start: 12-04-2021 End: 04-30-2022 Tobacco smoking status AZIS Ex-smoker [facility] History of tobacco use Cigarette Smoker C [facility] Start: 12-04-2021 End: 04-30-2022 Tobacco use and exposure Former smokeless tobacco user [facility] History of tobacco use Chews Tobacco [facility] Start: 12-04-2021 End: 11-12-2022 Alcohol intake Lifetime non-drinker (finding) [facility] Start: 12-04-2021 History SDOH Alcohol Frequency 1 [facility] Start: 11-24-2021 End: 08-09-2022 Exposure to SARS-CoV-2 (event) Not sure [facility] History of tobacco use Current smoker [facility] Tobacco smoking status No Smokin g Status Entered [facility] Start: 12-04-2021 Sex Assigned At Male F [facility] Tobacco smoking status No Smokin g Status Entered [facility] Start: 12-04-2021 History of Social function [facility] Start: 11-27-2021 Gender identity Identifies as male gender (finding) [facility] Start: 11-27-2021 Sexual orientation Choose not to dis close [facility] Medical Equipment Procedure Code Equipment Code Equipment Origin al Text Equipment Identifier Dates Pollock Swivelock 4.75mm Peek 19.1mm Suture Closed Eyelet Vent Sterile - [id number] Start: 01-30-2022 Pollock Swivelock 4.75mm Peek 19.1mm Suture Closed Eyelet Vent Sterile - [id number] Start: 01-30-2022 Pollock Healicoil Pk 4.5mm 2 Full Thread Blue Peek-Huson Suture 2 - [id number] Start: 01-30-2022 Pollock Healicoil Pk 4.5mm 2 Full Thread Blue Peek-Huson Suture 2 - [id number] Start: 01-30-2022 Pollock Healicoil Pk 4.5mm 2 Full Thread Blue Peek-Huson Suture 2 - [id number] Start: 01-30-2022 Functional Status Date Assessment Result Facility 03-19-2023 Functional Status N/A [facility] 03-12-2023 Functional Status N/A [facility] 01-29-2023 Functional Status N/A [facility] 11-14-2022 Functional Status N/A [facility] 10-25-2022 Functional Status N/A [facility] 09-26-2022 Functional Status N/A [facility] 08-21-2022 Functional Status N/A [facility] 06-19-2022 Functional Status N/A [facility] Clinical Notes 12-04-2021 to 10-29-2023 Note Date & Type Note Facility 10-29-2023 Note Patient Education Ma terials Follows: Hip Bursitis Hip bursitis is the swelling of one or more of the fluid-filled sacs (bursae) in the hip joint. The hip bursae absorb shocks and prevent bones from rubbing against each other. If a bursa becomes irritated, it can fill with extra fluid and become inflamed. Hip bursitis can cause mild to moderate pain, and symptoms often come and go over time. What are the causes? This condition results from increased friction between the hip bones and the tendons around the hip joint. This condition can happen if you: ? Overuse your hip muscles. ? Injure your hip. ? Have weak buttocks muscles. ? Have bone spurs. ? Have an infection. In some cases, the cause may not be known. What increases the risk? You are more likely to develop this condition if: ? You injured your hip previously or had hip surgery. ? You have a medical condition, such as arthritis, gout, diabetes, or thyroid disease. ? You have spine problems. ? You have one leg that is shorter than the other. ? You participate in athletic activities that include repetitive motion, like running. ? You participate in sports where there is a risk of injury or falling, such as football, martial arts, or skiing. What are the signs or symptoms? Symptoms may come and go, and they often include: ? Pain in the hip or groin area. Pain may get worse with movement. ? Tenderness and swelling of the hip. In rare cases, the bursa may become infected. If this happens, you may get a fever, as well as warmth and redness in the hip area. How is this diagnosed? This condition may be diagnosed based on: ? Your symptoms. ? Your medical history. ? A physical exam. ? Imaging tests, such as: ? X-rays to check your bones. ? MRI or ultrasound to check your tendons and muscles. ? Bone scan. How is this treated? This condition is treated by resting, icing, applying pressure (compression), and raising (elevating) the injured area. This is called RICE treatment. In some cases, RICE treatment may not be enough to make your symptoms go away. Treatment may also include: ? Using crutches, a cane, or a walker to decrease the strain on your hip. ? Taking medicine to help with swelling and pain. ? Getting a shot of cortisone medicine near the affected area to reduce swelling and pain. ? Taking antibiotic medicines if there is an infection. ? Draining fluid out of the bursa to help relieve swelling and pain. ? Having surgery to remove a damaged or infected bursa. This is rare. Long-term treatment may include: ? Physical therapy exercises for strength and flexibility. ? Identifying the cause of your bursitis to prevent future episodes. ? Lifestyle changes, such as weight loss, to reduce the strain on the hip. Follow these instructions at home: Managing pain, stiffness, and swelling ? If directed, put ice on the affected area. To do this: ? Put ice in a plastic bag. ? Place a towel between your skin and the bag. ? Leave the ice on for 20 minutes, 2?3 times a day. ? Remove the ice if your skin turns bright red. This is very important. If you cannot feel pain, heat, or cold, you have a greater risk of damage to the area. ? Elevate your hip as much as you can without feeling pain. To do this, put a pillow under your hips while you lie down. ? If directed, apply heat to the affected area as often as told by your health care provider. Use the heat source that your health care provider recommends, such as a moist heat pack or a heating pad. ? Place a towel between your skin and the heat source. ? Leave the heat on for 20?30 minutes. ? Remove the heat if your skin turns bright red. This is especially important if you are unable to feel pain, heat, or cold. You may have a greater risk of getting burned. Activity ? Do not use your hip to support your body weight until your health care provider says that you can. Use crutches, a cane, or a walker as told by your health care provider. ? If the affected leg is one that you use to drive, ask your health care provider if it is safe to drive. ? Rest and protect your hip as much as possible until your pain and swelling get better. ? Return to your normal activities as told by your health care provider. Ask your health care provider what activities are safe for you. ? Do exercises as told by your health care provider. General instructions ? Take csri-lsv-bgpzpaa and prescription medicines only as told by your health care provider. ? Gently massage and stretch your injured area as often as is comfortable. ? Wear compression wraps only as told by your health care provider. ? If one of your legs is shorter than the other, get fitted for a shoe insert or orthotic. Your health care provider or physical therapist can tell you where to find these items and what size you need. ? Maintain a (more content not included)... [facility] 03-19-2023 Note Procedure: Left lumb ar transforaminal epidural steroid injection under fluoroscopic guidance of the left L3 nerve root at the left L3-L4 foramen Diagnosis: Lumbar radiculopathy Solution: 0.5 mL of lidocaine 2%, 1.5 mL normal saline, and 0.5 mL of Kenalog 20 mg. 2.5 mL total Contrast: 1 mL of Isovue Local anesthetic: 2 mL of lidocaine 1% Anesthesia: Local Complications: None Notes: The patient has a greater than 2-month history of severe low back and leg pain. The patient has had 6 weeks of conservative management with therapy exercises and medications. The patient does not desire spine surgery. The patient is compliant with a home exercise program for this issue. The patient's imaging is notable for severe left-sided neuroforaminal stenosis at L3-L4. This correlates with the patient's symptoms so the procedure was performed at that level. The pain significantly limits the patient's quality of life and function. Specifically he cannot stand for 30 minutes due to the pain. After informed consent was obtained the patient was brought to the OR and placed in the prone position. The area in question was prepped and draped in sterile fashion. An ipsilateral oblique fluoroscopic view of the lumbar spine was obtained and after local anesthetic was administered into the skin a 22-gauge Chiba needle was inserted into the skin and advanced to the 6 clock position beneath the left L3 pedicle under intermittent fluoroscopic guidance. Proper needle position was confirmed by AP and lateral fluoroscopy. Contrast was administered under live fluoroscopy in both views and demonstrated appropriate epidural and nerve root uptake and the absence of any intravascular or intrathecal spread. The local anesthetic steroid solution was injected incrementally. The needle was removed intact. Bleeding was nil. The patient tolerated the procedure well and was transferred to the recovery room in good condition. [facility] Comment on above: Result Comment: Elec tronically Signed By: Hong Edmondson MD\.br\Date and Time Signed: 03/19/23 16:24 EDT 03-19-2023 Evaluation + Plan note Extrac rudolph from: Title:Clinical Document Author:Edilberto Edmondson MD Date:03/19/23 Procedure: Left lumbar transforaminal epidural steroid injection under fluoroscopic guidance of the left L3 nerve root at the left L3-L4 foramen Diagnosis: Lumbar radiculopathy Solution: 0.5 mL of lidocaine 2%, 1.5 mL normal saline, and 0.5 mL of Kenalog 20 mg. 2.5 mL total Contrast: 1 mL of Isovue Local anesthetic: 2 mL of lidocaine 1% Anesthesia: Local Complications: None Notes: The patient has a greater than 2-month history of severe low back and leg pain. The patient has had 6 weeks of conservative management with therapy exercises and medications. The patient does not desire spine surgery. The patient is compliant with a home exercise program for this issue. The patient's imaging is notable for severe left-sided neuroforaminal stenosis at L3-L4. This correlates with the patient's symptoms so the procedure was performed at that level. The pain significantly limits the patient's quality of life and function. Specifically he cannot stand for 30 minutes due to the pain. After informed consent was obtained the patient was brought to the OR and placed in the prone position. The area in question was prepped and draped in sterile fashion. An ipsilateral oblique fluoroscopic view of the lumbar spine was obtained and after local anesthetic was administered into the skin a 22-gauge Chiba needle was inserted into the skin and advanced to the 6 clock position beneath the left L3 pedicle under intermittent fluoroscopic guidance. Proper needle position was confirmed by AP and lateral fluoroscopy. Contrast was administered under live fluoroscopy in both views and demonstrated appropriate epidural and nerve root uptake and the absence of any intravascular or intrathecal spread. The local anesthetic steroid solution was injected incrementally. The needle was removed intact. Bleeding was nil. The patient tolerated the procedure well and was transferred to the recovery room in good condition. Future Appointments Appointment Date:04/09/2023 12:30:00 PM Scheduled Provider:Peri Johnson PA-C Location:[facility] Appointment Type:Pain Management - Follow Up (FT) [facility]06-28-2023 Note [id number]:127[facility] 03-12-2023 Evaluation + Plan noteExtracted from: Title:Pain Managment Follow up Author:Peri Gee Date:03/12/23 Impression and Plan Patient is a 52-year-old male with a past medical history is made for lumbar stenosis, lumbar neuritis, trochanteric bursitis, and sacroiliitis. Unfortunate, he is still having lower back pain as well as some left lateral thigh discomfort. He rates it a 6 8/10 depending on his activities. We once again reviewed his MRI. Based on his MRI findings, his pain pattern, and his failure to improve with previous conservative treatments a full course of physical therapy done at the [facility] did not help. A continued home exercise program does not help. Patient's mother states that he can barely do anything throughout the day because of the pain and they are just frustrated. They really thought that the tendon surgery that he had in the past would help. It did help certain areas but not all areas. Based on the above-mentioned things I recommended to patient a left-sided L3-4 transforaminal epidural steroid injection for both diagnostic and therapeutic purposes. Procedure was discussed. Risks and benefits were discussed. I would like to discuss patient's case with Dr. Edmondson but he and his family would like to pursue the injection to try to get some relief. They really want to avoid traveling to [place] if possible. He will follow-up a few weeks after the injection for reevaluation. Call the clinic sooner if necessary. TROY score: 28% [facility]05-24-2023 NoteProcedure: Left trochanteric bursa injection Diagnosis: Left trochanteric bursitis, M70.62 Solution: 4 mL of 0.5% bupivacaine and 1 mL of Kenalog 40 mg. 5 mL total. Anesthesia: Local Complications: None After informed consent was obtained the patient brought to the OR and was placed in the supine position. The area in question was prepped in sterile fashion. An AP fluoroscopic view of the left hip was obtained. After 2 mL of lidocaine 1% was injected into the skin with a 25-gauge needle, a 25-gauge Quincke needle was inserted perpendicular to the skin over the lateral left hip and was advanced until the greater trochanter was contacted. Aspiration was negative. 1 mL of Isovue was injected and demonstrated appropriate spread. The local anesthetic steroid solution was injected incrementally. The needle was removed. Bleeding was nil. The patient tolerated the procedure well and was transferred to the recovery room in good condition.[facility] Result Comment: Electronically Signed By: Hong Edmondson MD\.paulina\Date and Time Signed: 02/12/23 16:41 [id number] Note [id number]#[id number]:127[facility] 01-29-2023 Evaluation + Plan noteExtracted from: Title:Clinical Document Author:Edilberto Edmondson MD Date:01/29/23 Chief complaint: Left hip pa in History of present illness: This is a 52-year-old male here for a chief complaint of left hip pain. The patient rates the pain as a 8 out of 10. At his last visit he underwent a diagnostic superior gluteal nerve injection. He reports about 50% short-term relief although at no point was the majority of his pain gone. He states he does not have any real back or buttock pain at this time and points only toward the lateral aspect of the left hip. The pain is constant but worse with activity and it is especially bad with long car rides. He does not have extension down the extremities. He does not have numbness tingling or weakness. He does not have any further follow-ups with his orthopedic surgeon and was released. The patient denies additional neurologic symptoms or issues with bladder or bowel control. The patient's past medical, surgical, and social history along with medications and allergies were reviewed. Review of systems was done on 10 systems Physical examination: General: Pleasant white male in no acute distress. Patient appears well- nourished. Vital signs stable Head exam: Head is normocephalic and external ears are normal Neck exam: No tenderness Cardiovascular exam: No signs of poor perfusion and no peripheral edema Respiratory exam: Breathing is unlabored and there is no wheezing present Abdomen exam: Abdomen soft and nondistended Back exam: No tenderness Musculoskeletal exam: 5 out of 5. Muscle tone is normal. Focal tenderness over the left greater trochanter Neurologic exam: Sensation intact. Reflexes diminished but symmetric. Psych exam: Affect is appropriate. Alert and oriented Skin exam: No lesions Assessment: The patient's signs and symptoms are consistent with left-sided trochanteric bursitis. We reviewed the patient's imaging. Oswestry disability index score was 28% OAR[facility] report was reviewed and was appropriate Plan: I addressed options with him and his mother. His response to the gluteal nerve injections has been equivocal and he is no longer having any buttock pain anyway. The pain over the trochanter is the only thing that has been consistent. We discussed options and we will proceed with a left trochanteric bursa injection under fluoroscopy at his next visit. Now that he has had surgery perhaps they will be effective. The only other option I can think of at this time was to refer him for PRP injections. I advised him that that would likely require a trip to [place] so they would like to try the steroid injection which we can do here first. We discussed the potential risks and benefits of this plan and the patient was in agreement to proceed. I will see the patient for follow-up 4 weeks after the procedure for repeat evaluation. 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 The area in question was prepped and draped in sterile fashion. An AP fluoroscopic view of the pelvis on the left side was obtained and a 25-gauge Quincke needle was inserted perpendicular to theskin and advanced under intermittent fluoroscopic guidance until the superior rim of the iliac crest was contacted. Aspiration was negative. 5 mL of 0.5% bupivacaine was injected incrementally. The needle was removed. Bleeding was nil. The patient tolerated the procedure well and was transferred tothe recovery room in good condition.[facility]:Result Comment: Electronically Signed By: Delvis WHYTE, Hong\.br\Date and Time Signed: 01/08/23 17:13 [id number]:127 [facility]03-22-2023 Note [id number]:127[facility] 11-14-2022 NoteHOSPITAL REGULATIONS: All Positive and Important Negative Findings Shall Be Recorded Date of Consultation: 11/14/2022 Attending Physician: Enoc Arboleda M.D. Consulting Physician: Hong Edmondson M.D. CHIEF COMPLAINT: Left buttock and hip pain. HISTORY OF PRESENT ILLNESS: This is a 51 year old male seen for a chief complaint of left buttock and hip pain. He rates his symptoms currently as a 7/10 and describes it as an aching sensation. The pain radiates from the left buttock into the lateral left hip. It does not radiate down the leg. Since his last visit here he has had a consultation with Dr. Fu who did not think surgery was a great idea. He also had seen Dr. Estrada again who felt that his tendon repair was good. He reports the pain is severe. He denies numbness, tingling, weakness or loss of bladder or bowel control. He reports the pain is constant but worst with activity or with sitting for a long period of time. He deniesadditional neurologic symptoms or issues. PAST MEDICAL, PSYCHOSOCIAL, FAMILY HISTORY, ALONG WITH MEDICATIONS AND ALLERGIES is available and was reviewed. PHYSICAL EXAMINATION: General: He is a pleasant white male. Vital signs: Vital signs including blood pressure, heart rate and respirations are stable. Head: Head is normocephalic and external ears are normal. Neck: Neck is supple with no lesions. Cardiovascular: No signs of poor perfusion. No peripheral edema. Lungs: Breathing is unlabored. There is no wheezing present. Abdomen: Abdomen is soft and non-distended. Back: There is no lumbar tenderness. Musculoskeletal: Strength is 5/5. Muscle tone is normal. He has pain with internal rotation of the left hip but not external rotation. There is tenderness over the left gluteus and piriformis region. Neurologic: Sensation is intact. His reflexes are normal and symmetric. Psychiatric: Affect is appropriate and he is alert and oriented. ASSESSMENT: This is a 51 year old male seen for a chief complaint of left buttock and hip pain. 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 This would explain why he did get some temporary relief after the sacroiliac injection sincethe lateral branches that form the middle cluneal nerve arise from the same area. I reviewed the notes from Dr. Fu who did not think a sacroiliac fusion or lumbar surgery was warranted. I also reviewed an [place] [employer] [facility] report on him which was benign. His TROY today was 25. PLAN: I addressed options with him and since he has had severe persistent left buttock and hip painfor several years that interrupts his function and it has been resistant to basically all conservative treatments including therapy, NSAIDS, muscle relaxants and even surgery we will proceed with a set of left- sided middle cluneal nerve block to evaluate for the possibility of cluneal neuropathy. If he has a good temporary relief we could consider a radiofrequency ablation. I went over the pros and cons of this plan and he was in agreement to proceed. I will see him for follow up 2 weeks after the procedure for a repeat evaluation. Hong Edmondson M.D. lr Dictated: 11/14/2022 [id number] Transcribed: 11/14/2022 cc: Enoc Arboleda M.D.[facility]Comment on above:Result Comment: Electronically Signed By: Delvis WHYTE, Hong\.br\Date and Time Signed: 11/14/22 18:00 [id number] History of Present illness Narrative* Nahid Estrada MD - 11/12/2022 11:24 AM EST Images from the original note were not included. DEPARTMENT OF ORTHOPAEDICS Chief Complaint: Left hip pain Patient returns for follow up of left hip pain. Last seen 08-09-22 Patient reports no interim trauma since last visit. Patient reports his hip still hurts him, mainlylaterally. Describes this as being the worst with weather change. Has been seen by pain management and had an MRI done. Reports prior injection (bilateral) into his low back which gave him a large amount of relief in his hip and back for about 24 hours. PHYSICAL EXAM: There were no vitals taken for this visit. General: Appears stated age, well built, in no apparent distress. Psychiatric: Mood and affect appropriate. Alert and oriented x 3 without evidence of abnormal respiratory effort. Musculoskeletal Exam: Gait normal, Posture: erect and normal. Exam: Right Left Single Leg Trendelenburg Positive Positive Hip flexion 100 100 IR 10 10 ER 60 60 Anterior impingement negative negative Dynamic labral stress negative negative ANIKA negative negative Posterior Impingement negative negative RAFAEL negative negative Strength Supine HF 5/5 5/5 Upright HF 5/5 5/5 Adduction 5/5 5/5 Abduction 5/5 5-/5 Tenderness with Palpation: Right Left Greater Troch Negative Negative Gluteus Medius Negative Negative Piriformis Negative Negative TTP left glute max Pain in low back region with forward flexion at trunk. IMPRESSION: (M25.559) Pain in hip (primary encounter diagnosis) PLAN: 1. Medication: None. 2. Test(s)/Imaging/Referral(s): None. 3. Intervention: Discussed having him follow up with pain management for further work up of his lowback. Patient had a positive response from prior low back injections that helped both his hip and back for a short period of time. Recent MRI of his spine showed L3/L4 OA. Concern that his low back may be adding to his symptoms currently. Will have him follow along with his pain management/spine providers to get their opinions on potential next step. If they believe that there is nothing to be done from a back standpoint, then briefly discussed re- peating MRI of his hip however based on his exam and prior response to low back injections, would further evaluate his low back. Patient and his mother are on board with the plan and all questions were answered. 4. Follow-up: No follow-ups on file. Scribe Attestation: By signing my name below, I, AYANNA Acosta, attest that this documentation has been preparedunder the direction and in the presence of Nahid Estrada M.D. Electronically Signed:AYANNA Acosta, November 12, 2022 11:25 AM I agree with the Chief Complaint, ROS, and Past Histories independently gathered by the clinical technical support coordinator and the remaining scribed note accurately describes my personal service to the patient. 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 The patient has had a vanessa in his left femur, he has had persistent pain in the left hip area that is palpable and persisted for many years. When he received a injection in the left sacroiliac joint because of pain in that area, some of the pain seemed to go away, but a question exists if this is this referred sacroiliac pain. I highly highly doubt that and I communicated that with his pain management doctor.I independently reviewed the MRI of the lumbar spine and the plain x-ray and the reports. The patient has degenerative changes of the L3-4 disc with foraminal narrowing but no symptomatology. I discussed this with the patient's mother and the patient and briefly with a who called in. I do not believe this is coming from the back or quite frankly the sacroiliac joint either. Oct, Inflammation of left sacroiliac joint (ICD-10 - M46.1) [facility] Other 02-03-2023 Evaluation + Plan noteExtracted from: Title:Pain Managment Follow up Author:Peri Gee Date:10/25/22 Impression and Plan Patient is a 51-year-old male with a past medical history significant for sacroiliitis. He has an appointment next week with Dr. Link Fu. He is eager to see what that he has to say. He denies any radicular symptoms at this time. Previous sacroiliac joint injection gave significant but short-term relief. We reviewed the MRI. He rates discomfort an 8/10 and is hopeful for some long-term relief. Since he has an appoint with Dr. Link Fu next week I would recommend him to pursue this and follow-up with her services after. Call the clinic sooner if necessary TROY score: 23 Future Appointments Appointment Date:12/19/2022 11:30:00 AM Scheduled Provider:Hong Edmondson MD Location:[facility] Appointment Type:Pain Management - Follow Up (FT) [facility]01-08-2023 NoteHOSPITAL REGULATIONS: All Positive and Important Negative Findings Shall Be Recorded Date of Consultation: 09/26/2022 Attending Physician: Enoc Arboleda M.D. Consulting Physician: Hong Edmondson M.D. CHIEF COMPLAINT: Left-sided low back, hip and leg pain. HISTORY OF PRESENT ILLNESS: This is a 51 year old male seen for a chief complaint of left-sided lowback, hip and leg pain. He rates his symptoms currently as an 8-9/10. He describes it as a sharp and burning sensation. At his last visit he underwent a left sacroiliac injection. He and his mother report for the first 24 hours afterward the pain was improved by over 80%. He could walk with much less difficulty. He states since that time the symptoms have gotten a lot worse. He has been using oral NSAIDS with mild benefit. They state that prolonged sitting will consistently make the symptoms worse. He denies any significant right-sided pain either in his hip or in his back. PAST MEDICAL, PSYCHOSOCIAL, FAMILY HISTORY, ALONG WITH MEDICATIONS AND ALLERGIES is available and was reviewed. PHYSICAL EXAMINATION: General: He is a pleasant white male who appears uncomfortable. Vital signs: Vital signs including blood pressure, heart rate and respirations are stable. Head: Head is normocephalic and external ears are normal. Neck: Neck is supple with no lesions. Cardiovascular: No signs of poor perfusion. No peripheral edema. Lungs: Breathing is unlabored. There is no wheezing present. Abdomen: Abdomen is soft and non-distended. Back: There is left-sided lower lumbar and sacroiliac tenderness. Musculoskeletal: Strength is 5/5. Muscle tone is normal. Neurologic: Sensation is intact. Reflexes are diminished but symmetric. Extremities: There is no tenderness over the left greater trochanter. Psychiatric: Affect is appropriate and he is alert and oriented. ASSESSMENT:This is a 51 year old male seen for a chief complaint of left-sided low back, hip and leg pain. He has signs and symptoms consistent with sacroiliitis although lumbosacral radiculopathy isalso a possibility. I reviewed his most recent x-ray which did show sclerosis in both sacroiliac joints and he last underwent a bilateral sacroiliac injection a month ago. Since that time he has had no pain in the right side but the left -sided pain has returned. Also on his x-ray though there was severe narrowing of the L3-4 disc on the left side so lumbosacral radiculopathy is also a possibility. PLAN: I addressed options with the, and since he had profound albeit short-term relief from the sacroiliac injection I am going to refer him for a surgical consultation to see if a sacroiliac fusion would be an option. I will have to confer with the surgeon to see if a second injection if needed ornot. Since we are considering surgery we will also check a lumbar magnetic resonance imaging to rule out significant neural impingement. I went over the pros and cons of this plan and he was in agreement with it. I will see him for follow up after the magnetic resonance imaging for a repeat evaluation. Hong Edmondson M.D. lr Dictated: 09/26/2022 [id number] Transcribed: 09/26/2022 cc:Enoc Arboleda M.D.[facility] HospitalComment on above:Result Comment: Electronically Signed By: Delvis WHYTE, Hong\.br\Date and Time Signed: 09/29/22 18:46 [id number] Miscellaneous Notes* Telephone Encounter - Yosvany Bhatia PA-C - 08/27/2022 7:57 AM EST Received Flexion prior authorization follow up for Mauro Hebert. PA completed at [employer]/login - advised it will be reviewed and determination will be made in 1-3 business days. Yosvany Bhatia PA-C documented in this encounterMarietta [facility]11-30-2022 Note [id number]:127[facility] 08-14-2022 Miscellaneous Notes* Telephone Encounter - Arielfelicia Ag, AT - 08/14/2022 9:46 AM EST Spoke with patient's mom on the phone (permission for this in his chart). Discussed him starting to return to work in a limited fashion, per his tolerance. She advises that she thinks it would help him mentally right now to get back for short shifts, a few times a week. Advises that his work is very understanding and is willing to work with [employer]. Letter for Bill was sent via [employer] with the following restrictions - return to work with 3 hour shifts, 2-3 x/week with the ability to adjust/add in the future per his tolerance. Advised her that he can reach out to our office if there are any issues and that he should listen to his hip for fatigue/pain. All questions were answered. Ariel Ag, MEd, AT, ATC Office of Nahid Estrada [facility] Tel - [phone] * Telephone Encounter - Peri Alba Daniel Adm - 08/13/2022 2:58 PM EST Pnt mother called office stating she would like a letter for Bill to try a 3 hour shift 1x week and go from there. I told pnt I would send message to Ariel for review and response and she would like letter faxed to : ATTN: ZANDRA at [phone] documented in this encounterMarietta Memorial Hospital11-18-2022 History of Present illness Narrative* Nahid Estrada MD - 08/09/2022 10:46 AM EST Images from the original note were not included. DEPARTMENT OF ORTHOPAEDICS Chief Complaint: Left hip pain Patient returns for follow up of left hip pain - post op follow up. Last seen 04-30-22 Patient reports persistent buttock and low back complaints. Difficulty sitting in the car for long periods of time. He has been doing home-based rehab and using pool therapy. PHYSICAL EXAM: There were no vitals taken for this visit. General: Appears stated age, well built, in no apparent distress. Psychiatric: Mood and affect appropriate. Alert and oriented x 3 without evidence of abnormal respiratory effort. Musculoskeletal Exam: Gait normal, Posture: erect and normal. Exam: Right Left Single Leg Trendelenburg Negative Negative Hip flexion 110 110 IR 20 20 ER 60 60 Anterior impingement negative negative Dynamic labral stress negative negative ANIKA negative negative Posterior Impingement negative negative RAFAEL negative negative Strength Supine HF 5/5 5/5 Upright HF 5/5 5/5 Adduction 5/5 5/5 Abduction 5/5 5/5 Tenderness with Palpation: Right Left Greater Troch Negative Positive Gluteus Medius Negative Positive Piriformis Negative Negative He has pain and limitation with lumbar flexion with minimal lumbar flexion with reproducible pain with buttock. He has pain with side bending to the left. Has a positive straight leg raise test as well. IMPRESSION: No diagnosis found. 1. left open gluteus medius postop with improved strength but persistent pain concerning for low back issues. PLAN: 1. Medication: Continue current medications. 2. Test(s)/Imaging/Referral(s): spine referral. 3. Intervention: Continue conservative treatment. 4. Follow-up: No follow-ups on file. 3 months Scribe Attestation: By signing my name below, I, AYANNA Acosta, attest that this documentation has been preparedunder the direction and in the presence of Nahid Estrada M.D. Electronically Signed:AYANNA Acosta, August 09, 2022 10:46 AM I agree with the Chief Complaint, ROS, and Past Histories independently gathered by the clinical technical support coordinator and the remaining scribed note accurately describes my personal service to the patient. Nahid Estrada MD documented in this encounterMarietta [facility] Hospital09-28-2022 NoteHOSPITAL REGULATIONS: All Positive and Important Negative Findings Shall Be Recorded Date of Consultation: 06/19/2022 Attending Physician: Enoc Arboleda M.D. Consulting Physician: Hong Edmondson M.D. CHIEF COMPLAINT: Low back pain. HISTORY OF PRESENT ILLNESS: This is a 51-year-old male seen for a chief complaint of low back pain.He rates his symptoms as an 8/10. He describes it as an aching sharp sensation. Since his last visit with us, he underwent a [facility]. His mother reports that he underwent a repair of the gluteus medius tendon. They report that his left lateral hip pain is not gone but it does seem to be better. He has been doing physical therapy for the past three months and has done the exercises at home. They brought the exercise program in for me todayso that I could see it. They report that for the past two months though he has had pain in the lower back on both sides and reports the pain seems to be most bothersome when he is trying to sleep. Ifhe gets up and walks it will improve. He also will get some pain with prolonged sitting. He states that whereas previously his symptoms were solely on the left side now the back pain is pretty equal between the two. He has not had radiation down the legs. He denies numbness, tingling, weakness or loss of bladder or bowel control. He has been using Tylenol and nonsteroidal anti-inflammatory drugs with modest benefit. His past medical, social, family history along with medications and allergies is available and was reviewed. REVIEW OF SYSTEMS: Review of systems is done on ten systems. PHYSICAL EXAMINATION: General: He is a pleasant white male. Vital signs including blood pressure, heart rate and respirations are stable. Head: Head is normocephalic and external ears are normal. Neck: Neck is supple with no lesions. Cardiovascular: No signs of poor perfusion, no peripheral edema. Respiratory: Breathing is unlabored. There is no wheezing present. Abdomen: Abdomen is soft, nondistended. Back: There is bilateral sacroiliac tenderness. He has a positive Neel's sign, Gaenslen's test and thigh thrust test bilaterally. Musculoskeletal: Strength is 5/5 and muscle tone is normal. Neurologic: Sensation is intact throughout. His reflexes are diminished but symmetric. Psychiatric: Affect is appropriate. He is alert and oriented. ASSESSMENT: This is a 51-year-old male seen for a chief complaint of bilateral lower back and hip pain. His signs and symptoms are consistent with sacroiliitis. His left hip pain appears to be improved following surgery but he is now having more back pain. PLAN: I reviewed the home exercises that he was given by physical therapy and to me they all seem appropriate so I advised them to continue with those. I advised them that we will check an x-ray and if the sacral pain remains bothersome to the point that it continues to impact his function and sleep that since it has been present now for three months, it would be appropriate to proceed with a left and right sacroiliac injection. We discussed the pros and cons of this and they voiced understanding. I further advised them though that it would not be unreasonable to give things a little bit moretime and for now that is the option we will go with. He will continue with the exercises at home and I will see him for followup in two to three months for a repeat evaluation. If the symptoms were to intensify, they can call and we can set him up with an injection. Hong Edmondson M.D. ls Dictated: 06/19/2022 [id number] Transcribed: 06/19/2022 cc:Enoc Arboleda M.D.[facility] HospitalComment on above:Result Comment: Electronically Signed By: Delvis WHYTE, Hong\.paulina\Date and Time Signed: 06/19/22 17:26 [id number] Miscellaneous Notes* Telephone Encounter - Yosvany Bhatia PA-C - 06/19/2022 12:11 PM EDT The following approved medication requests have been transmitted electronically. Requested Prescriptions Signed Prescriptions Disp Refills methocarbamol (ROBAXIN) 500 mg tablet 40 tablet 0 Sig: Take 1 tablet by mouth three times daily as needed (muscle spasms or pain). TAKE 1 TABLET BY MOUTH 3 TO 4 TIMES DAILY NEEDED FOR PAIN OR MUCLE SPASMS Authorizing Provider: YOSVANY BHATIA PA-C documented in this encounterMarietta [facility] Hospital08-23-2022 Miscellaneous Notes* Telephone Encounter - Nahid Matos PA-C - 05/14/2022 5:37 PM EDT Robaxin refill requested and approved and routed to patient's pharmacy. GERTRUDIS Chan PA-C * Telephone Encounter - Peri Sanchez Adm - 05/14/2022 2:26 PM EDT Pnt mother called for Rx refill of Robaxin documented in this encounterMarietta Memorial Hospital08-18-2022 Miscellaneous Notes* Telephone Encounter - Ariel Ag, AT - 05/09/2022 1:56 PM EDT Spoke with patient's mother on the phone. Letter for Bill was sent to patient via along with fax number [phone]. Discussed patient returning to work in about 4-6 weeks based on his progression - as this was discussed in the last visit with Dr. Estrada. All questions answered. Ariel Ag, MEd, AT, ATC * Telephone Encounter - Prei Sanchez Adm - 05/08/2022 2:12 PM EDT Margret called on behalf of pnt- wanting to talk to Ariel [place]. [phone] documented in this encounterMarietta Memorial Hospital08-09-2022 History of Present illness Narrative* Nahid Estrada MD - 04/30/2022 12:15 PM EDT Images from the original note were not included. DEPARTMENT OF ORTHOPAEDICS April 30, 2022 CC: Left hip postop HPI: Patient returns 3 months postop left open gluteus medius tendon repair. He is progressing well. On initial conversation patient denies significant pain. On further probing his and mother indicate that he complains of significant pain. He feels as though it is in a different location. Denies any trauma. He has been working on strengthening and physical therapy. PAIN EVALUATION 04/30/2022 1104 Pain Level: 7 Pain Location: Hip-Left glute Description: Sharp Duration Amount of Time: 3 Duration Units: Months Frequency: Continuous Past Medical History: No past medical history on file. Family History: No family history on file. Social History: Medications: methocarbamol (ROBAXIN) 500 mg tablet Take 1 tablet 3-4 times a day as needed for pain or muscle spasms ibuprofen (MOTRIN) 600 mg tablet Take 1 tablet by mouth every 6 hours as needed for pain (and swelling). ziprasidone (GEODON) 60 mg capsule Take 1 capsule by mouth three times daily with meals. ondansetron orally disintegrating (ZOFRAN ODT) 4 mg disintegrating tablet Take 1 tablet by mouth every 8 hours as needed for nausea/vomiting. acetaminophen (ACETAMINOPHEN EXTRA STRENGTH) 500 mg tablet Take 1 tablet by mouth every 6 hours as needed for pain. atorvastatin (LIPITOR) 40 mg tablet Take 40 mg by mouth once daily. NUEDEXTA 20-10 mg capsule Take 1 capsule by mouth twice daily. metFORMIN (GLUCOPHAGE) 500 mg tablet Take 1 tablet by mouth twice daily. calcium carbonate/vitamin D2 (LEINNLS-218-W ORAL) Take 1 tablet by mouth twice daily. venlafaxine ER (EFFEXOR XR) 150 mg 24 hr capsule Take 150 mg by mouth once daily. irbesartan (AVAPRO) 300 mg tablet Take 300 mg by mouth daily at bedtime. memantine XR (NAMENDA XR) 28 mg CSpX Take 28 mg by mouth once daily. gabapentin enacarbil (HORIZANT) 600 mg TbER Take 1 tablet by mouth once daily. famotidine (PEPCID) 20 mg tablet Take 20 mg by mouth once daily. montelukast (SINGULAIR) 10 mg tablet Take 10 mg by mouth daily at bedtime. baclofen (LIORESAL) 10 mg tablet Take 10 mg by mouth three times daily. empagliflozin (JARDIANCE) 25 mg tablet Take 12.5 mg by mouth daily with breakfast. sulindac (CLINORIL) 200 mg tablet Take 200 mg by mouth twice daily. dulaglutide (TRULICITY) 3 mg/0.5 mL pen injector Inject 3 mg subcutaneously one time a week. Calcium Carbonate-Vitamin D3 (VITAMIN D-3) 180-5,000 mg-unit Tab Take 5,000 Units by mouth daily atbedtime. FIBER, DEXTRIN, ORAL Take by mouth. Allergies: ALLERGIES Allergen Reactions Hydrocodone-Acetami* Anaphylaxis Donnatol [Other] hives Physical Exam: Musculoskeletal Exam: Gait normal, Posture: erect and normal. Exam: Right Left Single Leg Trendelenburg Positive Positive Hip flexion 110 110 IR 20 20 ER 60 60 Anterior impingement negative negative Dynamic labral stress negative negative ANIKA negative negative Posterior Impingement negative negative RAFAEL negative negative Strength Right Left Supine HF 5/5 5/5 Upright HF 5/5 5/5 Adduction 5/5 5/5 Abduction 5/5 5-/5 Tenderness with Palpation: Right Left Greater Troch Negative Positive Gluteus Medius Negative Negative Piriformis Negative Negative Review of Systems: GENERAL: No weight loss, malaise or fevers MUSCULOSKELETAL: See HPI Imaging: Assessment/Plan: 3 months postop left hip doing well Plan and expectations are reviewed with the patient and his mother and significant other. At this point we will continue with rehab per protocol. Graduation from rehab will be different depending on the patient does have anticipate another 6 weeks or so physical therapy. He will continue to work on his muscle strength and endurance. We will see him back in 3 months. Anticipate he may be ready forreturn to work in a month to 6 weeks. They will let us know and we can compose a letter when he is ready. Patient and his family voiced understanding and agreement with the plan. Nahid Estrada MD This note was partially generated using [employer] voice recognition system, and there may be some incorrect words, spellings, and punctuation that were not noted in checking the note before saving. Medical Decision Making: Medical Decision Making Level: 1 - N/A documented in this encounterMarietta Memorial Hospital07-22-2022 Miscellaneous Notes* Telephone Encounter - Peri Sanchez Adm - 04/12/2022 4:15 PM EDT MYCM sent to pnt w info from yosvany regarding medication and driving status * Telephone Encounter - Yosvany Bhatia PA-C - 04/12/2022 3:52 PM EDT The following approved medication requests have been transmitted electronically. Signed Prescriptions Disp Refills methocarbamol (ROBAXIN) 500 mg tablet 40 tablet 0 Sig: Take 1 tablet 3-4 times a day as needed for pain or muscle spasms ENRIQUE: No Authorizing Provider: YOSVANY BHATIA Patient is not to drive within 6 hours of taking methocarbamol. Please advise Yosvany Bhatia PA-C * Telephone Encounter - Peri Sanchez Adm - 04/11/2022 2:33 PM EDT pnt mother called office stating they need refill on Robaxin. They stated they were told not to drive while taking it and its been 2 months plus refill now. They would like to know if he takes it in the morning if he can drive at night or vice versa. documented in this encounterMarietta Memorial Hospital06-30-2022 Miscellaneous Notes* Telephone Encounter - Yosvany Bhatia PA-C - 03/21/2022 1:20 PM EDT The following approved medication requests have been transmitted electronically. Signed Prescriptions Disp Refills methocarbamol (ROBAXIN) 500 mg tablet 40 tablet 0 Sig: Take 1 tablet by mouth four times daily as needed (for muscle spasms or pain). Authorizing Provider: YOSVANY BHATIA PT Script faxed. Yosvany Bhatia PA-C * Telephone Encounter - AYANNA Acosta - 03/21/2022 9:31 AM EDT Patient requesting refill of robaxin. Request routed to Yosvany for refill. Pharmacy - [address] [facility] PT order placed - including aquatics Routed to team for review. Will fax orders when complete. Ariel Ag, MEd, AT, ATC * Telephone Encounter - Kenzie Boyer. Asst. - 03/21/2022 8:34 AM EDT Patient called and stated that she needs script called [facility] before the long weekend[facility] She also needs new order for Physical therapy to be for aquatics and faxed to [facility] at [phone]. His appointment is for 4:00 today. Thank you. Kenzie Boyer. Asst. * Telephone Encounter - Kenzie De La Cruz Asst. - 03/19/2022 5:10 PM EDT Patient left voice mail on machine that her needs pain medication called in yet today.Please call patient at [phone]. She said he needs his robaxin called in. documented in this encounterMarietta Memorial Hospital06-24-2022 History of Present illness Narrative* Yosvany Bhatia PA-C - 03/15/2022 11:07 AM EDT POST OP [facility] VIRTUAL VISIT DOCUMENTATION NOTE This virtual visit was performed via video enabled technology, and the patient provided consent to be evaluated and managed using this virtual visit and video enabled technology. [employer] [facility] [employer]: [employer] Virtual Visit People present : Yosvany Bhatia PA-C and Patient, and parents Time Spent for video encounter, record review and documentation: 20 minutes CHIEF COMPLAINT (CC): Post op left hip HISTORY OF PRESENT ILLNESS (HPI): 6 weeks s/p left open gluteus medius repair No systemic complaints. Pain: 7/10 pain sharp intermittent He has been wearing brace and doing his best to follow weight bearing restrictions Methocarbamol for pain EXAMINATION: There is no height or weight on file to calculate BMI. This examination was performed via video enabled technology. Patient does not appear to be in any acute distress Patient is alert and oriented with normal affect Left Hip Examination Inspection: Post-surgical scar appears clean, dry and intact with no signs of drainage or overlying skin infection Range of motion (patient performed these range of motions with my instruction via the video enabledtechnology): Hip flexion 100 degrees, ER 50 degrees Palpation (patient localized these landmarks with my instruction via the video enabled technology): Pain localized to the greater trochanter Special testing (patient performed these maneuvers on themselves with my instruction via the video enabled technology): Active standing abduction intact Neurologic: Intact sensation testing of the lower extremities with no dysesthesia Impression: 6 weeks s/p left open gluteus medius repair hip arthroscopy Plan: Discussed Discontinue brace Begin PT include aquatics Progressive weight bearing per tolerance transition to cane as able Methocarbamol refill Follow-up: [address] Sean Bhatia, MS, ZENAIDA documented in this encounterMarietta Memorial Hospital06-03-2022 Miscellaneous Notes* Telephone Encounter - Ariel Ag AT - 02/22/2022 3:20 PM EDT Spoke with patient's mom on the phone. States Delmar has had a increase in pain following the follow up with Yosvany on 02-19-22. During that visit, his brace was adjusted to fit him more correctly. States that the robaxin has since helped calm down his discomfort. Advised that some soreness after this adjustment can be expected as his body is getting used to theproper way to wear the hip brace. Would expect this to slowly improve over the next few days. Continue the robaxin for his discomfort which seems to help. She asked about sleeping on his non operative side which I advised was ok as long as he has pillow in between his legs. No red flags were given, patient appears to be adjusting to the brace. She will contact the office with any issues moving forward. All questions answered. Ariel Ag, MEd, AT, ATC * Telephone Encounter - Peri Sanchez Adm - 02/22/2022 9:19 AM EDT Pnt mother Margret called office stating Delmar has been having spasms all night and wants to talk to Ariel about it. 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- wear over your clothes Waist component 1st - Back plate of brace fits on small of back (hands on hips location) velcro then pull strings and secure Standing with walker support - take 1-2 steps with RIGHT leg away from the left then secure brace to thigh Continue A&D ointment to areas of irritation Ice/ heat to buttock region documented in this encounterMarietta [facility]05-31-2022 History of Present illness Narrative* Yosvany Bhatia PA-C - 02/19/2022 12:12 PM EDT Post Op Follow Up Visit Mauro Anup returns approximately 3 weeks s/p open left gluteus DOS: 01/30/22 Denies systemic symptoms or other concerns. Denies calf pain. Reports pain left buttock with intermittent lateral pain Reports pain worse when it rains PAIN EVALUATION 02/19/2022 1146 Pain Level: 6 Description: Shooting;Throbbing Medication ibuprofen and methocarbamol for pain Weight bearing: partial using 2 walker When standing shifts weight between legs Hip Brace: intact Physical therapy to begin 6 weeks postop Examination: Incisions healing well with no erythema, drainage, induration. There are no signs of infection. N/V intact left lower extremity Skin irritation bilateral buttock clearing. Heat rash/ irritation mid back Hip flexion to 90 degrees with lateral discomfort Passive Hip abduction to shoulder without pain Calves soft, non tender, no palpable cords 5/5 strength with resisted DF/EHL/PF bilaterally Impression: Approximately 3 weeks s/p left} hip scope glut med repair. No evidence of infection or DVT Plan: Discussed Intra operative and post operative course and expectations discussed. Arthroscopy pictures reviewed. Wound Care You can get your incisions wet in the shower, by allowing the water to run over them. Avoid scrubbing incisions. Do not soak or submerge your leg in a hot tub, bath tub or pool until you are at least 3 weeks postop and incisions well healed. Do not apply lotions or ointments to your incisions until you are 3 weeks post op and incisions arewell healed. Activities: Continue brace until next visit - reviewed proper fit, donning/ doffing and need to wear over clothes Continue A&D Ointment on areas of irritation from brace Alternate ice/ heat with brace Limit standing Weight Bearing: Continue flat foot touch down weight bearing with 2 crutches until next visit Schedule outpatient PT to start shortly after 03/13 or after Follow-up: 3 weeks Yosvany Bhatia PA-C documented in this encounterMari[facility]05-27-2022 History of Present illness Narrative* Yosvany Bhatia PA-C - 02/15/2022 2:09 PM EDT POST OP DISTANCE HEALTH VIRTUAL VISIT DOCUMENTATION NOTE This virtual visit was performed via video enabled technology, and the patient provided consent to be evaluated and managed using this virtual visit and video enabled technology. [employer]: [employer] Virtual Visit People present : Yosvany Bhatia PA-C and Patient, and mother Time Spent for video encounter, record review and documentation: 27 minutes CHIEF COMPLAINT (CC): Post op HISTORY OF PRESENT ILLNESS (HPI): 16 days S/P left open gluteus medius repair DOS: 02/15/22 Denies systemic symptoms or other concerns. Denies calf pain. Pain posterior hip Medication muscle relaxant, ibuprofen acetaminophe Weight bearing: touchdown using 2 crutches Hip Brace: Intact -sitting low Physical therapy - home PT x a few visits EXAMINATION: There is no height or weight on file to calculate BMI. This examination was performed via video enabled technology. Patient does not appear to be in any acute distress Patient is alert and oriented with normal affect Left Hip Examination Inspection: Post-surgical scar appears clean, dry and intact with no signs of drainage or overlying skin infection Skin irritation buttock - left and right - chaffing from brace Range of motion (patient performed these range of motions with my instruction via the video enabledtechnology): HF 100 Palpation (patient localized these landmarks with my instruction via the video enabled technology): no pain with calf compression Special testing (patient performed these maneuvers on themselves with my instruction via the video enabled technology): able to move ankles Neurologic: Intact sensation testing of the lower extremities with no dysesthesia Gait: consistent weight shift to left Diagnosis: Left gluteus medius repair Impression:16 days s/p hip scope glut med repair. No evidence of infection or DVT Plan: Discussed In office visit 02/19 Wound Care You can get your incisions wet in the shower, by allowing the water to run over them. Avoid scrubbing incisions. Do not soak or submerge your leg in a hot tub, bath tub or pool until you are at least 3 weeks postop and incisions well healed. Do not apply lotions or ointments to your incisions until you are 3 weeks post op and incisions arewell healed. Activities: Continue brace until next visit - wear brace over clothes and ensure placement of waist band is at waist Refill ibuprofen and methocarbamol Weight Bearing: Continue flat foot touch down weight bearing with 2 crutches until next visit Follow-up: 4 weeks ZENAIDA [place], [place], ZENAIDA documented in this encounterMari[facility]05-16-2022 Miscellaneous Notes* Telephone Encounter - AYANNA Acosta - 02/04/2022 3:01 PM EDT Spoke with PT on the phone who went out today to see Delmar. Patient is 5 days post op left glute medrepair. She advised that Delmar is struggling with his weight bearing status along with his precautions. States that she has OT coming out to his house either tomorrow or Friday. States that he only has 4 visits approved so she will try to space them out over the next two weeks. Advised that his mom stated she will remove his dressing on Friday and that she also is hoping that his first follow up at the 2 week kurtis can be done virtually. Advised that I will discuss with Dr. Estrada and Yosvany. I will reach out to patient's mom tomorrow to see how he is doing after today's PT visit. Ariel Ag, MEd, AT, ATC documented in this encounterMarietta [facility]05-12-2022 NoteHNO ID: [id number] Author: Anne James, RN Service: Care Management Author Type: Registered Nurse Type: Care Mgt Progress Note Filed: 01/31/2022 12:09 PM Note Text: CARE MANAGEMENT DISCHARGE NOTE SERVICE DATE: 01/31/2022 SERVICE TIME: 12:07 PM LOS: 0 days Admission Date: 01/30/2022 DISCHARGE ARRANGEMENT (list agency and phone number) Discharge Arrangement: Home with Home Health Provider Name: [facility] CAREGIVER ASSESSMENT: Caregiver is ready, willing and able to meet the patient's needs as recommended by the inter-professional team:: No Caregiver needed Does the patient have an acute stroke diagnosis, or has the patient had a stroke during this admission?: No Patient's transition needs and plan for meeting these needs: C HANDOFF COMMUNICATION: Handoff to: Primary Care Physician Primary Care Physician Name/Phone: Enoc Arboleda Jr. routed TRANSPORTATION ARRANGEMENTS: Transportation Arrangements: Car ADDITIONAL CONTACT RESOURCES: NA Pt is discharged home today with [facility] in [facility]. Final orders sent. Pt's parents are driving the pt home. SIGNATURE: Anne James RN PATIENT NAME: Mauro Hebert DATE: January 31, 2022 TIME: 12:07 PM PAGER/CONTACT #: [phone] NoteHNO ID: [id number] Author: Anne James RN Service: Care Management Author Type: Registered Nurse Type: Care Mgt Initial Assessment Filed: 01/31/2022 11:28 AM Note Text: CARE MANAGEMENT: ASSESSMENT AND DISCHARGE PLAN SERVICE DATE: January 31, 2022 SERVICE TIME: 11:26 AM PRIMARY CARE PHYSICIAN: Enoc Arboleda Jr, DO ADMISSION STATUS: Extended Recovery Needs Prior to Discharge: Home Care Order MEDICAL: [employer] MEDICARE PPO Patient/Training Consultant Stated Goals: To have reduction in symptoms;To improve my functional status Health Insurance: [employer] Medicare Health Issues Impacting Discharge Plan: None Last Discharge Date: 08/24/12 Is this Within the Past 30 days? 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 : 3 - Sometimes How confident are you filling out medical forms by yourself?: 3 - Somewhat If Patient scores > 3 on either question, the following interventions were put into place:: Patient did not score > 3 on either question.;Other: See Comment (poor short term memory from TBI) Baseline Mental Status Prior to this Illness what was the patient's Baseline Mental Status?: Forgetful Prior to this illness, has anyone described the patient having any of the following behaviors?: Not Applicable Relationship of the informant to the patient:: Other: See Comment Name of Informant: : mother Margret Functional Status: Independent Does Patient Currently Receive Any Community Services or Home Care?: None Equipment Prior to Admission: Tub bench/chair Has the Patient Been in a Shelter Facility in the Past 30 days?: No SOCIAL: Living Arrangements: Home Lives With: Spouse Financial Resources: Employed Primary Contact: Extended Emergency Contact Information Primary Emergency Contact: Margret Hebert Address: [address] [place] [address] [address] [place] [address] [facility] Mobile Relation: Mother Secondary Emergency Contact: LINDA HEBERT Address: [address] [place] [address] [address] [place] [address] [facility] Mobile Relation: Father Supportive Patient Contact:: Yes Contact Resources: Family Caregiver AssessmentCaregiver is ready, willing and able to meet the patient's needs as recommended by the inter-professional team:: No Caregiver needed Does the patient have an acute stroke diagnosis, or has the patient had a stroke during this admission?: No Patient's transition needs and plan for meeting these needs: [facility] Patient's perception of need for this admission: surgery Medication Adherance I am convinced of the importance of my prescription medication: 0 - Agree Completely I worry that my prescription medication will do more harm than good to me : 0 - Disagree Completely I feel financially burdened by my [id number] expenses for my prescription medication:: 0 - Disagree Completely Risk Score: 0 Patient is categorized as: Low risk < 2 Are you interested in bedside delivery of your medications? 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 Pt lives in a one floor home with 5 entry steps with his . Pt has poor short term memory for TBI. I spoke with her mother at the bedside. Pt was working and driving prior to admission and did not use any DME. Preference is to return home and would like [facility]. Referral place. Plan discharge home today. SIGNATURE: Anne James RN PATIENT NAME: Mauro Hebert DATE: January 31, 2022 TIME: 11:26 AM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 All questions answered. Scribe Attestation: By signing my name below, I, AYANNA Acosta, attest that this documentation has been preparedunder the direction and in the presence of Nahid Estrada M.D. Electronically Signed:AYANNA Acosta, January 09, 2022 10:31 AM I agree with the Chief Complaint, ROS, and Past Histories independently gathered by the clinical technical support coordinator and the remaining scribed note accurately describes my personal service to the patient. Nahid Estrada MD documented in this encounterMarietta [facility] Hospital03-15-2022 History of Present illness Narrative* Belia May, RT(R) - 12/04/2021 2:15 PM EDT Radiology Service Progress Note PATIENT NAME: Mauro Hebert DATE OF SERVICE: December 04, 2021 TIME: 2:16 PM PATIENT IDENTITY VERIFICATION COMPLETED USING TWO (2) IDENTIFIERS: Name and Date of confirmedby patient verbally. FALL SCREENING: Has the patient had 2 falls in the last year or 1 fall with injury or currently using an Ambulatory Assistive Device (Walker, Cane, Wheelchair, Crutches, etc.)? No PATIENT GENDER DATA: Male PATIENT RELEVANT IMPLANT DATA REVIEWED: Not Applicable RADIOLOGY DEPARTMENT: General X-ray: Exam(s) Completed: Pelvis X-Ray: Pelvis with Hip Left and Wt. Bearing PERIPHERAL IV DATA: Not applicable SIGNED BY: RT Kezia(R) December 04, 2021 2:16 PM [facility] Future Appointments Appointment Date:08/22/2022 08:15:00 AM Scheduled Provider:Hong Edmondson MD Location:[facility] [place] Appointment Type:Pain Management - Follow Up ([facility]) [facility] + Plan note Future Appointments Appointment Date:09/26/2022 12:30:00 PM Scheduled Provider:Hong Edmondson MD Location:[facility] [place] Appointment Type:Pain Management - Follow Up (FT) [facility] + Plan note Future Appointments Appointment Date:10/25/2022 01:00:00 PM Scheduled Provider:Peri Johnson PA-C Location:[facility] [place] [facility] Future Appointments Appointment Date:12/26/2022 10:15:00 AM Scheduled Provider:Hong Edmondson MD Location:[facility] [place] Appointment Type:Pain Management - Follow Up (FT) [facility] note* Diagnosis Pain in left hip- Primary Pain in joint, pelvic region and thigh documented in this encounter [facility] note* Diagnosis Tear of gluteus medius tendon, subsequent encounter- Primary documented in this encounter [facility]* Diagnosis Tear of left gluteus medius tendon, subsequent encounter- Primary [facility] Diagnosis Pre-operative examination- Primary Preoperative examination, unspecified Tear of left gluteus medius tendon, subsequent encounter Type 2 diabetes mellitus with other specified complication, without long-term current use of insulin (HCC) Dementia without behavioral disturbance, unspecified dementia type (HCC) Mixed hyperlipidemia Essential hypertension, benign MART (obstructive sleep apnea) Obstructive sleep apnea (adult) (pediatric) Anxiety and depression Dysthymic disorder Tear of left gluteus medius tendon, subsequent encounter [facility] Diagnosis Tear of left gluteus medius tendon, subsequent encounter- Primary [facility]* Diagnosis Tear of left gluteus medius tendon, subsequent encounter- Primary [facility]* Diagnosis Tear of left gluteus medius tendon, subsequent encounter- Primary [facility]* Diagnosis Tear of left gluteus medius tendon, subsequent encounter- Primary [facility]* Diagnosis Tear of left gluteus medius tendon, subsequent encounter- Primary [facility]* Diagnosis Pain in hip- Primary Pain in joint, pelvic region and thigh documented [facility] this [facility]* Diagnosis Tear of left gluteus medius tendon, initial encounter documented [facility] this [facility]* Diagnosis Pain in left hip Pain in joint, pelvic region and thigh [facility] Narrative - Reported* Type Description Date Medical History HTN Medical History Hyperlipidemia Medical History fractured ribs after a fall Medical History TBI Medical History appendectomy Medical History left femur vanessa insertion and rem oval Surgical History vanessa left femur and right tibia and fibula Surgical History appendectomy Surgical History hernia Surgical History left hip bursectomy Hospitalization History see above [facility] Other Hospital course Narrative No data available for this section [facility] No data available for this section [facility] No data available for this section [facility] ([facility]ative)* Diagnostic Procedure Only (Routine) - Pending Review Specialty Diagnoses / Procedures Referred By Vincent t Referred To Contact XR IMAGING Diagnoses Pain in left hip Procedures XR HIP GENERAL 3V PELV/AP/LAT LEFT RADEX HIP UNILATERAL WITH PELVIS 2-3 VIEWS Yosvany Bhatia PA-C [address] [place] [address] Xr Imaging Referral ID Status Reason Start Date Expiration Date Visits Requested Visits Authorized [id number] Pending Review Auto-Generat ed Referral 12/03/2021 01/02/2023 1 1 [facility] for referral (narrative)* - Pending Review Specialty Diagnoses / Procedures Referred By Contac t Referred To Contact Physical Therapy Diagnoses Tear of left gluteus medius tendon, subsequent encounter Procedures CONSULT TO PHYSICAL THERAPY Yosvany Bhatia PA-C [address] [place] [id number] Referral ID Status Reason Start Date Expiration Date V isits Requested Visits Authorized [id number] Pending Review 02/19/2022 05/20/2022 1 1 [facility] for referral (narrative)* Diagnostic Procedure Only (Routine) - Closed Specialty Diagnoses / Procedures Referred By Contac t Referred To Contact US IMAGING Diagnoses Tear of left gluteus medius tendon, initial encounter Procedures US HIP LT US COMPL JOINT R-T W/IMAGE DOCUMENTATION Nahid Estrada MD [address] [place] [address] Us Imaging [place] [address] Referral ID Status Reason Start Date Expiration Date V isits Requested Visits Authorized [id number] Closed Auto-Generate d Referral 12/04/2021 01/03/2023 1 1 [facility] for referral (narrative)* Diagnostic Procedure Only (Routine) - Closed Specialty Diagnoses / Procedures Referred By Contac t Referred To Contact XR IMAGING Diagnoses Pain in left hip Procedures XR HIP GENERAL 3V PELV/AP/LAT LEFT RADEX HIP UNILATERAL WITH PELVIS 2-3 VIEWS Yosvany Bhatia PA-C [address] [place] [address] [place] [address] Referral ID Status Reason Start Date Expiration Date V isits Requested Visits Authorized [id number] Closed Auto-Generate d Referral 12/03/2021 01/02/2023 1 1 [facility]* Diagnostic Procedure Only (Routine) - Closed Specialty Diagnoses / Procedures Referred By Contac t Referred To Contact US IMAGING Diagnoses Tear of left gluteus medius tendon, initial encounter Procedures US HIP LT US COMPL JOINT R-T W/IMAGE DOCUMENTATION Nahid Estrada MD [address] [place] [id number] [id number] Referral ID Status Reason Start Date Expiration Date V isits Requested Visits Authorized [id number] Closed Auto-Generate d Referral 12/04/2021 01/03/2023 1 1 [facility] Summary Purpose Family History No Family History Records FoundNo Family History Records FoundNo Family History Records FoundNo Family History Records FoundNo Family History Records FoundNo Family History Records FoundNo Family History Records FoundNo Family History Records Found Advance Directives No Advanced Directives Records FoundDocuments on File Type Date Recorded Patient Training Consultant Expl anation Advance Directive(s) 01/25/2022 9:16 AM Documents on File Type Date Recorded Patient Training Consultant Expl anation Advance Directive(s) 01/25/2022 9:16 AM Reason for Referral Specialty Diagnoses / Procedures Referred By Contact Referred To Contact [facility] Diagnoses Tear of left gluteus medius tendon, subsequent encounter Procedures CONSULT TO PHYSICAL THERAPY PHYSICAL THERAPY EVALUATION HIGH COMPLEX 45 MINS Yosvany Bhatia PA-C [address] [place] [address] [facility] [place] [address] [place] [address] Referral ID Status Reason Start Date Expiration Date Visits Requested Visits Authorized [id number] Pending Review Auto-Generat ed Referral 03/21/2022 03/21/2023 1 1 Additional Source Comments (unrecognized sect ion and content) No Status Records FoundNo Status Records FoundNo Status Records FoundNo Status Records FoundNo Status Records FoundNo Status Records FoundNo Status Records FoundNo Status Records Found INFORMATION SOURCE (unrecogn ized section and content) DATE CREATED AUTHOR 09/02/2018 [facility] DATE CREATED AUTHOR AUTHOR'S ORGANIZ ATION 11/09/2021 [facility] DATE CREATED AUTHOR AUTHOR'S ORGANIZ ATION 02/08/2022 [facility] DATE CREATED AUTHOR AUTHOR'S ORGANIZ ATION 10/23/2022 [facility] DATE CREATED AUTHOR AUTHOR'S ORGANIZ ATION 05/17/2023 [facility] DATE CREATED AUTHOR AUTHOR'S ORGANIZ ATION 11/02/2023 [facility] DATE CREATED AUTHOR AUTHOR'S ORGANIZ ATION 02/21/2024 [facility] DATE CREATED AUTHOR AUTHOR'S ORGANIZ ATION 01/24/2025 [facility] Source Comments (unrecognize d section and content) In the event this informatio n is protected by the Federal Confidentiality of Alcohol and Drug Abuse Patient Records regulations: The Federal rules restrict any use of the information to criminally investigate or prosecute any alcohol or drug abuse patient.[facility] HospitalIn the event this information is protected by the Federal Confidentiality of Alcohol and Drug Abuse Patient Records regulations: The Federal rules restrict any use of the information to criminally investigate or prosecute any alcohol or drug abuse patient.[facility] HospitalIn the event this information is protected by the Federal Confidentiality of Alcohol and Drug Abuse Patient Records regulations: The Federal rules restrict any use of the information to criminally investigate or prosecute any alcohol or drug abuse patient.[facility] HospitalIn the event this information is protected by the Federal Confidentiality of Alcohol and Drug Abuse Patient Records regulations: The Federal rules restrict any use of the information to criminally investigate or prosecute any alcohol or drug abuse patient.[facility] HospitalIn the event this information is protected by the Federal Confidentiality of Alcohol and Drug Abuse Patient Records regulations: The Federal rules restrict any use of the information to criminally investigate or prosecute any alcohol or drug abuse patient.[facility] HospitalIn the event this information is protected by the Federal Confidentiality of Alcohol and Drug Abuse Patient Records regulations: The Federal rules restrict any use of the information to criminally investigate or prosecute any alcohol or drug abuse patient.[facility] HospitalIn the event this information is protected by the Federal Confidentiality of Alcohol and Drug Abuse Patient Records regulations: The Federal rules restrict any use of the information to criminally investigate or prosecute any alcohol or drug abuse patient.[facility] HospitalIn the event this information is protected by the Federal Confidentiality of Alcohol and Drug Abuse Patient Records regulations: The Federal rules restrict any use of the information to criminally investigate or prosecute any alcohol or drug abuse patient.[facility] HospitalIn the event this information is protected by the Federal Confidentiality of Alcohol and Drug Abuse Patient Records regulations: The Federal rules restrict any use of the information to criminally investigate or prosecute any alcohol or drug abuse patient.[facility] HospitalIn the event this information is protected by the Federal Confidentiality of Alcohol and Drug Abuse Patient Records regulations: The Federal rules restrict any use of the information to criminally investigate or prosecute any alcohol or drug abuse patient.[facility] HospitalIn the event this information is protected by the Federal Confidentiality of Alcohol and Drug Abuse Patient Records regulations: The Federal rules restrict any use of the information to criminally investigate or prosecute any alcohol or drug abuse patient.[facility] HospitalIn the event this information is protected by the Federal Confidentiality of Alcohol and Drug Abuse Patient Records regulations: The Federal rules restrict any use of the information to criminally investigate or prosecute any alcohol or drug abuse patient.[facility] HospitalIn the event this information is protected by the Federal Confidentiality of Alcohol and Drug Abuse Patient Records regulations: The Federal rules restrict any use of the information to criminally investigate or prosecute any alcohol or drug abuse patient.[facility] HospitalIn the event this information is protected by the Federal Confidentiality of Alcohol and Drug Abuse Patient Records regulations: The Federal rules restrict any use of the information to criminally investigate or prosecute any alcohol or drug abuse patient.[facility] HospitalIn the event this information is protected by the Federal Confidentiality of Alcohol and Drug Abuse Patient Records regulations: The Federal rules restrict any use of the information to criminally investigate or prosecute any alcohol or drug abuse patient.[facility] HospitalIn the event this information is protected by the Federal Confidentiality of Alcohol and Drug Abuse Patient Records regulations: The Federal rules restrict any use of the information to criminally investigate or prosecute any alcohol or drug abuse patient.[facility] HospitalIn the event this information is protected by the Federal Confidentiality of Alcohol and Drug Abuse Patient Records regulations: The Federal rules restrict any use of the information to criminally investigate or prosecute any alcohol or drug abuse patient.[facility] HospitalIn the event this information is protected by the Federal Confidentiality of Alcohol and Drug Abuse Patient Records regulations: The Federal rules restrict any use of the information to criminally investigate or prosecute any alcohol or drug abuse patient.[facility] HospitalIn the event this information is protected by the Federal Confidentiality of Alcohol and Drug Abuse Patient Records regulations: The Federal rules restrict any use of the information to criminally investigate or prosecute any alcohol or drug abuse patient.[facility] HospitalIn the event this information is protected by the Federal Confidentiality of Alcohol and Drug Abuse Patient Records regulations: The Federal rules restrict any use of the information to criminally investigate or prosecute any alcohol or drug abuse patient.[facility] HospitalIn the event this information is protected by the Federal Confidentiality of Alcohol and Drug Abuse Patient Records regulations: The Federal rules restrict any use of the information to criminally investigate or prosecute any alcohol or drug abuse patient.[facility] HospitalIn the event this information is protected by the Federal Confidentiality of Alcohol and Drug Abuse Patient Records regulations: The Federal rules restrict any use of the information to criminally investigate or prosecute any alcohol or drug abuse patient.[facility] HospitalIn the event this information is protected by the Federal Confidentiality of Alcohol and Drug Abuse Patient Records regulations: The Federal rules restrict any use of the information to criminally investigate or prosecute any alcohol or drug abuse patient.[facility] HospitalIn the event this information is protected by the Federal Confidentiality of Alcohol and Drug Abuse Patient Records regulations: The Federal rules restrict any use of the information to criminally investigate or prosecute any alcohol or drug abuse patient.[facility] HospitalIn the event this information is protected by the Federal Confidentiality of Alcohol and Drug Abuse Patient Records regulations: The Federal rules restrict any use of the information to criminally investigate or prosecute any alcohol or drug abuse patient.[facility] HospitalIn the event this information is protected by the Federal Confidentiality of Alcohol and Drug Abuse Patient Records regulations: The Federal rules restrict any use of the information to criminally investigate or prosecute any alcohol or drug abuse patient.[facility] HospitalIn the event this information is protected by the Federal Confidentiality of Alcohol and Drug Abuse Patient Records regulations: The Federal rules restrict any use of the information to criminally investigate or prosecute any alcohol or drug abuse patient.[facility] HospitalIn the event this information is protected by the Federal Confidentiality of Alcohol and Drug Abuse Patient Records regulations: The Federal rules restrict any use of the information to criminally investigate or prosecute any alcohol or drug abuse patient.[facility] HospitalIn the event this information is protected by the Federal Confidentiality of Alcohol and Drug Abuse Patient Records regulations: The Federal rules restrict any use of the information to criminally investigate or prosecute any alcohol or drug abuse patient.[facility] Care Teams (unrecognized sec tion and content) Cornice Upholsterer Relationship Specialty Start Date End Date Hong Edmondson [address] [place] [address] Referring Pain Management 11/13/21 Cornice Upholsterer Relationship Specialty Start Date End Date Hong Edmondson [address] [place] [address] Referring Pain Management 11/13/21 Cornice Upholsterer Relationship Specialty Start Date End Date Hong Edmondson [address] [place] [address] Referring Pain Management 11/13/21 Cornice Upholsterer Relationship Specialty Start Date End Date Hong Edmondson [address] [place] [address] Referring Pain Management 11/13/21 Cornice Upholsterer Relationship Specialty Start Date End Date Enoc Arboleda Jr. [address] [facility] [address] [place] [address] PCP - General Internal Medicine 01/25/[address] [place] [address] Referring Pain Management 11/13/21 Cornice Upholsterer Relationship Specialty Start Date End Date Enoc Arboleda Jr. [address] [facility] [address] [place] [address] PCP - General Internal Medicine 01/25/22 Hong Edmondson [address] [place] [address] Referring Pain Management 11/13/21 Cornice Upholsterer Relationship Specialty Start Date End Date Enoc Arboleda Jr. [address] [place] [address] PCP - General Internal Medicine 01/25/22 Hong Edmondson [address] [place] [address] Referring Pain Management 11/13/21 Cornice Upholsterer Relationship Specialty Start Date End Date Enoc Arboleda Jr. [address] [place] [address] PCP - General Internal Medicine 01/25/22 Hong Edmondson [address] [place] [address] Referring Pain Management 11/13/21 Cornice Upholsterer Relationship Specialty Start Date End Date Enoc Arboleda Jr. [address] [place] [address] PCP - General Internal Medicine 01/25/22 Hong Edmondson [address] [place] [address] Referring Pain Management 11/13/21 Cornice Upholsterer Relationship Specialty Start Date End Date Enoc Arboleda Jr. [address] [place] [address] PCP - General Internal Medicine 01/25/22 Hong Edmondson [address] [place] [address] Referring Pain Management 11/13/21 Cornice Upholsterer Relationship Specialty Start Date End Date Enoc Arboleda Jr. [address] [place] [address] PCP - General Internal Medicine 01/25/22 Hong Edmondson M [address] [place] [address] Referring Pain Management 11/13/21 Cornice Upholsterer Relationship Specialty Start Date End Date Enoc Arboleda Jr. [address] [place] [address] PCP - General Internal Medicine 01/25/22 Hong Edmondson M [address] [place] [address] Referring Pain Management 11/13/21 Cornice Upholsterer Relationship Specialty Start Date End Date Enoc Arboleda Jr. [address] [place] [address] PCP - General Internal Medicine 01/25/22 Rasta Edmondsonry M [address] [place] [address] Referring Pain Management 11/13/21 Cornice Upholsterer Relationship Specialty Start Date End Date Enoc Arboleda Jr. [address] [place] [address] PCP - General Internal Medicine 01/25/22 Hong Edmondson M [address] [place] [address] Referring Pain Management 11/13/21 Cornice Upholsterer Relationship Specialty Start Date End Date Enoc Arboleda Jr. [address] [place] [address] PCP - General Internal Medicine 01/25/22 Hong Edmondson M [address] [place] [address] Referring Pain Management 11/13/21 Cornice Upholsterer Relationship Specialty Start Date End Date Enoc Arboleda Jr. [address] [place] [address] PCP - General Internal Medicine 01/25/22 [address]son [address] [facility] [place] [address] Referring Pain Management 11/13/21 Cornice Upholsterer Relationship Specialty Start Date End Date EveliaEnoc jett Jr. [address] [place] [address] PCP - General Internal Medicine 01/25/22 Hong Edmondson [address] [facility] [place] [address] Referring Pain Management 11/13/21 Cornice Upholsterer Relationship Specialty Start Date End Date EveliaEnoc jett Jr. [address] [facility] [place] [address] PCP - General Internal Medicine 01/25/22 Hong Edmondson [address] [facility] [place] [place] [address] Referring Pain Management 11/13/21 Cornice Upholsterer Relationship Specialty Start Date End Date Enoc Arboleda Jr. [address] [place] [address] PCP - General Internal Medicine 01/25/22 Hong Edmondson [address] [place] [address] Referring Pain Management 11/13/21 Cornice Upholsterer Relationship Specialty Start Date End Date Hong Edmondson [address] [facility] [place] [address] Referring Pain Management 11/13/21 Cornice Upholsterer Relationship Specialty Start Date End Date Hong Edmondson [address] [place] [address] Referring Pain Management 11/13/21 Reason for Visit (unrecogniz ed section and content) Reason Comments Follow Up Reason Comments Schedule Surgery Reason Comments Pre-Op Visit Reason Comments Patient Update Reason Comments Pre-op A1c requested Reason Comments Home Care Out of service area Reason Comments Post Op Call Reason Comments Post Op Follow Up Reason Comments Medication Problem Reason Comments Post Op Reason Comments Medication Question Reason Comments Patient Question Reason Comments Prescription Refills Reason Comments Refill Request Reason Comments Return To Work Letter Reason Comments Radio Gen RMP Specialty Diagnoses / Procedures Referred By Contac t Referred To Contact XR IMAGING Diagnoses Pain in left hip Procedures XR HIP GENERAL 3V PELV/AP/LAT LEFT RADEX HIP UNILATERAL WITH PELVIS 2-3 VIEWS Yosvany Bhatia, ZENAIDA [address] [place] [id number] [place] [address] Referral ID Status Reason Start Date Expiration Date V isits Requested Visits Authorized [id number] Closed Auto-Generate d Referral 12/03/2021 01/02/2023 1 1 FOR RECORDS PERTAINING TO PATIENTS WHO ARE OR HAVE BEEN ENROLLED IN A CHEMICAL DEPENDENCY/SUBSTANCEABUSE PROGRAM, SOME INFORMATION MAY BE OMITTED. This clinical summary was aggregated from multiple sources. Caution should be exercised in using it in the provision of clinical care. This summary normalizes information from multiple sources, and as a consequence, information in this document may materially change the coding, format and clinical context of patient data. In addition, data may be omitted in some cases. CLINICAL DECISIONS SHOULD BE BASED ON THE PRIMARY CLINICAL RECORDS. [facility]. provides no warranty or guarantee of the accuracy or completeness of information in this document.
== END 2025-05-18 13:48 | disposition home or self-care (01) ==
LOC: PM 13:47
PROVIDERS: PCP Internal Medicine; Visit Provider Nurse Practitioner
DX: G24.8 Other dystonia (principal)
CPT/HCPCS: G0463

== ENCOUNTER 2025-06-06 10:23 | Day surgery (SDC) | payer MEDICARE, SELFPAY ==
--- OUTSIDE RECORDS SUMMARY | 2025-06-06 10:26 | XMS_ITS | Encounter Summary ---
Author Organization [facility] Address [facility] [place] [address] Care Team Providers Care Computer Game Programmer Name Role Phone Fareed Edmondson Unavailable [phone] Fidencio Goode DO, Charles Lewis Primary Care [facility] Source Comments In the event this information is protected by the Federal Confidentiality of Alcohol and Drug AbusePatient Records regulations: The Federal rules restrict any use of the information to criminally investigate or prosecute any alcohol or drug abuse patient.[facility] Encounter Details Date Type Department Care Team (Latest Contact Info) Description 01/09/2022 Patient [facility] [address] [place] [address] Provider, Ccf Dr. Estrada pre-op [...] documented as of this encounter Care Teams Computer Game Programmer Relationship Specialty Start Date End Date Enoc Nicolas Jr., DO [facility] [place] [address] PCP - General Internal Medicine 01/25/22 Fareed Edmondson [address] [place] [address] Referring Pain Management 11/13/21 documented as of this encounter
--- OUTSIDE RECORDS SUMMARY | 2025-06-06 10:26 | XMS_ITS | Encounter Summary ---
Author Organization [facility] Address [facility] [place] [address] Care Team Providers Care Grease Press Helper Name Role Phone Fareed Edmondson Unavailable Fidencio Goode DO, Charles Lewis Primary Care Provi [facility] Source Comments In the event this information is protected by the Federal Confidentiality of Alcohol and Drug AbusePatient Records regulations: The Federal rules restrict any use of the information to criminally investigate or prosecute any alcohol or drug abuse patient.[facility] Encounter Details Date Type Department Care Team (Latest Contact Info) Description 01/23/2022 Patient [facility] [address] [place] [address] Provider, Ccf Dr. Estrada pre-op [...] documented as of this encounter Care Teams Grease Press Helper Relationship Specialty Start Date End Date Enoc Nicolas Jr., DO [facility] [place] [address] PCP - General Internal Medicine 01/25/22 Fareed Edmondson [address] [place] [address] Referring Pain Management 11/13/21 documented as of this encounter
--- OUTSIDE RECORDS SUMMARY | 2025-06-06 10:26 | XMS_ITS | Encounter Summary ---
Author Organization [facility] Address [address] [place] [address] Care Team Providers Care Seconds Grader Name Role Phone Fareed Edmondson [facility] [phone] Fidencio Goode DO, Charles Lewis Primary Care Provi [facility] Source Comments In the event this information is protected by the Federal Confidentiality of Alcohol and Drug AbusePatient Records regulations: The Federal rules restrict any use of the information to criminally investigate or prosecute any alcohol or drug abuse patient.[facility] Encounter Details Date Type Department Care Team (Late st Contact Info) Description 01/29/2022 Patient Msg Pre Anesthesia [address] [place], [place] [id number] Jenny Marquez APRN.RELAY REPAIRER [address] [place] [address] Pre-op Instructions Social History Tobacco Use Types [...] documented as of this encounter Care Teams Seconds Grader Relationship Specialty Start Date End Date Enoc Nicolas Jr., DO [facility] [place] [address] PCP - General Internal Medicine 01/25/22 Fareed Edmondson [address] [place] [address] Referring Pain Management 11/13/21 documented as of this encounter
--- OUTSIDE RECORDS SUMMARY | 2025-06-06 10:26 | XMS_ITS | Encounter Summary ---
Author Organization [facility] Address [address] [place] [address] Care Team Providers Care Wood Engraver Name Role Phone Fidencio Goode DO, Charles Lewis Primary Care Provi rowan Fareed Edmondson Unavailable [phone] Fidencio Goode DO, Charles Lewis Primary Care Provi [facility] Source Comments In the event this information is protected by the Federal Confidentiality of Alcohol and Drug AbusePatient Records regulations: The Federal rules restrict any use of the information to criminally investigate or prosecute any alcohol or drug abuse patient.[facility] Encounter Details Date Type Department Care Team (Late st Contact Info) Description 07/01/2012 [facility] [address] [place] [address] Merlin Hollingsworth MD [address] [place] [address] Social History Tobacco Use Types [...] documented as of this encounter Care Teams Wood Engraver Relationship Specialty Start Date End Date Enoc Nicolas Jr., DO [address] [facility] [place] [id number] PCP - General 05/06/01 11/12/21 Enoc Nicolas Jr., DO [address] [place] [address] PCP - General Internal Medicine 01/25/22 Fareed Edmondson [address] [place] [address] Referring Pain Management 11/13/21 documented as of this encounter
--- OUTSIDE RECORDS SUMMARY | 2025-06-06 10:26 | XMS_ITS | Encounter Summary ---
Author Organization [facility] Address [address] [place] [address] Care Team Providers Care Principal Examiner Name Role Phone Fareed Edmondson Unavailable [phone] Fidencio Goode DO, Charles Lewis Primary Care [facility] Source Comments In the event this information is protected by the Federal Confidentiality of Alcohol and Drug AbusePatient Records regulations: The Federal rules restrict any use of the information to criminally investigate or prosecute any alcohol or drug abuse patient.[facility] Encounter Details Date Type Department Care Team (Late st Contact Info) Description 04/12/2022 Patient Msg [facility] [address] [place] [address] Provider, [facility] medication Social History Tobacco Use [...] N ot on file 02/13/2022 Data from: https://www.neighborhoodatlas.[email or web address].edu/. Last address used for calculation [address] 02/13/2022 Sex and Gender Information Value [...] on filedocumented in this encounter Care Teams Principal Examiner Relationship Specialty Start Date End Date Enoc Nicolas Jr., [address] [facility] [place] [address] PCP - General Internal Medicine 01/25/22 Fareed Edmondson [address] [place] [address] Referring Pain Management 11/13/21 documented as of this encounter
--- OUTSIDE RECORDS SUMMARY | 2025-06-06 10:26 | XMS_ITS | Clinical Summary ---
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
--- OUTSIDE RECORDS SUMMARY | 2025-06-06 10:26 | XMS_ITS | Clinical Summary ---
Author Organization [facility] Address [address] [facility] [place] [address] Care Team Providers Care Cruller Maker Name Role Phone Unavailable Primary Care Provider [...]
--- OUTSIDE RECORDS SUMMARY | 2025-06-06 10:26 | XMS_ITS | Encounter Summary ---
Author Organization [facility] Address [address] [place] [address] Care Team Providers Care Wound Care Physician Name Role Phone Fareed Edmondson Unavailable [phone] Fidencio Goode DO, Charles Lewis Primary Care Provi [facility] Source Comments In the event this information is protected by the Federal Confidentiality of Alcohol and Drug AbusePatient Records regulations: The Federal rules restrict any use of the information to criminally investigate or prosecute any alcohol or drug abuse patient.[facility] Encounter Details Date Type Department Care Team (Late st Contact Info) Description 01/23/2022 Patient [facility] [address] [place] [address] Provider, [facility] Pre-op form Social [...] documented as of this encounter Care Teams Wound Care Physician Relationship Specialty Start Date End Date Enoc Nicolas Jr., DO [address] [place] [address] PCP - General Internal Medicine 01/25/22 Fareed Edmondson [address] [place] [address] Referring Pain Management 11/13/21 documented as of this encounter
--- OUTSIDE RECORDS SUMMARY | 2025-06-06 10:26 | XMS_ITS | Clinical Summary ---
Author Organization [facility] Address [address] [place] [address] Care Team Providers Care Production Tech Name Role Phone Unavailable Primary Care Provider [...]
--- OUTSIDE RECORDS SUMMARY | 2025-06-06 10:26 | XMS_ITS | Encounter Summary ---
Author Organization [facility] Address [address] [place] [address] Care Team Providers Care Drapery Hemmer Automatic Name Role Phone Fareed Edmondson Unavailable [phone] Fidencio Goode DO, Charles Lewis Primary Care Provi [facility] Source Comments In the event this information is protected by the Federal Confidentiality of Alcohol and Drug AbusePatient Records regulations: The Federal rules restrict any use of the information to criminally investigate or prosecute any alcohol or drug abuse patient.[facility] Encounter Details Date Type Department Care Team (Late st Contact Info) Description 01/25/[address] [facility] [address] [place] [address] Provider, [facility] Pre op covid [...] documented as of this encounter Care Teams Drapery Hemmer Automatic Relationship Specialty Start Date End Date Enoc Nicolas Jr., DO [address] [place] [address] PCP - General Internal Medicine 01/25/22 Fareed Edmondosn [address] [place] [address] Referring Pain Management 11/13/21 documented as of this encounter
--- OUTSIDE RECORDS SUMMARY | 2025-06-06 10:37 | XMS_ITS | CCD ---
Author Organization [facility] Inform ion Partnership [facility] Care Team Providers Care Treasury Management Sales Consultant Name Role Phone ENOC ARBOLEDA Unavailable Unavailable DE SA[place] RICCI, MAR Unavailable Unavailabl e CAVAZOS, MAR Unavailable Unavailabl e ANTIPORDA, OZZIE Unavailable Unavailable DEREK HUNTLEY Unavailable Unavailable Hong Edmondson Unavailable Nkechi Goode, Enoc Marquez Primary Care Provider Hong Edmondson Unavailable Enoc Arboleda Jr. Primary Care Provider Hong Edmondson Unavailable ENOC ARBOLEDA JR Primary Care Physician [phone] Hong Edmondson Unavailable Enoc Arboleda Jr. Primary [...] VALONE, DR PEACOCK Consulting Unavailable ELISEO, DR DLEMAR Toth Consulting Unavailable YueUMBJOI HONG Admitting Unavailable [...] Admitting Unavailable Hong Edmondson Attending Unavailable Hong Edomndson Referring Unavailable MD Hong Edmondson Admitting Unavailable [...] HYDROcodone; Translations: [HYDROCODONE-ACET AMINOPHEN] Drug Allergy 2 [facility] Repository Unclassified (1 source) OTHER; Translations: [OTHER] Propensity to adverse reactions (disorder) 1 [facility] Repository (20 sources) Donnatol [Other] Propensity to adverse reactions 1 [facility] (20 sources) Acetaminophen / HYDROcodone; Translations: [acetaminophen-hy drocodone] Drug Allergy 2 Anaphylaxis, Dyspnea (finding) [facility] (12 sources) Atropine / Hyoscyamine / PHENobarbital / Scopolamine; Translations: [atropine/L-hyosc yamine/PB/scopola mine] Drug Allergy Weal (disorder), hives [facility] (2 sources) Atropine; Translations: [atropine] Drug Allergy [address] [facility] Repository (1 source) Atropine / Hyoscyamine / PHENobarbital / Scopolamine Drug Allergy [address] [facility] Repository (2 sources) benzoin resin; Translations: [PHENobarbital] Drug Allergy [address] [facility] Repository (2 sources) Hyoscyamine; Translations: [hyoscyamine] Drug Allergy [address] [facility] Repository (2 sources) Scopolamine; Translations: [scopolamine] Drug Allergy [address] [facility] Repository (2 sources) Acetaminophen / HYDROcodone; Translations: [Vicodin] Drug Allergy shortness of breath [facility] Repository (1 source) Penicillin; Translations: [penicillin] Drug Allergy [facility] Repository Medications Current Medications Medication Drug Class(es) [...] mouth daily at bedtime. calcium carbonate/vitamin D2 (VSAKADR-159-I ORAL) (20 sources) take 1 tablet by mouth twice daily calcium carbonate/vitamin D2 (SFCAJDZ-788-K ORAL) Take 1 tablet by mouth twice daily. Active take 1 tablet by mouth twice [place] calcium carbonate/vitamin D2 (CAAMSFV-937-W ORAL) Take 1 tablet by mouth twice daily. 0 Suspended take 1 tablet by mouth twice [place] calcium carbonate/vitamin D2 (RJWTPPT-853-S ORAL) Take 1 tablet by mouth twice [...] mg oral capsule (20 sources) Antiarrhythmic, Uncompetitive G-dqhzou-A-aspartate Receptor Antagonist, Cytochrome P450 2D6 Inhibitor, Sigma-1 Agonist Start: 11-29-19 take 1 capsule by mouth twice daily NUEDEXTA 20-10 mg capsule Take 1 capsule by mouth twice daily. 11/28/2021 Active Start: 06-21-2021 take 1 capsule by [facility] every twelve hours Nuedexta oral capsule 1 cap(s), Oral, q12hr, Refill(s) 0 Start Date: 06/21/21 Status: Ordered Comment on above: Take 1 capsule by [facility] twice daily. diclofenac sodium 75 mg delayed [...] Antiarrhythmic, Amide Local Anesthetic Namenda (20 sources) B-lpywry-G-aspartate Receptor Antagonist Start: 06-21-2021 Namenda See Instructions, [...] 06/21/21 Status: Ordered take 1 tablet by [facility] once daily at bedtime montelukast (SINGULAIR) [...] Status: Ordered take 1 capsule by mo [facility] once daily venlafaxine ER (EFFEXOR XR) 150 [...] or milk Orally Twice a day Not-Taking [place]-3 Fatty Acids-Vitamin E (FISH OIL) 1,000 mg cap (2 sources) End: take 1 capsule by mouth once daily [place]-3 Fatty Acids-Vitamin E (FISH OIL) 1,000 mg cap Take 1 capsule by mouth once daily. 12/04/2021 Discontinued (Course of therapy completed) take 1 capsule by mouth once [place]-3 Fatty Acids-Vitamin E (FISH OIL) 1,000 mg [...] Coding Summaryon 10-31-2023 Coding Summary HTMLBase 64 XpnrcdhdKHj5gCa+PGhlYWQ+PE 1YFWWsC15ktYVzzG8bU5RQDHyJ UulkBTBXGPrVGrKnidGuOH0hoK NjZXJu IC8+AQ8zSBUxTrbkmKLju0B7eR D2I25ekv1xVAqycWU2UGDiDnFi eiswe0qsrHp4UEvbXaxsBtKc DIGtqE40TZM4uR76Ue77lJIarD Msv4gdiOw4WcDzKTGqSZE5mVge BXikg7AnKKJtL23itDGjo0S0 UURgqKruaZGoMnSjoBB3aN5iSZ dxofhya1uzrmxdOzg1yn32hMLs m4N8tUS5Z8NcxyZ0IPOzhHXt QnuxbRKNbE9hlkgpy8ejxaecNe MfDULbERq2VNi6PEHvlUhkBqTx ER95WDH3TYEoksDnP0GiIMFc zJtyMyY2x0H4Ig1AA8RTYprwH8 VNTUFSWTwvdGQ+HR26gc04F3Ic HjtdUrd5VGJxYJY8kII5wD7k YVTrAZtuc0H9kJO1O9RwgiMkvi 1bh6waPHLbIMmyH79ktTEuu8M2 AOGqaTD8FEFpoVsgZmCebI00 Oyc+LLSvcHyar3YpHpfzg2srs4 etwGf6XmooIMUsfyQsqMtvNMT4 e6YbCg8qGNBujHE3oLH4eN0l QkGfVlT0GUocR526MhUfxZAyUp ijJ34eN8AzxSF+PLIiLyz8VQFx eZinXE3gA3HxWKUrydlqnWEk fEbjQM8fWXKnmlgzRARmoG2bYM RyM6c7KtZdGtT3BZejC2DpPJKx kjmyNi54xF0bSeDnSgW8FGzb T2PwkxY3REDpxXItUMilMZI9Z4 7gf1S3CDNvBXDtDRE8wAZ5jI8d bGlnbjogbGVmdDsgdmVydGlj UUbtAVynG639NZKkjEqwNpBgRT luZyBEYXRlOiAgMDIvMDkvMjAy NDwvdGQ+AUYvXJS1aRqmRKHo lWFzXFdbKh7zhGjmxIuuDP1uXJ QungqqOWJbrX2aLAOxfRBfqQer RB7dWSFvrpwmz683CoYeXWC3 DJQndJQnJ0EjjG9jOfTmRJAoBO EaE7BesQQwILqcD498NQtxDhH6 TIRdtnVdN8IeVLTbzVuqOmR8 q4H3Ac5Ma8DcdcduV7DohMInUt QiOamfXCf7H4XcIulezLE+PC90 VXFrYV66ARr7MEV6bJwrAWps MQKfQ4FpfJ6nNoRcAVBhWNPcQo c+PHRhYmxlIHdpZHRoPScxMDAl PqTziYmnTV2wVt5dPDOeJKQh bQojzBBhEcFxn8kxLLIeKMwbON 4dpBufN5WtjZG6WMKxj3q2Ig39 H21jL5VorRQ+ZDWvlSO7oRB4 bM6vVvIkKsK5CGknU147KfWffL VnIggru9sas8nxhYg3IkD4TRQe wzHhsRaaKAW4c4ZmXx83O38g IHdpZHRoPSIxNSUiIHZhbGlnbj 4gpL7aIx4+IPBpiOH6aOB1hV2l LzGvBuZ4LMofS481MmUmgECa Ksqge2han4bvuNn5FaMpCTKgcy AouMjeNXJ8m4XlXc51Q9WlcGwf a9OlHeh6qf05dDUvt0R2wAC8 Z0KuJPHmkycgjRVxeZjdKA8iEL AcawjdQAMpaI9yGVTjF1u3NdYr CkA1ULniP7JvqnG3FSTtlZZi DTZidHTLwJ7rmfwkg5kdgwdeMu SwDEFaJLb1DTb4SVPrwNrqXrNp VTK9YfC1CYF1zAWfsL7oaArm gfjdnG7rUnj+UYH0xVGdbNRRKM 1lOjwvdGQ+LSJiYSS4zGveVKqe MFDzlO1aPVWlG4q2NqQfIbK7 YQrgE9AvssF5RYDfcDXzXGVzjA CRwX1vfmswh8itzqiiDmDnGDQb ZRp9DPq3XRIiwCdiTuQcGYW5 UzU0NHA0gDKvkC8xkPojurbrtG 9wOyc+DqwbbDywOOI3GHl5B1Ap Hkr7BMJmpVkkBR0scQWjFSqb Le5rsKwhbOffOF0lWVZtdkxzr7 95JjTfp5ouVDYtrJFzRPddYBC0 U83de1N1ORMfUJMbRGM2aVY3 wL6adDtaovnrdXLzxJfjvfUhvS lfCUdyRAueR514BJDzfAhwBiMi FJi4J7BkMoc3QWAcwEjcXU3k yZUzVTwdJx6hhPpajGjsYS1kFJ Ohzhxam926YvEvv6uyCTQwbYIa VAeaYGL7U44ns8W1HYOzKNHs EFF4kGQ5sS4ixVwnlvsxoUEncZ xthbLofGnoSXlmJWolU785BIPf kRxvHjYqwKh2W4ObGuh1CTEt xHhrSU3mlCMkCMakUx6xeLcusQ ddPS5hNNXusdlvm095FqIki6uq ZEFlsYBlDEzlFGP6J95za3H7 BGGcUQDuFMZ4wFN6wL7ywIlcvj ogbGVmdDsgdmVydGljYWwtYWxp L803JEFbqGjtQvSelZzzejXn XMblVIm9N9UvGkekoLT+PC90YW ZpYS33nTHncSRba0akwMk4UdFc GJApQTV1jYlxXAbct5QuJDPk E24zjKZxq4W3OZMtdSepoIKsCv KsvUK2lL3dJWvhzopir9wkwmxa Ricdr1mfsl43mV43Z43wRPpn AOXmRKJlPHTnKWKorVvkss2ibV 9wIi8+KAYiwST3iLK9oW9lQZIt StF6LGvwU608AlOpkSHkZdfr d0jjw5jlrDy1BuT8NDUzqvUemX roXRI4b1OzJn08I28aPRwuVHVb XATiMJUpXWTssAhjqd9msM2x Ii8+GVTtnEL0fAP6cY6nKpCjOk R7URjiJ623QaAkhQOrWfihA67j D2RyuQZ+YVNtOzt5XTIaiRvk HO3efMSyIMnqMu1kVFF3BbPqXr AiEHpjA8XxMBUqoovlfnxvkHG1 TRMeVKVzhA80Vc0pkKmtSDPe wJSTnK5yvvxtc9ajmqpfChAyJM OcHZr5POi3KXOjaJewQxQcFUP6 AaX1XXI3kQZemL9ioXdcpjqp xS5tP9JjNFWlsavqSd30jV0vUq LaXfD0MTgjHix+UkVUVElHLCBX SZlIGLXGIVZHDD3JR3jXCM46 BW42oZXki1H9zQI9D2CaVBTbfm nczdlwoSR9IISmNETuaS51xJTs GKgaFv2lf8E6r665VJBqRZEi bI90Fz4fpVgfYZZarHOBlE5tks nwy2niopigXiIaAZFaZFn7OWz5 JLFagQgqSqBeZXW8McN0UUF7 eEWeyX8kvZjpgztcmC2eBsw+MD MhHRQlCSu1DRomlDG+PHRkIHN0 jFzbXLqgZPEhvZ3wCJKzU4e9 IlGnVoL6DJpsP5CaQQQzgiizAp 07zV1qJkStNoW7JQweS9AwdsH8 GWJenSImIJcbZTX1L93er9D8 IDEjCKNoFFX9tNA2dF2bjDvipx ogbGVmdDsgdmVydGljYWwtYWxp C021ZQPcvXncCnVxQDvmMEZi XX98XM11tKHsm7D0ePJ8Z5KaKN LayiblzyqrhAF6HAKgKMVdmG15 kKKoDDssOm6jt7N8r338VBDb OUBjrL25Xm8wvVnyVCFbfZUBbR 8ieivjn4fqdjonYmUtQZNxXBh1 FCg6NUWgbBrdRxBiNDH9WpO4 RDB2vYGysD5swFpotipggV1hUu c+TUFMRTwvdGQ+BREkHBM1qMmp DMkrWKWqjB8cUYKaZ4j2RsAu VnE9RYdgD6PhYNMfokfpQp36vT 0hTrVvOpR8JStiI0IwutF4HKRr zMRfPQkjCWN3L26ap6F0KZZu SMDeUSL9eWN1zG3zxEvgrjofuX DksWobosSjqUgyDHvnNRndM147 FXNqxCvcDp7IRF00NF20T1Zv PjwvdGFibGU+PHRhYmxlIHdpZH FwBHyxJHWdEyGasDpkBF8tIr5f FVJjZTEfkLwvaRPbHkAuq8bc VKZuQXivHY9qfArbQ6NjtER0TS Drp5f1Gs13V28cQ9GkbEU+PGNv jKW2sRJ8aC3hSmWfDsY2CRhs N377VjCgaWCqGotfe8inm0wvyD i7ToVuOKWivnZdiTieTBY7h9Ll Vx25Y97yATebUFTsHNMbRNAc BSCeiWgihf5zuY4gAa4+PGNvbC G2zAK1dF5vDxEdEoO0GXveI164 OsJjrWBvLgiuQ98rD2PctGY+ INMkTdb1ZRVmzStzQD9uzCVuHQ tcRd1jKDX5TvThAoGaXOttG8Wu TRMimcmimewhuBF1AUWjMWDa xA49Ud0rkXnbBv4iGBAyKGU2AR LmhLZwK9FjiE5lKeMgYGMmAORu G3JjoPKoDKjiK034VWjbZoO8 QAKvtrQvQ5IlAJVzfTeyZvG3r5 D4Kk9EuElhaWMtEX8uKlQrGCz7 T8AqPpe3RQJtlSbkKF6ycBOi KVavJt3yaHpuuVchIQ0sIQEamp fyx475InBjo7esXSZcgHJvFCxl VGN2S69ze8N1XQNiNOGgAVM2 tAX1kC6imQstiumuyICdzNlwrv FjnYriTTasCDprK357AQDvlRfd VlDSJxk1R3LeOoz4RNLtdUjh JF8pzEZmBBntMe2dvOcpoBhsYZ 2wLVRplhpjb917CoWcx4bcIZCg fWAgMVxtQBF2U62ah4U6HYJc AAAkLGL6sJA1pA4tnComvlvujA MvzXxpvwQhiYnqISnwLYmsZ342 FYZdtXnpDs3TRzs8I8FrZjg6 YQLxuPmwZP3nmJVeEVaoOf1hbN smsMakDR2tJYMrryfki325GlQr h7mmMTTwuIZjLXreXFS0A72i d2U6UTDsVMZbOAC6lHI6pU5aeT lnbjogbGVmdDsgdmVydGljYWwt ZPohS509AIKvxQmuWiSnuFQb OjwvdGQ+BL17os36M3RlZxweNz a7AGZyYWR2hYB8kU5kADLrZIej t0K7kSL6D5ZyioKxyv5wf5bb YXB (more content not included)... Normal [facility] ED Clinical Summaryon 2023 ED Clinical Summary [facility] ? [facility] Care [address] [place] [address] Clinical Summary PERSON INFORMATION Name: MAURO HEBERT Age: 52 Years Sex: MALE : 1970 MRN: Acct#: Visit Reason: Hip pain; UC - Leg Pain or Swelling; DENTAL PAIN, LEFT LEG PAIN Arrival: 10/29/2023 10:13:34 Discharge: 10/29/2023 11:04:00 LOS: 000 00:51 Check In: 10/29/2023 10:13:34 Checkout: 10/29/2023 11:04:00 Address: [address] [place] [address] PCP: ENOC ARBOLEDA JR. PROVIDER INFORMATION Provider Role Assigned Unassigned Candi Sarmiento [employer] Nurse 10/29/2023 10:17:08 Srini Mckeon ED PA [...] Follow-Up: With: Address: When: ENOC ARBOLEDA JR. [address] [place] [id number] Business (1) Comments: Discharge diagnosis of [...] verbalizes understanding of instructions given Comment: Normal [facility] ED Patient Summaryon 024 ED Patient Summary [facility] ? Urgent Care [address], [place] [id number] PATIENT DISCHARGE INSTRUCTIONS Patient Information Name: MAURO HEBERT Age: 52 Years Date of : 1970 Reason For Visit: Hip pain; UC - Leg Pain or Swelling; DENTAL PAIN, LEFT LEG PAIN Arrival Time: 10/29/2023 10:13:34 Primary Care Physician: ENOC ARBOLEDA JR. Attending Physician: Srini Mckeon Comment: Patient Education With: Address: When: ENOC ARBOLEDA JR. [address] [place] [phone] [facility] (1) Comments: Discharge diagnosis of left hip [...] care provider (more content not included)... Normal [facility]gent [facility] Note- Provideron 10-29-2023 Urgent Care [...] It comes and goes. He has seen [facility] pain management in the past for this. [...] morning, attempted to go to work at [employer] in [place] and found it too difficult and called [...] selected or recorded.. Surgical history: Leg fracture ([id number]). Comments: 08/22/2018 4:13 BREA - Elana Castellano RN VANESSA IN LEG. Family history: No family history items have been selected or recorded.. 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 Normal [facility] Recordon 024 Urgent Care Record [facility] ? Urgent Care [address] [place], [place] [id number] PATIENT DISCHARGE INSTRUCTIONS Patient Information Name: MAURO HEBERT Age: 52 Years Date of : 1970 Reason For Visit: Hip pain; UC - Leg Pain or Swelling; DENTAL PAIN, LEFT LEG PAIN Arrival Time: 10/29/2023 10:13:34 Primary Care Physician: ENOC ARBOLEDA JR. Attending Physician: Srini Mckeon Comment: Visit Diagnosis: Diagnoses This Visit Bursitis of left hip (M70.72) Chronic left hip pain (M25.552) Hip pain (00019925) Lateral pain of left hip (M25.552) Other chronic pain (G89.29) UC - Leg Pain or Swelling ([id number]) If you received any narcotics, sedation, or [...] documents With: Address: When: ENOC ARBOLEDA JR. [address] [place] [address] [phone] Business (1) Comments: Discharge diagnosis of left [...] and treatment you received today in the [facility] were for an urgent problem and are not intended as complete care. It is important for you to follow up with a doctor, nurse practitioner, or physician?s geriatric nursing assistant for ongoing care. If your symptoms [...] so we can reach you if necessary. [facility] has provided you with a complete list of medications post discharge. Please inform your mailroom courier/provider of your visit and for further instruction on these medications. Any specific questions regarding your chronic medications and dosages should be discussed with your primary care physician(s) and/or pharmacist. New Medications [facility] [id number] [place], [place] [id number], [phone] diclofenac topical (diclofenac 3% topical gel) 1 [...] 2 t (more content not included)... Normal [facility] CHEMISTRYOrdered By: Lab ROP User on 03-19-2023 Glucose [Mass/Vol] 66 mg/dL Normal 55 - 99 mg/dL [facility] POC Subsection Comment on above: Result Comment: Maru WHITE POC Device SN [id number] Invalid Interpretation Code [facility] POC Subsection POC User ID [id number] Invalid Interpretation Code [facility] POC Subsection POC Username MYRANDA MANCILLA Invalid Interpretation Code [facility] POC Subsection Capillary Glucose POCon 02-21 Glucose [Mass/Vol] 66 mg/dL Normal 55-99 [facility] Comment on above: Result Comment: Maru alberts RN/ Performed By: #### 2 [id number] #### [facility] [address] [place] [address] Consent for Procedure/Surger yon 03-19-2023 Consent for Procedure/Surgery [id number]#1.00CD:127 Normal [facility] Consent for Treatmenton 02-21 Consent for Treatment [id number]#1.00CD:127 Normal [facility] Discharge Instructionson Discharge Instructions [id number]#1.00CD:127 [facility] IntraOperative Documentson 0 03-19-2023 IntraOperative Documents [id number]#1.00CD:127 [facility] Main OR Intraoperative Recor don 03-19-2023 Main OR Intraoperative Record IntraOp Document Type FTPM Summary Primary Physician: Hong Edmondson MD Finalized Date/Time: 03/19/23 10:33:45 Pt. Name: MAURO HEBERT/Sex: 1970 Male Med Rec #: [id number] Physician: Hong Edmondson MD Financial #: [id number] Pt. Type: P Room/Bed: / Admit/Disch: 03/19/23 [...] Candi Mazariegos Role Performed Surgeon - Primary Overhead Garage Door Hanger - Primary Scrub - Primary Time In 03/19/23 10:25:00 03/19/23 10:25:00 03/19/23 10:25:00 Time Out 03/19/23 10:32:00 03/19/23 10:32:00 03/19/23 10:32:00 Procedure TRANSFORAMINAL EPIDURAL TRANSFORAMINAL EPIDURAL TRANSFORAMINAL EPIDURAL STEROID INJECTIO(Left) STEROID INJECTIO(Left) STEROID INJECTIO(Left) Comments Last Modified By: Karis Eldridge RN, RN, Madison A Pritchard RN, Madison A 03/19/23 10:31:53 03/19/23 10:31:53 03/19/23 10:31:53 Entry 4 Case Attendee Marcellus Cueto Role Performed Diagrammer Time In 03/19/23 10:25:00 Time Out 03/19/23 [...] RN, Myers RN, Delvis Mills MD, Rom Guerreir Bryce Time Out Complete 03/19/23 10:25:00 Outcomes [...] and tissue Entry 1 Skin Integrity Intact, [place], Warm, and Skin Abnormality No Dry Outcomes [...] Points Check (more content not included)... Normal [facility] Main OR Preoperative Recordo n 03-19-2023 Main OR Preoperative Record Holding Area Document Type FTPM Summary Primary Physician: Hong Edmondson MD Finalized Date/Time: 03/19/23 09:42:12 Pt. Name: MAURO HEBERT/Alejandra: 1970 Male Med Rec #: [id number] Physician: Hong Edmondson MD Financial #: [id number] Pt. Type: P Room/Bed: / Admit/Disch: 03/19/23 [...] By: Sally Morejon RN 03/19/23 09:42 Normal [facility] Insurance Correspondence Off ice03-13-2023 Insurance Correspondence Office [id number]#1.00CD:127 [facility] Patient Correspondenceon Patient Correspondence [id number]#1.00CD:127 [facility] Consent for Treatmenton 02-21 Consent for Treatment [id number]#1.00CD:127 Normal [facility] Consultation Noteon 03-12-20 Consultation Note Patient: [...] All Problems FH: hypertension / SNOMED CT [id number] / Confirmed High blood cholesterol / SNOMED CT 81195838 / Confirmed Asthma / SNOMED CT 707741263 / Confirmed Apnea, sleep / SNOMED CT 260242089 / Confirmed Diabetes / SNOMED CT 903915575 / Confirmed Traumatic brain injury / SNOMED CT 298267 / Confirmed H/O: osteoarthritis / SNOMED CT 960467493 / Confirmed Objective Vital Signs 03/12/2023 14:07 [...] of the lower back. Integumentary: Warm, Dry, [place]. Neurologic: Alert, Oriented. Psychiatric: Cooperative, Appropriate mood [...] course of physical therapy done at the [facility] did not help. A continued home [...] was discussed. (more content not included)... Normal [facility] Comment on above: Result Comment: Elec tronically Signed By: Peri Johnson PA-C\.br\Date and Time Signed: 03/12/23 14:32 EDT\.br\Electronically Co-Signed By: Hong Edmondson MD\.br\Date and Time Co-Signed: 03/12/23 16:36 EDT Office/Clinic Note-Physician on 03-12-2023 Office/Clinic Note-Physician [id number]#1.00CD:127 Normal [facility] Patient Correspondenceon Patient Correspondence [id number]#1.00CD:127 Normal [facility] Patient History Officeon Patient History Office [id number]#1.00CD:127 Normal [facility] Capillary Glucose POCon 01-21 Glucose [Mass/Vol] 82 mg/dL Normal 55-99 [facility] Comment on above: Performed By: #### 2 [id number] ####[facility] [address] [place] [address] Consent for Procedure/Surger yon 02-12-2023 Consent for Procedure/Surgery [id number]#1.00CD:127 Normal [facility] Consent for Treatmenton 01-21 Consent for Treatment [id number]#1.00CD:127 Normal [facility] Discharge Instructionson Discharge Instructions [id number]#1.00CD:127 Normal [facility] IntraOperative Documentson 0 02-12-2023 IntraOperative Documents [id number]#1.00CD:127 Normal [facility] Main OR Intraoperative Recor don 02-12-2023 Main OR Intraoperative Record IntraOp Document Type FTPM Summary Primary Physician: Hong Edmondson MD Finalized Date/Time: 02/12/23 10:08:13 Pt. Name: ANUPMAURO/Sex: 1970 Male Med Rec #: [id number] Physician: Hong Edmondson MD Financial #: [id number] Pt. Type: P Room/Bed: / Admit/Disch: 02/12/23 [...] Candi C Role Performed Surgeon - Primary Overhead Garage Door Hanger - Primary Scrub - Primary Time In 02/12/23 10:00:00 02/12/23 10:00:00 02/12/23 10:00:00 Time Out 02/12/23 10:06:00 02/12/23 10:06:00 02/12/23 10:06:00 Procedure INJECT JOINT/BURSA(Left) INJECT JOINT/BURSA(Left) INJECT JOINT/BURSA(Left) Comments Last Modified By: Karis Eldridge RN, RN, Madison A Pritchard RN, Madison A 02/12/23 10:08:07 02/12/23 10:08:07 02/12/23 10:08:07 Entry 4 Case Attendee Felix MYERS(R)Hailey Role Performed Diagrammer Time In 02/12/23 10:00:00 Time Out 02/12/23 [...] and tissue Entry 1 Skin Integrity Intact, [place], Warm, and Skin Abnormality No Dry Outcomes [...] Text: The (more content not included)... Normal [facility] Main OR Preoperative Recordo n 05-24-2023 Main OR Preoperative Record Holding Area Document Type FTPM Summary Primary Physician: Hong Edmondson MD Finalized Date/Time: 02/12/23 09:14:08 Pt. Name: MAURO HEBERT Gosia/Sex: 1970 Male Med Rec #: [id number] Physician: oHng Edmondson MD Financial #: [id number] Pt. Type: P Room/Bed: / Admit/Disch: 02/12/23 [...] Signed By: Mireille Mancilla RN 02/12/23 09:14 [facility] Patient Correspondenceon Patient Correspondence [id number]#1.00CD:127 Normal [facility] Consent for Treatmenton 01-20 Consent for Treatment [id number]#1.00CD:127 Normal [facility] Consultation Noteon 01-30-20 Consultation Note Chief [...] that would likely require a trip to [place] so they would like to try the steroid injection which we can do here first. We discussed the potential risks and benefits of this plan and the patient was in agreement to proceed. I will see the patient for follow-up 4 weeks after the procedure for repeat evaluation. [facility] Comment on above: Result Comment: Elec tronically Signed By: Delvis WHYTE, Hong\.br\Date and Time Signed: 01/29/23 17:26 EDT Office/Clinic Note-Physician on 01-29-2023 Office/Clinic Note-Physician [id number]#1.00CD:127 [facility] Patient Correspondenceon Patient Correspondence [id number]#1.00CD:127 [facility] Patient Correspondence [id number]#1.00CD:127 [facility] Patient Correspondence [id number]#1.00CD:127 [facility] Patient History Officeon Patient History Office [id number]#1.00CD:127 [facility] Coding Summary.on 01-09-2023 Coding Summary. CD:[id number] Ww+PGh lYWQ+EO3ELSZjK96imYFfxV6zQ 0NMTElOSywgQVBQTElOSyIgbmF lTK1ywOJjBMEb IC8+GV2gQZWlPapjkEXvq4E8qF T1E39hyp3iTLrhmHP3PXEhNiKz nqycl0dqhFm2AHorObyzDxQz BFGrrE75KZQ7bJ73Qb59gGKdmQ Gnu7vmcRo6DrUbHNIxXIS1gWgb ZExos1HxVWHkI48gmNGqy0Y1 XAHaqGoyoBIlWtMczOF7hR1hFQ rlilnpt4mrmfbsVsc4lq18tSKc n5B2tFL0U3VafcM8TBTrlFHp RsrngRXEzC1rgbtkv2tcmcajCn NuBDNjTQy7MJc1GPTvmTdrLiFb CB52IGE6XPFjggPkR4MxIDXh uJygWmL2s6V9Ow5AN6EAKcrkJ7 VNTUFSWTwvdGQ+DR49am60N1Ab KzgdGsn4CKBcLAY4iHW4rR0v BANwDMgab9V0jBK0G5SbglVaju 7xn9urETIvOCzwR25tiDJzf0O0 BWNlrHY9LCBwaUqcVqEtgZ37 Oyc+MVVeyFuce2WlNcrpi4djd0 pzwLl8MnciUDGpykZduEewNAS0 b3NqKw8nEAFzhSO7lSF5kE9w YlZbJwW5KUgmY277ZuUynEXfEu bbC93bH2OgmOE+KGTsGsb2GPFf tOhlIC2xV2AtFIPfvpvqmFDi zKjgBK4aBUQmzeihBVHneT0vLD FlL1g3ToDlTjO0HQajI7YfGBOv adfbTs22bG6nNbTbHdU1EMfq Z7HjobZ9DIAobGUnSYkwWNN7L2 9od8N9SUBvXJPoGKI8gBL5cF6b bGlnbjogbGVmdDsgdmVydGlj JKpcLFmdY751TEKelUmxAsMgRQ luZyBEYXRlOiAgMDQvMjAvMjAy MzwvdGQ+CRCvCTD3jRmtHEQe cPTzSWvzDt6llNnztHiuJA4hQY ZecsuuHSMomC6yXHQjcDQthNew XA3pAOExmixqn908TkMpRWB1 XQBapTNzV1BgkT1nMfJlAZKuWS KaN8LhmFDaIKdmQ367VChgIqX6 KPVkeyJzQ2FmOEIozReiWlD5 u9X1Te4Cq4ZaimziQ2JwjWOdKz PlAmwhHJs9F3WrQiwkxLG+PC90 JZKeWY22LUy8LJB8wZsoNKea IIMeX4WulA5eNrSoNFOpWPRlCe c+PHRhYmxlIHdpZHRoPScxMDAl AvEfoZgrYI5jKn8yLZCdUOFf fDtfbFUaDxPay3rnONEuGIegNF 8hqDvoP8XwwQZ3XZQoz6b1Eh89 I53mA1AsdUX+KSTlwTR8jKX9 jY1nYqJxDrJ4NMjpL139LmKvbO JhTkdke1ewa3glfGq5HwR3SUYg doIshJddPWX7l3NzUe46W24d IHdpZHRoPSIxNSUiIHZhbGlnbj 8heA8gOq5+UDGxjJE8kWM7pV1c AzCnKsJ4TLqgS003WaVzjKXc Cixao5dyi4pjlGu7AiWtAZRdst ZddTxcSLB1n4LfPe03X0ZmrWze b4OjDjf6xa83gXGfy7J8xAX1 H1OsLJMettpbvGPjhOktHZ1tDO CjwpqpXQNcuG7iIIKpP0r0YjSl IoZ8FKokE4SsqdK4JLWikYVt CYBnkVHQeY9avzhvf8nsfbcpMk SaXLDiYCa9SUg9JNTyfFxcSeFf VCW3TzG4KIO9mZZrvN6wmGah fvcqoF1bGnm+BVY8iZAoiNOIBR 1lOjwvdGQ+KOYnIFC7kQzmRYnh YNNqoA9sSLMlF5t1QlNpRwY6 CUohV5UwstT4NTGjiCIsADGwlB PGwB0gqmpqq2qeuooeFpWuBFVx ZTw6ESd2NFObuIazAeVzLST5 JfS5ILM2nVKqaW3hxEyvhccmnG 9wOyc+YnszcEjtVNA6DUe7E7Yc Kej2OPErpTjoJM4frIWrJOze Hc4tsHpueNivGO8hVGUakzzyc0 04QcDkz3hzKSAvaGCkTXqiART0 K32pr4O3GLFoNGQjAKR6qMN6 tF1bzKjlnpwjhVVunWimwfNzlG aiNTsgTDtnG590AQSdmTlxXgWf SQe9I1EzBde2JIDdgPikUT5g vDCvGRrnAa6adPfzzVjzFF4hJH Lvpmemo245YvGcl2kxISJqqNQc EGkbCSD1F45ef7X0OQByEODl GTC7gBX6tX1ifXetasdnzQVylG jvyjGdmTbhRAfgLBevF620UXLd lCvoAlAszJy9Z0HlDbm9YKOi lDpxPC1ieWGyZAxcBd6mwUnzzB jgUP5hYWJssvskd366OlZbm8so ZCLljTCwAPchVWV8B04bq1U8 MLRgAHHpTAJ4wZW8iQ1ieXajbb ogbGVmdDsgdmVydGljYWwtYWxp S607RZDmjFruGyDbvUyyipDa VFjsNWq5T2AnBifvyFX+PC90YW LcLQ52vSVldBKkb8npgVo6VuNa WZDuWWU0hOyjSGidf3OdQFGd A21cdNZrd8E9YLOnkDnlvPHhLo GkxQU3lQ4bWNewxswes6kabwpr Sriri5pmhl92vU64W94eDBil RLNyPSNxWLCzQSXudWtlwg8vdQ 9wIi8+IVKgiVL0aAK6oD6qIGTq HmK6QJwhA222UsSebUYjUgzi h5ajm9rbfVc3KaI0OIPokbHriF geXTT1t0XsPc67T46fQXovPTRn QRMiEUKcPLKlkIqecg3xjM4c Ii8+KCIwoBT9aKQ4uT9kAjNpIl G8XMjaU460HnIzjLPkEskvH64e U7AmwYP+TCHdRmm7DDAboHlu RO7atNBtVCeeJl2iOUI2WwTaVk PgTYdiB8EqLROytzrkviljpEO0 CNQuZUCmfQ04Xt7jkVelQEXi lDHDxA1lyegul4fgtyjuQrFrUU GgMZe7QBh0UKMgdJitZiYsZFE3 ViE1VKP9eYExyF8itVquvtjd nH7dK3CnVVMvphteUp61rY4yLn JmEzD7MCvfLgi+UkVUVElHLCBX KJpUVEZMXE39WR79iNHnn3Z0 vEV3R6KkJWHsjmrijdrckPI3QN UoGDVppV88qLBhGYhfQs5db0I2 g977BQXfGXIliL16Bj3fmDwo NZZiyWQQtN9mwjxpc7xnnwfsGq SsQPHaPNd2ALr1TPSpdVztDfIu ASH9VkC1XWB0zZGasC4jtAul jwyzpU6uFjf+YHFrEHDbLUq4AC wvdGQ+UTRrXBQ9bFjkELwlVKVc dD1wGKBmF9p4DoZyDuX4MFqm C0JaKSKwdxgyOo80rH4aAxDaTj I9GOypP5JsdkK8UJKiuEWzMAsr ECE0B20an7G0PUOyGGZrHBS8 oYF7hD1uwHzsocmihRZqpResqf TevPveGBxjJMprA510TBKbwOfw AeJuGWryDHAxIO54XQ46vPXw h5R7hJK5K7QrQQAhpgjcaylikW P6DMZsZNGgvK54dOLxOBqhDt7x r2H9f689MXKkTFSvkY99Pi3z rUlqNYNnsPCDmH3bdyark9fywe hzRvCyDJEnZJk7VFr8BRSbwGhp XhAtILB5DjN1AKR6lWWxbI4d yExsgzwwaF1bYdn+TWFsZTwvdG Q+XFHvOWC1kUdlLLvsYBDnlR4i YMUsA8z1LdFhXqF9EWelA1Tf XVZvmdeqKj55uU1aTgOaBtC6TK lnT4DrsrI0CIYyuYRwPHdhOUD7 Q54ro6O7OFVjEAKsXNS8eGH3 iU1tiNlzcuhtdCSziYofwkIgqL oqACdxGUodY141BZPrtLzcEvOp gK8nZJYsFGbvyWQkkInweHR+ EE99jn06M5VtTivhYps1SULoAI W8kVM2tA0tVUAhUAqxv6R0sLW5 J5IkonLnnn5ta1fpGLElHYpd R75upNTzc9R3MSKbjMX9BHIlrM vvUuHmxM09Epe+NXEwzKpmn7Jw Oytgl1ijy1asuQe8CiQxOXTm pyQiyXquFDV9x0WmXk99A78wDS kaIKFmFKSpOLSrSUUzrVjicy6e zG3aFb0+UDIfjGR8jHL1mE4r GjWtXzG7IIagI967GiXseMRfXm fxa0imf9wzqAa8KrHeAVHoknHp eCbmFRB0g5OvCa88J1LpgPow p7AlJlh2bm75vZYxv9X7cOA3T6 HqROFnedbzlCRqkCgwNF3nJEEi ffiaIRDptW5yDHZoW1m0RhRt DhA6GRmkO7YcwfD9NMQguQBjIZ WlgLWFuW4rqnwif7kkalweIiXh GPIlGXf5JTa3FDGndPkhDtWg ARH7ZaN6FCF4hXFgjM3fjVsqre odzR1gWqg+NKl6e8gvsMJmAQ1j iOD8MJ08VU97yZJgo3U9dIY4 X3ZqUKYtxrvhtjoerKZ2VJGcJL OymG49Qt5coHngOg3dFJOoOAD2 AEAkvMLuA1SclJ1uKjCbZDNe MGLlW6IpiAQuSIiaV739SWqbVo S1VJZtnvFyI9XeMUTapLcdEeL3 h6I8Oq9ELB55HE36QF23nHZb r5Q5dBM3U0WnTABxlwvexrjvbM E2IGOzEDCvfR14Pg3juLzcDc0q RVDjWLJ9XHYbpAXvQ5JwlC0w CrYyVRKhPYPmI4EukMDxMLzeA0 65CCuzTzX4ZMIwieAaK4NfZXCb sZhsKvS4m2Q6Fk6WCj53OZ01 TO09cQSlf5G5bUA9W9FqHTImtn godxijaIK4GFBoIUXsiO13Wc7b oDdzFs9iRPSwLOH4YSLcrKTo S9QamK8mXzKxBHQfQNKxB1PswV XjJEumS018XYggZtU9TZJdpiEg Y1SaBGHylHfkTsJ2y7H0Aw7S ZOpmtyq7K5YxGbvodJL+PC90YW UaSN64zJLjcFXoh9zweJb6RdCo KVBtLMG4zOtwKXbux1BiSLUd A77nzWLl (more content not included)... Normal [facility] Capillary Glucose POCon 12-21 Glucose [Mass/Vol] 82 mg/dL Normal 55-99 [facility] Comment on above: Performed By: #### 2 [id number] #### [facility] [address] [place] [address] Consent for Procedure/Surger yon 01-08-2023 Consent for Procedure/Surgery [id number]#1.00CD:127 Normal [facility] Consent for Treatmenton 12-21 Consent for Treatment [id number]#1.00CD:127 Normal [facility] Discharge Instructionson Discharge Instructions [id number]#1.00CD:127 Normal [facility] IntraOperative Documentson 0 01-08-2023 IntraOperative Documents [id number]#1.00CD:127 Normal [facility] Main OR Intraoperative Recor don 01-08-2023 Main OR Intraoperative Record IntraOp Document Type FTPM Summary Primary Physician: Hong Edmondson MD Finalized Date/Time: 01/08/23 11:24:42 Pt. Name: ANUPMAURO/Sex: 1970 Male Med Rec #: [id number] Physician: Hong Edmondson MD Financial #: [id number] Pt. Type: P Room/Bed: / Admit/Disch: 01/08/23 [...] RN, Candi You Performed Surgeon - Primary Overhead Garage Door Hanger - Primary Scrub - Primary Time In 01/08/23 11:17:00 01/08/23 11:17:00 01/08/23 11:17:00 Time Out 01/08/23 11:24:00 01/08/23 11:24:00 01/08/23 11:24:00 Procedure OTHER NERVE BLOCK(Left) OTHER NERVE BLOCK(Left) OTHER NERVE BLOCK(Left) Comments Last Modified By: Karis Eldridge RN, RN, Madison A Pritchard RN, Madison A 01/08/23 11:23:25 01/08/23 11:23:25 01/08/23 11:23:25 Entry 4 Case Attendee Maya Alicea Role Performed Diagrammer Time In 01/08/23 11:17:00 Time Out 01/08/23 [...] RN, Myers RN, Delvis Mills MD, Nixon uGerrier Amy Time Out Complete 01/08/23 11:17:00 Outcomes [...] and tissue Entry 1 Skin Integrity Intact, [place], Warm, and Skin Abnormality No Dry Outcomes [...] from sig (more content not included)... Normal [facility] Main OR Preoperative Recordo n 01-08-2023 Main OR Preoperative Record Holding Area Document Type FT Summary Primary Physician: Hong Edmondson MD Finalized Date/Time: 01/08/23 10:43:26 Pt. Name: MAURO HEBERT.O.B./Sex: 1970 Male Med Rec #: [id number] Physician: Hong Edmondson MD Financial #: [id number] Pt. Type: P Room/Bed: / Admit/Disch: 01/08/23 [...] By: Mireille Mancilla RN 01/08/23 10:43 Normal [facility] Patient Correspondenceon Patient Correspondence [id number]#1.00CD:127 Normal [facility] Insurance Correspondence Off iceon 01-01-2023 Insurance Correspondence Office [id number]#1.00CD:127 [facility] Coding Summary.on 12-27-2022 Coding Summary. CD:[id number] Ww+PGh lYWQ+ZS7RGFCoX43fjJChjD5tU 0NMTElOSywgQVBQTElOSyIgbmF oTW7swOMvCJKi IC8+AO3uCAAzQjzakYMqa5V9iO A1T47ssg1sMYeypQT1INDfCkUk hznaz9wmmIa6FKjpVdkdIyUs CLYpuW75XBP9tU04Jl96aAXreK Ixy8twyXo4NsDnCGTpAFZ1uHzy OKquh5OrKMIkJ13kqBDgt2N9 YZZuaSbinLSmWcEwbUO3iU9mWV yunyhiw8eraamsGhb3fx48zFVj i6Z6hLD6O9OouwP9YHXohTQv EriurJWMpD8mqilfb0eeaoyvLr UxEWCjARz5CCd9CHTyfYslFjVa QH27VYH7ENMdjoUnR6CjSCTu lVmjYcV5o7V4Da6VS1KNCggwW3 VNTUFSWTwvdGQ+UB48qh88W1Bg UwlfLnf5ESHpTUB6aPJ6sQ2p ZJTzCKten7V4eJM5P3BceiNxnk 7pq3prJNLbHEfpP92khIOph8I2 SYAzwPD2EAFyoBkeCuGnwL92 Oyc+BQRrtVdof0PlJtpxn2bni7 pzzLx5YkuoEUDvtbQneWrpKLE6 g0MkVv0rWYRpeXT2wVI5aT6w HkTuKtB5ILofV074EvIryCZwDx fyY28nD3LdxLP+JGVjItf3KAUo eZikSD8uV7NhDAIivsdjmWWy lBypOB1dMNLeldjlASSsmS7kFC TgC6l8MvLlXmY5VZjeQ7BkQSVt vthaFe62sI9xYbHdDrZ6HTos W8DqsoX9JRFwbTPhKKdqOII2W9 2hq9N5KJDwENMhSCX5gIQ3wI4o bGlnbjogbGVmdDsgdmVydGlj DYswROlkK154NDZioLmkZdZoSS luZyBEYXRlOiAgMDQvMDcvMjAy MzwvdGQ+LYRlJOT7fKgePKFw dZUpHCqyPz7yzUsqaFjxSC6mWA PgbupfBPMomB3gJWKpsYAlqRju ES8mCCNicezza230KpRkJDB3 GJMysPLrQ2QqoM1cZvLxGCPvYK MeR7MkxOMeVJsiD810MOmzNeY5 UOWemqQmN8KfAFNdoBbaDtE6 k8Z4Ub5La3RjgdnlH6WddBSfBw EsAbjmURc4W2RgFasxmTA+PC90 GESeMY69LSz5MKN5oEevJDqj TAUkT5UvoE6yDoZfMFMuXUQpEl c+PHRhYmxlIHdpZHRoPScxMDAl VnMqsZweMI0vZi4nYXSsCDSg kRdewOOsOyWav4hjJTHrNIelYA 9hlWuaL5VvpWI4JLGww6d9Yo04 D86gP5PfuOV+WHPhpOP1dMK8 kQ6lEbOkXaF1JPqxX177QqKwhU CfAvxui4yaq5kdsZn5IxF3WAZr uzOpeWrbINP2j9VqPr93D47k IHdpZHRoPSIxNSUiIHZhbGlnbj 0kbX5fDx1+BGLpbGU6aLN4zB5l FvGnAjC0QFieQ420LfZitWNe Yyxlm6uli8oxwKh4SdZeWHCjbf IqaOscONC4d3IaBk95C4NukAvk g3AtCrt0zx86qJTmp5V5vYD6 C7QoXEAqenmfoRZptYihJX8aPI OxqirdQDDkcC4yLFPcT0h2LhUa NnG9MFhcI6WknxE8MVBhtBLc JAZebXBQpG5axestk7cmkxhvGw QhFGZmBUa2HRg7NKRvxVpcIkMk JMZ0XnT0SSE3fIMspF2igFmx neyyfH1oZex+GLQ8cRZvoVUJAB 1lOjwvdGQ+IKFfQFE6sPazAWbb DCEadN7fHLIxY3q1EwVqNjW8 TGpxS9PyyaI4STKxjSRfNQKxlM CItU5bqdxux6xpxsamHfZjXZTu MFx4TYs2AVArrMfyXsImPMW9 GrL7BNQ5fZAxzM2nlYledjknmY 9wOyc+YoqiyKlzXNJ8UFe3K8Ix Egj9AVTjrRttMQ1voIIhPSqb Vc7thFeemGyhAQ6fADXbabrbh6 13KoUct6ivUSDcsNMoSUipUOB8 Y55mg9V8IZDwZOVdWEZ9eRW7 yY3xtNwmxehnoQXiuJneipQdhW dgMKneMBdxC067IJLqkDqrVpUi QEg4A5KqBud8AJZbtRmoRE0l tNUlLLfiOc8qrZjdfSeuOA4sYA Zrdbxub269AfNvv0hnGPYcwEKy TKsuWAE8B81wv4V4QLMyFOUr VOS2wQV3zW4hcUtzhkaipWNypD aobbQbmIiqXMimLNqlH077FUZn wJuoTtDweFs9W1ObMby6DDLh iShyYL2nxCLqUWsoVx7pmMhcvE icSC9pCOTmgrgvv757TfApq0ua EUJttHXyGWpvYSA1E97bo1F2 MHTcWJWkCTR2pNQ1fE3ccXbybz ogbGVmdDsgdmVydGljYWwtYWxp Q688WULctOlgIvJdxZfchbTa YGtgFBo7C5KaPyihbFW+PC90YW ScSC38hPBkuAFlf6plnMj8JmMk IVJmQID1lQarQSchb2WzBKMt F74qqXJhk6Y5LZZymSxlxRJzDp RzmWC5rX5ySUqeizjqg2mtjtzi Wnwzr2rbzc41bM43C42qCGod DSRuPVEcLWLyORSncWqnac1auE 9wIi8+SOOanCD9aYF9eM2hGYFi CrE9SBjgW547XlTrwAVfJvgi b2hjo1apeEd4WeE0WQGgfxSlyA lxOPE0s5EyLz11W22uROwjWLGz MDAeDTDrBJVssMuywe9wkY4r Ii8+RXPowWV4uAC8sC5wPcAjSs E4KXgmB151DsPceAIpXfrqI22o M9ObaYH+ELNuVvi2TQSpgQjn OC3ktDFlTJkzCn5gTGV9DqJfFw KyIRipP8NrUPBbtcualohqzXC3 DQBgUIDdhD01Sq1fgBdlDJCr iLBSoX1uqrnto5krwodnAuZzXE BhVBo2RLv7FHKwnLqeDgSzYID9 YsH7DNO9sRZwqE9gyOeonchv aY3nG1BxXDJlzwqhJk77xR1pAg LtWaR6SVpdUwk+UkVUVElHLCBX WToNNJXPWR69FX32vMPam0X9 rLN2Q0ZcHWShwntjlaifiDY7WR AdUYMlfW16lTCnVSasIo8mf0H6 h814CQFgDDDllV43Mo2zhKex RHHdxNCBzN3ilvelr1zbxpogGi OoJQOjQKo5QQl5MMShgXuhGhHv XIT1VcB5VGD4wKIbcB6baCjd gaulbD8oFxb+RHHcVAHjFPk2GB wvdGQ+YOAwBSP0qKcvLMrjHBAv uO8lGIUoL5z4KiJiFnZ2YJtb J5VaYLAiwkfdYh59fU6tIqPcOw J6TLpiS0GdwzL4HGMleVVnARuj AGG7F06ws6T0BTIvEOUoYON8 gPY8cY3bfNvxfufrlOPoaSfktj MxpKkdHOwaDHqzK011EIBefLly GyUiHSzsPGEzFP32EN70fOQj v8K4lBS1V0GtAESzgjtnhcjekY M3IRQePFUgbG48gXJiABdmPb6x l2A0v740MVDgLPUdbQ69Wy6v gUnmHFDjwVCVnP2nntukh6adio puCaGfNPCwTOz6MDs4YAYuaWlu EtGsSZO9OlA6NMS9dCCkzN3l yVsusonwrB5fBye+TWFsZTwvdG Q+CRAyBMC3lPbjVIlbBKJgvV9z VNEmD3a8QqMoUmK1YRoaD9Fn TJFbqhqpNz81xZ6tUcCaPaM5TO wpS1VpgdE6NZQldHQeLHheUTV1 T13hx1J2DVJpXMUfNIB6iNG7 aO1uxQbwpmmekVUzlHftrbSrdS utICdtBQrtE627CRLplIylGiRm iB9rKIFjVJszpUGyoPwggFQ+ JO29ns68J6ZfTinuHrs4VKLcDV B3fYJ6zB0zEEWaADoyy9K4jHY9 J4RaigPmxj2st0biYJScJUbb A59iuHVfp8I9GFBspGG5NFGozX nbXuApwD97Qbi+JGLbsGzey9Yr Wimvp8lyn4xsgTp4SbRhQYJw qcPvzDujMAG2q2LaJq54C23eYG ywZYAaMKDtIAGiCQYvoAphsy0y fV0iGr4+XOXhfZI4vGE7oF1m NiWvKnP1FVtlD705FeSbfGPnVx wkw1kyv6ttbOg8PxHsAGUuhlFh pRpuELU4o9LaJq21Q9WsjGjz v9YvPnz1do07hBJxt8H9mAZ7L7 PpMYTepqszcSJtmEawUT3dGFNc mmvwEJTcdJ0sHOBgM5l2WgEi DhS6TTjpI5CqrvK2AKXssBGoEY AkfRFYvK7frhcci0cmvpudEdZh XHGeMNj2QBd5ETBuiMbcXeZt RUY1JpG0YPB3zRObjB4gyFssfm whgJ2uIyx+BCx4n6semQTyCI5s mUJ4ML79QN45rOIia0M2fKQ6 U3EwRLOitvcdofptdGF7WPRcFF TqfH89Sz0ijWqzFv9tEZEpZVR3 IXZdeKPhZ3HugX7uVoUoSTCk ZUDbF2LyvHViBEamC257NFbaPi I3TOYfvcKaK5PbKWInlWxlGkN4 g2F2Wn2WEB63FQ16RG73zPRw d1F6jTP6J1NsXYRhxppjwwwjhW E8AHTpUYNlqN77Bl2oeUkpLv8k WSHpKEC9ZVLqjDRmL8SkeX4j RmIsTEGhTMAzF9IhlAHeLFgvV8 84TWnaXxU7MWWlvsRlJ1SzJJHg tGkiGaU8r2E9Ke0YYt49XK81 QU39kGGpw9G1lBB6K0TmBKHqep puducqzLU8GRBeXRVqxV33Tl0b vZxcYg4jVPNwQPC5FSUbrQSj Z8KcrA9dQqLrVKJkEUZqL0ViiO YsLDefK217CTotUgF1ARKjhyOb O0IaQRNaoRlkAcU8q3Z2Tx5D CXrgixu9L0QrSernfZB+PC90YW SxWW26eRJojPAjp2tmdSb8LfBz WUKuWNM1xCjqVOagp0TrAZJs W81rvIIm (more content not included)... Normal [facility] Consent for Treatmenton 040 Consent for Treatment [id number]#1.00CD:12 7 Normal [facility] Consultation Noteon 12-27-19 Consultation Note Chief [...] 4 weeks afterward for repeat evaluation. Normal [facility] Comment on above: Result Comment: Elec tronically Signed By: Delvis WHYTE, Hong\.br\Date and Time Signed: 12/26/22 17:21 EDT Office/Clinic Note-Physician on 12-26-2022 Office/Clinic Note-Physician [id number]#1.00CD:127 Normal [facility] Patient Correspondenceon Patient Correspondence [id number]#1.00CD:127 [facility] Patient History Officeon Patient History Office [id number]#1.00CD:127 [facility] Coding Summary.on 12-16-2022 Coding Summary. CD:[id number] Ww+PGh lYWQ+XT6QGWFzS14lhKMeaE2iT 0NMTElOSywgQVBQTElOSyIgbmF rGC7bdFAeSPQs IC8+UB7vIGNvIryowRVco9N2cR D1F50jjp6gKSknnKW0KGQnWgVx rarkb6ckzMr5LPeaKbttFxEx OHQauX31PCE0fJ06Zf19wCJmmA Wxm8vfbXs8DmGnQHSiJZE2nBzj OAvwi5LuSLBnF76geWYnv2C7 CIPgtLetoBViGmKmkUC4cE2rEP ipzeuui2wqiewfUub4op58cEEa y1V5wJA7W3YpvpD1ILYvqWGk NudwoVBQkM5yqxwyw9uurbhoWs TzYIJjJKx8OQf5PIZhcRwzHyOf LS27PRC8DKZmmjNyJ5TcSTKc sIkjBxU5c7A0Au5AS9JEXjtoE2 VNTUFSWTwvdGQ+IV79ep34D3Xz FaepLxu9QRPpMBZ5iTU6zM0c QHDuDSade8M7vMT8F9KjpaLihy 0xq7zcZATnHFjiG23slACfs8L0 LNPfzLR1SGEuvPrjVsAjbE93 Oyc+AXZvtNoiy7BjQbtpe7xgw0 hkuAj6LlmqFHVjqxKqgScbKOE0 i5DzCv3gUHJqvQB3xQJ1xC7i BkAyKtG0LFbhC883GmEeeYOoXd gjK13jV6QtmSM+NWQxOxe3OLEn eCkwBA2eO6QmOULfwsqfwTAi dEfwWZ2nCTTxwnztMLFapE2wTY TqR4y7JuWxFdR2CBguJ7YjYEUu oacsAz08lH4oGkWzQmS7OAmm E4EamuS9ODTlrKHtMJmdWAO7U3 5cn4N9YTLrWBNyPXG0xJG6wK7k bGlnbjogbGVmdDsgdmVydGlj FFraBAyfF003KFMrmAdnDeUmOK luZyBEYXRlOiAgMDMvMjcvMjAy MzwvdGQ+SAPdPII9tAzxJDLr mKOlHBevHn1hcBhqkAxlEK2uIC JmilkiDEOohO4yGQKziQRypIxv EK6wFDAwaztpg606YhYsCMQ8 QKVrkSUvY4PoaT2gSpXxZHRvWQ RpQ0HtsZYwFItnP652HVusEoW6 VPIkkiYrJ8ScYAGcxDyyXqK9 t6E8Af8Zu9SbzjxfF5VacDVeRp WdRiqyGQu1F1FeGjbfuYE+PC90 WBAeAF18RCo1BFP7lAjxSXbd YOKxM1DfyQ3yNsNiTCTgQCKnMe c+PHRhYmxlIHdpZHRoPScxMDAl VtTlwDqcGK5dZu7nHURaLGHu eCitkYMuJsAak6zeEZKnCNqaVD 9qcOlkP7JezJA4HWGif2m6Rf51 B53vY6DqgFO+VTLmqOQ0oEN5 vT1vLzFkLrI7XBusT845UtTfnG AhYqfkc2pgo3zqzLg2PdF5GLZp pfRujEyzTIK5q6PtEk24J86m IHdpZHRoPSIxNSUiIHZhbGlnbj 1ldL7dHy9+KVQypVH8yWG3zJ6j NwCxYpH4YJkzM735YfQygYVu Rgulc7yfg9wbpDk2IaTdNJXkew ZhdAzcRVL6p7WeJe73U5GooVac t5KdXzn2hi31kVEzy3D6cPT0 Z1BcMCXrmctliNXfxJcjLU5wXJ SoqpibUWYdtL5wZHWzA3p5SlNq CsP2UFdhR9YduiR1PRXfdGCj RXHpsHCHuG7osggyg4ymzntaCj GjRRAoUIv0KVs0AVPjkHmkIkOt XNU2UfR4HRG1xWSppP0qsBhq bevrrV6yMpy+ILA1bFOejCMLTL 1lOjwvdGQ+ELYnZJU2wZgsVXfk RYWwsQ1eCFMsE8n5VkEiRfE4 HLkbF2JvxqH6ZJQmvCTzGUKwuU YJpN2byexbi3tishqkZrTvJEEg JJu1OCe7BQMbePakOwLzLTZ3 TzL0TGJ9jJAibE4ciObitwhbgI 9wOyc+KnlkkBikWCQ3RXg0A5Lu Hea5NNIcwQrvHV8dkCVzTMig Lh8jhOzgfKwhTU0pEPKypkteq7 66QxXcy8ftICTneXDwIKnjBCT2 V60hg5U5ZABbKIVvBDP6pYU5 uU7jqRrjgqdqsHGlgIweouMnzF ygWQjtIBjdG839NWMxpCkhUrNt FDi8S5TbAta2XCWviLicAX8y qJGbJZxyKk3hrZwbaUmxEI9dCX Znlyrvi512DqYvn5jaYCGriNSh FGtaOXY8R63oc2I0HCQcJHUq ATR4nVS5eB9eiXshwynjeDKznV rvexTycUqmUThxNMqoF300KMUn jZbaOoWhnZc3F0ZcUcz2YTPh nZbpOO7fnUDtVCbqJf5znGofbQ hpFI7hGCDfarmbm099BtEum9iq FERzkIZtXZraGVV8C46ej1V8 IMDhOOJyLFX6wKB1gQ6xkKmvii ogbGVmdDsgdmVydGljYWwtYWxp Z563HUEixVpuFqDnpZtujxWk RJycMUj6I2EtEkygwAL+PC90YW CeOQ18yWMhoACod8bkhFh4ApIy CRJcBLS8dQxiSEjgr3KdQIFy K37fkCLpr2S7YDNnlHxjfGBbLo IwrNJ1wX0aSSwfrtuqp2gjnrky Wuydq3uwdc79fL06J23oUNiy XJTcMYBoPLNbDAXmaGdvbk3aiO 9wIi8+KOTrxSV2mPU9pE6eOYYk RmV8GIlhJ688WiKzjHGvBwhr t9htu7idvUz6WkU7EEXqcaFlrT mqJCE9y5EvGt08G01zQDiiPJCo TWNaZEHuQLPjvAfjsz3peT6y Ii8+QBLqwMO3wOL5wI3iKxFqUb X3ASycU250LtMltDOdDqqtN84s O0NnpGI+XCGfZjd8QPXdtExx XK2axGLsEHuyJq6gLJQ9YoOnFx XgMAacX9TqAMEssvjzladtzOG2 DWKuBQOqxQ59Yy2imJfqUFUv nRFLsK4xlnnis8zfklyzAhGyOL XbQFz8HKl5TKSijRbhLoAqZUN7 TrY2IDH0nQTvlO5wcMmktbti xS3fM2JsZLQlelebAq82zX1xFi FzCdH5CTusVjs+UkVUVElHLCBX WSwCZFDQZS02OX33yFMjz2Q3 xOZ4Z2EbEDHpfmmlxxgojNY4RQ RnVFXcdJ40gBHeXBuqWk7co3F8 o566FTExYLGfrR87Le1ouUom NXGbcTGFyX7uhonyk9pyqkdyCk HmTCAkKXm7LSj5NYBvzMnhOxDl NGG8CbT8FGF2aAUhuW9enBsg yylwjJ2nCpy+FWVwYOTyZBq1UP wvdGQ+SOPgASP8oKjnWTsfJMZe eF9tVFMoT6p3DeQxNxY0URou V0LwTKJgvlxjWe96bG2yKvPyPi W8NTlhK8GipwO3ZVWnjJHwLTnl XFE2X23hk5H0MQAwHFCdBJH5 oLK6lC6prPsdazftmPFemNiadd FcrWjcYVqrDIdoN247NYMhgGxy NtWwHRzeEAVjYI02PG62aTUo d5L5nBF3U6RnOOKnhdhwqfdayL Z7UJExTDUieU25wWHwPLcdRx6o a3F4o502JXDxDBUfqA72Ts3n kNsbXQZtsBOYuR4unebtk9brxz npXjJoJZQdGVi0CWg7QNLrkAhx JzBhKAP0WbR7OYR7wAHdhD4b bMxbiwssmT2bEdo+TWFsZTwvdG Q+IWNrDCS1qXwdNApxMSGilA1g TPAxM5x6DzUaZkZ6LHfrX1Ei TZAgydfoHz80hK0fZhIiHxQ1QF iaE6LktsI3EWAnhANiLUfnITG7 U35we2C2SJAnPDJtSDB7cAR0 dI9mgEroyghexWOflRbngnNaeR tiDAyjDNuiK679KQZqfWqgKpZm hS1tBJTuPWkkkXDlnTjznWT+ BP15cb02Z6KuOtnkTjj7XANbYD C0mCL6iA4wHWQbGJupy3P2xJB6 W4AlxlZghq3sy9clUIUzWQzs I04izUNoj1J6UIDmkCL4PLGshH cyQtLzsC06Agz+PWKutSyoa2Wi Wblot9smm2stvBy6FyJcXEBo xyOjvIuqFMH9s7LgPw33K44wLR jeKEZiISLvPXPiIIMglKoxwr1n xH8uNa0+TIWvoXT6yXW0jT9t BlZkDrQ0LOgyY373QdPbqCEzHc jpl2rye4qqyWm6XrVgXJZwidDz gGwxEOF1r2PzZi04N2ZsoJzf g7TnJxi9cb29dPYvw8I8hND5Q2 DbFCVeqhbmtWDiwNpyIK5dHBHo kmzlPPGubO6bOUOsG2k4RuTb RbN0PUneZ8VeynW2NQFjuFHvYT PihDWOnM9tthlmq5imbkroUxSd ZUPeTTz1LVs5UPAxyJmlZqCd YBI9IjM9YFS5sANbvA7hyAajfi zjzM7wQwn+NCc3l6gqxRSaQY1k sXC4RN02RX59rDSjz6F8dYG1 K7KwTMSgahnghapddMO0MRPdHN PrbT51Eu5xsItmBs7hOWHtKQC0 BLRomQZlT0RxwH2mSlMvVDHj QAZdU1CirCCrHWlcM512WLovLi L8SPTxvmGzL3SkMYFvaIkvNkM0 y1Z0Wc3OMO51SQ82SK34oJSr o4E9fQP4Y4CeCCAfuvedrdlnmA O1WUNmHRJvmR62Xs4mlUupZi3t JJLmBZD9UQLclYTgO7QeuX9y RmEhXGGwICKeG1AfmVUsNNesF6 74WAsnFoB5IPDoirCmI5HzSGAi jGinFgT5g4W8Gk2NCm95QR63 NQ50oCOxp1X6rXI7D1XsPJMzbq tcekufkJG9VEPzCXKxcF16Sm8n iYleWi5cZUZgIGR8EIGioXZi T0NwgL0uGnXcVYMxBNExG9CzyW ExQBrpT108OZdoVqD0CGHyjuWg U1VoWLGijEhePuC6l5G3Pe8G DJqbitt2B3EcRlzehDT+PC90YW QcLF61aHQvuVBat5zvyNi9KqPq TTAdYWJ2uTdiNAhos7PyMBKp K05tcBJx (more content not included)... Normal [facility] Operative Reporton Operative Report SURGERY DATE: [...] condition. Hong Edmondson M.D. lr Dictated: 12/11/2022 [id number] Transcribed: 12/11/2022 [facility] Comment on above: Result Comment: Elec tronically Signed By: Delvis WHYTE, Hong\.br\Date and Time Signed: 12/12/22 08:34 EDT CHEMISTRYOrdered By: Shaina BENSON User on 12-11-2022 Glucose [Mass/Vol] 106 mg/dL High 55 - 99 mg/dL [facility] POC Subsection POC Device SN [id number] Invalid Interpretation Code [facility] POC Subsection POC User ID [id number] Invalid Interpretation Code [facility] POC Subsection POC Username SALLY MOREJON Invalid Interpretation Code [facility] POC Subsection Capillary Glucose POCon 11-21 Glucose [Mass/Vol] 106 mg/dL High 55-99 [facility] Comment on above: Performed By: #### 2 [id number] ####[facility] [id number] [place] [address] Consent for Procedure/Surger yon 12-11-2022 Consent for Procedure/Surgery [id number]#1.00CD:127 Normal [facility] Consent for Treatmenton 11-21 Consent for Treatment [id number]#1.00CD:127 [facility] Discharge Instructionson Discharge Instructions [id number]#1.00CD:127 [facility] IntraOperative Documentson 0 12-11-2022 IntraOperative Documents [id number]#1.00CD:127 [facility] IntraOperative Documents [id number]#1.00CD:127 [facility] Main OR Intraoperative Recor don 12-11-2022 Main OR Intraoperative Record IntraOp Document Type FTPM Summary Primary Physician: Hong Edmondson MD Finalized Date/Time: 12/11/22 14:16:22 Pt. Name: MAURO HEBERT/Sex: 1970 Male Med Rec #: [id number] Physician: Hong Edmondson MD Financial #: [id number] Pt. Type: P Room/Bed: / Admit/Disch: 12/11/22 [...] Candi Mazariegos Role Performed Surgeon - Primary Overhead Garage Door Hanger - Primary Scrub - Primary Time In 12/11/22 14:05:00 12/11/22 14:05:00 12/11/22 14:05:00 Time Out 12/11/22 14:15:00 12/11/22 14:15:00 12/11/22 14:15:00 Procedure OTHER NERVE BLOCK(Left) OTHER NERVE BLOCK(Left) OTHER NERVE BLOCK(Left) Comments Last Modified By: Karis Eldridge RN, RN, Madison A Pritchard RN, Madison A 12/11/22 14:15:01 12/11/22 14:15:01 12/11/22 14:15:01 Entry 4 Case Attendee Maya Alicea Role Performed Diagrammer Time In 12/11/22 14:05:00 Time Out 12/11/22 [...] and tissue Entry 1 Skin Integrity Intact, [place], Warm, and Skin Abnormality No Dry Outcomes [...] from signs (more content not included)... Normal [facility] Main OR Preoperative Recordo n 12-11-2022 Main OR Preoperative Record Holding Area Document Type FTPM Summary Primary Physician: Hong Edmondson MD Finalized Date/Time: 12/11/22 13:44:40 Pt. Name: MAURO HEBERT/Sex: 1970 Male Med Rec #: [id number] Physician: Hong Edmondson MD Financial #: [id number] Pt. Type: P Room/Bed: / Admit/Disch: 12/11/22 [...] By: Ksenia Andrade RN 12/11/22 13:44 Normal [facility] Patient Correspondenceon Patient Correspondence [id number]#1.00CD:127 Normal [facility] Coding Summary.on 11-20-2022 Coding Summary. CD:[id number] Gh0bWw +PGhlYWQ+LG2IZGKwU21umCDbm L3ZP9aTVM2DQOYBTTLROX5HYV6 ufGG9ZDerD0VxdoFl TmvohKNiHQ47OUq2KHV9yNgxEF dblD2wnJVqE5a1AnZlFD57lR50 BWkqCYNbIbQ3PpBtspihaTHy S5beGyZrnZEoHdy+PHRhYmxlIH wvXQHfWGytPNZwYsEbnUskUK0y Lr4vOZVkGEJeqQredJHaGmDg v7umPKSvGCrgFS2xyQhcH0MgeN X2NUBbx5p6Je85aSA+PHRkIHN0 nLwjFXhdt564KaAvl2nbHLA8 gMEjRYunYEQ6Y60hc8V4HNVxFR SsHPU1bZU5qO3lmYvrkeliP3Qh gMLjLnC9XTC5pNVyfH6njPpv uiihmP4tAue+A22GGN2KXFVXDB 1HAfn8J1XrAekchYU+KR51THTc HJ52vJZvtZQvp2mopMb1UrGb FRDlHXR4sEwsWUkhw5KaWROrD3 9zxOTbi2Y7VYRfeGgjpAUhOgRx xDK9aG1zZQuvsqcpr4tnnlpy Amnea6gktl16fD35V08vXFzbGU XzUVJ9NRFlHPIinUlgfs1pqA0l Ii8+JWwkd3ltw1kftDl3XfTo WQHfkqBuyMtmYIV9j8JoIi46F1 XcrJjdd1WtYys3ss85wEHvy4I3 jTL6HLfySGDdxV6nKNidHxE7 ULVlJbBdrP82qWMcWQykOz6bjC rrxQauFU6yWEQtxrlpQFUgbU5x UIJdgALvxXzgVM3pJFEtzcru b495EwJtZBD8UHEusNXdE6YgyE 9aPsWwIYKxPLLwY8BfeRIyRXrc J101NMgqDbP5UWFrcyInR0Ic JNDgrFamArI3x7J0Vj8Oc7Jars ifBWD9UBtgDLSwNcIwBlQlTkM5 Z1SkTtf5FFCefMeaMO6aI3Sm TUSfiyglbzbeoZU3EUQoCXWfcG 54sAJsDTxfRq4sl9S5d808SXCq KEVcgI70Ld6blEekSYUyqLSR cS1ttxjhc2ebsswcBpZjIWDkRE c8FKh2IGHkeDddKiXlYUE9JxC6 OFJ4eBLyvV8djLpeocvlhS2c Oyc+A15unS1uVZJ1VDS3achjYC GfvbQqRK84BV84P8RzTieslOUt bGU+VKHmdmCzmInqZM7dRsSx y9mug2YmXBgoC2BvXQFzNRviOg r3KBOaRSS3zXT9mN9jYMQlMBsp i3Z4jWS7Z9XdneIfof3zk3xr UCByPKmwM24fwBEqj0A3NXXjyO O0MNBeiBduJrSzxF15Msl+PGNv lZsrd7ZnXvtmm2egs9sgzVt6 GwLoJHKqjaVhoXrhGGJ6l3MrYl 71K37aSHguTFApAGKfLPGoXZOw mHsurt8qiE0dZy7+PGNvbCB3 jSE5kD6mXYHeMeH5IWseM733Lh HryUVsLdzao8mou7aqvCk8QlFp ZBOuisXqlHavMJD4c6JsTo07 G04hCQhhDDZoSUVxCGYiYLWmwO mupk4ziT3cHj3+VP1ah3jqhw76 cA93rWR+CXHhEID7bEneAPcg LSPlmU3lZCnnMyU0ZZXrLaAsaT 11rYIbWRbrHo4laLipbGxuGU4q WDOmvruwv571YrYqf7xnOPDa tKMcBVqgHOF7F99xv9S9ZYMbJO YqEVJ5vXW1oQ6poOwfqoyufVRa uJphvjAcoTjmKAivDLcyR881 IHRvcDsnPlBhdGllbnQgTmFtZT d5I0RlYxr2RMGsoYstTJ6wcPFj DCtiWk1rmMqpaMbaXO9wJFZo nqntm461ZrWdq7mzJXUijPLyMK mbUEZ5O42wl7H2TICcKBDoTCL2 qJN5sG1ppVlyisrulOIvzEag wkHcvWdoDMkkJLixW650RBHtfD qeEfRxsrOhPSFweKM1AQ35QE00 wIXtk5H0yMM8K2MjZXYpmfpv ullakDI5CRHaWDJgsX41Yo8bdT irZv1oXFJqYTB8YZXhkJWkB1Mb aJ3fNuKsWGCvQKCeU3SpiFGs GHcoB358VEmwNbP8XRRzepJhI6 TjUINdlLyuTgS5p1K0Yn1OH4F8 HL60QB18qWWqh9P4jTI4Q9Fy UYRipssqpzzkbYK1VJYhORTdgU 96Mf5zxUhqKl8dHARhVMA0SRHu zPNsG7ZqgV9tTaYuMXSsAPHd I9HknZUnZElkM838SUvlCuM9AE FthlSsO3WtLJZuvFgsRmC2x8M3 Cj7ASOg9NZ10ZS24lXCao7Y7 lGK6U5HlVJVbxulpytluwGX0OD KlBGAzoD90Jf4pwPbwQw1qNRFs HNK3EJSldQFlO9YkxR5bVlTj GUNqFPYgZ2QygGZeAUxzO441AU nbCuF4BCNzogLgV5HgEMGnlTti EyP6e6Z8Oz2VWURxDB29IJW0 bHK1OE96BS77Y0DnOlsdqHSqkS U+PHRhYmxlIHdpZHRoPScxMDAl XvVydGezAR4sVc0sDETlEJIs lBqzfKMkFuQol0aaUJOeJKtvMK 8xfYslF9XxmVS1VFNsb4l7Oa57 C82fH9RgcAX+CTIubXH4wUS3 iQ0bQkAtMoY5WMflK868NrHalO NmVnzno7nfa8mkhOc2XgR0STBb kjRqiOplEDP2o6TcEf67N36a IHdpZHRoPSIxNSUiIHZhbGlnbj 7pnU2fKj7+IUKiuCS8jLR6oW3l RuIgZxK2EOddG771QzVcoYLz Nfmis0ylx1kbeMa3FuEkRPTsuz LeaYbjXPV9g0MeAo65C8VxoXyn o3JuNun8kn92pZAsq6E5cEB4 I2NtALDkdoszwCHagSpuWC7pGH FlfpmwDSFfaO9cWYGbO1r2LeBo UhN5OKjsS8BcpiS9JLZotTYy VOzcJIW5Q90mq7J0RMVzPKGwAC G3bHN3sA2saTyscrmfcYKxhRjm awVpeGtpLRdjBPwrD385KCZs vVqkVRWoyQ2nQPRouLTahNxmEV 3fNJZtqwkwUbXJDCUHBuxfX8lX TElBTTwvdGQ+JSHvNZM4vRqw NPpyCEXztX2aCNWqL6w4XeDqZp Q5VInrK3LqDIVjnyudWx74bJ2o BvKqFiZ4VKirQ1CoxtG0WKPd tHDgFCkfTQG8I17rh1A7OVCeWO GkCNH7oYD2aA3ayFqgbojgbMZy dPnflaRycTreKAdoMBivU629 UKRloKztClDyWnB7FiU6ByI2A6 LgNhk5BQJadAvfEO6rvEKgLFby Dc9fnOjqiTuwGV0rWMDzpnnw KSJyfS9kTTPtdGPnyDybDI3wMG Hbticxd987VeRhFMH3OYWydOGk P5FfmV5pJuRtFUWnCDGhG4Rf cRLzOErfQ428WNylVhY3LRNssh GpL1ZcJMMqmIhzRsH8v8Y9Rl62 MiBZZWFyczwvdGQ+PHRkIHN0 xXveLQigYUTckT1bFKCzC4b6Ft SfEuD7HSvcP3UoTHIudlacPb11 fS5aPnAhPaZ3STvwJ4DmfcL8 RZLsiKBuGZewQOF3A26ha9Y3IU QqDBMuFXK8nYD0zS4gsUhsoruz bGVmdDsgdmVydGljYWwtYWxp S578ILSdiAgrSn7ctLA5K7NaOq f0YBJzmRyfQP5zsNDrLGqwNw7j yHinbZzpZK6gXITqjjrlOTTd bM9oSJJdnKJmrHxxVS6jVVWdwy gbq773EmLyJYR5HJCwlETrW0Iq mI1rSqXjCWXdZEQkP1FfmWIt YNgzA088JDriOjT3UFOdegPwT2 ZgFEXzeBpvArA7x9Z5Qd8JIWof HD7qkhItYU2fsiS1I2DeFljk dHI+ZC23WXJtOT83eYEakEVns3 jprNf0AyIfRVLkDDG5aVmyWXal x4OaBSAfP00qwSLxz7Y7KGHg tTvhjSDjJdCugIE0fL4jUOoqxo eob0aqnuljKsjel2rfju45gC36 P59pGYxlCGFuXYPyJOWjTJGc lPbnot1zxP6zEg8+GDNhoOM8yF C5lD1dJzKdUnT4DTipI177DwXa jPWaUafku4zcu5xsgNw9YsQb SLCpkgFuyThhOLB1u1RcJy38W9 9sIHdpZHRoPSIyMCUiIHZhbGln zk1hkO3jYr1+NJ0nw9lvdw01 iB12mAL+IUKkOGV5dSokIYjcOS GqvD9mQUvfTpO2VEEbGjIgiX92 dHVlXGmyYk8jrEwvbNpjHW3m KFEprvnrm963YjQkg5isSKEkwU QjWDkfDVQ9E31ep5N1VIQnVIGb HEY0jMP5mW2doStockrjpLJb fSjtpuMbgPglZRwhVUvzW931EL GybYnsWpBfxWJpB2gppmWLKC5s OjwvdGQ+PTEmOXK4bLmjEMdn QVPvoQ2aHRIzG5k9BxToGgU1TD bwG3TmstH6FKKknVArQWIduEVE rM7ijjavi7vsfvbmWgBnWDBg BDy5KQy1XXJnrCqkTiArYDR1Do H5NCJ8pINtlH7zhQpmgmkxmG7z Oyc+RklOOjwvdGQ+PHRkIHN0 bJqfNOeyELEanL6pDFKqX7e1Sx UfWhU9NRiiP9QbqfQ2EKVzvQQn EZYstGMUqE0mtpnrk6bitsbh NhTsHUIeRGb6EDr1DPBqaYluXj MvCMC9CrB7ZON1bPDqnZ9oiAvu ujdfrJ1pMry+TVJOOjwvdGQ+ IFKzGUW2iWmnSOwfAUEluX4qRI KeA4h9BfRqGtM8QExgK1VmmtZ1 ZDVoyYZgOKYluNGNdY4jvrwk a7nwqxybOxMkLZFqOXu8JWg8DV CimMziOzGrCUN6IyK7VYO1wDLk oP1ikKkugxvkjE1zIkx+UGF5 IKL8AH49CT40T1VpVdtsjTOphD U+PHRhYmxlIHdpZHRoPScxMDAl CqAljNqhWL7zZx1dXYOtSNAd bGxh (more content not included)... Normal [facility] Outside Records Officeon Outside Records Office [id number]#1.00CD:127 Normal [facility] Consent for Treatmenton 10-24 Consent for Treatment [id number]#1.00CD:127 Normal [facility] Office/Clinic Note-Physician on 11-14-2022 Office/Clinic Note-Physician [id number]#1.00CD:127 Normal [facility] Patient Correspondenceon Patient Correspondence [id number]#1.00CD:127 Normal [facility] Patient History Officeon Patient History Office [id number]#1.00CD:127 Normal [facility] Release of Records Officeon 11-14-2022 Release of Records Office [id number]#1.00CD:127 Normal [facility] Outside Records Officeon Outside Records Office [id number]#1.00CD:127 Normal [facility] Coding Summary.on 10-31-2022 Coding Summary. CD:[id number]:[id number] Gh0bWw +PGhlYWQ+EN8AYDMdR82pxEKah L1ZJ2cUTO5GJZVFHMATRS7RMO3 qlGY0NVagL4YlsmOx KbfgpCRnLI98ZYz5LNQ2bPmuIV genT2plBErP9i4BvQvYC14jO40 UGpmZAJtVgM2LeTeanzovHSm F9lsUkUpwWExPrg+PHRhYmxlIH ncZUGtVYjpQWKhHgOosDcaCP9g Xo8uYBEdCAFjkHrlwBVjCbOs r5jgNNTeSVgxPC9kvPsoM2ZmcN E7BWPbt4r7Rj98pMW+PHRkIHN0 yMcmYXfro596PkPbn8blLVY7 dZTrBDfkTYE4Y18oy6U3ZWCfGT TeAWP1bHK1iR3dwZktvrawU4Zu hFCjOsA3CHP7xXKtyY5ulBta zvisdH4zPdv+E47FCI2NIKBQUJ 1LYue8P3VtZjzcvEX+KU21ORTq MM16tNBqbOYsy2ruhMa6MbMc PMWsSVD6tHpkBGobx9CuDLTaB6 2qvAPkk0D5FDCyvGzbhJBpOrCu qHL1rJ4gJNvfhwtse4gpjtbw Suirn8fffd73hC39Z94iERmeQA MuPNQ8PFEdVIFqfVuwpy5kqH6v Ii8+AWtkj6vfu6olwYd5XxNz RUUpkqXmgLzeNRF1p3JaLy87B7 AoyYrah3HgDpi1lp91rKWjy6Z8 iPA0QUcnTIZdnT3tPNzhYlF8 QILlHdNoxT45sQQfYAbsTq2guX enrOsrXH2nKPUburcmAXIcuR8z OHHxsYOjvHbfUQ0zHIRifncl s392JqOzWRH1GZTpyXXyK4WihX 7qPjJlSBCuYKYnX1KobLSxJArj L082ICupWeS0KWYqcxBlX6Pj RBOjyBkmGxD2v0C9Qe9Lh7Dcve vdMIX9ASikXRYmNhT4NuGjTzW8 U4SkTll9ZUMgvYkoEX0bO6Xe XPRhoavjefxhpVB1PQJjXOKvxZ 95hHWjLHiwOw2mv0Z7z933BZMo TOJlkA10Mm3viQwjUKQllYXV iS8shhxbt1rujlpqObPoDMIhMQ c9DRl3OSHwiPshZxAuIPK7HrY8 LUM9zYNrsH8nuMbpkjgyeY4z Oyc+M87yeI9wMQX0XUQ3cyskCK EhdvTiQZ02PY41M7IyUwfxhJAp bGU+JRVosxGtjDpkZL2vAdJm y7hko9MzNHvpA4VoUCZeQWafIi d3ZGSkDWK4tFE9yB4vDMZkKFou b1Z4wIE7Q8ZoruOxkz3bm7ms GFSjXNqiQ58yeMRsr8V4MSMjuN Q9VKJtsVamCkXcjI61Qyp+PGNv uRqaf7SkCiwig7eqt4yjgGr9 KzMjQXEpduPcfJseDHH5i7McRw 54B52gLKwgGJItRLQvCGAuCDHo zAraeh7zgO4hTw9+PGNvbCB3 kJV0vJ3xBFChOuS6NKztK481Au XbxHBvUnavv7mzv2jidQl3PiSh XRZshlXgiHwfYXM2e5UvIr43 C82zVOoyNEYvZTScHBZuJISlcL athe6juH1gJh6+WQ5tg4msre55 oR98yDV+BYYaWDB4mOsjRTdv CMEalG3oYNezXwT4CCRmFrZvaS 86aJGuNZzhJm4zdFhooDyyGK5t AIDaorqob942DaGas8mzVHPj hPPrHCunJNZ6T90yq1Q5YYMvVR UuHSQ7gKH7oP9zuGljhmcgaCGe sIcrdkEliAzjKAnbXIjkP467 IHRvcDsnPlBhdGllbnQgTmFtZT x7K4CtDfw5TPPhwFvcMU5nySDf CEjmPs5icVebuRjjGQ8tVUKq achhc657EfFva8ueREGzoQJeNN yfHIU5W35sn5D8OXFvROZiQDM7 tAL1mB1jaPqbdezssXTglDuf bbVddOyuPGsoTFkdW850WVCnhZ iaQdDybrMhPSUywNL7XR35XC71 gTGaw3H8tVP0G8BmDJYpftss efwtoLD2DKGqAYEiaP61Ty9vlP nhPd1uKIQrKIP3GTMarWUlN0Rt rE3iEjEkZCGePUNbZ2HwqVGk LPutC045XRmoIoO2OCIbizBxE6 XmHISohQcbObX2m8W5Xe1KO5E5 FC61GQ82fLSis1C5lOG7M8Iv MEUbrlijtqlgcSE2KWKpTTDdqX 19Hp4xhPxjCa6mQRYsUJV0QDHk tTFgN5KmuG2pKvMzTVNzNFEm A8JbwNDdPKfpJ039AStsCyM8QG VexyNcI3KnVFWsrTgtYrS4a5B0 Am2CWVa8BK97GN66tUZpr4C8 uLN1E3IiCHYdrvxhcqtqsHJ4HZ VjQNNjhX44Dh7khQzmCu4rFROd NLS5XKHtjPKwC6ZyyC8gRbVb EUPqNRXiC9IknIDpZNhnS033WP mhLcP6SZTiqvDaX9HbENHheCgy LpQ9z9Y2Zq0WMLAyAP65HDR9 pYI4FN73CM40Y9EeQqnepVHwwQ U+PHRhYmxlIHdpZHRoPScxMDAl KwNctLngZS7eRd4aWGYlVYBr cYgpeCVsNxNes0kwUUUnNUhzJR 3uvXwaH8PegMG8MLWki0u7Iq76 B14qN9XxoRQ+YXOdzBB9sMO6 vQ6uYcIvXyU3RPxlJ574WqXoeQ AlLpsgb7hbd0akuAc4QcC9IILb siQtuQdkAGP9q4SqOd85B02c IHdpZHRoPSIxNSUiIHZhbGlnbj 0hnX5sKc2+UBAgtAQ9hYL9sZ0y HrXrPiM6DIukB654XtCugOPk Oferg0fqg8kfoGs9CiEmMLGmuy IebLmnBTE7t4JqZq78X7OngUdn k0TfBpu0aj80sJAqr9B9eHU7 L0KyOGFnbkdhzRChmVbdZW7wRY WxxkztXNKccY1qMPXgQ2o6ArYx ZhZ4ALduH1KohaW8LZXyqRBl DMrdYED0K39nr0M6WWRkJEKbTC L6mZK6cD0rkIsvlaxvuENvvCup bwLxiZzsIIfxRDqyH322TRCa jIipITCkdH3rGJWmjROzyDkbGB 6jXXLxuzlrIsQGHGVGYwipU9nY TElBTTwvdGQ+IRIrBCA8mTta EWewTOPjwS1lVFMcP6b6UaIaNz O3YDunD5LcHOVndwoyFe85zA0a IrPhWgT3HNxhF2PtdrO6PHNh bENtMVayACO3K47nw4L7LYQySZ IsLMO1vCF5zI5ggCpiyyvsqHJo dTobjgAxvGzaPCrtGJrtB964 SKGihHrqRjAzOvU8JaK7DsP5S9 TgZlb2THIpjXsqQW0mcTQaBSmj Ie2gjOovwTrhGZ0rDOBaadws XAYjzM1yGRHqnRJtuDrwSN1gDL Oxufiho743MxElFFM5ZYJbvKNl W1TakO1sPeViJXJzKWTnF0Fm eTYwHKtsC471BKkjHxX2GEKwle NoS3PgLNGtzMeaHtJ7l7Z3Bv39 MiBZZWFyczwvdGQ+PHRkIHN0 kKfeDOwaPFSosA9gMDRpO3c6Yz RcHzH3AYbtJ9InJBCfgwktFo07 qO3uGeAiOtH4JUvyF0WmuzW1 PUQtiFSjOJbdSZI5N04pz5B5QQ GjWYEcZWJ5wAI2hA5oyYevsxap bGVmdDsgdmVydGljYWwtYWxp Z938USBluXbfMt0qaKE2Q0GuVk x2BBIxvRpjYK5xnVSnMYghJy4b lVnsrAzmUO5jESAysjrcHDZu vH9bECKrySLhqLmjYB7mZMGhmb mpu536RkJmBRY0BEIcaDCjZ5Hd eK4kCmPiNSTgTZAwG2GfoUFe EQupG948NRqvNdS5CFXmgmXmO6 EfQDCqhTkkRrT7m3U3Df1JZCsd DK2jlvDmDL4qkpN5C0PsJwxl dHI+AU17CFVhLA90rUXblOIwu9 qneMg3LvWlVPJtEDB2fLjuJCxj w5SpWRXrW37seAMtn7T7LEFi uDaiuOAiOfMyfFS7kZ2rZEextu uqw4iyogtzFsxjj8lfez11wZ46 U39wFVbwGEKpMZJaLRNmCWNs wBtyrj9ikZ1hIy1+IJHeyWB4rO I7uJ9yBnHrTeU7HJxxD458UjMn fHIoFypkc3xse9udyXs2VbAt SYKzgzGezDgkRJE9a2VnMe28L3 9sIHdpZHRoPSIyMCUiIHZhbGln wv8ieR4uYv9+GA8gd5mhxu37 cU72kGA+GRGpNPV1vBfiWUeqRL PtdJ5gGXdiPgR5TOWsFrFjlB74 sSUrPVagJz5ibFguwEeuJR3v TLDjcixjq378OiMsa6yyBACskB AnFLvdVKX0V16ms0W5GVTsWRDm ZKU8hUZ1cS8ahIljhnfzcIKz oLjenvDsxWiaXXztOSniI280DR CfpZuqElOqeOLhK9qaweKLVH7a OjwvdGQ+DMNcHLZ6gXtoMRzp JMCswB8zGCOtF2u4UpDkUqT3ES nyA1RsvaZ1NBMxaYCxLKQvvCLA cQ7pyqtnt1dlfypqGbCgBCBn YGp5IJz8FIAgqXtlMeJbHAY6Hv X1HRZ0lDVucE6knBbnjkkvtF1d Oyc+RklOOjwvdGQ+PHRkIHN0 xChdIMfwCIZaeQ6lQNVwQ8v7Bh LnWkD1CUxcY7MuehT0HPKxpRVa QKSrrOKPyD3yjzoms7johsjj UnEqJFOpJPg0TCg8VPUpjPedXx BmZDC4OzI7IVB1pAZspN6apKmr ullauD7wPdt+TVJOOjwvdGQ+ EQJuJXC8bCsfHYqwQFCvaW8kML CcV8u8OvTzQwY0HGbjU5YjguU1 OBObnUXkOLZnsHLZrO3luroj a8ywhkdzKxTdXTCtTRk0CTp1MS MxzXyxSvMsJHP5MwG5UUH3bELo vQ4yfAbdrhbbhR3aOnk+UGF5 LOH7AI08AS15U0SgEijfvRDqrL U+PHRhYmxlIHdpZHRoPScxMDAl TbUquUwcFU5mEx9yBADdJASw bGxh (more content not included)... Normal [facility] Consultation Noteon 10-27-19 Consultation Note Patient: [...] All Problems FH: hypertension / SNOMED CT 117415685 / Confirmed High blood cholesterol / SNOMED CT 65979180 / Confirmed Asthma / SNOMED CT 805547805 / Confirmed Apnea, sleep / SNOMED CT 554649337 / Confirmed Diabetes / SNOMED CT 633003298 / Confirmed Traumatic brain injury / SNOMED CT 636265 / Confirmed H/O: osteoarthritis / SNOMED CT 919625199 / Confirmed Objective Vital Signs 10/25/2022 13:08 [...] test on the left Integumentary: Warm, Dry, [place]. Neurologic: Alert, Oriented. Psychiatric: Cooperative, Appropriate mood [...] plan. I was available for consultation. Normal [facility] Comment on above: Result Comment: Elec tronically Signed By: Delvis WHYTE, Hong\.paulina\Date and Time Signed: 10/27/22 21:28 EST Consent for Treatmenton Consent for Treatment [id number]#1.00CD:127 Normal [facility] Office/Clinic Note-Physician on 10-25-2022 Office/Clinic Note-Physician [id number]#1.00CD:127 Normal [facility] Patient Correspondenceon Patient Correspondence [id number]#1.00CD:127 Normal [facility] Patient History Officeon Patient History Office [id number]#1.00CD:127 Normal [facility] Radiology Outside Office Service Correspondent yon 10-25-2022 Radiology Outside Office Copy [id number]#1.00CD:127 Normal [facility] Referrals Officeon Referrals Office [id number]#1.00CD:127 Normal [facility] Radiology Outside Office Service Correspondent yo10-21-2022 Radiology Outside Office Copy [id number]#1.00CD:127 Normal [facility] BUNon 10-18-2022 Urea nitrogen [Mass/Vol] 17.0 mg/dL Normal 7.0-18.0 [facility] Comment on above: Performed By: #### B UN, CREA #### [facility] [address] [place] [address] Dr. Fernandez Arroyo CREATININEon 10-18-2022 Creatinine [Mass/Vol] 1.05 mg/dL Normal 0.70-1.30 [facility] Comment on above: Performed By: #### B UN, CREA #### [facility] [address] [place] [address] Dr. Fernandez Arroyo EGFR-AF CHADIAN >60 Normal >=60 [facility] Comment on above: Performed By: #### B UN, CREA #### [facility] [address], [place] [address] Dr. Fernandez Arroyo EGFR-NON AF CHADIAN >60 Normal >=60 [facility] Comment on above: Performed By: #### B UN, CREA #### [facility] [address] [place], [place] [address] Dr. Fernandez Arroyo MRI LSPINE WO W [...] by: TAMMIE MESSINA Date: 2022-10-18 12:06 Normal [facility] Physician Orderon 10-14-2022 Physician Order [id number]#2.00CD:127 Normal [facility] Insurance Correspondence Off iceon 10-11-2022 Insurance Correspondence Office [id number]#2.00CD:127 Normal [facility] Coding Summary.on 09-27-2022 Coding Summary. CD:[id number]:[id number] Gh0bWw +PGhlYWQ+JA9GGGNdZ93ldAJdk M9RV2dOMY9CEAMLNFTZIV8HST5 xcHM4XFnpQ2VqmcUi WydbwJOsNW05NAr5GRD7iSauMO rrhL7eqAZeJ2t0YfPaZB08rI24 QWzgUVTpBcE8FvPtlrznkSVk K3piPnWvdOYcJll+PHRhYmxlIH ofAAUaGUszVOXxPgMwrQbhAY8m Oc4fMWZpIXFwhVlkpTKvFtQj m9reVWTiETieIH2kcLomR8LcvF B5ZHMnb5h8Rq97fWH+PHRkIHN0 dCpnSXaej084YtOql8bzLGT3 rVQqDSmoAWV6I46on9J4SLBeWY WmKUI7nLV9hC1auAwdlxcjZ3Rg lVXeYvY0CIC0tFOknI0dfNri nylgmK1kRpo+Z17RTR5XHJIJWH 5ZUck5G9XgYsgorYI+CX72OREb AM92mJGgwZWfu5tndVq7CnIh GQKrXBV0kHzeGIxjj3JpKQWuI6 7mnZFqh9B8POQtmWzkxGOwLjYt rJE1dI6qJRzhgzfyh9ryjcrl Locum2kqpo62gH48G76kJPdeHQ VoOYP5PIOaBXSojXgbfv2bhA0z Ii8+TWaar0fom5sfvNv6JcFh QCJmoiIzrHztQIG8x8QoDm72F4 YydCbea1XsZza7ok20lKLwz2K0 zKD0OSwqCCXokO8iIOdyBfM7 AWOyQvRwwA92uVUkWCbtTh1ysX uzjAcoIU5bZKIhegudGNCezO7f TNNolWGptDmlQM3gBAOjfupp s240NgEvXRL9WYMnqEIlC5JfzI 4qIwXbCJBgUEIhA8PzePYqVZpz V938ETzoCbX1ROPsqvMrQ3Wb LVJcjGepWsZ0m9M6Sv3Tk9Bgdx dkSPM5XMyaFJIlVbR6EjGvSyY2 B6InDfi7AJBdfBioMW8qJ4Vs BISaxbneuftmfDU3PTNtOGKzvO 26fMYwJKrqFb3so7X1i115OLTo KHWakB97Vx3uoShgQAIwdXSD uI7rlkcqi0acxqjnJyBoEGEeKO a0TYo7RNXbzEmeLxEnBQM1ZzT5 KZE3vHCufP1raBdcugqtgR8n Oyc+N84ceC3dZRU0TMK1rsomVR WdivWyBP29JJ03K2GxBsvypUAg bGU+MTCrazLtrMrtLW9jRvVw p5hdh4HsXAotL5MeLNCkLWiaNt w9TJGpIIE8rBV4eC1nVAIyGErs f0M6jQS2X4CuspErtf4jt5wf CHVvGLbfK59zuCRmq9O1QJFheX A9ATTqzZliTmZleA29Eje+PGNv cCynx6KwIylzp5bqx7diwMb8 BmUiGOHktzFuqNbbWKH2a6LzAz 14W33gYSukUHRsMDFzHSEzIQSo zDqyqs3weK1eUe1+PGNvbCB3 rNT2qE0zFZOhVgO6IEkbI558Oh BicPQdLylgt0tgl5emfKg7UoYd MFZzpcFedByjMJD3m6PzTd67 N20eKSflZTFwOLTwDMJuDENvuT hauv7zdK2wYz9+RF8js0mopk87 vH51yGB+WJSwRKH5zNojFRun ZYZpaN4tHNufCjT9NVQdLaPavD 00nBXlYZqmJb4izNwskJtzVI9p TMSqwnbhk783SeLtv5qwAOXn cDMtRXgbHRD2A97ri1Y8FTSoTU MxNKA7aWM3wL0kpZsrqolbjIIx xZedlmQbyTtlNNezHOptM604 IHRvcDsnPlBhdGllbnQgTmFtZT y5N7JwFvi0CYFkfYcfFI5ctRVc GXdlLa9ogHjxiVkaNX7sBFEx mjmsl504PwMam2heYQHwdBQxNK mwTFR1L74vt2A1OGXnWDDiLAU9 wPR0xY5jxBmszmgygWOelKln kyVkhRdoVBeeOEowQ249CFOubW xeCcXrgvDdFSQrjII6MZ97OB57 fMObg4Y1vNO6Z4WhNLYqpfzf irajeXV2YZJfCTZymP22Cq7hbE wqAf0bVMCiLRP7CZFrzJFbF3Hn iF8dWaVmFYPrNGZtT0YuxNWg VKdoD476LYpcTyH8UVObayOrG1 LcJGQfrNsaVfL1i7R7Ft6DE3N1 TH56CU64xNDzm6A8hMT3V8Ip VHMdxitnwrzwpWD6PSMvUVVmhI 75Um7vyNdcRm8gBHVdFLI4CMId iBBdT3OldT0fAmBjZKNgKISa F5FnzYKhQQaoX540UVxoZmY4BO QtmrWbB1IvMFUzyBcsUyT8p3M6 Tc6IMEq8BC62LK14rLAbq6R0 xEJ5B5NjDMEzhzvkmswomMO0VE GtIYGzjQ80Kg4xxTzqZt0lXTTu ZPQ0YKLkqIZpN4PzmP8aKoTp OJAxWSHzG0TvxUMrSHdiL654NH luQgJ9TKGrosGvW9AkFJBolXhi ZcB9m5Y1Rf7YFSClCS84EOG2 xPL8AC89ZC15G3WoPsduzUGdiM U+PHRhYmxlIHdpZHRoPScxMDAl KvDpgBzmKM9aWw5qVMWrDRMw sOealYOyPeGoo8waVDAuRIwuXS 8mxOwvA9TqvBX1BZPtl3p4Mb84 Q93eF5FfeFV+CUTmoCL6aBM3 oC4gMhGbRcH2QHccE960EsMyaE AcIixhc1zam3fmsQq3GbN2DOIs irJpjHqmVGP1e6XhFs21T32l IHdpZHRoPSIxNSUiIHZhbGlnbj 8mwD9iOd1+YDYhiPR2yAK4qV5t SlYhWsN8MKxiQ235ArGykJFl Sxcfg1xzm4faeNs8WpTgWLHmbn SjdCmtRWN5z8NwSe88W1HdwFhn s0ZeJjs7ax13bQDpc6K0bPM5 V1WuSUQhudyvkYJpiEyoVL4bWA SnejekXMKbiE2xCHMsV7z5MzKs OnP0MNrrV2SiauV3XSVyfHYc GQzwNMT2X28ea7L0TBBaPLHsDL J7cXT8xB0ayEjkpmlxtLGteOzo ogKbgVonJUjmRJmdJ558KFYy zVckUTRefQ8dWZWjeWEmtJyuVH 5yGOXswbaqZbFXWRYNQuonH6zN TElBTTwvdGQ+XZJjFAM1cEig GVtcIMDgrG7hRXYtS1o4KlRwNc T6TDedM1IhTJGsiwytZg14zU8c VsWbNkU9GKlfK0ZulaH8QYFt cZNrMLojKIK9B83iu3N2KTUtGU IoLLA5sHA3vR7btNmnakriyBUp nPkzxkXhvVlvOXmdTElhK816 AERdbZiiBnVxBvB6TdU4OtM9G9 AhRwg6QNOztSigUD1bxVSuBHbr Sc7ckUgvzRbuSJ1lGLAvxkyy INHanY8qQAWfsCAbyIvbTJ1nOD Oibaruo098OdPyLCL6ATMskJQo V2FpuO4hUcPcBULlHFEuK2Lf jJTsLWskF765GPxiOzW5QKExio TqA6RxHBGwsDokFoL7x8R9Hv39 MiBZZWFyczwvdGQ+PHRkIHN0 bDapRGyoYMOqaU8pEFXqL7c7Kv YpSnO1HFfrA5PtBRMuabrvKy60 lR9yXhYrMaL6FTttK7WbktF4 TECajRBnWGzyZKZ8E66rv1E1UU EeUWBmOQY8fAB5aK4tqHygscdq bGVmdDsgdmVydGljYWwtYWxp C085WRKqsGngSs5ccZQ0S4TcQi e5KBFumRpuER1urMKzMTohKh4z oRceaCnuKD5uHTFieqmeIAZm hU9yIBMdmEUevRjlFD1jSFNckq uru540XyPeUOK8ZIIocVMjE1Mb kI6jGwOwHXVjXBSoR7OvrLPf JCmoS018IZhhClM3RDAhjpLpX2 FtHRLzvUtvNlO5x8G7Fm1LFIgx UU8peoRuHN4wcwW5G2QyWroh dHI+HL99ZJRxLG25aPRpyRKov7 ojoNa5CjPfDZElXIS6uPobJVzi e2PkOWIqB77zeCNnv6O8BRNn dSxsmGMnJcThkZG3vE1mMUqixa rqq9llmnjeAajwk6dgyb12qE35 N08yZZtvLRNsJVNaGPAoENDd fFnujw6mfR0fHv2+WTGnsGR0uR Q2vP5mMtPhCbV7CHoiW550DeSu bUBiHldrh6wgl9odvMy1HjRb HOPqrdPasQpuIBW8b4XfQc79Z4 9sIHdpZHRoPSIyMCUiIHZhbGln if5tbQ3lSt8+YP1eb9pmmw59 hH01wTJ+HZOtKCQ1xFnxKYmtOA WvoN9bFZniOmQ4KPKaBdYjgK91 pQPbFLdfQw1bdAezpHaoHI2q TBDvpduzp201WaSrl4jsHNTubU IcMOyzERF0R27kl4D0REKrFYRd SZC6rUT1gP1acBmghxnrrAKg jHjqfkNspUqtXHniCAhnB401JG LnyMwkNnXtyAXoN0hbjeQVQJ7i OjwvdGQ+CJUpZTF4xEbjGVft KUWunX5zXTObO2i4NlMkDcU8EV hlS3OkpuK1IDYxdTHdHTJhaRSS iW5nmtple5xhiikqKrPmYNXg GMu1ESu9AJCzeCnbJpAjDCW4Cj W6YVV0fBIzxS9bxLlarbljnE8u Oyc+RklOOjwvdGQ+PHRkIHN0 bGkiJFhcKPOohT4pNBSqK3j3Aw JcFsB9DSynW2OujdJ3SOGhdYRt RBQlcPFLyR5dhlkmr1qzwnjq ViRsQMYwEKo3CSv6KRLgwZakJf UhJVJ8WvX0PIN2fHUiaN6cgPmi yexplV9iEhm+TVJOOjwvdGQ+ NNRcKRI0vAjoIHuoRVMarL6cFZ MhG6y7YkCzGfA3SAurV1SrdkC2 IXCvcZQbTEArqFKSbE9vkfqu n2gvgnmfShGqNCYrFNh2TGl6XE XghNysXrCmCLV7RnV9CMM3lTYr pV5ndXsxzcpcuP4zSnj+UGF5 EWB5DR85WF58V9LjXcnawBFplE U+PHRhYmxlIHdpZHRoPScxMDAl OqHfoEnrVI5hTl2gFVGlBYZn bGxh (more content not included)... Normal [facility] Legal Correspondence Officeo n 09-27-2022 Legal Correspondence Office [id number]#1.00CD:127 [facility] Consent for Treatmenton Consent for Treatment [id number]#1.00CD:127 [facility] Office/Clinic Note-Physician on 09-26-2022 Office/Clinic Note-Physician [id number]#1.00CD:127 [facility] Patient Correspondenceon Patient Correspondence [id number]#1.00CD:127 [facility] Patient Correspondence [id number]#1.00CD:127 [facility] Patient Correspondence [id number]#1.00CD:127 [facility] Patient Correspondence [id number]#1.00CD:127 [facility] Patient History Officeon Patient History Office [id number]#1.00CD:127 [facility] Coding Summary.on 08-23-2022 Coding Summary. CD:[id number]:[id number] Gh0bWw +PGhlYWQ+QX7KIFLkR78xhRQvf M7IX8rJXG4FZWIFSKJVHW6KTG5 jzSD3URdeN0CevbEh HmgdcCKiJL66KHb6PBZ8tBtwEY vmbF5dzMSjH4z2BtDwSX80fK08 LXvhYLRrLaH9NsKxbtcjhJVi S9eiSaIqqCGtGgr+PHRhYmxlIH zrTJPbIYjmZGZlVlXghSmpQF3a Rv6wVZUrGYUkfExdkGQnRlUr v7pdFSZbWMszRN6lsRqmY1AqbF H9SLIdj6e0Pz10hWB+PHRkIHN0 jQweVQxsk357DjCaf0ftFIA2 rMWhQQozUBI6F45qu2R6UIBjIX CmKHJ1pUA5pG6ewFjsbcadL0Tu xUXrIeU0QRI7mGCvvB0xoQpu yofueT6yDha+E05YFW8PIZVXDD 7UNes2B1CuRqcvhJN+CX40XVXy UB51vEXcmEZbw5noiWc8BmBv OLRwUYA6rZpeKFfym1QmMSBnY5 5jhUEld3Q9CEIhqJxckNVxIaMp qZD6vV8sCHccbhejv4isvyoc Nqdcf9umah18lO94D82wQPbkPF GzCSU8RDBaKZJffItlzd4msW1z Ii8+DOegn0dva2masYs1NnEk MPJtgjPaiDrhMGQ9g1HsZa26Z0 XnbPswi5IhRav1cd16eOFim0E4 mKY3GGyiXAQydO7uRVikNeI9 BVRvRxSepO70nKEbKTinKl9tqK jxxMdvJC4eJNQdyutxVYDdvB7r SMWzvIRpxIxrOJ2pPAFhwont l210HaPkXLQ8ZRMsnMYnL5WsiJ 5aUmHqBEFdUBTfI7BiiFQxNOix J879JWawDpY0QQOwpoItH1Me CRJilDeiHlK4w5J9Fk5Gk2Tyhq njIDH8VAsrAZVdLzNnYwMfQnP3 J5WaHbd4VVHgfYvwMW8pU3Wx WXUptewtxolymGP5ENUsQNGuaN 52pDHmLTmdSn7ae7T0m716WMRw FIIieF77Ro8zzHxnIMNpjGZY zV0jlvamk1bkvjwpSxVrLRYpYK g0WYc1YGOjvVuxIeWxFPU3NeO7 HQF6nZQjhB3ujRkmuasgoH2u Oyc+T31ooB7wFXT0PQE1kewnOQ OzezOpIF09CH30S9AjVyktdJLb bGU+SGVhcvOdzEfkXW7lKeBo j7heb0IqGGwfJ9FvAOHhEKzpZb j7ZYJhUEH0tGD3kG6yFGOvELzb f2G5lGP2K9UxezLfyr3op1uf ELFoRUerD79mgARqo9N0TULpxU A5OMMllFfpQtZcqQ28Ild+PGNv fTvmd9GeOpfun2oph1jbuDh5 JnUwRDFjfaTraJefLRA3v5YrZw 30Q77xGOdxINDhHOApYFExCNZp xAicml7cpR3rXc3+PGNvbCB3 kRX3fW3hDOHbVgJ1RAajE653Ak BahABtPinbp1hck1nhjEz2OvKt TJGwnhHybUhbQNA0e5KbDg84 J82wGBmoKPEkQNLdEDVzMXFqbY dklf1goK4kOa9+FP4xa8geat28 sW05rRJ+QACqJCJ0jPyjQLzj DLRmgB2xWUikIeO9AYIxRoHcgI 47bEKjJRbbMj5snQsjjWpvOA6o FSSxsdryh847XwDkc3ciQGRd pJNaAWyqSYR5W97do9D0HSOhRQ BtTIW6eNE6yW9zlMdwagfwdVBc iWzpdhHzwSsoWSjmKUowJ062 IHRvcDsnPlBhdGllbnQgTmFtZT w0K5KuSba5EIBaxOcpQL6hwLQu CZfiHo5fcZgjgOxeKF4wQPTz hbprg455LyDhy4neNMZovNHvWR ceGHY4L43ku3W0CZAhYORzUIO8 aZT7tR4jxQnahzfudDYctVgv veOdmUneMRwzGCigG555GQUzoT fiDmHcetKaDRWxgDA1GO49XF83 vMYfo6E7mDQ7U8SaBVZiwsqs lmrjtYG1RIUmMJKqyV99Fs0kgG ywXj7fCMPpHOG6STKgbTBlI6Jp uL0sXcLgFNMsYOPhS3MuiLTu GGolB877SHlgHvE5AUTdohWjA4 TuYNEycWwaZlD1i2H8No0XS0B6 TI22KG94iWAhl9G9jVR3K8Rp DRAzgjxrtzbvcOC8PGWzBXVapQ 49We3txYonQp8hVEXwJQS5FXXy fTHnY3NneJ0xYdTpZGYuPEYb O0WzuSRoDXlpS183HXfdLkI4TC YsapXhY9EqEQKbhAzsPbS0j0D7 Yu9FYWo7XB15IQ58rNUpv6J3 vPW6R8JzQIWabxhccwgfeWA4GR KyINOmqO75Gg9hdUuhZj2dFQMq CGS8GHBlzXOjJ7MsxQ6rHqXd FUWxPVQtF3LmqOBtESywW479SS mmTwP9HOYmyfPkT2LfDOUxiVvg SiQ2o8S1Yp4ZJVHmDR15MXB6 jGZ2OW64QP01P4UvIsrvzNQqdN U+PHRhYmxlIHdpZHRoPScxMDAl NtEpvBylRR0eAe6gMPKbJSCd xZsoxXZnVoGts2psTQReWBprYP 0viTdyW8EdjJJ0FWMgz2n3Ek23 G21eG6YfePR+QGUoaDQ1fUD5 tQ5lMyFfYfL7HEwfD777RmJdwV MeUbjiz8qzm6yvkYx2PkR4IYOe zlKjsPeqFDB4h1YuMt74Y38q IHdpZHRoPSIxNSUiIHZhbGlnbj 2ubW6fBv5+HHHetRR2zMS6pO2j PxMnXrU8DPqyS945TdMovPQy Etnis5bui3tzoMf8DtVtPNFlyt AjbNbhUIJ8r0IrEq49I2QolQvp x2OzArs3sh00uQOec9P0zJV2 U2UnPZQerxzduMBmnEvcYN5pTL FclwidSYSutQ7fTZOeV2c5LaJy XkO5LVwzU4MvhaO6UVRcjFZd QLhaEKK6K33mq5N1PWKgGMCtPC E2gIY8jQ4yiWnndnjcxJOccSwx igSlvJwwWXbgOKciH872USPe fTloCLRmmK0cMLWqrCFqlKlqOL 7jWNLoadilSpHYQVOGMucpK1nM TElBTTwvdGQ+ANKlKXA1xNrk JKzaBOQfkX4pJFInN7r3NiRcMo N4LVjuU2JtBHMhtftwLh86wQ6v NjGdRtS3JCfuX2XhnuA6PZRn iTFpFQevMWF9D63ht3A3UVIrKB UkKMR4uDO5qR5ndMhzpicmaDCp aObtxcIvmCymSTlzNEzsU656 AZKydOqkPlZhHlJ2RkD3UhF1R6 LvLjd7QJJomOtnDA2pwPSiVGxm Qv5jaDybkQlrTY1nRBEruoip SIZswW2pWFHjdMMgpYomAC7vSU Xinmwic117KrDmHGR5WQWycLKv Q6EqaP6gRySmYHAmMQMyU1Kl eSUcLRfnX657TMyzYmB8SZDzei MbH0PhOBGrxGdwWxN8n6E8Tk86 MiBZZWFyczwvdGQ+PHRkIHN0 sRjnXKnlGSBznY5eFFXyR2w1Xe IhDeW4RItbK6DcYQXcbzzwFr63 hS3iHyQpVmB9JSxnK1IorkM9 NRZrcVOdIWvbCHJ0B29cv0J6YN PwVCVdVSZ8pZM2oM7moWxoayri bGVmdDsgdmVydGljYWwtYWxp S979VJDukTvyVk6exRD4J8KfGh y5XGQmcIdyBX7avJIiKAzrCy7z aTytfSqoBD5iBUCzgckcJHLy dA2mQPNobLYocCwzUN3lUAZuqn uvb586UzJpAVW9NFJikVOpX2Nh mQ5uZkMsTZSuJABxI6XglSYy NGemM871WEgyQnO2GXXlloIgS6 NoKHWfeRjaJcL5t3P3Ps2IEOdd NP6pkxTkLC8qxaW5B0MfWabe dHI+BU78NBAoTR85pYYjgTKcx3 sdyJd0NxBqOOZoPOJ7sKpbFBip q5YrUPSbV27erTNmc6Z5PBXu fLajfIEsVaRftSW3hV1oYJuhyi sdn0qumsjnQzdcf5fqhf76mP50 I24mJIctBLTcQHMxKZOgPRQv pUrnse6jlI3jEq5+RGDxvZW4xW C9uQ5oSjKaJtJ3FMqiE562QlRj lUPrHtrlq1rtv4eqkAd3XeHh OJOkscPgrWhlTSG5b9AkJi21V7 9sIHdpZHRoPSIyMCUiIHZhbGln ep7gwR2mKd2+NE9hc7ugwe38 xP09uFR+FIBnKBU4cYzoBUoiOL OxfA8sNFttHeW1INAtNiBuaP46 xZIwNDjgZb6zuAcxeDztKC9t BFXrgsmzf600XrYrn4wcELXolI IjNRznWYI1E46jf5S2QDEpVDQi HRS1rRL0rJ0nhKfarmvgkADk cJrhqrKluOupYOegRDyoG650YR ZjmDxsExXesWMkD0fidmSSGR5m OjwvdGQ+GTYoFEX0yWkjTBuv SGBydW7tVLTkA3b8QrGbNhE8KJ cpT0WbhaT9QXYkcZEyRKKczXRQ zP6oompym0jwyhgnIqBmTHZs JJh3PHs1DYBmfYmuTgWaYYX8Lf H1QKE8uPCzoH9fhDobmacifG4f Oyc+RklOOjwvdGQ+PHRkIHN0 eEwbGVvuJXKwcK2uDDDrT5j4Cm HiRiZ5HEotO7WgtxG5VTXvxJVy BAOkeBFRhT8xgyevb1ctisne XsLoDJVfGQn7INh5KPEbmMnrWl FkASY0SeY3YRX7hNUkbP9qwZdy anjkfN0mIgb+TVJOOjwvdGQ+ XECkPIP9kThaCLydDKMqiZ9vBR JdK3q4NkAlDeN8XZpeH1BlsmY4 WGImwIGtHOLwdOANoN9fqzek e6kdncivJrWqCQCfKOh3ZRg3TG GohJtaXjCxKHI5YgW0PRO8rVBn rY7qwBnqwjpsnN2nZxm+UGF5 VUW5NW07JV96N8LiQsqcnBLkuW U+PHRhYmxlIHdpZHRoPScxMDAl QoPbzBhwTM9qOv2rUGNyMXFh bGxh (more content not included)... Normal [facility] Operative Reporton Operative Report SURGERY DATE: [...] condition. Hong Edmondson M.D. lr Dictated: 08/21/2022 [id number] Transcribed: 08/22/2022 [facility] Comment on above: Result Comment: Elec tronically Signed By: Delvis WHYTE, Hong\.br\Date and Time Signed: 08/22/22 17:47 EST CHEMISTRYOrdered By: Lab ROP User on 08-21-2022 Glucose [Mass/Vol] 74 mg/dL Normal 55 - 99 mg/dL [facility] POC Subsection Comment on above: Result Comment: Maru laberts RN/ POC Device SN [id number] Invalid Interpretation Code [facility] POC Subsection POC User ID [id number] Invalid Interpretation Code [facility] POC Subsection POC Username KARIS ELDRIDGE Invalid Interpretation Code [facility] POC Subsection Capillary Glucose POCon 07-25 Glucose [Mass/Vol] 74 mg/dL Normal 55-99 [facility] Comment on above: Result Comment: Maru WHITE Performed By: #### 2 [id number] #### [facility] [address] [place] [address] Consent for Procedure/Surger yon 08-21-2022 Consent for Procedure/Surgery [id number]#1.00CD:127 [facility] Consent for Treatmenton 07-25 Consent for Treatment [id number]#1.00CD:12 7 [facility] Discharge Instructionson Discharge Instructions [id number]#1.00CD:127 [facility] IntraOperative Documentson 1 10-21-2021 IntraOperative Documents [id number]#1.00CD:127 [facility] IntraOperative Documents [id number]#1.00CD:127 [facility] Main OR Intraoperative Recor don 08-21-2022 Main OR Intraoperative Record IntraOp Document Type FTPM Summary Primary Physician: Hong Edmondson MD Finalized Date/Time: 08/21/22 11:35:10 Pt. Name: MAURO HEBERT Gosia/Sex: 1970 Male Med Rec #: [id number] Physician: Hong Edmondson MD Financial #: [id number] Pt. Type: P Room/Bed: / Admit/Disch: 08/21/22 [...] Lawson RN Role Performed Surgeon - Primary Overhead Garage Door Hanger - Primary Scrub - Primary Time In 08/21/22 11:27:00 08/21/22 11:27:00 08/21/22 11:27:00 Time Out 08/21/22 11:35:00 08/21/22 11:35:00 08/21/22 11:35:00 Procedure SACROILIAC JOINT SACROILIAC JOINT SACROILIAC JOINT INJECTION(Bilateral) INJECTION(Bilateral) INJECTION(Bilateral) Comments Last Modified By: Candi Grant RN, RN, Candi Marc RN 08/21/22 11:35:05 08/21/22 11:35:05 08/21/22 11:35:05 Entry 4 Case Attendee Hailey King (R) Role Performed Diagrammer Time In 08/21/22 11:27:00 Time Out 08/21/22 [...] and tissue Entry 1 Skin Integrity Intact, [place], Warm, and Skin Abnormality No Dry Outcomes [...] The pa (more content not included)... Normal [facility] Main OR Preoperative Recordo n 08-21-2022 Main OR Preoperative Record Holding Area Document Type FT Summary Primary Physician: Hong Edmondson MD Finalized Date/Time: 08/21/22 10:11:46 Pt. Name: MAURO HEBERT/Sex: 1970 Male Med Rec #: [id number] Physician: Hong Edmondson MD Financial #: [id number] Pt. Type: P Room/Bed: / Admit/Disch: 08/21/22 [...] 10:11 Mireille Mancilla RN 08/21/22 10:11 Normal [facility] Insurance Correspondence Off iceon 08-13-2022 Insurance Correspondence Office [id number]#1.00CD:127 Normal [facility] Radiology Outside Office Service Correspondent yon 07-22-2022 Radiology Outside Office Copy [id number]#1.00CD:127 Normal [facility] MRI BRAIN WO CONon MRI BRAIN [...] DELMAR GOMES Date: 2022-07-18 17:[address] [facility] XR LSPINE MIN 4 VIEWSon 06-23 [...] TAMMIE MESSINA Date: 2022-07-18 18:[address] [facility] Coding Summary.on 06-20-2022 Coding Summary. CD:[id number]:[id number] Gh0bWw +PGhlYWQ+JY4PGTShR01vkFRsl M5GO0iPXW9WAQAGBMLQSY6ITF3 ihOL7IGsbP5DtseFa OwlqlMBsAI13BJh0DQF2fPrjUO eycK6wsYOeC7w6PrQdTA61lZ63 VJbuEEBbJbS1HjWzcvszxSVa M9sgEwDllKYbNad+PHRhYmxlIH qoTKVaCIuvDEKiIaFqsBmmQD1w Vj5mQPCcQWXrwEjrsYPhDrGt k3ytFHCfSMluIE7cyJzeZ7SizS K2WMXeb2s1Jq76sWP+PHRkIHN0 rBfxKNyet652MbFwf5alKYS7 hBOxPEskIRS1L65nb8S9YJGuXJ PeOZW7cQV9tY5eoDuegcjtW8Np vFEnMsW7SUJ2kZCpmV4djFcn cumuqJ4zQmn+W14ZQD5AQLZGGM 6CVfi5Y2LsUexetBR+YO88YEFh VD63vGWijRSeh6ewbWe4RzUj UZZuIBV7lLzgLUqfg6FyWTAlB8 8akSOdd7I0YIFyhVxmsNKgCgHl dEP3xR5aMBrdpwphc5mumviv Bkvyh6mpgm74dV39F57oEDbtSY HwANA8PDIiJJOvgCrbii5etJ3y Ii8+YGbfq4wos3mpsIt6NkCp NAVznqCfgUpcIQI0f8QnAb52D9 OvfRktx9FiNhh2zx83rUWru7H6 rIB8WTgrIUMogY5lXTzaDiF2 MRXiFuZhdB68oZLhLVnyGx1hjP gojHojOI3pYJQsxavwKIYvhS8d FRNcbRUdrOieNW4eJXBjcwaj s070RjSgLWT9INGreKStA5UuuH 8iPlReIHUtIWIiX0TevOAbFYma M867NMfiPaB3XVVanaExK7Kk BDPefGgwJiB3f1I4Qh4Ko5Lwmw nvEAD8EWebNRB1FwG1BsCbZgL3 R2QdAtx1TANbmKzpYD2uI2Hp NBByxtlcfbdyaLM7WRQlAKTphY 09aEGeGYokQp8ll9H4a856JZKd NDZldE18Gx8saGhpKNWrmFZU yQ8ikjohe1qjdapgEtWzWDSjOH c4RLh3DGKguRcdArMiQMG8IaX0 USD9mBGeaO7srYwspfcbhG7l Oyc+C26kxC2gGNJ5QRI7kisyJE KinbGoVY02CE41X4LuNfdkoQNv bGU+OSHbwqTasWiaPJ3pPjBf q2iaw3RhRChoV3AbRPDrZMdjEm a3FQFuEPP6lUJ9qN7cUEVlWLss n4L3cRP0P6RelhWfex3qt7ld DTEhYMniE03zaPLty2R0DQLdgZ C8GWFlmJaqOcRxrK36Wmz+PGNv bZjxm2XpAafwb6ppf2fbeEo8 CyMiYCFkwdCgwXjdMFR8v9JdTy 97H19oKGigVMJkKXIsHNVjMMVz lNjaok7gvU9iPv5+PGNvbCB3 vHU9nS9hFJNqFrG5KTpgM631Gp VwhYBfSmdvs8zln2qvnUe4BgWa SYLvnsKucHmuAZP6l2OvDi81 K01aEQnbCFWhUHDqBBIxLCAqqK ntlz6yjT4wZj7+JE2nh8royf37 hY95ySI+WWOjZIF8jVljBBha LPHeoK6vCFpfOkX0KESvFrUlsE 35wEUrUKktLx2tyPxrhHqqEN2u ERTjcdihu591YiJxe4gbIEYc qGVbUPspCBS8F04dg6Z5COBuMI SrLPI8vAH2eN5emEvbbocvoRFd mVzyscFduSlzCFbbSYtjM480 IHRvcDsnPlBhdGllbnQgTmFtZT d5Z7XlWvc2FPDvlWssRL4jqWJd IFhtVt2kaHgajFxhZS8kCYFb yolic852PoXhf0qrQJHfvBOyND auJYK4S74yw9R4TCMlIEAlBJZ7 uCX9eX7bmFbqylsyiPYjtGvf nnHklYfdYEvqIXaeH568KHPwwO bmKeQhgqFuTJGbuER2CA47SN75 kHGza3J9aVE3Q1OnABKseodh scvdkNK5PDZcVUQtqD02Gg7cbJ ntAw0cYUXeGIB0UGHjjJZbD0Hi xY3bEnPxNDIbTETgV7RxrGKe SNkcN348TQuvBbW7TDKeocQyM5 UrZBEnyMilMqN9h0U8Vp1AG1A6 QD42JD64yITjq9Q2iVG1N5Qh KWGnpiguklpgdOZ4URWrLBCjoY 30Xy8ixRveGm8mSMKjUBI7YWHd qIIzO9KdbY4fFwBqEHBxJUBr X9TciUEeQMrzB566LQjzUaP4XB FnwaVpX1CbJFHdvBnlTsE6j2X7 Wm4VFYq9IF05LS89oFXgr4B8 aDF9O3FiIHOipnqdacdqgBX0ML DlCATseN14Dk9uiVtsPu6eNEBw PUX1XFLqqVJrK5NacX3mQxLb UYOyUHXnZ8TbvVVaADrwP548RV maOlN6VIAgkgFtL9VtJCFvzHsq FwU4a0D6Ye9WOPKuUI22ZTR7 wCS7VW77KP69M1MlAnkbqUIsdZ U+PHRhYmxlIHdpZHRoPScxMDAl CaZdwRbyDT3uNu5kRCIwAJEs hMaqkYIpDaVxq4sxPQGmMVhsHB 2npBmuO8DjkSJ5NBBkp6d6Ao63 E74eG9GuxFI+WNUtzIB4bKP4 cV0dYlZzTpY3AAfmP174SwVtiW LeVtbby4okf8hleYq0BxO5ZMUi wmVjcOjqPHP8p4TpEh82E35i IHdpZHRoPSIxNSUiIHZhbGlnbj 2sqE1nDm9+CRIbzNI3aYK6qH5y HmBfYoG7OMbnV960MkTmyNGm Yzihv4ust2salAa7UeNeZLSezl IxwHumYVE0g9AxMf97U6OdbKfv f4HkGhh0uo97lCHlz7Y4tMY4 C5CzBRMwssttqIDvwYypWW9gGY PqfnnbVOJzkJ1jOETsA2l2VkMm HuZ4KHtgO4JrtqA7UWIozYSy XThtJUS6I95jm6K5VTXuWFMyWW C8iQW5xU9mwHnlnjetcFEvxKhy teFgwVfeLTkuKRfjW140VKIb dCkgHGZamT0qPJVqlEZijQdzES 3bGYRftusvSfULJPZOSnvjX2pP TElBTTwvdGQ+BYMcRPL1qJio HZuvYAQeiS5kBFNiJ7z7IkYsZl B5FKlbK0KfVVNcqqzxDs34nL9t ErFzTyT3CUjbU9OgawB4FJMf tXChZVghIQH7W86th8J6DQGcVE MtGEF7lXX2zP9ynRwtkyqgeBHv lIjmsoRkhHyaSQehPInzE288 CNDebGkkKgKxAlQ1ZqE9ZvB9E0 IiPln9UXJtjPtcNG0pfQAeBMsw Br0kxAjvtKktMS3lNIUqghvl CHNsiB7qWROztQOuwXbgSQ3hHA Ucdxtep545AdCqKGA9CDRflUDz G4SoeV3aClBxOZKqTMKxS5Lq vQNpVMpoO864NBahLmW3EHQrqg WbH6LrUVOgeEygXxV9a6D7Wm98 MiBZZWFyczwvdGQ+PHRkIHN0 cJvsCXqbXMLtuE5hPKFrB9t0Mj ZkTdP5BUmaJ2RdAKAplsloVa44 hR2aKyLhUzJ7XXkgS2ShssK5 ATBvrWDvMEafKNY7B93aa3T7KY CsPPQiZHR5jSF3eN2weEweqrmd bGVmdDsgdmVydGljYWwtYWxp W440AFPquLymGp3znFU7B9XyLr g1MRHqwZxwDJ3hhCSnGAtlUp2i rAebdKanCB0wKDJkkoegTGNm tL4nAFAnoPBruHvjSM4bSUVfaz gog009QoLgSMA0MDHsiHKvX3Ue oH7rRnSyRQXjACTmB3PxqWOp ACmvW053SRbhUdB7RYUjgmOoF1 LmVKBwrQixCkL5g7V8Cd6FSTti XX3yxmHjKN3jjoO8V3OwJgio dHI+QQ77RVIsYW80jFUdbFBtm6 gesUg0QrHwJRPvNFQ7uFdeKBwy l5UnFTOcJ91nmPXmb6U8QOSp cSzqlQEzZeRrbZB3wP9zCCocqb vbe6osmdecFmape9hput01eX32 H67xIDdhUFCkKMVlPUByKMGb dHvebv4ncT0mPv7+CMBziBM0gA C3vC6wHeJgCjH9PSvcJ470EdJw dSUhCuzxr9rsc9zgsGf7BpOh PRLzmrKrkUfvWTB1o5KzFx32O6 9sIHdpZHRoPSIyMCUiIHZhbGln bu5kyL7jLh9+OD0dz1inhb91 hG30vRK+DOInHKH2zOwrFKovLQ RruR5oWGhfLgO8AXUxQeEljI55 iSYpIExsWu4lrCkrbOltSH7n SSYdpdcgi363NaNlo2xjSVCaaG EjCJfcGDZ4D12jh6B2VPJuJJKi LEX3gUZ8qH6lcDpvxvbqqRSi tEmpycOmhVojKXtlEUlaY813XX RunVkkVvBaiZFuL2tfpnLSGK4i OjwvdGQ+AOGeFYH4lBkaSJmv TEZusI2pTPPoP1m0IpAqAgW4ES fnA7FxqdM8IVOqeXSyPRKlnMFU vC5ogspty3hedrjjUjHwGKQg JDb0TRh3ZHIisHldNuSuUGR6Ul R0GMH8fJKclA9cuSczlpwxbG1j Oyc+RklOOjwvdGQ+PHRkIHN0 fVjcUDsmLKKftH5lRQLnR1m5Ul YtRsM5YFpgU0HmmbY0EJBcmDUi FQPaoCKSuI0fdpilc0umkoro PkOsKJHbLHm5VUj3JPXvqEdwKr BdNZI9FrM7MXM4fFAxnA1ueFmt ncblfY3jWca+TVJOOjwvdGQ+ INXsVUX6gRznJBwsLIHmeG0bDJ LrI0d8ClEdBhS2LDrnE3YirhG7 EEOoiGGvDXNevSIQeO4eulmi i0kkjjpcCkFcPXUqFXg1PSr5ZP ZbzYywBmGyBVQ1IaC1KXV5rJGh sG4onMmyvttxaI9iNkz+UGF5 VTE1CB90QH45S9LnSywpdNGszP U+PHRhYmxlIHdpZHRoPScxMDAl DgKcrDacRW3eRr6hYAGmXVHo bGxh (more content not included)... Normal [facility] Outside Records Officeon Outside Records Office [id number]#1.00CD:127 Normal [facility] Consent for Treatmenton 05-24 Consent for Treatment [id number]#1.00CD:127 Normal [facility] Office/Clinic Note-Physician on 06-19-2022 Office/Clinic Note-Physician [id number]#1.00CD:127 Normal [facility] Patient Correspondenceon Patient Correspondence [id number]#1.00CD:127 Normal [facility] Patient History Officeon Patient History Office [id number]#1.00CD:127 Normal [facility] Physician Orderon 06-19-2022 Physician Order [id number]#1.00CD:127 Normal [facility] Release of Records Officeon 06-19-2022 Release of Records Office [id number]#1.00CD:127 Normal [facility] Basic metabolic 2000 panelon 01-31-2022 Anion gap [Moles/Vol] 9 mmol/L Normal 9-18 [facility] Comment on above: Order Comment: Speci men Type: BLOOD SPECIMENOrdering Facility: [facility] Address: [address] [place] [address] Performed By: #### 2 4321-2 ####[facility] LABORATORYCLIA [id number] [place] [address] [place] Calcium [Mass/Vol] 10.0 mg/dL Normal 8.5-10.2 [facility] Comment on above: Order Comment: Speci men Type: BLOOD SPECIMENOrdering Facility: [facility] Address: [address] [place] [address] Performed By: #### 2 4321-2 ####[facility] LABORATORYCLIA [id number] [place] [address] [place] Chloride [Moles/Vol] 98 mmol/L Normal 97-105 [facility] Comment on above: Order Comment: Speci men Type: BLOOD SPECIMENOrdering Facility: [facility] Address: [address] [place] [address] Performed By: #### 2 4321-2 ####[facility] LABORATORYCLIA [id number] [place] [address] [place] CO2 [Moles/Vol] 28 mmol/L Normal 22-30 [facility] Comment on above: Order Comment: Speci men Type: BLOOD SPECIMENOrdering Facility: [facility] Address: [address] [place] [address] Performed By: #### 2 4321-2 ####[facility] LABORATORYCLIA [id number] [place] [address] [place] Creatinine [Mass/Vol] 0.88 mg/dL Normal 0.73-1.22 [facility] Comment on above: Order Comment: Ahsan christopher Type: BLOOD SPECIMENOrdering Facility: [facility] Address: [address] [place] [address] Performed By: #### 2 4321-2 ####[facility] LABORATORYCLIA [id number] [address] [place] ESTIMATED GLOMERULAR FILTRATION RATE 103 mL/min/1.73m??? Normal >=60 [facility] Comment on above: Order Comment: Ahsan christopher Type: BLOOD SPECIMENOrdering Facility: [facility] Address: [address] [place] [address] Result Comment: Layla mated Glomerular Filtration Rate [...] actual GFR. Performed By: #### 2 4321-2 ####[facility] LABORATORYCLIA [id number] [place] [address] [place] Glucose [Mass/Vol] 126 mg/dL High 74-99 [facility] Comment on above: Order Comment: Ahsan christopher Type: BLOOD SPECIMENOrdering Facility: [facility] Address: [address] [place] [address] Result Comment: The [place] Diabetes Association (ADA) provides guidance for cutoff [...] Standards of Medical Care in Diabetes 2016, [place] Diabetes Association. Diabetes Care. 2016.39(Suppl 1). Performed By: #### 2 4321-2 ####[facility]ORATORYCLIA [id number] [place] [address] [place] Potassium [Moles/Vol] 5.1 mmol/L Normal 3.7-5.1 [facility] Comment on above: Order Comment: Ahsan christopher Type: BLOOD SPECIMENOrdering Facility: [facility] Address: [address] [place] [address] Performed By: #### 2 4321-2 ####[facility] LABORATORYCLIA [id number] [place] [address] [place] Sodium [Moles/Vol] 135 mmol/L Low 136-144 [facility] Comment on above: Order Comment: Ahsan christopher Type: BLOOD SPECIMENOrdering Facility: [facility] Address: [address] [place] [address] Performed By: #### 2 4321-2 ####[facility] LABORATORYCLIA [id number] [place] [address] [place] Urea nitrogen [Mass/Vol] 15 mg/dL Normal 9-24 [facility] Comment on above: Order Comment: Ahsan christopher Type: BLOOD SPECIMENOrdering Facility: [facility] Address: [address] [address] Performed By: #### 2 4321-2 ####[facility] LABORATORYCLIA [id number] [place] [address] [place] CBC panel Auto (Bld)on 01-31 Erythrocyte distribution width (RBC) [Ratio] 14.4 % Normal 11.5-15.0 [facility] Comment on above: Order Comment: Ahsan christopher Type: BLOOD SPECIMENOrdering Facility: [facility] Address: [address] [place] [address] Performed By: #### 5 8410-2 ####[facility] LABORATORYCLIA [id number] [address] [place] Hematocrit (Bld) [Volume fraction] 42.5 % Normal 39.0-51.0 [facility] Comment on above: Order Comment: Speci men Type: BLOOD SPECIMENOrdering Facility: [facility] Address: [address] [place] [address] Performed By: #### 5 8410-2 ####[facility] LABORATORYCLIA [id number] [place] [address] [place] Hemoglobin (Bld) [Mass/Vol] 14.1 g/dL Normal 13.0-17.0 [facility] Comment on above: Order Comment: Speci men Type: BLOOD SPECIMENOrdering Facility: [facility] Address: [address] [place] [address] Performed By: #### 5 8410-2 ####[facility]ORATORYCLIA [id number] [place] [address] [place] MCH (RBC) [Entitic mass] 30.8 pg Normal 26.0-34.0 [facility] Comment on above: Order Comment: Speci men Type: BLOOD SPECIMENOrdering Facility: [facility] Address: [address] [place] [address] Performed By: #### 5 8410-2 ####[facility]ORATORYCLIA [id number] [place] [address] [place] MCHC (RBC) [Mass/Vol] 33.2 g/dL Normal 30.5-36.0 [facility] Comment on above: Order Comment: Speci men Type: BLOOD SPECIMENOrdering Facility: [facility] Address: [address] [place] [address] Performed By: #### 5 8410-2 ####[facility]ORATORYCLIA [id number] [place] [address] [place] MCV (RBC) [Entitic vol] 92.8 fL Normal 80.0-100.0 [facility] Comment on above: Order Comment: Speci men Type: BLOOD SPECIMENOrdering Facility: [facility] Address: [address] [place] [address] Performed By: #### 5 8410-2 ####[facility]ORATORYCLIA [id number] [place] [address] [place] Nucleated RBC (Bld) [#/Vol] 10*3/uL Normal <0.01 [facility] Comment on above: Order Comment: Speci men Type: BLOOD SPECIMENOrdering Facility: [facility] Address: [address] [place] [address] Performed By: #### 5 8410-2 ####[facility] LABORATORYCLIA [id number] [place] [address] [place] Platelet mean volume (Bld) [Entitic vol] 9.4 fL Normal 9.0-12.7 [facility] Comment on above: Order Comment: Speci men Type: BLOOD SPECIMENOrdering Facility: [facility] Address: [address] [place] [address] Performed By: #### 5 8410-2 ####[facility] LABORATORYCLIA [id number] [address] [place] Platelets (Bld) [#/Vol] 354 10*3/uL Normal 150-400 [facility] Comment on above: Order Comment: Speci men Type: BLOOD SPECIMENOrdering Facility: [facility] Address: [address] [place] [address] Performed By: #### 5 8410-2 ####[facility] LABORATORYCLIA [id number] [place] [address] [place] RBC (Bld) [#/Vol] 4.58 10*6/uL Normal 4.20-6.00 [facility] Comment on above: Order Comment: Speci men Type: BLOOD SPECIMENOrdering Facility: [facility] Address: [address] [id number] Performed By: #### 5 8410-2 ####[facility] LABORATORYCLIA [id number] [address] WBC (Bld) [#/Vol] 12.19 10*3/uL High 3.70-11.00 [facility] Comment on above: Order Comment: Speci men Type: BLOOD SPECIMENOrdering Facility: [facility] Address: [address] [place] [address] Performed By: #### 5 8410-2 ####[facility] LABORATORYCLIA [id number] [place] [id number] [facility] CNDSon 01-31-2022 CNDS HNO ID: [id number] Author: Sue Kang APRN.MARINE FIRER Service: Orthopaedic Surgery Author Type: Nurse Specialist [...] by mouth twice daily. calcium carbonate/vitamin D2 (UFNKUJO-044-I ORAL) 1 tablet Take 1 tablet by [...] with Provider, RN, Patient SIGNATURE: Sue Kang APRN.MARINE FIRER PATIENT NAME: Mauro Hebert DATE: January 31, 2022 TIME: 9:36 AM I personally spent 30 minutes directly supervising and providing Level 1 Care exclusive of any other billable procedure; over 50% was spent providing discussion, counseling, and coordination of care. [facility] NURSING PROGon 01-31-2022 NURSING PROG HNO ID: [id number] Author: Sheree Shah RN Service: Nursing Author Type: Registered Nurse Type: Nursing Progress Note Filed: 01/31/2022 11:20 AM Note Text: Nursing Progress Note Patient Name: Mauro Hebert Patient Location: [id number]- 01 Daily Note: 0900 VS stable and afebrile this AM. Denies pain in LLE at present. Neurovascular checks WNL's to LLE. Abductor wedge in place between LE's. Will monitor. 1100 Up in hallway and on stairs with brace on per order, with PT assist. Tolerating activity well. Family at bedside. This note was completed by: Sheree Amezcua [facility] THERAPY NTon 01-31-2022 THERAPY NT HNO ID: [id number] Author: Shu Londono, OT/L Service: Occupational Therapy Author Type: Occupational Therapist Type: Therapy (PT/OT/Speech/Resp) Filed: 01/31/2022 1:29 PM Note Text: Occupational Therapy Evaluation SERVICE DATE: 01/31/2022 SERVICE TIME: 1125 to 1210 ROOM: [place] [address] Recommended Discharge Disposition: Home OT Recommended Discharge [...] Environment Patient Lives With: Spouse Assistance Available: maritime guard;PRN (Parents can come help as needed) Comments: [...] Diagnosis: Decreased activities (more content not included)... [facility] THERAPY NT HNO ID: [id number] Author: Oneyda Mcdaniel, PT Service: Physical Therapy Author Type: Physical Therapist Type: Therapy (PT/OT/Speech/Resp) Filed: 01/31/2022 12:15 PM Note Text: Physical Therapy Evaluation SERVICE DATE: 01/31/2022 SERVICE TIME: 934 ROOM: [place] [address] Recommended Discharge Disposition: Home PT Anticipated Discharge [...] Environment Patient Lives With: Spouse Assistance Available: maritime guard;PRN (Parents can come help as needed) Comments: [...] signs-other Interventions Provide (more content not included)... [facility] ANES POSTPROC EVALon 022 ANES POSTPROC EVAL HNO ID: [id number] Author: Fazal Forrest MD Service: Anesthesiology Author [...] January 30, 2022 TIME: 6:00 PM CSN: [id number] [facility] ANES PRE-OPon 01-30-2022 ANES PRE-OP HNO ID: [id number] Author: Fazal Forrest MD Service: Anesthesiology Author [...] [employer] REF # [id number] rep. Shaquille Sagastume [phone] Location: MM OR / MM OR Surgeons: [...] mouth twice daily. - calcium carbonate/vitamin D2 ([id number]-909-E ORAL) Take 1 tablet by mouth twice [...] January 30, 2022 TIME: 12:33 PM CSN: [id number] Normal [facility] OPERATIVE NOon 01-30-2022 OPERATIVE NO HNO ID: [id number] Author: Nahid Estrada MD Service: Orthopaedic Surgery Author Type: Physician Type: Operative Report Filed: 02/05/2022 10:14 AM Note Text: [facility] - Operative Report MAURO HEBERT : 1970 AGE: 51. SEX: M PATIENT TYPE: A HOSP SVC: ORO LOCATION: [facility] ATTENDING PHYSICIAN: Nahid Estrada MD CSN NUMBER: [id number] DATE OF SURGERY/PROCEDURE: 01/30/2022 INCISION/PROCEDURE START TIME: 1403. INCISION CLOSE/PROCEDURE END TIME: 1530. Please note, the fellow performed portions of the exposure and repair under my direct guidance. PREOPERATIVE DIAGNOSIS: Left gluteus medius tendon tear, chronic. POSTOPERATIVE DIAGNOSIS: Left gluteus medius tendon tear, chronic. SURGEON: Nahid Estrada MD EMPLOYEE BENEFITS DIRECTOR: 1.Delmar Miguel MD. 2.Yosvany Bhatia PA-C. SURGERY/PROCEDURE: Left open gluteus medius tendon tear with excision of heterotopic ossification. ANESTHESIA: General. LOCATION: [facility] [place]. OPERATIVE INDICATIONS: Pleasant male with chronic lateral [...] DESCRIPTION OF PROCEDURE: Patient was brought to [facility] operative [address] on 01/30/22 after marking [...] team, confirming the site and extremity, ensuring receptionist telephone operator of 2 g IV Ancef, a new [...] FLUIDS: See anesthesia record. Nahid Estrada MD [id number] /[id number] [facility] SARS-CoV-2 RNA Resp Ql VICK+p robeon 01-30-2022 SARS-CoV-2 (COVID-19) RNA IVCK+probe Ql (Resp) COVID 19 RESULT: SARS-CoV-2 (Agent of COVID-19) Not Detected by RT-PCR or equivalent method. This test has been authorized by FDA under an Emergency Use Authorization (EUA). [facility] Comment on above: Performed By: #### 9 [id number] #### [facility] CLIA [id number] [address] [place], [place] [id number] [place] Covid-19 PCR (CVDTB)on SARS-CoV-2 (COVID-19) RNA VICK+probe Ql (Unsp spec) Not detected Normal NOT DETECTED [facility] Comment on above: Result Comment: When diagnostic testing is negative, the possibility of a false negative should be considered in the context of a patient's recent exposures and the presence of clinical signs and symptoms consistent with SARS-CoV-2. This test is not yet approved or cleared by the [place] Food and Drug Administration (FDA). This test was developed by [employer], [place], [place]. The performance characteristics of this test were validated by [facility]. The results are not intended to be used as the sole means for clinical diagnosis or patient management decisions. [facility] is authorized under Clinical Laboratory Improvement [...] for this test is supported by the [place] of Health and Human Service's declaration that [...] longer be used). Performed By: #### C [facility] #### [facility] [address] [place] [address] Dr. Fernandez Arroyo Hip - lefton 12-27-2021 IMPRESSION: Gluteus medius tendon tearing. Intact gluteus minimus tendon with tendinosis. Greater trochanteric bursitis. Checker/Stocker: [place] Transcribe Date/Time: Dec 27 2021 10:44A Dictated by : DONI BALLESTEROS MD This examination was interpreted and the report reviewed and electronically signed by: DONI BALLESTEROS MD on Dec 27 2021 10:47AM [facility] DIVISION OF RADIOLOGY * * *Final Report* * * DATE OF EXAM: Dec 27 2021 10:47AM [facility] [id number] [facility] HIP LT / PROCEDURE REASON: [...] the greater trochanter. DIVISION OF RADIOLOGY Provider, [facility] - 12/27/2021 * * *Final Report* * * DATE OF EXAM: Dec 27 2021 10:47AM [place] [id number] [facility] HIP / PROCEDURE REASON: Tear [...] minimus tendon with tendinosis. Greater trochanteric bursitis. Checker/Stocker: ALMA Transcribe Date/Time: Dec 27 2021 10:44A Dictated by : DONI BALLESTEROS MD This examination was interpreted and the report reviewed and electronically signed by: DONI BALLESTEROS MD on Dec 27 2021 10:47AM EST [facility] Radiology Study observation (narrative) [facility] US Hip - leftOrdered By: [facility] Provider on 12-27-2021 [facility] XR Pelvis and Hip - left AP and Lateral frogon 12-05-2021 IMPRESSION: Mild left hip osteoarthritis. Partially imaged remote/chronic fracture deformity of the proximal femur. No acute osseous abnormality. Checker/Stocker: ALMA Transcribe Date/Time: Dec 05 2021 1:02P Dictated by : KALA MAIER MD This examination was interpreted and the report reviewed and electronically signed by: DONI BALLESTEROS MD on Dec 05 2021 1:37PM [facility] DIVISION OF RADIOLOGY * * *Final Report* [...] DIVISION OF RADIOLOGY Provider, [facility] - 12/05/2021 * * *Final Report* * [...] the proximal femur. No acute osseous abnormality. Checker/Stocker: [place] Transcribe Date/Time: Dec 05 2021 1:02P Dictated by : KALA MAIER MD This examination was interpreted and the report reviewed and electronically signed by: DONI BALLESTEROS MD on Dec 05 2021 1:37PM EST [facility] XR Pelvis and Hip - left AP and Lateral frogOrdered By: Ccf Provider on 12-05-2021 [facility] XR Pelvis and Hip - left AP and Lateral frogon 12-04-2021 Radiology Study observation (narrative) [facility] XR hip LT min 2V(w/wo pelvis )*on 03-19-2021 XR hip LT min 2V(w/wo pelvis)* [facility] [address] XRay Report Signed Patient: Mauro Hebert MR#: [id number] : 1970 Acct:[id number] Age/Sex: 50 / M ADM Date: 03/19/21 Loc: XD Room: Type: [facility] CLI Attending Dr: Marlon Parr MD [...] Liz Campo M.D.03/19/2021 7:04 PM Dictation Location: [place] [address] Transcribed By: [facility] 03/19/211903 Dictated By: Liz Campo MD 03/19/211901 Signed By: 03/19/211903 Normal [facility] XR lumbar spine AP/LAT/FLX/E XTon 03-19-2021 XR lumbar spine AP/LAT/FLX/EXT [facility] [place] [address] XRay Report Signed Patient: Mauro Hebert MR#: [id number] : 1970 Acct:[id number] Age/Sex: 50 / M ADM Date: 03/19/21 Loc: XD Room: Type: [facility] CLI Attending Dr: Marlon Parr MD [...] Liz Campo M.D.03/19/2021 6:48 PM Dictation Location: [place] [address] Transcribed By: [facility] 03/19/211847 Dictated By: Liz Campo MD 03/19/211843 Signed By: 03/19/211847 [facility] XR CHEST (2 VW)on 08-26-2018 Protein [...] by:GILBERT Reeceigned by:Miriam Obregon MD08/26/18inal result Normal [facility] APTTon 08-22-2018 aPTT Coag time (Bld) 23.6 s Normal 20.5-30.5 [facility] Comment on above: Performed By: #### C DP, BMP, PT, PTT ####[address] [address] Basic Metabolic Profon 08-22 (cont.) Normal [facility] Comment on above: Result Comment: Aver age GFR for 40-49 years old: 99 mL/min/1.73sq mChronic Kidney Disease: <60 mL/min/1.73sq mKidney failure: <15 mL/min/1.73sq meGFR calculated using average adult body mass. Additional eGFR calculator available at:http://www.Whitepages/multiple_crcl_2012.htm Performed By: #### C DP, BMP, PT, PTT ####[id number] [place] [address] Anion gap 3 molar conc 10 mmol/L Normal 9-17 [facility] Comment on above: Performed By: #### C DP, BMP, PT, PTT ####[id number] [place] [address] Calcium mass conc 9.5 mg/dL Normal 8.6-10.4 [facility] Comment on above: Performed By: #### C DP, BMP, PT, PTT ####[id number] [place] [address] Chloride molar conc 103 mmol/L Normal 98-107 [facility] Comment on above: Performed By: #### C DP, BMP, PT, PTT ####[id number] [place] [address] CO2 molar conc 26 mmol/L Normal 20-31 [facility] Comment on above: Performed By: #### C DP, BMP, PT, PTT ####[facility] [place] [address] Creatinine mass conc 0.85 mg/dL Normal 0.70-1.20 [facility] Comment on above: Performed By: #### C DP, BMP, PT, PTT ####[facility] [place] [address] GFR, Amer >60 Normal >60 [facility] Comment on above: Performed By: #### C DP, BMP, PT, PTT ####[address] [address] GFR,non Amer >60 Normal >60 [facility] Comment on above: Performed By: #### C DP, BMP, PT, PTT ####[address] [address] Glucose mass conc 109 mg/dL High 70-99 [facility] Comment on above: Performed By: #### C DP, BMP, PT, PTT ####[address] [address] Potassium molar conc 4.4 mmol/L Normal 3.7-5.3 [facility] Comment on above: Performed By: #### C DP, BMP, PT, PTT ####[address] [address] Sodium molar conc 139 mmol/L Normal 135-144 [facility] Comment on above: Performed By: #### C DP, BMP, PT, PTT ####[address] [address] Urea nitrogen mass conc 24 mg/dL High 6-20 [facility] Comment on above: Performed By: #### C DP, BMP, PT, PTT ####[place] [id number] [place] [address] BUN/CRE Ratio NOT REPORTED Normal 9-20 [facility] Comment on above: Performed By: #### C DP, BMP, PT, PTT ####[address] [address] Staging: NOT REPORTED Normal [facility] Comment on above: Performed By: #### C DP, BMP, PT, PTT ####[address] [address] CBC with Diffon 08-22-2018 Abs. Basophil 0.03 k/uL Normal 0.00-0.20 [facility] Comment on above: Performed By: #### C DP, BMP, PT, PTT ####[address] [address] Abs.Imm.Granulocyte <0.03 Normal 0.00-0.30 [facility] Comment on above: Performed By: #### C DP, BMP, PT, PTT ####[address] [address] Abs.Neutrophil (Seg) 6.87 k/uL Normal 1.50-8.10 [facility] Comment on above: Performed By: #### C DP, BMP, PT, PTT ####[address] [address] Basophils/100 WBC Auto (Bld) 0 % Normal 0-2 [facility] Comment on above: Performed By: #### C DP, BMP, PT, PTT ####[address] [address] Eosinophils Auto #/vol (Bld) 0.03 10*3/uL Normal 0.00-0.44 [facility] Comment on above: Performed By: #### C DP, BMP, PT, PTT ####[address] [address] Eosinophils/100 WBC Auto (Bld) 0 % Low 1-4 [facility] Comment on above: Performed By: #### C DP, BMP, PT, PTT ####[address] [address] Erythrocyte distribution width Auto Ratio (RBC) 14.2 % Normal 11.8-14.4 [facility] Comment on above: Performed By: #### C DP, BMP, PT, PTT ####[address] [address] Hematocrit Auto Volume Fraction (Bld) 39.0 % Low 40.7-50.3 [facility] Comment on above: Performed By: #### C DP, BMP, PT, PTT ####[address] [address] Hemoglobin mass conc (Bld) 13.0 g/dL Normal 13.0-17.0 [facility] Comment on above: Performed By: #### C DP, BMP, PT, PTT ####[address] [address] Immature granulocytes #/vol (Bld) 0 % Normal 0 [facility] Comment on above: Performed By: #### C DP, BMP, PT, PTT ####[address] [address] Lymphocytes Auto #/vol (Bld) 1.31 10*3/uL Normal 1.10-3.70 [facility] Comment on above: Performed By: #### C DP, BMP, PT, PTT ####[address] [address] Lymphocytes/100 WBC Auto (Bld) 14 % Low 24-43 [facility] Comment on above: Performed By: #### C DP, BMP, PT, PTT ####[address] [address] MCH Auto Entitic mass (RBC) 31.3 pg Normal 25.2-33.5 [facility] Comment on above: Performed By: #### C DP, BMP, PT, PTT ####[address] [address] MCHC Auto mass conc (RBC) 33.3 g/dL Normal 28.4-34.8 [facility] Comment on above: Performed By: #### C DP, BMP, PT, PTT ####[address] [address] MCV Auto Entitic volume (RBC) 93.8 fL Normal 82.6-102.9 [facility] Comment on above: Performed By: #### C DP, BMP, PT, PTT ####[address] [address] Monocytes Auto #/vol (Bld) 0.91 10*3/uL Normal 0.10-1.20 [facility] Comment on above: Performed By: #### C DP, BMP, PT, PTT ####[address] [address] Monocytes/100 WBC Auto (Bld) 10 % Normal 3-12 [facility] Comment on above: Performed By: #### C DP, BMP, PT, PTT ####[address] [address] Neutrophil (Seg) 76 % High 36-65 [facility] Comment on above: Performed By: #### C DP, BMP, PT, PTT ####[address] [address] NRBC Automated 0.0 per 100 WBC Normal 0.0 [facility] Comment on above: Performed By: #### C DP, BMP, PT, PTT ####[address] [address] Platelet mean volume Auto Entitic volume (Bld) 10.2 fL Normal 8.1-13.5 [facility] Comment on above: Performed By: #### C DP, BMP, PT, PTT ####[address] [address] Platelets Auto #/vol (Bld) 321 10*3/uL Normal 138-453 [facility] Comment on above: Performed By: #### C DP, BMP, PT, PTT ####[address] [address] RBC Auto #/vol (Bld) 4.16 10*6/uL Low 4.21-5.77 [facility] Comment on above: Performed By: #### C DP, BMP, PT, PTT ####[address] [address] WBC Auto #/vol (Bld) 9.2 10*3/uL Normal 3.5-11.3 [facility] Comment on above: Performed By: #### C DP, BMP, PT, PTT ####[address] [address] Auto Diff Performed NOT REPORTED Normal [facility] Comment on above: Performed By: #### C DP, BMP, PT, PTT ####[address] [address] Platelets Auto #/vol (Bld) NOT REPORTED Normal [facility] Comment on above: Performed By: #### C DP, BMP, PT, PTT ####[address] [address] RBC morphology finding Nom (Bld) NOT REPORTED Normal [facility] Comment on above: Performed By: #### C DP, BMP, PT, PTT ####[address] [address] WBC Morphology NOT REPORTED Normal [facility] Comment on above: Performed By: #### C DP, BMP, PT, PTT ####[address] [address] PTon 08-22-2018 INR Coag RelTime (PPP) 1.0 {INR} Normal [facility] Comment on above: Result Comment: Ther apeutic Range: Moderate Anticoagulant Intensity: INR = 2.0-3.0 High Anticoagulant Intensity: INR = 2.5-3.5 Performed By: #### C DP, BMP, PT, PTT ####[address] [id number] Prothrombin time (PT) Coag time (PPP) 10.6 s Normal 9.0-12.0 [facility] Comment on above: Performed By: #### C DP, BMP, PT, PTT ####[place] [id number] [place], [place] [id number] Vital Signs Date Time Vital Sign Value Performing Clinician Facility 03-19-2023 10:34-0400 Heart rate 63 /min Hong Zumbar [facility] 03-19-2023 10:34-0400 SaO2% (BldA) [Mass fraction] 94 % Hong Zumbar [facility] 03-19-2023 10:34-0400 Diastolic blood pressure 73 mm[Hg] Hong Zumbar [facility] 03-19-2023 10:34-0400 Mean blood pressure 85 mm[Hg] Hong Zumbar [facility] 03-19-2023 10:34-0400 Systolic blood pressure 108 mm[Hg] Hong Zumbar [facility] 03-19-2023 10:34-0400 Respiratory rate 16 /min Hong Zumbar [facility] 03-19-2023 10:27-0400 Diastolic blood pressure 84 mm[Hg] Hong Zumbar [facility] 03-19-2023 10:27-0400 Heart rate 66 /min Hong Zumbar [facility] 03-19-2023 10:27-0400 Respiratory rate 16 /min Hong Zumbar [facility] 03-19-2023 10:27-0400 SaO2% (BldA) [Mass fraction] 94 % Hong Zum[facility] 03-19-2023 10:27-0400 Systolic blood pressure 124 mm[Hg] Hong Zum[facility] 03-19-2023 09:34-0400 Heart rate 59 /min Hong Zum[facility] 03-19-2023 09:34-0400 SaO2% (BldA) [Mass fraction] 95 % Hong Zum[facility] 03-19-2023 09:34-0400 Diastolic blood pressure 78 mm[Hg] Hong Zumbar [facility] 03-19-2023 09:34-0400 Mean blood pressure 90 mm[Hg] Hong Zumbar [facility] 03-19-2023 09:34-0400 Systolic blood pressure 114 mm[Hg] Hong Zumbar [facility] 03-19-2023 09:34-0400 Body temperature 97.7 [degF] Hong Zumbar [facility] 03-19-2023 09:33-0400 Respiratory rate 12 /min Hong Zumbar [facility] 03-12-2023 14:07-0400 Diastolic blood pressure 89 mm[Hg] Hong Zumbar [facility] 03-12-2023 14:07-0400 Heart rate 95 /min Hong Zumbar [facility] 03-12-2023 14:07-0400 Mean blood pressure 102 mm[Hg] Hong Zum[facility] 03-12-2023 14:07-0400 Respiratory rate 18 /min Hong Zumbar [facility] 03-12-2023 14:07-0400 Systolic blood pressure 129 mm[Hg] [facility] 01-29-2023 14:11-0400 Diastolic blood pressure 94 mm[Hg] [facility] 01-29-2023 14:11-0400 Heart rate 79 /min Hong Zum[facility] 01-29-2023 14:11-0400 Mean blood pressure 111 mm[Hg] [facility] Zum[facility] 01-29-2023 14:11-0400 Respiratory rate 16 /min Hong Zumbar [facility] 01-29-2023 14:11-0400 Systolic blood pressure 146 mm[Hg] Hong Zumbar [facility] 12-11-2022 14:17-0400 Diastolic blood pressure 77 mm[Hg] Hong Zumbar [facility] 12-11-2022 14:17-0400 Heart rate 107 /min Hong Zumbar [facility] 12-11-2022 14:17-0400 Respiratory rate 16 /min Hong Zumbar [facility] 12-11-2022 14:17-0400 SaO2% (BldA) [Mass fraction] 94 % Hong Zumbar [facility] 12-11-2022 14:17-0400 Systolic blood pressure 123 mm[Hg] Hong Zumbar [facility] 12-11-2022 14:08-0400 Diastolic blood pressure 84 mm[Hg] Hong Zumbar [facility] 12-11-2022 14:08-0400 Heart rate 117 /min Hong Zumbar [facility] 12-11-2022 14:08-0400 Respiratory rate 14 /min Hong Zumbar [facility] 12-11-2022 14:08-0400 SaO2% (BldA) [Mass fraction] 92 % Hong Zumbar [facility] 12-11-2022 14:08-0400 Systolic blood pressure 109 mm[Hg] Hong Zumbar [facility] 12-11-2022 13:45-0400 Heart rate 112 /min Hong Zumbar [facility] 12-11-2022 13:45-0400 SaO2% (BldA) [Mass fraction] 94 % Hong Zumbar [facility] 12-11-2022 13:45-0400 Diastolic blood pressure 70 mm[Hg] Hong Zumbar [facility] 12-11-2022 13:45-0400 Mean blood pressure 83 mm[Hg] Hong Zumbar [facility] 12-11-2022 13:45-0400 Systolic blood pressure 109 mm[Hg] Hong Zumbar [facility] 12-11-2022 13:45-0400 Body temperature 98.06 [degF] Hong Zumbar [facility] 12-11-2022 13:44-0400 Respiratory rate 14 /min Hong Zumbar [facility] 11-14-2022 10:48-0500 Diastolic blood pressure 108 mm[Hg] Hong Zumbar [facility] 11-14-2022 10:48-0500 Heart rate 81 /min Hong Zumbar [facility] 11-14-2022 10:48-0500 Mean blood pressure 122 mm[Hg] Hong Zumbar [facility] 11-14-2022 10:48-0500 Respiratory rate 15 /min Hong Zumbar [facility] 11-14-2022 10:48-0500 Systolic blood pressure 150 mm[Hg] Hong Zumbar [facility] 10-31-2022 14:20-0500 Body height 187.96 cm [employer] Other [employer] [facility] [employer] Other 10-31-2022 14:20-0500 Body mass index (BMI) [Ratio] 27.34 kg/m2 [employer] Other [facility] [employer] Other 10-31-2022 14:20-0500 Body weight 96.62 kg Link [employer] Other [facility] [employer] Other 10-31-2022 14:20-0500 Respiratory rate 22 /min Link [employer] Other [employer] Other 10-25-2022 13:08-0500 Diastolic blood pressure 94 mm[Hg] [facility] [employer] [facility] 10-25-2022 13:08-0500 Heart rate 90 /min [facility] [employer] [facility] 10-25-2022 13:08-0500 Mean blood pressure 112 mm[Hg] Peri Johnson [facility] 10-25-2022 13:08-0500 Respiratory rate 16 /min Peri Johnson [facility] 10-25-2022 13:08-0500 Systolic blood pressure 149 mm[Hg] Peri Johnson [facility] 09-26-2022 12:37-0500 Diastolic blood pressure 99 mm[Hg] Hong Zumbar [facility] 09-26-2022 12:37-0500 Heart rate 90 /min Hong Zumbar [facility] 09-26-2022 12:37-0500 Mean blood pressure 114 mm[Hg] Hong Zumbar [facility] 09-26-2022 12:37-0500 Respiratory rate 12 /min Hong Zumbar [facility] 09-26-2022 12:37-0500 Systolic blood pressure 145 mm[Hg] Hong Zumbar [facility] 08-21-2022 11:38-0500 Diastolic blood pressure 98 mm[Hg] Hong Zum[facility] 08-21-2022 11:38-0500 Heart rate 76 /min Hong Zumbar [facility] 08-21-2022 11:38-0500 Mean blood pressure 111 mm[Hg] Hong Zumbar [facility] 08-21-2022 11:38-0500 SaO2% (BldA) [Mass fraction] 96 % Hong Zumbar [facility] 08-21-2022 11:38-0500 Systolic blood pressure 136 mm[Hg] Hong Zumbar [facility] 08-21-2022 11:32-0500 Diastolic blood pressure 100 mm[Hg] Hong Zumbar [facility] 08-21-2022 11:32-0500 Heart rate 86 /min Hong Zumbar [facility] 08-21-2022 11:32-0500 Respiratory rate 18 /min Hong Zumbar [facility] 08-21-2022 11:32-0500 SaO2% (BldA) [Mass fraction] 94 % Hong Zumbar [facility] 08-21-2022 11:32-0500 Systolic blood pressure 146 mm[Hg] Hong Zumbar [facility] 08-21-2022 10:11-0500 Body temperature 97.34 [degF] Hong Zumbar [facility] 08-21-2022 10:11-0500 Diastolic blood pressure 99 mm[Hg] Hong Zum[facility] 08-21-2022 10:11-0500 Heart rate 88 /min Hong Z[facility] 08-21-2022 10:11-0500 Mean blood pressure 117 mm[Hg] [facility] Z[facility] 08-21-2022 10:11-0500 Respiratory rate 16 /min Hong Z[facility] 08-21-2022 10:11-0500 SaO2% (BldA) [Mass fraction] 96 % Hong Zum[facility] 08-21-2022 10:11-0500 Systolic blood pressure 151 mm[Hg] [facility] Zum[facility] 06-19-2022 10:16-0400 Diastolic blood pressure 91 mm[Hg] [facility] Z[facility] 06-19-2022 10:16-0400 Heart rate 85 /min Hong Zum[facility] 06-19-2022 10:16-0400 Mean blood pressure 104 mm[Hg] [facility] 06-19-2022 10:16-0400 Respiratory rate 14 /min Hong Zumbar [facility] 06-19-2022 10:16-0400 Systolic blood pressure 130 mm[Hg] [facility] Zumbar [facility] 01-29-2022 11:34-0400 Body height 188 cm [facility] 01-29-2022 11:34-0400 Body weight 92.53 kg [facility] Encounters Encounter Date Encounter Type Care Provider Facility Start: 01-17-2025 End: 01-17-2025 ambulatory Refugio Javier MD Facility:[facility] Start: 12-27-2024 End: 12-27-2024 ambulatory Enoc Arboleda DO Facility:[facility] Start: 10-29-2023 End: 10-29-2023 ambulatory ENOC ARBOLEDA JR. Facility:[facility] Start: 03-19-2023 End: 03-20-2023 ambulatory Hong Zumbar Facility:[facility] Start: 03-19-2023 End: 03-19-2023 Pain Management Hong Zumbar [facility] Start: 03-12-2023 End: 03-13-2023 ambulatory Hong Zumbar Facility:[facility] Start: 03-12-2023 End: 03-12-2023 Pain Management Hong Zumbar [facility] Start: 02-12-2023 End: 02-13-2023 ambulatory Hong Zumbar Facility:[facility] Start: 01-29-2023 End: 01-30-2023 ambulatory Hong Zumbar Facility:[facility] Start: 01-29-2023 End: 01-29-2023 Pain Management Hong Zumbar [facility] Start: 01-08-2023 End: 01-09-2023 ambulatory Hong Zumbar Facility:[facility] Start: 12-26-2022 End: 12-27-2022 ambulatory Hong Zumbar Facility:[facility] Start: 12-11-2022 End: 12-12-2022 ambulatory Hong Zumbar Facility:[facility] Start: 12-11-2022 End: 12-11-2022 Pain Management Hong Zumbar [facility] Start: 11-14-2022 End: 11-15-2022 ambulatory Hong Zumbar Facility:[facility] Start: 11-14-2022 End: 11-14-2022 Pain Management Hong Zumbar [facility] Start: 11-12-2022 End: 11-12-2022 ambulatory ENOC ARBOLEDA Facility:[facility] Start: 11-12-2022 End: 11-12-2022 Patient encounter procedure Nahid Estrada MD Work Phone: [facility] Comment on above: Pain in hip (Primary Dx) Start: 10-31-2022 End: 10-31-2022 ambulatory Link [facility] Other [employer] Other Start: 10-31-2022 Office outpatient ne w 30 minutes Link [facility] Start: 10-25-2022 End: 10-26-2022 [facility] Start: 10-25-2022 End: 10-25-2022 Pain Management Peri Johnson [facility] Start: 10-18-2022 End: 10-19-2022 ambulatory HONG ZUMBAR Facility: Start: 09-26-2022 End: 09-27-2022 ambulatory Hong Zumbar Facility:[facility] Start: 09-26-2022 End: 09-26-2022 Pain Management Hong Zumbar [facility] Start: 08-27-2022 Refill Yosvany Harrison ac PA-C Work Phone: [facility] Start: 08-21-2022 End: 08-22-2022 ambulatory Hong Yueumbar Facility:[facility] Start: 08-21-2022 End: 08-21-2022 Pain Management Hong Zumbar [facility] Start: 08-13-2022 Telephone encounter Nahid neely MD Work Phone: [facility] Comment on above: Return To Work Lette r Start: 08-09-2022 End: 08-09-2022 Patient encounter procedure Nahid Estrada MD Work Phone: [facility] Comment on above: Tear of left gluteus medius tendon, subsequent encounter (Primary Dx) Start: 07-18-2022 End: 07-19-2022 ambulatory HONG ZUMBAR Facility: Start: 07-18-2022 End: 07-19-[address] ENOC ARBOLEDA Facility: Start: 06-19-2022 End: 06-20-2022 ambulatory Hong Zumbar Facility:[facility] Start: 06-19-2022 End: 06-19-2022 Pain Management Hong Zumbar [facility] Start: 06-18-2022 Refill Nahid pinzon PA-C Work Phone: [facility] Comment on above: Refill Request Start: 05-14-2022 Telephone encounter Nahid neely MD Work Phone: [facility] Comment on above: Prescription Refills Start: 05-08-2022 Telephone encounter Nahid neely MD Work Phone: [facility] Comment on above: Patient Question Start: 04-30-2022 End: 04-30-2022 Patient encounter procedure Nahid Estrada MD Work Phone: [facility] Comment on above: Tear of left gluteus medius tendon, subsequent encounter (Primary Dx) Start: 04-11-2022 Telephone encounter Nahid neely MD Work Phone: [facility] Comment on above: Medication Question Start: 03-21-2022 End: 06-08-[address] ENOC ARBOLEDA Facility:[facility] Start: 03-19-2022 Telephone encounter Nahid neely MD Work Phone: [facility] Comment on above: Medication Problem Start: 03-18-2022 ambulatory Yosvanyangy ellington PA-C Work Phone: [facility] Comment on above: Delmar Clarkeaxin Start: 03-15-2022 End: 03-15-2022 ambulatory Yosvany Yasmeen Maec PA-C Work Phone: [facility] Comment on above: IFC/TNS unit, Lidoca ine or Voltaren cream or patch Tear of left gluteus medius tendon, subsequent encounter (Primary Dx) Start: 03-15-2022 End: 03-15-2022 Telemedicine consultation with patient Yosvany Yasmeen Maec PA-C Work Phone: [facility] [address] Start: 02-22-2022 Telephone encounter Nahid neely MD Work Phone: [facility] Comment on above: Patient Update Start: 02-19-2022 End: 02-19-2022 Patient encounter procedure Yosvany Arana Jannette PA-C Work Phone: [facility] Comment on above: Tear of left gluteus medius tendon, subsequent encounter (Primary Dx) Start: 02-15-2022 End: 02-15-2022 ambulatory Yosvany Arana Jannette PA-C Work Phone: [facility] Comment on above: Tear of left gluteus medius tendon, subsequent encounter (Primary Dx) Start: 02-15-2022 End: 02-15-2022 Telemedicine consultation with patient Yosvany Arana Jannette SAAVEDRA-C Work Phone: [facility] [address] Start: 02-07-2022 ambulatory Yosvany Arana Hunter ellington PA-C Work Phone: [facility] Comment on above: PT exercises Start: 02-04-2022 Telephone encounter Ariel lin AT Work Phone: [facility] Comment on above: Post Op Call Start: 01-30-2022 Telephone encounter Madison pinzon [facility] Comment on above: Home Care (Out of [facility]) Start: 01-29-2022 Telephone encounter Jenny Marquez APRN.COLLECTION TELLER Work Phone: Pre Anesthesia Comment on above: Pre-op A1c requested Start: 01-29-2022 End: 01-29-2022 Admission to establishment [facility] Start: 01-29-2022 End: 01-29-2022 ambulatory Pacc [facility] [...] Telephone encounter Ariel lin AT Work Phone: [facility] Comment on above: Patient Update Start: 01-28-2022 End: 01-28-[address] TRAV SANCHEZ Facility:[facility] Start: 01-15-2022 Telephone encounter Nahid neely MD Work Phone: [facility] Comment on above: Schedule Surgery Start: 01-11-2022 End: 01-11-2022 ambulatory Yosvany Bhatia PA-C Work Phone: [facility] Comment on above: Tear of left gluteus medius tendon, subsequent encounter (Primary Dx) Start: 01-11-2022 End: 01-11-2022 Telemedicine consultation with patient Yosvany Bhatia PA-C Work Phone: [facility] [address] Start: 01-09-2022 End: 01-09-2022 Patient encounter procedure Nahid Estrada MD Work Phone: [facility] [place] Comment on above: Tear of gluteus medi us tendon, subsequent encounter (Primary Dx) Start: 01-04-2022 ambulatory Nahid Estrada MD Work Phone: [facility] Comment on above: hip Start: 01-04-2022 E-mail encounter fro m caregiver Nahid Estrada MD Work Phone: [facility] [address] Start: 12-27-2021 End: 12-27-2021 Subsequent hospital visit by physician [facility] [address] Radiology Comment on above: Tear of left gluteus medius tendon, initial encounter [S76.012A] Start: 12-04-2021 End: 12-04-2021 Subsequent hospital visit by physician [facility] [address] Radiology Comment on above: Pain in left hip [M2 5.552] Start: 12-03-2021 Orders Only Ariel khan AT Work Phone: [facility] Comment on above: Pain in left hip (Pr imary Dx) Start: 08-22-2018 End: 08-26-2018 Evaluation and management of inpatient ENOC ARBOLEDA [facility] Procedures Date Procedure Procedure Detail Performing Clinician [...] PULSE OXIMETRY, CONTINUOUS ENOC VALONE Start: 08-26-2018 [employer] [facility] - NURSING COMMUNICATION 1 ENOC ASTUDILLOONE [...] Start: 08-24-2018 INITIATE OXYGEN THER APY PROTOCOL ENOC VALONE Start: 08-24-2018 PULSE OXIMETRY, CONTINUOUS [...] ENOC ASTUDILLOONE Start: 08-23-2018 MAINTAIN IV ACCESS ERNESTIEN MP VALONE Start: 08-23-2018 NO ANTICOAGULANTS CHARYasmeen [...] DTaP,Tdap,Td Vaccine (2 - Td or Tdap) [facility] Start: 05-23-2024 Covid-19 Vaccine ( season) Covid-19 Vaccine ( season) [facility] Start: 05-23-2024 Influenza vaccination Influenza Vacc ine (#1) [facility] Start: 05-23-2022 Influenza vaccination C [facility] Start: 05-23-2021 Influenza vaccination INFLUENZA (#1) [facility] Start: 11-24-2019 SHINGRIX VACCINE (1 of 2) SHINGRIX VACCINE (1 of 2) [facility] Start: 08-04-2015 DIABETES SCREEN DIABETES SCREEN [facility] Start: 2014 COLOGUARD (FIT-DNA) COLOGUARD (FIT-D NA) [facility] Start: 2014 Colonoscopy COLONOSCOPY [facility] Start: 2014 COLORECTAL CANCER SCREENING COLORECTAL CANCER SCREENING [facility] Start: [address] COLONOGRAPHY [facility] Start: 2014 FECAL OCCULT BLOOD FECAL OCCULT BLOO D [facility] Start: 2014 Screening for malign ant neoplasm of colon [facility] Start: 2014 SIGMOIDOSCOPY SIGMOIDOSCOPY [facility] Start: 08-11-2013 Adult depression screening assessment DEPRESSION SCREENING [facility] Start: 2004 LIPID SCREEN LIPID SCREEN [facility] Start: 1988 HEPATITIS B (1 of 3 - Risk 3-dose series) HEPATITIS B (1 of 3 - Risk 3-dose series) [facility] Start: 1988 Hepatitis B Vaccine (1 of 3 - 19+ 3-dose series) Hepatitis B Vaccine (1 of 3 - 19+ 3-dose series) [facility] Start: 1988 Urine microalbumin profile DTAP,TDAP,TD (1 - Tdap) [facility] Start: 11-24-1987 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 YANET DISEASE VISIT ANNUAL PCP TEAM CHRONIC DISEASE VISIT [facility] Start: 11-24-1987 BP CONTROLLED (<130/80) BP CONTROLLE D (<130/80) [facility] Start: 11-24-1987 Hepatitis B surface antibody level LDL CHOLESTEROL [facility] Start: 11-24-1987 HEPATITIS C SCREENING HEPATITIS C [facility] Start: 11-24-1987 Hepatitis C screening Hepatitis C [facility] Start: 11-24-1987 HIV SCREENING HIV SCREENING [facility] Start: 11-24-1987 HIV screening HIV Screening [facility] Start: 1985 ONE PNEUMOVAX PRIOR TO AGE 65 ONE PNEUMOVAX PRIOR TO AGE 65 [facility] Start: 1981 Adult depression screening assessment DEPRESSION SCREENING [facility] Start: 11-24-1979 3 comp foot exam completed DIABETIC FOOT EXAM [facility] Start: 11-24-1979 Diabetic foot examination Diabetic Foot Exam [facility] Start: 11-24-1979 Glaucoma screening Dilated Retinal E xam [facility] Start: 11-24-1979 Hepatitis B screening URINE ALBUMIN:CREATININE RATIO [facility] Start: 11-24-1979 Hepatitis C antibody , confirmatory test DILATED RETINAL EXAM [facility] Start: 11-24-1975 PNEUMOCOCCAL (1 - PCV) PNEUMOCOCCAL (1 - PCV) [facility] Start: 11-24-1975 Pneumococcal vaccination Pneum ococcal Vaccine (1 of 2 - PCV) [facility] Start: 1974 COVID-19 VACCINE (#1) COVID-19 VACCI NE (#1) [facility] Start: 1974 COVID-19 VACCINE (1) COVID-19 VACCIN E (1) [facility] Start: 1974 Hemoglobin A1c measurement HbA1C [facility] Start: 1974 Hemoglobin A1c/Hemoglobin.total in Blood HBA1C [facility] Start: 05-26-1970 COVID-19 VACCINE (#1) COVID-19 VACCI NE (#1) [facility] Start: 1969 HEPATITIS B (1 of 3 - 3-dose series) HEPATITIS B (1 of 3 - 3-dose series) [facility] End: 01-03-2023 XR HIP GENERAL 3V PELV/AP/LAT LEFT XR HIP GENERAL 3V PELV/AP/LAT LEFT Radiology Routine Pain in left hip 1 Occurrences starting 12/03/2021 until 01/03/2023 [facility] Work Phone: Comment on above: 1 Occurrences starti ng 12/03/2021 until 01/03/2023 [facility] Payers Date Payer Category Payer Medicare AETNA MEDICARE A ETNA MEDICARE PPO [id number] 2021-Present [phone] [address] [place] [address] PPO [id number] 2021 Medicare AETNA MEDICARE A ETNA MEDICARE PPO [id number] 2021-Present [phone] [address] [place] [address] PPO [id number] 2019 Private Health Insurance 2017 Medicare [id number] 1970 Unknown [id number] 2.16.840.1.766341.3.579.2.1 1969 Unknown [id number] 2.16.840.1.651187.3.579.2.5 1969 Unknown [id number] 2.16.840.1.979739.3.579.2.5 1969 Unknown [id number] 2.16.840.1.695038.3.579.2.5 1969 Unknown [id number] 2.16.840.1.449254.3.579.2.5 1969 Unknown [id number] 2.16.840.1.475390.3.579.2.5 1969 Unknown [id number] 2.16.840.1.582894.3.579.2.7 1969 Unknown [id number] 2.16.840.1.533481.3.579.2.7 1969 Unknown [id number] 2.16.840.1.043160.3.579.2.7 1969 Unknown [id number] 2.16.840.1.817479.3.579.2.7 1969 Unknown [id number] 2.16.840.1.615946.3.579.2.7 1969 Unknown [id number] 2.16.840.1.057519.3.579.2.7 1969 Unknown [id number] 2.16.840.1.123974.3.579.2.7 1969 Unknown [id number] 2.16.840.1.826470.3.579.2.7 1969 Unknown [id number] 2.16.840.1.478278.3.579.2.7 1969 Unknown [id number] 2.16.840.1.641258.3.579.2.7 27 1969 Unknown [id number] 2.16.840.1.577159.3.579.2.7 27 1969 Unknown [id number] 2.16.840.1.041206.3.579.2.7 27 1969 Unknown [id number] 2.16.840.1.906355.3.579.2.7 18 1969 Unknown [id number] 2.16.840.1.507762.3.579.2.1 96 1969 Unknown [id number] 2.16.840.1.423389.3.579.2.1 96 1959 Medicare [id number] Social History Date Type Detail Facility Tobacco smoking stat [facility] Tobacco smoking consumption unknown [facility] Work Phone: Start: 1970 Sex Assigned At Male C [facility] Start: 12-04-2021 End: 04-30-2022 Tobacco smoking status PAIS Ex-smoker [facility] History of tobacco use Cigarette Smoker C [facility] Start: 12-04-2021 End: 04-30-2022 Tobacco use and exposure Former smokeless tobacco user [facility] History of tobacco use Chews Tobacco [facility] Start: 12-04-2021 End: 11-12-2022 Alcohol intake Lifetime non-drinker (finding) [facility] Start: 12-04-2021 History SDOH Alcohol Frequency 1 [facility] Start: 11-24-2021 End: 08-09-2022 Exposure to SARS-CoV-2 (event) Not sure [facility] History of tobacco use Current smoker [facility] Tobacco smoking status No Smokin g Status Entered [facility] Start: 12-04-2021 Sex Assigned At Male F [facility] Tobacco smoking status No Smokin g Status Entered [facility] Start: 12-04-2021 History of Social function [facility] Start: 11-27-2021 Gender identity Identifies as male gender (finding) [facility] Start: 11-27-2021 Sexual orientation Choose not to dis close [facility] Medical Equipment Procedure Code Equipment Code Equipment Origin al Text Equipment Identifier Dates Langlois Swivelock 4.75mm Peek 19.1mm Suture Closed Eyelet Vent Sterile - [id number] Start: 01-30-2022 Langlois Swivelock 4.75mm Peek 19.1mm Suture Closed Eyelet Vent Sterile - [id number] Start: 01-30-2022 Langlois Healicoil Pk 4.5mm 2 Full Thread Blue [place] Suture 2 - [id number] Start: 01-30-2022 Langlois Healicoil Pk 4.5mm 2 Full Thread Blue [place] Suture 2 - [id number] Start: 01-30-2022 Langlois Healicoil Pk 4.5mm 2 Full Thread Blue [place] Suture 2 - [id number] Start: 01-30-2022 Functional Status Date Assessment Result Facility 03-19-2023 Functional Status N/A [facility] 03-12-2023 Functional Status N/A [facility] 01-29-2023 Functional Status N/A [facility] 11-14-2022 Functional Status N/A [facility] 10-25-2022 Functional Status N/A [facility] 09-26-2022 Functional Status N/A [facility] 08-21-2022 Functional Status N/A [facility] 06-19-2022 Functional Status N/A [facility] Clinical Notes 12-04-2021 to 10-29-2023 Note Date [...] health care provider. General instructions ? Take uvxm-omt-avrpnbi and prescription medicines only as told by [...] ? Maintain a (more content not included)... [facility] 03-19-2023 Note Procedure: Left lumb ar transforaminal [...] to the recovery room in good condition. [facility] Comment on above: Result Comment: Elec [...] Date:04/09/2023 12:30:00 PM Scheduled Provider:Peri Johnson PA-C Location:[facility] Appointment Type:Pain Management - Follow Up (FT) [facility]06-28-2023 Note [id number]:127[facility] 03-12-2023 Evaluation + Plan noteExtracted from: [...] course of physical therapy done at the [facility] did not help. A continued home [...] They really want to avoid traveling to [place] if possible. He will follow-up a few weeks after the injection for reevaluation. Call the clinic sooner if necessary. TROY score: 28% [facility]05-24-2023 NoteProcedure: Left trochanteric bursa injection Diagnosis: Left [...] transferred to the recovery room in good condition.[facility]: Result Comment: Electronically Signed By: Hong Edmondson MD\.paulina\Date and Time Signed: 02/12/23 16:41 [id number] Note [id number]#1.00CD:127[facility] 01-29-2023 Evaluation + Plan noteExtracted from: [...] that would likely require a trip to [place] so they would like to try the steroid injection which we can do here first. We discussed the potential risks and benefits of this plan and the patient was in agreement to proceed. I will see the patient for follow-up 4 weeks after the procedure for repeat evaluation. [facility]04-19-2023 NoteProcedure: Left sided superior cluneal nerve block [...] was transferred tothe recovery room in good condition.[facility]:Result Comment: Electronically Signed By: Delvis WHYTE, Hong\.br\Date and Time Signed: 01/08/23 17:13 [id number]:127 [facility]03-22-2023 Note [id number]#1.00CD:127[facility] 11-14-2022 NoteHOSPITAL REGULATIONS: All Positive and [...] surgery was warranted. I also reviewed an [place] [employer] report on him which [...] evaluation. Hong Edmondson M.D. lr Dictated: 11/14/2022 [id number] Transcribed: 11/14/2022 cc: Enoc Arboleda M.D.[facility] HospitalComment on above:Result Comment: Electronically Signed By: Delvis WHYTE, Hong\.br\Date and Time Signed: 11/14/22 18:00 [id number] History of Present illness Narrative* Nahid Estrada [...] Past Histories independently gathered by the clinical computer support specialist and the remaining scribed note accurately describes my personal service to the patient. Nahid Estrada MD documented in this encounterMccull[facility]02-[facility] Evaluation note* Encounter Date Diagnosis [...] of left sacroiliac joint (ICD-10 - M46.1) [employer] Other 02-03-2023 Evaluation + Plan noteExtracted from: [...] Date:12/19/2022 11:30:00 AM Scheduled Provider:Hong Edmondson MD Location:[facility] Appointment Type:Pain Management - Follow Up (FT) [facility]01-08-2023 NoteHOSPITAL REGULATIONS: All Positive and Important Negative [...] evaluation. Hong Edmondson M.D. lr Dictated: 09/26/2022 [id number] Transcribed: 09/26/2022 cc:Enoc Arboleda M.D.[facility] HospitalComment on above:Result Comment: Electronically Signed By: Delvis WHYTE, Hong\.br\Date and Time Signed: 09/29/22 18:46 [id number] Miscellaneous Notes* Telephone Encounter - Yosvany Bhatia PA-C - 08/27/2022 7:57 AM EST Received THEMA prior authorization follow up for Mauro Hebert. PA completed at [employer]/login - advised it will be reviewed and determination will be made in 1-3 business days. Yosvany Bhatia PA-C documented in this encounterMccullough-[facility]11-30-2022 Note [id number]:127[facility] 08-14-2022 Miscellaneous Notes* Telephone Encounter - [...] understanding and is willing to work with [employer]. Letter for Bill was sent via [employer] with the following restrictions - return to [...] [facility] Tel - [phone] * Telephone Encounter - Peri Alba Daniel Adm - 08/13/2022 2:58 PM EST Pnt mother called office stating she would like a letter for Bill to try a 3 hour shift 1x week and go from there. I told pnt I would send message to Ariel for review and response and she would like letter faxed to : ATTN: ZANDRA at [phone] documented in this encounterMccullough-[facility]11-18-2022 History of Present illness Narrative* [...] Past Histories independently gathered by the clinical computer support specialist and the remaining scribed note accurately describes my personal service to the patient. Nahid Estrada MD documented in this encounterMccullough-[facility]09-28-2022 NoteHOSPITAL REGULATIONS: All Positive and [...] surgery with Dr. Robert Estrada at the [facility] on January 30. His mother [...] injection. Hong Edmondson M.D. ls Dictated: 06/19/2022 [id number] Transcribed: 06/19/2022 cc:Enoc Arboleda M.D.[facility] HospitalComment on above:Result Comment: Electronically Signed By: Delvis WHYTE, Hong\.paulina\Date and Time Signed: 06/19/22 17:26 [id number] Miscellaneous Notes* Telephone Encounter - Yosvany Bhatia [...] Provider: YOSVANY BHATIA PA-C documented in this encounterMccullough-[facility]de [facility] Hospital08-23-2022 Miscellaneous Notes* Telephone Encounter - Nahid Matos PA-C - 05/14/2022 5:37 PM EDT Robaxin refill requested and approved and routed to patient's pharmacy. GERTRUDIS Chan PA-C * Telephone Encounter - Peri Sanchez Adm - 05/14/2022 2:26 PM EDT Pnt mother called for Rx refill of Robaxin documented in this encounterMccullough-Hyde [facility] Hospital08-18-2022 Miscellaneous Notes* Telephone Encounter - Ariel Ag, AT - 05/09/2022 1:56 PM EDT Spoke with patient's mother on the phone. Letter for Bill was sent to patient via along with fax number [phone]. Discussed patient returning to work in about 4-6 weeks based on his progression - as this was discussed in the last visit with Dr. Estrada. All questions answered. Ariel Ag, MEd, AT, ATC * Telephone Encounter - Peri Sanchez Adm - 05/08/2022 2:12 PM EDT Margret called on behalf of pnt- wanting to talk to Ariel about [employer] work. [phone] documented in this encounterMccullough-[facility] Hospital08-09-2022 History of Present illness Narrative* [...] by mouth twice daily. calcium carbonate/vitamin D2 (AFJPWIS-314-M ORAL) Take 1 tablet by mouth twice [...] MD This note was partially generated using [employer] + voice recognition system, and there may be some incorrect words, spellings, and punctuation that were not noted in checking the note before saving. Medical Decision Making: Medical Decision Making Level: 1 - N/A documented in this encounterMccullough-[facility] Hospital07-22-2022 Miscellaneous Notes* Telephone Encounter - [...] night or vice versa. documented in this encounterMccullough-Hyde [facility] Hospital06-30-2022 Miscellaneous Notes* Telephone Encounter - [...] to Yosvany for refill. Pharmacy - [address] [facility] PT order placed - including aquatics Routed to team for review. Will fax orders when complete. Ariel Ag, MEd, AT, ATC * Telephone Encounter - Kenzie Boyer. Asst. - 03/21/2022 8:34 AM EDT Patient called and stated that she needs [facility] before the long [facility] She also needs new order for Physical therapy to be for aquatics and faxed to [facility] at [phone]. His appointment is for 4:00 today. Thank you. Kenzie Boyer. Asst. * Telephone Encounter - Kenzie De La Cruz Asst. - 03/19/2022 5:10 PM EDT Patient left voice mail on machine that her needs pain medication called in yet today.Please call patient at [phone]. She said he needs his robaxin called in. documented in this encounterMccullough-[facility] Hospital06-24-2022 History of Present illness Narrative* Yosvany Bhatia PA-C - 03/15/2022 11:07 AM EDT POST OP DIST[facility] VIRTUAL VISIT DOCUMENTATION NOTE This virtual visit was performed via video enabled technology, and the patient provided consent to be evaluated and managed using this virtual visit and video enabled technology. [employer] Platform: Accurence Virtual Visit People present : Yosvany Bhatia [...] Sean Bhatia, MS, ZENAIDA documented in this encounterMccullough-Hyde [facility] Hospital06-03-2022 Miscellaneous Notes* Telephone Encounter - [...] to Ariel about it. documented in this encounterMccullough-Hyde [facility] Hospital05-31-2022 Instructions* Patient Instructions* Yosvany Bhatia PA-C - 02/19/2022 12:44 PM EDT Continue brace aircraft time clerk- wear over your clothes Waist component 1st - Back plate of brace fits on small of back (hands on hips location) velcro then pull strings and secure Standing with walker support - take 1-2 steps with RIGHT leg away from the left then secure brace to thigh Continue A&D ointment to areas of irritation Ice/ heat to buttock region documented in this encounterMccullough-Hyde [facility] Hospital05-31-2022 History of Present illness Narrative* [...] weeks Yosvany Bhatia PA-C documented in this encounterMccullough-Hyde [facility] Hospital05-27-2022 History of Present illness Narrative* Yosvany Bhatia PA-C - 02/15/2022 2:09 PM EDT POST OP DISTANCE HEALTH VIRTUAL VISIT DOCUMENTATION NOTE This virtual visit was performed via video enabled technology, and the patient provided consent to be evaluated and managed using this virtual visit and video enabled technology. [employer]: [employer]rence Virtual Visit People present : Yosvany Bhatia [...] ZENAIDA [place], MS, ZENAIDA documented in this encounterMccullough-Hyde [facility] Hospital05-16-2022 Miscellaneous Notes* Telephone Encounter - AYANNA Acsota - 02/04/2022 3:01 PM EDT Spoke with [...] Ag, MEd, AT, ATC documented in this encounterMccullough-Hyde Memorial Hospital05-12-2022 NoteHNO ID: [id number] Author: Anne James, RN Service: Care Management Author Type: Registered Nurse Type: Care Mgt Progress Note Filed: 01/31/2022 12:09 PM Note Text: CARE MANAGEMENT DISCHARGE NOTE SERVICE DATE: 01/31/2022 SERVICE TIME: 12:07 PM LOS: 0 days Admission Date: 01/30/2022 DISCHARGE ARRANGEMENT (list agency and phone number) Discharge Arrangement: Home with Home Health Provider Name: [facility] CAREGIVER ASSESSMENT: Caregiver is ready, willing and [...] NA Pt is discharged home today with [facility]. Final orders sent. Pt's parents are driving the pt home. 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 Last discharge within 30 days: No Advance Directive: Current Advance Directive: None Cooling Pipe Inspector Attempted to Assist with AD Completion: Yes [...] bench/chair Has the Patient Been in a Halfway Facility in the Past 30 days?: No SOCIAL: Living Arrangements: Home Lives With: Spouse Financial Resources: Employed Primary Contact: Extended Emergency Contact Information Primary Emergency Contact: Margret Hebert Address: [address] [place] [address] [address] [place] [address] [facility] Mobile Relation: Mother Secondary Emergency Contact: LINDA HEBERT Address: [address] [place] [address] [address] [place] [address] [facility] Mobile Relation: Father Supportive Patient Contact:: Yes Contact Resources: Family Caregiver AssessmentCaregiver is ready, willing and able to meet the patient's needs as recommended by the inter-professional team:: No Caregiver needed Does the patient have an acute stroke diagnosis, or has the patient had a stroke during this admission?: No Patient's transition needs and plan for meeting these needs: [facility] Patient's perception of need for this admission: surgery Medication Adherance I am convinced of the importance of my prescription medication: 0 - Agree Completely I worry that my prescription medication will do more harm than good to me : 0 - Disagree Completely I feel financially burdened by my uxe-xj-oqprdx expenses for my prescription medication:: 0 - Disagree Completely Risk Score: 0 Patient is categorized as: Low risk < 2 Are you interested in bedside delivery of your medications? 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 Referral place. Plan discharge home today. SIGNATURE: Anne James RN PATIENT NAME: Mauro Hebert DATE: January 31, 2022 TIME: 11:26 AM PAGER/CONTACT #: [phone] NoteHNO ID: [id number] Author: Sue Kang APRN.MARINE FIRER Service: Orthopaedic Surgery Author Type: Nurse Specialist Type: Progress Notes Filed: 01/31/2022 9:35 AM Note Text: ORTHOPAEDIC SURGERY POSTOP PROGRESS NOTE Surgery Date: 01/30/2022 Surgeon(s) and Dish Technician(s): Surgeon(s) and Role: * Nahid Estrada MD [...] 31, 2022 TIME: 9:28 AM PAGER/CONTACT #: [phone] [id number] I personally spent 30 minutes directly supervising and providing Level 1 Care exclusive of any other billable procedure; over 50% was spent providing discussion, counseling, and coordination of care. Plan of care discussed with: Provider, RN, Patient.[facility]05-11-2022 NoteHNO ID: [id number] Author: ADRIEL Tiwari Service: ? Author Type: Plumber And Tinner Type: Anesthesia Procedure Notes Filed: 01/30/2022 2:01 PM Note Text: ANESTHESIOLOGY PROCEDURE NOTE Airway General Information Procedure Start Time/Medication Administration: 01/30/2022 1:42 PM Patient location during procedure: OR Timeout Performed Pre-procedure: timeout performed Consent Obtained: Yes Patient identity confirmed: arm band, care food service team member and patient Staffing CAA: ADRIEL Tiwari Indications and Patient Condition Preoxygenated: yes Manual In-Line Stabilization: No Difficult Mask: No Indications for airway management: anesthesia anesthesia circuit Method: asleep Cricoid Pressure: No Final Airway Details Final airway type: endotracheal airway Final Endotracheal Airway: ETT Cuffed: yes Successful intubation technique: video laryngoscopy Devices used: [employer] Endotracheal tube insertion site: oral Blade size: [...] January 30, 2022 TIME: 2:01 PM CSN: [id number] Miscellaneous Notes* Telephone Encounter - ARISTIDES Long - 01/30/2022 3:25 PM EDT Thank you for the referral of your patient to [facility]. Patient is out of the service area. documented in this encounterM[facility]05-[facility] Miscellaneous Notes* Telephone Encounter - [...] listed, DOS is tomorrow. documented in this encounterMccull[facility]05-10-2022 Instructions* Patient Instructions* Jenny Marquez APRN.CNP - 01/29/2022 11:36 AM EDT PATIENT PREOPERATIVE INSTRUCTIONS Nahid Estrada MD has scheduled you for your procedure at this surgery center: [facility]: [phone] -- [address] [place] [address]. Please read below carefully for your personalized [...] Procedures: - YOU MUST HAVE A RESPONSIBLE ENDOCRINOLOGY NURSE TAKE YOU HOME. A RETAIL ADVISOR OR NARCOTICS AND/OR VICE DETECTIVE CANNOT BE MADE A RESPONSIBLE ENDOCRINOLOGY NURSE. - We recommend that a responsible person [...] Advance Directive, please fax a copy to [phone] or email to for it to be [...] day. Jenny Marquez APRN.CNP documented in this encounterMccullough-[facility]05-10-2022 History and physical note * Jenny Marquez APRN.CNP - 01/29/2022 11:23 AM EDT Images from the original note were not included. HISTORY AND PHYSICAL EXAMINATION SERVICE DATE: 01/29/2022 SERVICE TIME: 11:23 AM PRIMARY CARE PHYSICIAN: Enoc Arboleda Jr, DO This is a virtual visit using NextFit video visit. It required patient-provider interaction for themedical decision making as documented below. REASON FOR VISIT: Mauro Hebert is a 51 year old male who is scheduled for Procedure(s) with comments: REPAIR TENDON EXTREMITY LOWER EXTENSOR TENDON (Left) - (Left open gluteus medius repair) Andrade and Nephkarthik 4.5 mm healicoil anchors, 4.5 mm push lock anchors rep. Areil Guzman , Laura elevator, Chandrakant Andrade pick-ups, Hip tray - deep retractors - (alfredo, kenyatta, finger) Dr. Valdez retractor, Abduction pillow, Aquacell, Sure close have avail - Mitek Super QuickQanchor Plus DS REF # [id number] (each anchor has two #2 orthocords each with two CP2 needles) rep. Shaquille Sagastume [phone] the [address] 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 Negative for: cerebral palsy, MARINE FIRER tumor, multiple sclerosis, peripheral neuropathy, seizures, TIA and strokes. Respiratory: Positive for: obstructive sleep apnea and CPAP/BiPAP compliant. Negative for: asthma, COPD, pneumonia within 6 weeks, tobacco use and URI < 2 weeks. Cardiovascular: Positive for: hyperlipidemia (on rx) and hypertension (on rx) Negative for: anticoagulation therapy, arrhythmia, atrial fibrillation, CAD, chest pain, CHF, congenital heart defect, DVT/PE, recent AK, murmur/valvular heart disease, open heart surgery and [...] by mouth twice daily. calcium carbonate/vitamin D2 ([id number] ORAL) Take 1 tablet by mouth twice [...] or any previous visit (from the past 13056 hour(s)). Assessment Type 2 diabetes mellitus, without [...] Airway History: No history of difficult airway [id number] Score: Age: <65 Sex: Male CHF history: [...] 11:23 AM PAGER/CONTACT #: documented in this encounterMccullough-[facility]05-09-2022 Miscellaneous Notes* Telephone Encounter - [...] Jaylene Paul, AT, ATC documented in this encounterMccullough-[facility]04-26-2022 Miscellaneous Notes* Telephone Encounter - AYANNA Acosta - 01/15/2022 4:41 PM EDT Spoke with patient's mom on the phone. Advised that we are shooting for January 30 at [facility] however we will not know until January 23. Advised that once we know for sure, then I will give her a phone call. All questions answered. Ariel Ag, MEd, AT, ATC * Telephone Encounter - Kenzie Sanders Adm. Asst. - 01/15/2022 2:44 PM EDT Patient looking to schedule surgery with Dr. Estrada, Call her at [phone]. Thank you. Kenzie Sanders Adm. Asst. documented in this encounterMccullough-[facility]04-22-2022 History of Present illness Narrative* [...] hospital setting. Dr. Estrada operates out of [facility] and does not have dedicated time. Discussed [...] 2022 TIME: 12:09 PM documented in this encounterMccullough-[facility]04-20-2022 History of Present illness Narrative* [...] Past Histories independently gathered by the clinical computer support specialist and the remaining scribed note accurately describes my personal service to the patient. Nahid Estrada MD documented in this encounterMccullough-[facility]03-15-2022 History of Present illness Narrative* [...] 04, 2021 2:16 PM [facility] Future Appointments Appointment Date:08/22/2022 08:15:00 AM Scheduled Provider:Hong Edmondson MD Location:[facility] [place] Appointment Type:Pain Management - Follow Up (FT) [facility] + Plan note Future Appointments Appointment Date:09/26/2022 12:30:00 PM Scheduled Provider:Hong Edmondson MD Location:[facility] [place] Appointment Type:Pain Management - Follow Up (FT) [facility] + Plan note Future Appointments Appointment Date:10/25/2022 01:00:00 PM Scheduled Provider:Peri Johnson PA-C Location:[facility] [place] [facility] Future Appointments Appointment Date:12/26/2022 10:15:00 AM Scheduled Provider:Hong Edmondson MD Location:[facility] [place] Appointment Type:Pain Management - Follow Up (FT) [facility] note* Diagnosis Pain in left hip- Primary Pain in joint, pelvic region and thigh documented in this encounter [facility]* Diagnosis Tear of gluteus medius tendon, subsequent encounter- Primary documented in this encounter [facility] note* Diagnosis Tear of left gluteus medius [...] tendon, subsequent encounter [facility]* Diagnosis Tear of left gluteus medius tendon, subsequent encounter- Primary [facility]* Diagnosis Tear of left gluteus medius tendon, subsequent encounter- Primary [facility]* Diagnosis Tear of left gluteus medius tendon, subsequent encounter- Primary [facility]* Diagnosis Tear of left gluteus medius tendon, subsequent encounter- Primary [facility]* Diagnosis Tear of left gluteus medius tendon, subsequent encounter- Primary [facility]* Diagnosis Pain in hip- Primary Pain in joint, pelvic region and thigh [facility]* Diagnosis Tear of left gluteus medius tendon, initial encounter [facility]* Diagnosis Pain in left hip Pain in joint, pelvic region and thigh [facility] N[facility] - Reported* Type Description Date Medical History HTN Medical History Hyperlipidemia Medical History fractured ribs after a fall Medical History TBI Medical History appendectomy Medical History left femur vanessa insertion and rem oval Surgical History vanessa left femur and right tibia and fibula Surgical History appendectomy Surgical History hernia Surgical History left hip bursectomy Hospitalization History see above [facility] [employer] Other Hospital course Narrative No data available for this section [facility] No data available for this section [facility] No data available for this section [facility] Diagnostic Procedure Only (Routine) - Pending Review Specialty Diagnoses / Procedures Referred By Vincent t Referred To Contact XR IMAGING Diagnoses Pain in left hip Procedures XR HIP GENERAL 3V PELV/AP/LAT LEFT RADEX HIP UNILATERAL WITH PELVIS 2-3 VIEWS Yosvany Bhatia PA-C [address] [place] [address] Xr Imaging Referral ID Status Reason Start Date Expiration Date Visits Requested Visits Authorized [id number] Pending Review Auto-Generat ed Referral 12/03/2021 01/02/2023 1 1 [facility] for referral (narrative)* - Pending Review Specialty Diagnoses / Procedures Referred By Contac t Referred To Contact Physical Therapy Diagnoses Tear of left gluteus medius tendon, subsequent encounter Procedures CONSULT TO PHYSICAL THERAPY Yosvany Bhatia PA-C [address] [place] [id number] Referral ID Status Reason Start Date Expiration Date V isits Requested Visits Authorized [id number] Pending Review 02/19/2022 05/20/2022 1 1 [facility] for referral (narrative)* Diagnostic Procedure Only (Routine) - Closed Specialty Diagnoses / Procedures Referred By Contac t Referred To Contact US IMAGING Diagnoses Tear of left gluteus medius tendon, initial encounter Procedures US HIP LT US COMPL JOINT R-T W/IMAGE DOCUMENTATION Nahid Estrada MD [address] [place] [address] [facility] [place] [address] Referral ID Status Reason Start Date Expiration Date V isits Requested Visits Authorized [id number] Closed Auto-Generate d Referral 12/04/2021 01/03/2023 1 1 [facility] for referral (narrative)* Diagnostic Procedure Only (Routine) - Closed Specialty Diagnoses / Procedures Referred By Contac t Referred To Contact XR IMAGING Diagnoses Pain in left hip Procedures XR HIP GENERAL 3V PELV/AP/LAT LEFT RADEX HIP UNILATERAL WITH PELVIS 2-3 VIEWS Yosvany Bhatia PA-C [address] [place] [address] [place] [address] Referral ID Status Reason Start Date Expiration Date V isits Requested Visits Authorized [id number] Closed Auto-Generate d Referral 12/03/2021 01/02/2023 1 1 [facility]* Diagnostic Procedure Only (Routine) - Closed Specialty Diagnoses / Procedures Referred By Contac t Referred To Contact US IMAGING Diagnoses Tear of left gluteus medius tendon, initial encounter Procedures US HIP LT US COMPL JOINT R-T W/IMAGE DOCUMENTATION Nahid Estrada MD [address] [place] [id number] Us Imaging [facility] Referral ID Status Reason Start Date Expiration Date V isits Requested Visits Authorized [id number] Closed Auto-Generate d Referral 12/04/2021 01/03/2023 1 1 [facility] Summary Purpose Family History No Family History Records FoundNo Family History Records FoundNo Family History Records FoundNo Family History Records FoundNo Family History Records FoundNo Family History Records FoundNo Family History Records FoundNo Family History Records Found Advance Directives No Advanced Directives Records FoundDocuments on File Type Date Recorded 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 Advance Directive(s) 01/25/2022 9:16 AM Documents on File Type Date Recorded 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 Advance Directive(s) 01/25/2022 9:16 AM Reason for Referral Specialty Diagnoses / Procedures Referred By Contact Referred To Contact [facility] Diagnoses Tear of left gluteus medius tendon, subsequent encounter Procedures CONSULT TO PHYSICAL THERAPY PHYSICAL THERAPY EVALUATION HIGH COMPLEX 45 MINS Yosvany Bhatia PA-C [address] [place] [address] [facility] [address] [place] [address] Referral ID Status Reason Start Date Expiration Date Visits Requested Visits Authorized [id number] Pending Review Auto-Generat ed Referral 03/21/2022 03/21/2023 1 1 Additional Source Comments (unrecognized sect ion and content) No Status Records FoundNo Status Records FoundNo Status Records FoundNo Status Records FoundNo Status Records FoundNo Status Records FoundNo Status Records FoundNo Status Records Found INFORMATION SOURCE (unrecogn ized section and content) DATE CREATED AUTHOR 09/02/2018 [facility] DATE CREATED AUTHOR AUTHOR'S ORGANIZ ATION 11/09/2021 [facility] DATE CREATED AUTHOR AUTHOR'S ORGANIZ ATION 02/08/2022 [facility] DATE CREATED AUTHOR AUTHOR'S ORGANIZ ATION 10/23/2022 [facility] DATE CREATED AUTHOR AUTHOR'S ORGANIZ ATION 05/17/2023 [facility] DATE CREATED AUTHOR AUTHOR'S ORGANIZ ATION 11/02/2023 [facility] DATE CREATED AUTHOR AUTHOR'S ORGANIZ ATION 02/21/2024 [facility] DATE CREATED AUTHOR AUTHOR'S ORGANIZ ATION 01/24/2025 [facility] Source Comments (unrecognize d section and content) In the event this informatio n is protected by the Federal Confidentiality of Alcohol and Drug Abuse Patient Records regulations: The Federal rules restrict any use of the information to criminally investigate or prosecute any alcohol or drug abuse patient.[facility] HospitalIn the event this information is protected by the Federal Confidentiality of Alcohol and Drug Abuse Patient Records regulations: The Federal rules restrict any use of the information to criminally investigate or prosecute any alcohol or drug abuse patient.[facility] HospitalIn the event this information is protected by the Federal Confidentiality of Alcohol and Drug Abuse Patient Records regulations: The Federal rules restrict any use of the information to criminally investigate or prosecute any alcohol or drug abuse patient.[facility] HospitalIn the event this information is protected by the Federal Confidentiality of Alcohol and Drug Abuse Patient Records regulations: The Federal rules restrict any use of the information to criminally investigate or prosecute any alcohol or drug abuse patient.[facility] HospitalIn the event this information is protected by the Federal Confidentiality of Alcohol and Drug Abuse Patient Records regulations: The Federal rules restrict any use of the information to criminally investigate or prosecute any alcohol or drug abuse patient.[facility] HospitalIn the event this information is protected by the Federal Confidentiality of Alcohol and Drug Abuse Patient Records regulations: The Federal rules restrict any use of the information to criminally investigate or prosecute any alcohol or drug abuse patient.[facility] HospitalIn the event this information is protected by the Federal Confidentiality of Alcohol and Drug Abuse Patient Records regulations: The Federal rules restrict any use of the information to criminally investigate or prosecute any alcohol or drug abuse patient.[facility] HospitalIn the event this information is protected by the Federal Confidentiality of Alcohol and Drug Abuse Patient Records regulations: The Federal rules restrict any use of the information to criminally investigate or prosecute any alcohol or drug abuse patient.[facility] HospitalIn the event this information is protected by the Federal Confidentiality of Alcohol and Drug Abuse Patient Records regulations: The Federal rules restrict any use of the information to criminally investigate or prosecute any alcohol or drug abuse patient.[facility] HospitalIn the event this information is protected by the Federal Confidentiality of Alcohol and Drug Abuse Patient Records regulations: The Federal rules restrict any use of the information to criminally investigate or prosecute any alcohol or drug abuse patient.[facility] HospitalIn the event this information is protected by the Federal Confidentiality of Alcohol and Drug Abuse Patient Records regulations: The Federal rules restrict any use of the information to criminally investigate or prosecute any alcohol or drug abuse patient.[facility] HospitalIn the event this information is protected by the Federal Confidentiality of Alcohol and Drug Abuse Patient Records regulations: The Federal rules restrict any use of the information to criminally investigate or prosecute any alcohol or drug abuse patient.[facility] HospitalIn the event this information is protected by the Federal Confidentiality of Alcohol and Drug Abuse Patient Records regulations: The Federal rules restrict any use of the information to criminally investigate or prosecute any alcohol or drug abuse patient.[facility] HospitalIn the event this information is protected by the Federal Confidentiality of Alcohol and Drug Abuse Patient Records regulations: The Federal rules restrict any use of the information to criminally investigate or prosecute any alcohol or drug abuse patient.[facility] HospitalIn the event this information is protected by the Federal Confidentiality of Alcohol and Drug Abuse Patient Records regulations: The Federal rules restrict any use of the information to criminally investigate or prosecute any alcohol or drug abuse patient.[facility] HospitalIn the event this information is protected by the Federal Confidentiality of Alcohol and Drug Abuse Patient Records regulations: The Federal rules restrict any use of the information to criminally investigate or prosecute any alcohol or drug abuse patient.[facility] HospitalIn the event this information is protected by the Federal Confidentiality of Alcohol and Drug Abuse Patient Records regulations: The Federal rules restrict any use of the information to criminally investigate or prosecute any alcohol or drug abuse patient.[facility] HospitalIn the event this information is protected by the Federal Confidentiality of Alcohol and Drug Abuse Patient Records regulations: The Federal rules restrict any use of the information to criminally investigate or prosecute any alcohol or drug abuse patient.[facility] HospitalIn the event this information is protected by the Federal Confidentiality of Alcohol and Drug Abuse Patient Records regulations: The Federal rules restrict any use of the information to criminally investigate or prosecute any alcohol or drug abuse patient.[facility] HospitalIn the event this information is protected by the Federal Confidentiality of Alcohol and Drug Abuse Patient Records regulations: The Federal rules restrict any use of the information to criminally investigate or prosecute any alcohol or drug abuse patient.[facility] HospitalIn the event this information is protected by the Federal Confidentiality of Alcohol and Drug Abuse Patient Records regulations: The Federal rules restrict any use of the information to criminally investigate or prosecute any alcohol or drug abuse patient.[facility] HospitalIn the event this information is protected by the Federal Confidentiality of Alcohol and Drug Abuse Patient Records regulations: The Federal rules restrict any use of the information to criminally investigate or prosecute any alcohol or drug abuse patient.[facility] HospitalIn the event this information is protected by the Federal Confidentiality of Alcohol and Drug Abuse Patient Records regulations: The Federal rules restrict any use of the information to criminally investigate or prosecute any alcohol or drug abuse patient.[facility] HospitalIn the event this information is protected by the Federal Confidentiality of Alcohol and Drug Abuse Patient Records regulations: The Federal rules restrict any use of the information to criminally investigate or prosecute any alcohol or drug abuse patient.[facility] HospitalIn the event this information is protected by the Federal Confidentiality of Alcohol and Drug Abuse Patient Records regulations: The Federal rules restrict any use of the information to criminally investigate or prosecute any alcohol or drug abuse patient.[facility] HospitalIn the event this information is protected by the Federal Confidentiality of Alcohol and Drug Abuse Patient Records regulations: The Federal rules restrict any use of the information to criminally investigate or prosecute any alcohol or drug abuse patient.[facility] HospitalIn the event this information is protected by the Federal Confidentiality of Alcohol and Drug Abuse Patient Records regulations: The Federal rules restrict any use of the information to criminally investigate or prosecute any alcohol or drug abuse patient.[facility] HospitalIn the event this information is protected by the Federal Confidentiality of Alcohol and Drug Abuse Patient Records regulations: The Federal rules restrict any use of the information to criminally investigate or prosecute any alcohol or drug abuse patient.[facility] HospitalIn the event this information is protected by the Federal Confidentiality of Alcohol and Drug Abuse Patient Records regulations: The Federal rules restrict any use of the information to criminally investigate or prosecute any alcohol or drug abuse patient.[facility] Care Teams (unrecognized sec tion and content) Treasury Management Sales Consultant Relationship Specialty Start Date End Date Hong Edmondson [address] [place] [address] Referring Pain Management 11/13/21 Treasury Management Sales Consultant Relationship Specialty Start Date End Date Hong Edmondson [address] [place] [address] Referring Pain Management 11/13/21 Treasury Management Sales Consultant Relationship Specialty Start Date End Date Hong Edmondson [address] [place] [address] Referring Pain Management 11/13/21 Treasury Management Sales Consultant Relationship Specialty Start Date End Date Hong Edmondson [address] [place] [address] Referring Pain Management 11/13/21 Treasury Management Sales Consultant Relationship Specialty Start Date End Date Enoc Arboleda Jr. [address] [facility] [address] [place] [address] PCP - General Internal Medicine 01/25/[address] [place] [address] Referring Pain Management 11/13/21 Treasury Management Sales Consultant Relationship Specialty Start Date End Date Enoc Arboleda Jr. [address] [facility] [address] [place] [address] PCP - General Internal Medicine 01/25/22 Hong Edmondson [address] [place] [address] Referring Pain Management 11/13/21 Treasury Management Sales Consultant Relationship Specialty Start Date End Date Enoc Arboleda Jr. [address] [place] [address] PCP - General Internal Medicine 01/25/22 Hong Edmondson [address] [place] [address] Referring Pain Management 11/13/21 Treasury Management Sales Consultant Relationship Specialty Start Date End Date Enoc Arboleda Jr. [address] [place] [address] PCP - General Internal Medicine 01/25/22 Hong Edmondson [address] [place] [address] Referring Pain Management 11/13/21 Treasury Management Sales Consultant Relationship Specialty Start Date End Date Enoc Arboleda Jr. [address] [place] [address] PCP - General Internal Medicine 01/25/22 Hong Edmondson [address] [place] [address] Referring Pain Management 11/13/21 Treasury Management Sales Consultant Relationship Specialty Start Date End Date Enoc Arboleda Jr. [address] [place] [address] PCP - General Internal Medicine 01/25/22 Hong Edmondson [address] [place] [address] Referring Pain Management 11/13/21 Treasury Management Sales Consultant Relationship Specialty Start Date End Date Enoc Arboleda Jr. [address] [place] [address] PCP - General Internal Medicine 01/25/22 Hong Edmondson M [address] [place] [address] Referring Pain Management 11/13/21 Treasury Management Sales Consultant Relationship Specialty Start Date End Date Enoc Arboleda Jr. [address] [place] [address] PCP - General Internal Medicine 01/25/22 Hong Edmondson M [address] [place] [address] Referring Pain Management 11/13/21 Treasury Management Sales Consultant Relationship Specialty Start Date End Date Enoc Arboleda Jr. [address] [place] [address] PCP - General Internal Medicine 01/25/22 Rasta Edmondsonry M [address] [place] [address] Referring Pain Management 11/13/21 Treasury Management Sales Consultant Relationship Specialty Start Date End Date Enoc Arboleda Jr. [address] [place] [address] PCP - General Internal Medicine 01/25/22 Hong Edmondson M [address] [place] [address] Referring Pain Management 11/13/21 Treasury Management Sales Consultant Relationship Specialty Start Date End Date Enoc Arboleda Jr. [address] [place] [address] PCP - General Internal Medicine 01/25/22 Hong Edmondson M [address] [place] [address] Referring Pain Management 11/13/21 Treasury Management Sales Consultant Relationship Specialty Start Date End Date Enoc Arboleda Jr. [address] [place] [address] PCP - General Internal Medicine 01/25/22 Hong Edmondson [address] [facility] [place] [address] Referring Pain Management 11/13/21 Treasury Management Sales Consultant Relationship Specialty Start Date End Date EveliaEnoc jett Jr. [address] [place] [address] PCP - General Internal Medicine 01/25/22 Hong Edmondson [address] [facility] [place] [address] Referring Pain Management 11/13/21 Treasury Management Sales Consultant Relationship Specialty Start Date End Date EveliaEnoc jett Jr. [address] [place] [address] PCP - General Internal Medicine 01/25/22 Hong Edmondson [address] [facility] [place] [address] Referring Pain Management 11/13/21 Treasury Management Sales Consultant Relationship Specialty Start Date End Date Enoc Arboleda Jr. [address] [place] [address] PCP - General Internal Medicine 01/25/22 Hong Edmondson [address] [place] [address] Referring Pain Management 11/13/21 Treasury Management Sales Consultant Relationship Specialty Start Date End Date Hong Edmondson [address] [facility] [place] [address] Referring Pain Management 11/13/21 Treasury Management Sales Consultant Relationship Specialty Start Date End Date Hong Edmondson [address] [place] [address] Referring Pain Management 11/13/21 Reason for Visit [...] 2-3 VIEWS Yosvany Bhatia, ZENAIDA [address] [place] [id number] [place] [address] Referral ID Status Reason Start Date Expiration Date V isits Requested Visits Authorized [id number] Closed Auto-Generate d Referral 12/03/2021 01/02/2023 1 [...] BE BASED ON THE PRIMARY CLINICAL RECORDS. [employer] [facility]. provides no warranty or guarantee of the accuracy or completeness of information in this document.
[2025-06-06 10:42] VITALS: BP 120/76; PULSE 70; TEMP 36.6; O2SAT 96
[2025-06-06 11:12] VITALS: BP 101/56; PULSE 76; O2SAT 93
[2025-06-06 11:13] VITALS: BP 107/63; PULSE 71; O2SAT 96
[2025-06-06] MEDS: LIDOCAINE HCL 2% PF 100 MG/5 ML VIAL 2 ML INJ (11:15)
[2025-06-06] MEDS: 0.9 % SODIUM CHLORIDE 10 ML SYRINGE - SALINE FLUSH 3 ML INJ (11:15)
[2025-06-06] MEDS: [UNRECOGNIZED DRUG - OTHER] IM (11:15)
--- NOTE | 2025-06-06 11:17 | W.PM.PROCNOT ---
Date of procedure: 06/06/25 Pre-op diagnosis: Diagnosis: Dystonia, left gluteus Procedure: Procedure: Dysport infiltration left gluteus medius under fluoroscopic guidance Medications: Dysport 300 units PROCEDURE:? After informed consent was obtained from the patient, placed in the prone position.? Skin overlying the area was prepped with Betadine.? A 25 gauge, 1 ?? needle used for the skin wheal over the area of the left gluteus medius, at a point just distal to the greater trochanter.? A 25g spinal needle was inserted over the area of the left gluteus medius after having positive capture of the left gluteus medius with nerve stimulation.? We injected Omnipaque dye 1 mL to confirm needle tip placement.? We injected 300 units of Dysport in the area.? No indication of intravascular or intraneural needle tip placement or injection was noted.? Post procedure, needle was removed and transferred to recovery in stable condition, to be discharged home after meeting criteria. Anesthesia: Local Surgeon: Refugio Javier Pathology: none sent Condition: stable Disposition: no change
== END 2025-06-06 11:19 | disposition home or self-care (01) ==
PROVIDERS: PCP Internal Medicine; Visit Provider Anesthesiology
DX: G24.8 Other dystonia (principal); E11.8 Type 2 diabetes mellitus with unspecified complications; Z79.84 Long term (current) use of oral hypoglycemic drugs; Z79.85 Long-term (current) use of injectable non-insulin antidiabetic drugs
CPT/HCPCS: 36415; 64642; 82948; J0586

== ENCOUNTER 2025-06-23 09:59 | Outpatient (OUT) | payer MEDICARE, SELFPAY ==
--- OUTSIDE RECORDS SUMMARY | 2025-06-06 | XMS_ITS ---
Author Name Auto Generated Organization [facility] Care Team Providers Care Sail Finisher Machine Name Role Phone Enoc Nicolas DO Primary Care Unavail gilberto Javier MD, Refugio Graham Attending Unavailable Concepcion WHYTE, Refugio Graham Attending Unavailable Enoc Nicolas DO Primary [facility] Unavail able Concepcion WHYTE, Refugio Graham Attending Unavailable Enoc Nicolas DO Primary Care Unavail able PROBLEMS No Problem Records Found PROCEDURES No Procedure Records Found RESULTS No Result Records Found ALLERGIES DATE TYPE / CODE NAME / CODE REACTION SEVERITY SOURCE DRUG/[id number](SNOME D CT) atropine unknown [facility] DRUG/[id number](SNOME D CT) scopolamine unknown [facility] DRUG/[id number](SNOME D CT) hyoscyamine unknown [facility] DRUG/[id number](SNOME D CT) PHENobarbital unknown [facility] ENCOUNTERS ADMIT/DISCHARGE ACCOUNT NUMBER ADMITTING ENCOUNTER CLASS LOCATION SOURCE 06/06/2025/ 5 [id number] 01/17/2025/ 5 [id number] [facility] 12/27/2024/ 5 [id number] [facility] PAYERS ENCOUNTER GUARANTOR PAYER SUBSCRIBER SOURCE 06/06/2025 Mauro Salinas RettigDOB: [place], [place] [address]Kch: () Primary Insurance:[employer]S [employer] [facility] Number: Effective Date:1753-06-30Bro n Name:MEDP O Michael [id number] [address]HV: Mauro Salinas RettigDOB: [id number] [place] [email or web address] netTel: (WP) [facility] 01/17/2025 Mauro Salinas RettigDOB: [facility] [place] [address]Yyu: (HP) Primary Insurance:AetnaPol icy Number: Effective Date:0528-44-68Htg n Name:[id number] [id number]: Mauro Salinas RettigDOB: [id number] [place] [email or web address] netTel: (WP) [facility] 12/27/2024 Mauro Salinas RettigDOB: [address] [place], [place] [address]Cvd: (HP) Primary Insurance:AetnaPol icy Number: Effective Date:4627-02-38Apw n Name:COMP O Michael [id number] Dominguez [phone]: Mauro Salinas RettigDOB: [id number] [place] [email or web address]: (WP) [facility]
--- NOTE | 2025-06-23 10:29 | PM.CN ---
Consult Note: HPI Data of Consult Patient: known to practice within the last 3 years Consult date: 06/23/25 Requesting Physician: Rowan Montenegro NP Primary Care Provider: AYUSH ARBOLEDA DO Consult Narrative Reason for consult: f/u Narrative: Mauro Hebert a pleasant 54 year old male presents for evaluation and management of chronic left posterior and lateral thigh pain. Pain today 8/10, increases with activity such as standing, walking and performing transitioning maneuvers.?notes mild improvement with lidocaine patches and TENS. recently underwent dysport to left gluteus medius with signifciant relief per pt and mom. Pt notes increased pain today due to overactivity and prolonged car rides. cc:: CC: Rowan Montenegro NP [facility] Medical History Low back pain ?M54.50 - Low back pain, unspecified (ICD-10) Diabetes ?E11.9 - Type 2 diabetes mellitus without complications (ICD-10) Tear of left gluteus medius tendon ?S76.012A - Strain of muscle, fascia and tendon of left hip, initial encounter (ICD-10) Rheumatoid arthritis ?M06.9 - Rheumatoid arthritis, unspecified (ICD-10) Sleep apnea ?G47.30 - Sleep apnea, unspecified (ICD-10) High cholesterol ?E78.00 - Pure hypercholesterolemia, unspecified (ICD-10) Surgical History S/P tendon repair ?Z98.890 - Other specified postprocedural states (ICD-10) S/P ORIF (open reduction internal fixation) fracture ?Z98.890 - Other specified postprocedural states (ICD-10) ?Z87.81 - Personal history of (healed) traumatic fracture (ICD-10) Meds Home Medications and Allergies Home Medications ?Medication ?Instructions ?Recorded ?Confirmed ?Type CBD BID 04/01/23 History atorvastatin 40 mg tablet 40 mg PO QPM 04/01/23 06/06/25 History calcium 600 mg capsule mg PO BID 04/01/23 History cariprazine 1.5 mg capsule 1.5 mg PO DAILY 04/01/23 06/06/25 History (Vraylar) dextromethorphan 20 mg-quinidine 1 cap PO Q12H 04/01/23 06/06/25 History 10 mg capsule (Nuedexta) dulaglutide 3 mg/0.5 mL 3 mg subcut QWEEK 04/01/23 06/06/25 History subcutaneous pen injector (Trulicity) empagliflozin 25 mg tablet 25 mg PO QAM 04/01/23 06/06/25 History (Jardiance) gabapentin enacarbil 600 mg 600 mg PO QPM 04/01/23 06/06/25 History tablet,extended release (Horizant ER) memantine 10 mg tablet (Namenda) 28 mg PO QAM 04/01/23 06/06/25 History metformin 1,000 mg tablet 1,000 mg PO BID 04/01/23 06/06/25 History naltrexone 50 mg tablet 3 mg PO BID 04/01/23 06/06/25 History risperidone 0.5 mg tablet 0.5 mg PO DAILY 04/01/23 06/06/25 History (Risperdal) venlafaxine 75 mg capsule,extended 75 mg PO DAILY 04/01/23 06/06/25 History release 24 hr modafinil 100 mg tablet (Provigil) 100 mg PO DAILY 08/20/23 06/06/25 History acetaminophen 500 mg tablet 500 mg PO Q6H PRN pain 12/28/24 06/06/25 History (Acetaminophen Extra Strength) aspirin 81 mg capsule 81 mg PO DAILY 12/28/24 06/06/25 History baclofen 10 mg tablet mg 12/28/24 History cetirizine 10 mg disintegrating 10 mg PO BID PRN allergy symptoms 12/28/24 06/06/25 History tablet cholecalciferol (vitamin D3) 125 5,000 unit PO DAILY 12/28/24 06/06/25 History mcg (5,000 unit) capsule diphenhydramine HCl 25 mg capsule 25 mg PO Q8H PRN itching 12/28/24 06/06/25 History (Benadryl) famotidine 20 mg tablet 20 mg PO DAILY PRN indigestion 12/28/24 06/06/25 History irbesartan 75 mg tablet mg 12/28/24 History montelukast 10 mg tablet mg 12/28/24 History Allergies Allergy/AdvReac Type Severity Reaction Status Date / Time atropine (From ) Allergy Unknown Unknown Verified 06/06/25 10:43 hydrocodone (From Vicodin) Allergy Unknown Unknown Verified 06/06/25 10:43 hyoscyamine (From ) Allergy Unknown Unknown Verified 06/06/25 10:43 phenobarbital (From ) Allergy Unknown Unknown Verified 06/06/25 10:43 scopolamine (From ) Allergy Unknown Unknown Verified 06/06/25 10:43 Exam Constitutional Vital Signs, click to edit/add: BP 164/107, pt denies chest pain/SOB, nausea, vomiting. does have mild headache without vision changes Documenting provider has reviewed patient's vital signs: yes Common normals: no apparent distress, oriented x3, healthy appearing, alert and well nourished General appearance: cooperative HENMT Common normals: normocephalic, hearing grossly normal bilaterally and moist oral mucous membranes Head and scalp: normocephalic Eye Common normals: PERRL Pupil: PERRL Neck & C-Spine Common normals: full ROM General: normal visual inspection Chest Common normals: inspection of chest normal Respiratory Common normals: normal respiratory effort, no retractions and no use of accessory muscles Back & Pelvis Lumbar spine/lower back: pain with ROM and lumbar spinal tenderness Extremity Other: dystonic changes of his left gluteus medius Neuro Common normals: oriented x3 Sensorium/orientation: alert Motor exam: strength 5/5 throughout and no movement abnormalities noted Psych Common normals: mental status grossly normal, thought process normal, cooperative, affect normal, speech normal and activity/motor behavior normal Speech: normal speech Thought process: normal thought process Results Additional Findings Additional findings: If on a controlled substance or opioids, I have checked an [place] report on this patient and there are no aberrancies noted in the prescribing history.??If on a controlled substance or opioid a drug screen was completed and reviewed within the last year, and if there has not been a drug screen completed we ordered one today to monitor higher risk, state monitored pain medication use. As part of providing excellent, safe, comprehensive care, the following was completed at our patient's visit: 1. A medication reconciliation and review to ensure accurate knowledge of current/active medications, including asking our patients to inform us about any [id number] medications or herbal remedies/nutritional supplements/alternative remedies. 2. A review to specifically ensure our patients have had annual screening for screening for depression, screening for tobacco use, and screening for unhealthy alcohol use. For concerning screenings had a discussion with the patient, provided patient education, and recommended follow-up with primary care provider when appropriate. If patient noted with a risk of falling, they received education on strength, gait, and balance training to prevent future risk of falling. Portions of this note may have been carried over from the previous visit and updated as appropriate. Please note this office utilizes paper charting in addition to the electronic medical record. A list of current medications, vitals, and PMH is available there as the clinical staff outside of myself do not have access to [email or web address] charting during the clinic day operations. As part of providing quality comprehensive care the current medications, vitals, and PMH were reviewed in the paper chart. Assessment and Plan Assessment and Plan (1) Dystonia: (2) Hypertension: Assessment and Plan: BP recheck 155/102 in RUE and 143/94 in LUE advised to monitor at home and call PCP if HTN remains uncontrolled. if pt develops chest pain, shortness of breath, nausea/vomiting please go to ER for evaluation Plan continue topical lidocaine patches, voltaren gel, icy hot PRN encouraged to restart TENS f/u with PCP to evaluate HTN f/u 3 months, sooner if needed
== END 2025-06-23 10:00 | disposition home or self-care (01) ==
LOC: PM 09:59
PROVIDERS: PCP Internal Medicine; Visit Provider Nurse Practitioner
DX: G24.9 Dystonia, unspecified (principal); I10 Essential (primary) hypertension
CPT/HCPCS: G0463

== ENCOUNTER 2025-09-05 14:20 | Outpatient (OUT) | payer MEDICARE, SELFPAY ==
--- NOTE | 2025-09-05 14:57 | PM.CN ---
Consult Note: HPI Data of Consult Patient: known to practice within the last 3 years Consult date: 09/05/25 Requesting Physician: Rowan Montenegro NP Primary Care Provider: AYUSH ARBOLEDA DO Consult Narrative Reason for consult: left hip pain Narrative: 54yom who presents for assessment. notes increasing pain in his left hip region. previously has had dysport injections into his left gluteus medius, which typically provide >50% for >3 months at a time. uses tylenol, gabapentin. cc:: CC: Rowan Montenegro NP Review of Systems ROS Status of ROS 10 or more systems reviewed and unremarkable except as noted in history and below PFSH PFS Medical History Low back pain ?M54.50 - Low back pain, unspecified (ICD-10) Diabetes ?E11.9 - Type 2 diabetes mellitus without complications (ICD-10) Tear of left gluteus medius tendon ?S76.012A - Strain of muscle, fascia and tendon of left hip, initial encounter (ICD-10) Rheumatoid arthritis ?M06.9 - Rheumatoid arthritis, unspecified (ICD-10) Sleep apnea ?G47.30 - Sleep apnea, unspecified (ICD-10) High cholesterol ?E78.00 - Pure hypercholesterolemia, unspecified (ICD-10) Surgical History S/P tendon repair ?Z98.890 - Other specified postprocedural states (ICD-10) S/P ORIF (open reduction internal fixation) fracture ?Z98.890 - Other specified postprocedural states (ICD-10) ?Z87.81 - Personal history of (healed) traumatic fracture (ICD-10) Meds Home Medications and Allergies Home Medications ?Medication ?Instructions ?Recorded ?Confirmed ?Type CBD BID 04/01/23 History atorvastatin 40 mg tablet 40 mg PO QPM 04/01/23 06/06/25 History calcium 600 mg capsule mg PO BID 04/01/23 History cariprazine 1.5 mg capsule 1.5 mg PO DAILY 04/01/23 06/06/25 History (Vraylar) dextromethorphan 20 mg-quinidine 1 cap PO Q12H 04/01/23 06/06/25 History 10 mg capsule (Nuedexta) dulaglutide 3 mg/0.5 mL 3 mg subcut QWEEK 04/01/23 06/06/25 History subcutaneous pen injector (Trulicity) empagliflozin 25 mg tablet 25 mg PO QAM 04/01/23 06/06/25 History (Jardiance) gabapentin enacarbil 600 mg 600 mg PO QPM 04/01/23 06/06/25 History tablet,extended release (Horizant ER) memantine 10 mg tablet (Namenda) 28 mg PO QAM 04/01/23 06/06/25 History metformin 1,000 mg tablet 1,000 mg PO BID 04/01/23 06/06/25 History naltrexone 50 mg tablet 3 mg PO BID 04/01/23 06/06/25 History risperidone 0.5 mg tablet 0.5 mg PO DAILY 04/01/23 06/06/25 History (Risperdal) venlafaxine 75 mg capsule,extended 75 mg PO DAILY 04/01/23 06/06/25 History release 24 hr modafinil 100 mg tablet (Provigil) 100 mg PO DAILY 08/20/23 06/06/25 History acetaminophen 500 mg tablet 500 mg PO Q6H PRN pain 12/28/24 06/06/25 History (Acetaminophen Extra Strength) aspirin 81 mg capsule 81 mg PO DAILY 12/28/24 06/06/25 History baclofen 10 mg tablet mg 12/28/24 History cetirizine 10 mg disintegrating 10 mg PO BID PRN allergy symptoms 12/28/24 06/06/25 History tablet cholecalciferol (vitamin D3) 125 5,000 unit PO DAILY 12/28/24 06/06/25 History mcg (5,000 unit) capsule diphenhydramine HCl 25 mg capsule 25 mg PO Q8H PRN itching 12/28/24 06/06/25 History (Benadryl) famotidine 20 mg tablet 20 mg PO DAILY PRN indigestion 12/28/24 06/06/25 History irbesartan 75 mg tablet mg 12/28/24 History montelukast 10 mg tablet mg 12/28/24 History Allergies Allergy/AdvReac Type Severity Reaction Status Date / Time atropine (From ) Allergy Unknown Unknown Verified 06/06/25 10:43 hydrocodone (From Vicodin) Allergy Unknown Unknown Verified 06/06/25 10:43 hyoscyamine (From ) Allergy Unknown Unknown Verified 06/06/25 10:43 phenobarbital (From ) Allergy Unknown Unknown Verified 06/06/25 10:43 scopolamine (From ) Allergy Unknown Unknown Verified 06/06/25 10:43 Exam Narrative Exam Narrative: Psych-alert and oriented x 3.? Attentive and appropriate, constitutionally normal, displays normal mood and affect per situation.? There are no obvious deficits in memory, reasoning, or intellect.? Skin-no obvious rashes, bruising, erythema noted to the patient's area of pain. Extremities- extremities are warm with minimal edema and palpable pulses. Hip-tenderness to palpation is noted over the left hip joint.? Pain is elicited with internal and external rotation of the hip.? Hip provocative maneuvers are positive and consistent with the patient's normal pain.? Coordination remains intact.? Gait remains antalgic. Assessment and Plan Assessment and Plan (1) Greater trochanteric bursitis of left hip: (2) Dystonia: (3) Tear of left gluteus medius tendon: Qualifiers: Encounter type: sequela Qualified Code(s): S76.012S - Strain of muscle, fascia and tendon of left hip, sequela Plan 54yom who presents for assessment. failed conservative measures. given worsening of pain and previous relief, prudent to repeat left gluteus medius injection under fluoroscopic guidance with dysport. he is in agreement. meds reviewed, no changes. follow up after procedure.
== END 2025-09-05 14:21 | disposition home or self-care (01) ==
LOC: PM 14:20
PROVIDERS: PCP Internal Medicine; Visit Provider Nurse Practitioner
DX: M70.62 Trochanteric bursitis, left hip (principal); G24.9 Dystonia, unspecified; S76.012S Strain of muscle, fascia and tendon of left hip, sequela
CPT/HCPCS: G0463